=== PATIENT | female | born 1955 | race Caucasian/White ===

== ENCOUNTER 2022-10-03 12:02 | Outpatient (CLI) | payer MEDICARE, BC, SELFPAY | END 2022-10-03 12:03 | disposition home or self-care (01) | PROVIDERS: PCP Family Medicine; Visit Provider Family Medicine | DX: Z00.00 Encounter for general adult medical examination without abnormal findings (principal); E03.9 Hypothyroidism, unspecified; R53.83 Other fatigue; K50.90 Crohn's disease, unspecified, without complications; N28.89 Other specified disorders of kidney and ureter; M45.9 Ankylosing spondylitis of unspecified sites in spine | CPT/HCPCS: 80053; 80061; 84443 ==

== ENCOUNTER 2022-10-11 12:27 | Outpatient (CLI) | payer MEDICARE, BC, SELFPAY ==
--- NOTE | 2022-10-11 13:00 | CRLHL7_ITS ---
For Patients: As a result of the Century Cures Act, medical imaging exams and procedure reports are released immediately into your electronic medical record. You may view this report before your referring provider. If you have questions, please contact your health care provider. INDICATION: Renal mass, non cystic seen on MRI L-spine TECHNIQUE: CT abdomen and pelvis urogram without and with 84 cc Isovue 370 intravenous contrast. Contrast images were obtained in the nephrographic and delayed phases. COMPARISON: None available FINDINGS: KIDNEYS: The unenhanced images demonstrate oblong stone in the lower pole of the left kidney measuring 9.1 millimeters. No ureteral stones. No right renal stones. The kidneys are normal in caliber and demonstrate normal uptake and excretion of IV contrast. Nonenhancing hyperdense cyst anterior right kidney measuring 9.2 millimeters. 8.1 millimeters simple cyst left kidney posteriorly lower pole. The renal collecting systems and ureters are symmetrical, normal in caliber, and without evidence of mass or filling defect. URINARY BLADDER: The urinary bladder is normal in caliber and without evidence of mass, wall thickening, or inflammation. OTHER: 9.4 millimeter simple cyst within the left hepatic lobe. Spleen normal. Normal adrenal glands. Atherosclerotic changes. No aneurysm. Gallbladder normal. Normal pancreas. A small sliding hiatal hernia is present. No adenopathy. No pelvic mass. Postop changes of colectomy with right lower quadrant ileostomy. No abscess or free fluid. Degenerative facet arthropathy lower lumbar spine with slight anterolisthesis of L4 on L5. No vertebral body compression fracture. 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 IMPRESSION: 1. Benign proteinaceous or hemorrhagic cyst anterior aspect of the right kidney measuring 9.2 millimeters. 2. Simple nonenhancing cyst within the posterior aspect of the left kidney lower pole 8.1 millimeters. 3. No suspicious renal masses or hydronephrosis. There is an incidental nonobstructing stone within the lower pole of the left kidney measuring 9 millimeters. Please note that all CT scans at this facility use dose modulation, iterative reconstruction, and/or weight-based dosing when appropriate to reduce radiation dose to as low as reasonably achievable. Dictated by Nikhil Stapleton MD @ 10/12/2022 10:28:54 AM (Electronically Signed)
== END 2022-10-11 12:28 | disposition home or self-care (01) ==
PROVIDERS: PCP Family Medicine; Visit Provider Family Medicine
DX: N28.89 Other specified disorders of kidney and ureter (principal); N28.1 Cyst of kidney, acquired; N20.0 Calculus of kidney
CPT/HCPCS: 74178; Q9967

== ENCOUNTER 2022-10-28 23:58 | Emergency (ER) | payer MEDICARE, BC, SELFPAY ==
[2022-10-29 00:08] VITALS: BP 184/101; PULSE 70; RESP 16; TEMP 36.7; O2SAT 98; BMI 27.4
--- NOTE | 2022-10-29 00:41 | ED.GENADULT ---
HPI - General Adult General Chief complaint: Unspecified Complaint, Adult Stated complaint: Unspecific Complaint Time Seen by Provider: 10/29/22 00:01 Source: patient and family Mode of arrival: ambulatory Limitations: no limitations History of Present Illness HPI narrative: [age] year female presents the emergency department with nonspecific symptoms. She reports that she underwent a procedure to puncture a synovial cyst in her back this afternoon. She was NPO for 4 hours prior to that procedure. She says that after she got home she started feeling just generally unwell. She is uncertain if they injected a steroid or any other medication. This was done through [facility], therefore no records are available. She was given sedation though she does not recall what she was given and does not bring any discharge paperwork with her today. She drink after the procedure without any complication. She reports that after she got home she began to feel more nauseated. She vomited x1. There are no neurological changes, chest pain, no breathing difficulty, no fevers. She worries that she could be getting dehydrated though she is not having increased output from her ileostomy, she has been voiding without complication. There was no bloody stools, no bloody vomit. She has not tried any medications to help with her symptoms. She is most concerned that she could be dehydrated in is requesting IV fluids. She denies dysuria but is concerned she could possibly have a bladder infection. There is no hematuria or frequency either. Past medical history notable for Crohn's disease, ileostomy in place. She has a history of hypertension, hypothyroidism. Medications are reviewed, noted as accurate from her annual wellness visit. ROS is notable for the nonspecific symptoms as above, otherwise denies times 12 systems. Related Data Home Medications Medication Instructions Recorded Confirmed celecoxib 200 mg capsule 200 mg PO DAILY 10/03/22 10/12/22 chlorhexidine gluconate 0.12 % PO 10/03/22 10/12/22 mouthwash clindamycin phosphate 1 % topical topical 10/03/22 10/12/22 solution estradiol 10 mcg vaginal tablet mcg vaginal 10/03/22 10/12/22 (Vagifem) levothyroxine 75 mcg tablet 75 mcg PO .qod 10/03/22 10/12/22 (Synthroid) levothyroxine 88 mcg tablet 88 mcg PO .qod 10/03/22 10/12/22 (Synthroid) triamcinolone acetonide 0.1 % 1 applic topical BID-TID 10/03/22 10/12/22 topical cream valsartan 160 mg tablet 160 mg PO DAILY 10/03/22 10/12/22 Previous Rx's Medication Instructions Recorded fluconazole 150 mg tablet 150 mg PO Q3D 2 doses #2 tabs 10/14/22 (Diflucan) tizanidine 2 mg tablet 2 mg PO QPM #30 tabs 10/27/22 Allergies Allergy/AdvReac Type Severity Reaction Status Date / Time cortisone Allergy Mild Hypertensio Verified 10/11/22 13:51 n infliximab [From Remicade] Allergy Mild Rash Verified 10/11/22 13:51 Sulfa (Sulfonamide Allergy Mild Hives Verified 10/11/22 13:51 Antibiotics) acetaminophen [From Percocet] AdvReac Mild Vomiting Verified 10/11/22 13:51 bacitracin AdvReac Mild Rash Verified 10/11/22 13:51 [From Neosporin ([id number])] ciprofloxacin [From Cipro] AdvReac Mild Dry Eye Verified 10/11/22 13:51 neomycin AdvReac Mild Rash Verified 10/11/22 13:51 [From Neosporin ([id number])] oxycodone [From Percocet] AdvReac Mild Vomiting Verified 10/11/22 13:51 polymyxin B AdvReac Mild Rash Verified 10/11/22 13:51 [From Neosporin ([id number])] vitamin e Allergy Mild Rash Uncoded 10/11/22 13:51 adhesives AdvReac Mild Rash Uncoded 10/11/22 13:51 epinepherine AdvReac Mild heart Uncoded 10/11/22 13:51 racing shrimp AdvReac Mild Abdominal Uncoded 10/11/22 13:51 Pain PFSH PFSH Medical History Intramural leiomyoma of uterus ?D25.1 - Intramural leiomyoma of uterus (ICD-10) Depression ?F32.A - Depression, unspecified (ICD-10) Acute kidney injury ?N17.9 - Acute kidney failure, unspecified (ICD-10) Hx of basal cell carcinoma ?Z85.828 - Personal history of other malignant neoplasm of skin (ICD-10) Anemia ?D64.9 - Anemia, unspecified (ICD-10) Acute or subacute iridocyclitis ?H20.00 - Unspecified acute and subacute iridocyclitis (ICD-10) Surgical History Status post cervical spinal fusion ?Z98.1 - Arthrodesis status (ICD-10) Hx of tonsillectomy ?Z90.89 - Acquired absence of other organs (ICD-10) H/O sinus surgery ?Z98.890 - Other specified postprocedural states (ICD-10) S/P laparoscopic colectomy ?Z90.49 - Acquired absence of other specified parts of digestive tract (ICD-10) Family History Paternal Grandfather Neurologic disorder Colorectal cancer Pancreatic cancer Paternal Grandmother Genitourinary disorder Cancer Breast cancer Mother Cerebrovascular disease Osteoporosis Sister Gastrointestinal disease Uncle Coronary artery disease Prostate cancer Maternal Grandmother Cerebrovascular disease Stroke Aunt Pancreatic cancer Hodgkins disease Social History Smoking Status: Never smoker Do you use any of these nicotine containing products: None How often do you have a drink containing alcohol: never AUDIT-C Alcohol total score: 0 Non-prescribed substance use: denies use Little interest or pleasure in doing things: not at all Feeling down, depressed, or hopeless: not at all Exam Const: Vital Signs, click to edit/add: Vital Signs - 24 hr 10/29/22 00:08 10/29/22 01:22 Temperature 98.1 F 98.1 F Pulse Rate [Left P ulse Oximeter] 70 72 Respiratory Rate 16 16 Blood Pressure [Ri ght Upper Arm] 184/101 H 155/89 H Pulse Oximetry 98 98 Oxygen Delivery Me thod Room Air Room Air Documenting provider has reviewed patient's vital signs: yes Common normals: no apparent distress Other: Good historian. Appears well nourished and well hydrated. HENMT: Common normals: normocephalic and head/scalp atraumatic Head and scalp: normocephalic and atraumatic Mouth: oral and palatal mucosa normal Throat: posterior oropharynx normal Eye: Common normals: conjunctivae normal General eye: normal appearance of both eyes Conjunctiva: conjunctiva(e) normal Neck & C-Spine: Common normals: no lymphadenopathy Resp: Common normals: normal respiratory effort, no use of accessory muscles and clear to auscultation bilaterally Effort & inspection: able to speak in complete sentences Auscultation: clear to auscultation bilaterally Cardio: Common normals: regular rate, regular rhythm, S1 normal heart sound, S2 normal heart sound and no murmurs Rate: regular rate Rhythm: regular rhythm Heart sounds: S1 normal and S2 normal GI: Common normals: Normal to inspection, nondistended, normoactive bowel sounds present Other: Ileostomy in place. No obvious tenderness or mass. : Common normals: no CVA tenderness Bladder/kidney exam: no CVA tenderness Back & Pelvis: Common normals: no CVA tenderness Extremity: Common normals: normal to inspection, normal capillary refill and no pedal edema Neuro: Speech: speech normal Gait (neuro): normal gait Motor exam: strength 5/5 throughout and no movement abnormalities noted Psych: Attitude: engaged Thought content: normal thought content Insight: insight good Judgement: judgment good Skin: Common normals: no rashes or lesions noted General skin exam: no rashes or lesions noted Course Course Hospital Course: Nonspecific symptoms, suspect side effects from medications, dental anesthesia or potentially steroids given with injection. As stated records are not available. I recommended some basic labs, simple cardiac workup in urinalysis. She will receive Zofran and IV fluids while we await the results. Low suspicion for significant pathology. Reevaluation(s) Time of Reevaluation #1: 01:24 Reevaluation #1: Patient reports that she is feeling better after fluids. Perfectly normal labs reviewed with her. I suspect that she was having some mild side effects from the medications given with the procedure today and or an early gastroenteritis. Findings and plan of care discussed alarm symptoms reviewed. Patient will be discharged home with [facility] meds prescription for Zofran Vital Signs Vital signs: Initial Vital Signs Temperature 98.1 F 10/29/22 00:08 Temperature Source Temporal Artery Scan 10/29/22 00:08 Pulse Rate 70 10/29/22 00:08 Respiratory Rate 16 10/29/22 00:08 Blood Pressure 184/101 H 10/29/22 00:08 Blood Pressure Mean 128 H 10/29/22 00:08 Blood Pressure Position Sitting 10/29/22 00:08 Pulse Oximetry 98 10/29/22 00:08 Oxygen Delivery Method Room Air 10/29/22 00:08 Vital Signs Temperature 98.1 F 10/29/22 00:08 Pulse Rate 70 10/29/22 00:08 Respiratory Rate 16 10/29/22 00:08 Blood Pressure 184/101 H 10/29/22 00:08 Pulse Oximetry 98 10/29/22 00:08 Oxygen Delivery Method Room Air 10/29/22 00:08 Temperature 98.1 F 10/29/22 01:22 Pulse Rate 72 10/29/22 01:22 Respiratory Rate 16 10/29/22 01:22 Blood Pressure 155/89 H 10/29/22 01:22 Pulse Oximetry 98 10/29/22 01:22 Oxygen Delivery Method Room Air 10/29/22 01:22 Medical Decision Making Lab Data Lab results reviewed: Yes I reviewed the patient's lab results Lab results narrative: All normal Labs: Lab Results 10/29/22 10/29/22 10/29/22 Range/Units 00:07 00:38 00:45 WBC 6.41 (4.50-11.00) K/uL RBC 3.99 L (4.00-5.20) m/uL Hgb 11.7 L (12.0-16.0) gm/dL Hct 35.4 (33.0-51.0) % MCV 89 (80-100) fL MCH 29 (26-34) pg MCHC 33 (32-36) gm/dL RDW Coeff of Pierre 12.4 (11.5-15.5) % Plt Count 202 (140-440) K/uL Neut % (Auto) 77.2 H (42.0-72.0) % Lymph % (Auto) 14.5 L (20-44) % [place] % (Auto) 4.7 (0.0-11.0) % Eos % (Auto) 2.2 (0.0-7.0) % Baso % (Auto) 0.5 (0.0-3.0) % Neut # (Auto) 4.90 (1.7-7.0) K/uL Lymph # (Auto) 0.90 (0.90-2.90) K/uL [place] # (Auto) 0.30 (0.00-0.90) K/UL Eos # (Auto) 0.14 (0.00-0.50) K/uL Baso # (Auto) 0.03 (0.00-0.30) K/uL Abs Immat Gran (auto) 0.06 (0.00-0.30) K/uL Imm/Tot Granulo (auto) 0.9 % Sodium 135 (135-149) mmol/L Potassium 3.9 (3.6-5.1) mmol/L Chloride 105 (96-114) mmol/L Carbon Dioxide 23 (20-32) mmol/L BUN 23 (7-30) mg/dL Creatinine 1.3 (0.5-1.5) mg/dL Estimated Creat Clear 38.77 Estimated GFR 45 ml/min Glucose 131 H (60-115) mg/dL Total Bilirubin 0.4 (0.1-1.5) mg/dL AST 26 (12-35) U/L ALT 23 (4-35) U/L Alkaline Phosphatase 74 (40-150) U/L C-Reactive Protein < 0.5 L (0.5-1.0) mg/dL Total Protein 7.5 (6.0-8.3) g/dL Albumin 4.1 (3.3-5.0) g/dL Lipase 218 (23-300) U/L Urine Color Yellow (Yellow) Urine Appearance Clear (Clear) Urine pH 5.5 (5.0-8.5) Ur Specific [place] 1.010 (1.000-1.030) Urine Protein Negative (Negative) Urine Glucose (UA) Negative (Negative) Urine Ketones Negative (Negative) Urine Blood Trace-intact A (Negative) Urine Nitrite Negative (Negative) Urine Bilirubin Negative (Negative) Urine Urobilinogen 0.2 (0.2-1.0) Ur Leukocyte Esterase Negative (Negative) POC Troponin I 0.00 L (0.01-0.04) ng/ml ECG Data Attestation: I personally reviewed and interpreted this ECG as follows: Prior ECG tracings: not available for review Interpretation: Unfortunately, the EKG is poor quality. The v4 lead is not placed. Overall sinus rhythm with PVCs present. No significant ST abnormalities. Some inverted T-waves after the PVCs but no ischemic changes. Normal axis. Discharge Plan Discharge Clinical Impression: Nausea Patient Disposition: Home w/ Parent or Adult Condition: Improved Instructions: Acute Nausea and Vomiting (DC) Additional Instructions: As we discussed, all blood work looks great. No signs of inflammation, infection, dehydration, electrolyte abnormality or heart problems. I suspect that your nausea and vomiting were from some mild side effects from the medications given during the procedure. He should improve within about 24 hours. Continue to push fluids. I have given you a small supply of anti nausea medicine, Zofran to have on hand in case the nausea and vomiting return. Come to the emergency department if you are unable to hold down any fluids for over 24 hours, have a high fever over 100.4 and or have severe weakness to the point where your unable to ambulate. You may resume all typical activities. Activity Level: No Restrictions Discharge Diet: Regular Prescriptions: No Action valsartan 160 mg tablet 160 mg PO DAILY clindamycin phosphate 1 % solution topical estradiol [Vagifem] 10 mcg tablet vaginal celecoxib 200 mg capsule 200 mg PO DAILY triamcinolone acetonide 0.1 % cream 1 applic topical BID-TID chlorhexidine gluconate 0.12 % mouthwash PO levothyroxine [Synthroid] 75 mcg tablet 75 mcg PO .qod levothyroxine [Synthroid] 88 mcg tablet 88 mcg PO .qod fluconazole [Diflucan] 150 mg tablet 150 mg PO Q3D Qty: 2 0RF tizanidine 2 mg tablet 2 mg PO QPM Qty: 30 6RF Follow Up/Referrals: Kaitlyn Miranda DO [Primary Care Provider] - Stand Alone Forms: [facility] Info Instructions
[2022-10-29 00:44] LABS: Basophils Absolute Auto 0.03 K/uL (0.00-0.30); Basophils Percent Auto 0.5 % (0.0-3.0); Eosinophils Absolute Auto 0.14 K/uL (0.00-0.50); Eosinophils Percent Auto 2.2 % (0.0-7.0); Hematocrit 35.4 % (33.0-51.0); Hemoglobin* 11.7 gm/dL (12.0-16.0); Immature Granulocytes Abs Auto 0.06 K/uL (0.00-0.30); Immature Granulocytes Pct Auto 0.9 %; Lymphocytes Percent Auto 14.5 % (20-44); Mean Corpuscular HGB Conc 33 gm/dL (32-36); Mean Corpuscular Hemoglobin 29 pg (26-34); Mean Corpuscular Volume 89 fL (80-100); Monocytes Percent Auto 4.7 % (0.0-11.0); Neutrophils Percent Auto 77.2 % (42.0-72.0); Platelet Count* 202 K/uL (140-440); RDW Coefficient of Variation % 12.4 % (11.5-15.5); Red Blood Count 3.99 m/uL (4.00-5.20); White Blood Count* 6.41 K/uL (4.50-11.00)
[2022-10-29] MEDS: LACTATED RINGERS 1000 ML 1,000 ML IV (00:45)
[2022-10-29 00:46] LABS: Slide Review Reflex No
[2022-10-29 00:58] LABS: Albumin* 4.1 g/dL (3.3-5.0); Chloride* 105 mmol/L (96-114); Sodium* 135 mmol/L (135-149)
[2022-10-29 00:59] LABS: Potassium* 3.9 mmol/L (3.6-5.1)
[2022-10-29] MEDS: ONDANSETRON 2 MG/ML inj 4 MG IVP (01:00)
[2022-10-29 01:01] LABS: Carbon Dioxide* 23 mmol/L (20-32); Creatinine* 1.3 mg/dL (0.5-1.5); Est. Creatinine Clearance* 38.77; Estimated Glomerular Filt Rate 45 ml/min
[2022-10-29 01:02] LABS: Alanine Aminotransferase* 23 U/L (4-35); Alkaline Phosphatase* 74 U/L (40-150); Aspartate Amino Transferase* 26 U/L (12-35); Bilirubin Total* 0.4 mg/dL (0.1-1.5); Blood Urea Nitrogen* 23 mg/dL (7-30); Glucose* 131 mg/dL (60-115); Lipase* 218 U/L (23-300); Total Protein* 7.5 g/dL (6.0-8.3)
[2022-10-29 01:05] LABS: C Reactive Protein* < 0.5 mg/dL (0.5-1.0)
[2022-10-29 01:18] LABS: Appearance Urine Clear (Clear); Bilirubin Urine Negative (Negative); Blood Urine Trace-intact (Negative); Color Urine Yellow (Yellow); Glucose Urine Negative (Negative); Ketones Urine Negative (Negative); Leukocyte Esterase Urine Negative (Negative); Nitrite Urine Negative (Negative); Protein Urine Negative (Negative); Urobilinogen Urine 0.2 (0.2-1.0); pH Urine 5.5 (5.0-8.5)
[2022-10-29 01:22] VITALS: BP 155/89; PULSE 72; RESP 16; TEMP 36.7; O2SAT 98
[2022-10-29 01:28] LABS: Hyaline Casts Urine Few (None-Few); Mucus Urine Few; Squamous Epithelial Cell Urine Few (None-Few); WBC Urine 0-2 (0-5)
== END 2022-10-29 01:33 | disposition home or self-care (01) ==
PROVIDERS: Emergency Provider Family Medicine; PCP Family Medicine
DX: R11.0 Nausea (principal)
CPT/HCPCS: 36415; 80053; 81003; 81015; 83690; 84484; 85025; 86140; 93005; 96374; 99283; 99284; J2405; J7120

== ENCOUNTER 2022-11-15 08:36 | Outpatient (CLI) | payer MEDICARE, BC, SELFPAY ==
--- NOTE | 2022-11-15 09:00 | CRLHL7_ITS ---
For Patients: As a result of the Century Cures Act, medical imaging exams and procedure reports are released immediately into your electronic medical record. You may view this report before your referring provider. If you have questions, please contact your health care provider. INDICATION: Kidney stone. Kidney cysts.. TECHNIQUE: CT abdomen and pelvis acquired with 83 cc Omnipaque 350 IV contrast. COMPARISON: Previous exam from 10/11/2022.. FINDINGS: Heart is normal in size. No pericardial or pleural effusion. Clear lung bases. Stable 7 millimeter low-density lesion in the liver most likely a cyst. Otherwise, liver, spleen, gallbladder, pancreas, adrenals within normal limits. There are is a nonobstructing calcified 9 millimeters stone in the inferior pole of the left kidney. 1.2 centimeter hyperdense lesion in the anterior right kidney most likely a minimally complicated cysts containing proteinaceous debris or hemorrhagic products. Couple of simple cysts in the left kidney, largest measuring 1 centimeter. Main portal vein is patent. No enlarged retroperitoneal or pelvic adenopathy. No free pelvic fluid or ascites. Urinary bladder is within normal limits. Uterus is present. No abnormally dilated bowel loops to suggest bowel obstruction. Evidence of total colectomy with right lower quadrant ostomy. No suspicious bony lesion. IMPRESSION: Stable nonobstructing left renal stone. Stable hyperdense lesion in the right kidney most likely a minimally complicated cysts containing proteinaceous debris or blood products. This is considered benign. Stable couple of simple cysts in the left kidney. Other findings as discussed above. Please note that all CT scans at this facility use dose modulation, iterative reconstruction, and/or weight-based dosing when appropriate to reduce radiation dose to as low as reasonably achievable. Dictated by Everardo Gill MD @ 11/15/2022 10:13:49 AM (Electronically Signed)
== END 2022-11-15 08:37 | disposition home or self-care (01) ==
PROVIDERS: PCP Family Medicine; Visit Provider Family Medicine
DX: N28.89 Other specified disorders of kidney and ureter (principal); N20.0 Calculus of kidney; N28.1 Cyst of kidney, acquired
CPT/HCPCS: 74177; Q9967

== ENCOUNTER 2022-12-01 09:59 | Outpatient (CLI) | payer MEDICARE, BC, SELFPAY ==
--- OUTSIDE RECORDS SUMMARY | 2022-12-01 10:02 | XMS_ITS | Continuity of Care Document ---
Author Name Unknown Organization [facility] Address [address] [place] [address] Phone Care Team Providers Care Home Supervisor Name Role Phone Ankit Aragon MD Unavailable Unavailabl e Allergies, Adverse Reactions, Alerts Substance Reaction Status Criticality PROCAINE HCL Active No Information neomycin Active No Information vitamin E (d-alpha tocopherol) Active No Information infliximab Active No Information codeine Active No Information CIPROFLOXACIN HCL Active No Informa tion ciprofloxacin Active No Information levofloxacin Active No Information amoxicillin Active No Information erythromycin base Active No Informa tion sulfamethoxazole Active No Informat ion Medications Medication Instructions Dosage Effective Dates (start - stop) Status Comments Celebrex 200 mg capsule take 1 capsule by oral route every day 200 MG - Active atorvastatin 10 mg tablet take 1 tablet by oral route every day 10 MG - Active tizanidine 2 mg capsule take 1 capsule by oral route every 6 - 8 hours as needed not to exceed 3 doses in 24 hours as needed 2 MG - Active TURMERIC (unknown strength) take one daily Not Available - Active valsartan 160 mg tablet take 1 tablet by oral route every day 160 MG - Active Synthroid 75 mcg tablet qod - Active Synthroid 88 mcg tablet qod - Active Vagifem 10 mcg vaginal tablet take one daily - Active Citracal + D 315 mg-200 unit Tab take 3 tablets twice per day - Active multivitamin Tab take 1 tablet by oral route every day with food - Active FISH OIL (unknown strength) take daily Not Available - Active PROBIOTIC (unknown strength) take 1 Capsule by Oral route every day Not Available - Active garlic Cap take daily - Active CRANBERRY (unknown strength) take daily Not Available - Active Celebrex 200 mg capsule take 1 capsule by oral route every day 200 MG - No Longer Active Celecoxib 200 Mg Cap Gree TAKE ONE CAPSULE BY MOUTH ONE TIME DAILY 200 MG - No Longer Active Procedures Procedure Date Office/Outpatient Visit, Est Office/Outpatient Visit, Est Routine Venipuncture Specimen Handling Hemoglobin Assay Of Serum Albumin Assay Of Creatinine Transferase (Ast) (Sgot) Alanine Amino (Alt) (Sgpt) Office/Outpatient Visit, Est Routine Venipuncture Assay Of Creatinine CReactive Protein Office/Outpatient Visit, Est Routine Venipuncture Specimen Handling Assay Of Serum Albumin Assay Of Creatinine Transferase (Ast) (Sgot) Alanine Amino (Alt) (Sgpt) Complete Cbc WAuto Diff Wbc Office/Outpatient Visit, Est Routine Venipuncture Assay Of Creatinine Assay Alkaline Phosphatase Transferase (Ast) (Sgot) Alanine Amino (Alt) (Sgpt) Assay Of Urea Nitrogen Assay Of Blood/Uric Acid Complete Cbc WAuto Diff Wbc Office/Outpatient Visit, Est Routine Venipuncture Assay Of Creatinine Assay Alkaline Phosphatase Transferase (Ast) (Sgot) Alanine Amino (Alt) (Sgpt) Assay Of Urea Nitrogen Assay Of Blood/Uric Acid Complete Cbc WAuto Diff Wbc Office/Outpatient Visit, Est Office/Outpatient Visit, Est Office/Outpatient Visit, Est Office/Outpatient Visit, Est Routine Venipuncture Complete Cbc WAuto Diff Wbc Assay Of Creatinine Assay Alkaline Phosphatase Transferase (Ast) (Sgot) Alanine Amino (Alt) (Sgpt) Assay Of Urea Nitrogen Assay Of Blood/Uric Acid Office/Outpatient Visit, Est Office/Outpatient Visit, Est Office/Outpatient Visit, Est Office/Outpatient Visit, Est Routine Venipuncture Assay Of Creatinine Assay Alkaline Phosphatase Transferase (Ast) (Sgot) Alanine Amino (Alt) (Sgpt) Assay Of Urea Nitrogen Assay Of Blood/Uric Acid Assay Of Magnesium Vitamin D 25 Hydroxy Office/Outpatient Visit, Est Office/Outpatient Visit, Est Office/Outpatient Visit, Est Office/Outpatient Visit, Est Office/Outpatient Visit, Est Advance Directives Directive Yes / No Effective Date File Name No Information Encounters Encounter Description Practice Location Reason(s) For Visit Diagnoses Date Provider Providers Copied on Encounter [facility] , [address], [place], [address], [place] tel:[phone] [facility] No Information 3 Margo Pham. [address], [place], [address], [place]. tel:[phone] Office/Outpa tient Visit, Est [facility] , [address], [place], [address], [place] tel:[phone] [facility] , Primary osteoarthrit is, unspecified ankle and footOther custodial (current) drug therapyAnemi aEnteropathi c arthropathie s, multiple sitesOther intervertebr al disc degeneration , lumbosacral regionDisord er of bone, unspecified 3 Hector Ragland. [address], [place], [address], [place]. tel:[phone] Referring Provider: Ellyn Botello, [address], [place], [address]. tel:[phone] Office/Outpa tient Visit, Est [facility] , [address], [place], [address], [place] tel:[phone] [facility] , Primary osteoarthrit is, unspecified ankle and footOther technician terminal and repeater (current) drug therapyAnemi aEnteropathi c arthropathie s, multiple sitesOther intervertebr al disc degeneration , lumbosacral regionDisord er of bone, unspecified 3 Hector Ragland. [address], [address], [place], [address], [place]. tel:[phone] Referring Provider: Ellyn Botello, [address], [place], [address]. tel:[phone] [facility] , [address], [place], [address], [place] tel:[phone] [facility] , No Information 2 Hector Ragland. [address], [address], [place], [address], [place]. tel:[phone] Office/Outpa tient Visit, Est [facility] , [address], [place], [address], [place] tel:[phone] [facility] , Enteropathic arthropathie s, multiple sitesOther intervertebr al disc degeneration , lumbosacral regionDisord er of bone, unspecified 2 Muraliсергей Xiomaraevangelina Ragland. [address], [address], [place], [address], [place]. tel:[phone] Referring Provider: Ellyn Hector Solano Ayan, [address], [place], [address]. tel:[phone] Office/Outpa tient Visit, Est [facility] , [address], [place], [address], [place] tel:[phone] [facility] , Enteropathic arthropathie s, multiple sitesOther intervertebr al disc degeneration , lumbosacral regionEncoun ter for immunity status testing 2 Muraliсергей Xiomaraevangelina Ragland. [address], [address], [place], [address], [place]. tel:[phone] Referring Provider: Ellyn Hector Botello, [address], [place], [address]. tel:[phone] Office/Outpa tient Visit, Est [facility] , [address], [place], [address], [place] tel:[phone] [facility] , Enteropathic arthropathie s of multiple sitesTherape [facility] drug monitoringTr ochanteric bursitis of right hipSacroilii tis 1 Annie Art. [facility] [address], [place], [address], [place]. tel:[phone] Referring Provider: Rubens Zee, [facility] [address], [place], [address]. tel:[phone] Office/Outpa tient Visit, Est [facility] , [address], [place], [address], [place] tel:[phone] [facility] , Enteropathic arthropathie s of multiple sitesOA of the footTherapeu tic drug monitoring 0 Annie Art. [facility] [address], [place], [address], [place]. tel:[phone] Referring Provider: Rubens Zee, [facility] [address], [place], [address]. tel:[phone] Office/Outpa tient Visit, Est [facility] , [address], [place], [address], [place] tel:[phone] [facility] , Enteropathic arthropathie s of multiple sitesOA of the footTherapeselect medical [facility] drug monitoring 9 Annie Art. [facility] [address], [place], [address], [place]. tel:[phone] Referring Provider: Rubens Zee, [facility] [address], [place], [address]. tel:[phone] Office/Outpa tient Visit, Est [facility] , [address], [place], [address], [place] tel:[phone] [facility] , Enteropathic arthropathie s of multiple sitesOA Primary osteoarthrit is of knee, bilateralDeg enerative disc disease, lumbosacralT herapeutic drug monitoringOA of the foot 9 Annie Art. [facility] [address], [place], [address], [place]. tel:[phone] Referring Provider: Rubens Zee, [facility] [address], [place], [address]. tel:[phone] Office/Outpa tient Visit, Est [facility] , [address], [place], [address], [place] tel:[phone] [facility] , Enteropathic arthropathie s of multiple sitesDegener ative disc disease, lumbosacralT herapeutic drug monitoringOA Primary osteoarthrit is of knee, bilateral Feb- 8 Annie Art. [facility] [address], [place], [address], [place]. tel:[phone] Referring Provider: Rubens Zee, [facility] [address], [place], [address]. tel:[phone] Office/Outpa tient Visit, Est [facility] , [address], [place], [address], [place] tel:[phone] [facility] , Enteropathic arthropathie s of multiple sitesDegener ative disc disease, lumbosacralT herapeutic drug monitoring 8 Annie Art. [facility] [address], [place], [address], [place]. tel:[phone] Referring Provider: Rubens Zee, [facility] [address], [place], [address]. tel:[phone] Office/Outpa tient Visit, Est [facility] , [address], [place], [address], [place] tel:[phone] [facility] , Enteropathic arthropathie s of multiple sitesOA Primary osteoarthrit is of knee, bilateralThe rapeutic drug monitoringDe generative disc disease, lumbosacral Sep-2 7 Annie Art. [facility] [address], [place], [address], [place]. tel:[phone] Referring Provider: Rubens Zee, [facility] [address], [place], [address]. tel:[phone] Office/Outpa tient Visit, Est [facility] , [address], [place], [address], [place] tel:[phone] [facility] , Enteropathic arthropathie s of multiple sitesOA Primary osteoarthrit is of knee, bilateralThe rapeutic drug monitoring 6 Annie Art. [facility] [address], [place], [address], [place]. tel:[phone] Referring Provider: Rubens Zee, [facility] [address], [place], [address]. tel:[phone] Office/Outpa tient Visit, Est [facility] , [address], [place], [address], [place] tel:[phone] [facility] , enteropathic arthritis (chief complaint) Enteropathic arthropathie s of multiple sitesTherape utic drug monitoringOA Primary osteoarthrit is of knee, bilateral Bogdan- 6 Annie Art. [facility] [address], [place], [address], [place]. tel:[phone] Referring Provider: Rubens Zee, [facility] [address], [place], [address]. tel:[phone] Office/Outpa tient Visit, Est [facility] , [address], [place], [address], [place] tel:[phone] [facility] , enteropathic arthritis (chief complaint) Enteropathic arthropathie s of multiple sitesTherape utic drug monitoringOA Primary osteoarthrit is of knee, bilateralVit mir D deficiency 5 Annie Art. [facility] [address], [place], [address], [place]. tel:[phone] Referring Provider: Rubens Zee, [facility] [address], [place], [address]. tel:[phone] Office/Outpa tient Visit, Est [facility] , [address], [place], [address], [place] tel:[phone] [facility] , Enteropathic arthritis (chief complaint)Os teoarthritis (chief complaint)Cr ohn's disease (chief complaint) Enteropathic ArthritisThe rapeutic Drug MonitoringOs teoarthrosis , generalized, involving unspecified siteCrohn's disease 5 Annie Art. [facility] [address], [place], [address], [place]. tel:[phone] Referring Provider: Rubens Zee, [facility] [address], [place], [address]. tel:[phone] Office/Outpa tient Visit, Est [facility] , [address], [place], [address], [place] tel:[phone] [facility] , Enteropathic arthritis (chief complaint)Os teoarthritis (chief complaint)Cr ohn's disease (chief complaint) Arthropathy associated with gastrointest inal conditions other than infectionsTh erapeutic Drug MonitoringOs teoarthrosis , localized, primary, involving ankle and foot 4 Annie Art. [facility] [address], [place], [address], [place]. tel:[phone] Referring Provider: Rubens Zee, [facility] [address], [place], [address]. tel:[phone] Office/Outpa tient Visit, Est [facility] , [address], [place], [address], [place] tel:[phone] [facility] Enteropathic arthritis (chief complaint)Cr ohn's disease (chief complaint)Os teoarthritis (chief complaint)Hy pertension (chief complaint) Arthropathy associated with gastrointest inal conditions other than infectionsTh erapeutic Drug MonitoringRe gional enteritis of unspecified siteOsteoart hrosis, localized, primary, involving ankle and footHyperten carin, Unspecified 4 Annie Art. [facility] [address], [place], [address], [place]. tel:[phone] Referring Provider: Rubens Zee, [facility] [address], [place], [address]. tel:[phone] Office/Outpa tient Visit, Est [facility] , [address], [place], [address], [place] tel:[phone] [facility] , Enteropathic arthritis (chief complaint)Cr ohn's disease (chief complaint)Os teoarthritis (chief complaint) Arthropathy associated with gastrointest inal conditions other than infectionsRe gional enteritis of unspecified siteOsteoart hrosis, localized, primary, involving ankle and foot 3 Annie Rubens. [facility] [address], [place], [address], [place]. tel:[phone] Referring Provider: Rubens Zee, [facility] [address], [place], [address]. tel:[phone] Office/Outpa tient Visit, Est [facility] , [address], [place], [address], [place] tel:[phone] [facility] , Enteropathic arthritis (chief complaint)Ba ck Pain (chief complaint) Arthropathy associated with gastrointest inal conditions other than infectionsLu [facility]hon[facility] 2 Annie Art. [facility] [address], [place], [address], [place]. tel:[phone] Referring Provider: Zeeshan Bernstein, NULL [address], [place], [address]. tel:[phone] Family History Family Member Type Diagnosis Age At Onset No Information Payers Payer name Insurance type Covered constitution party ID Authoriza tion(s) Medicare MB [id number] [facility] [id number] Social History Type Description Quantity Date Captured Comments Alcohol Use Details Unknown Caffeine Use Details Unknown Tobacco Use Status No Information Smoking Status No Information Sex Female Chief Complaint And Reason For Visit No Information Reason For Referral Reason For Referral No Information Plan Of Treatment Date Type Action Status Appointment Jocelyn Stauffer BOOKED Appointment Jocelyn Stauffer BOOKED History Of Present Illness Encounter Date Complaint History Of Prese nt Illness 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
== END 2022-12-01 10:00 | disposition home or self-care (01) ==
PROVIDERS: PCP Family Medicine; Visit Provider Family Medicine
DX: Z00.00 Encounter for general adult medical examination without abnormal findings (principal); R73.03 Prediabetes; E78.5 Hyperlipidemia, unspecified; E03.9 Hypothyroidism, unspecified; I10 Essential (primary) hypertension; R53.83 Other fatigue; N18.31 Chronic kidney disease, stage 3a; E66.01 Morbid (severe) obesity due to excess calories; M85.80 Other specified disorders of bone density and structure, unspecified site
CPT/HCPCS: 80053; 82043; 82306; 82570; 84439; 84443

== ENCOUNTER 2022-12-25 20:40 | Outpatient (CLI) | payer MEDICARE, BC, SELFPAY ==
--- OUTSIDE RECORDS SUMMARY | 2022-12-25 20:44 | XMS_ITS | Continuity of Care Document ---
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 Name Role Phone Scott SORIANO, Levy Unavailable Unavailable Allergies, Adverse Reactions, Alerts Substance Reaction Status Criticality adhesive tape rashes and has led t o impetigo Active No Information sulfamethoxazole hives&sores-mouth&th roat fever Active No Information trimethoprim hives&sores-mouth&th roat fever Active No Information sulfamethizole eyes felt odd- possi ble rash Active No Information CIPROFLOXACIN HCL eyes felt odd- possi ble rash Active No Information erythromycin base stomach felt badly punched Active No Information OXYCODONE HCL Nausea/Vomiting Active No Informat ion acetaminophen Nausea/Vomiting Active No Informat ion azithromycin diarrhea Active No Information polymyxin B Rash Active No Information BACITRACIN ZINC Rash Active No Informati on bacitracin Rash Active No Information CIPROFLOXACIN HCL Malaise Active No Informa tion OXYCODONE HCL Vomiting Active No Information acetaminophen Vomiting Active No Information PROCAINE HCL heart racing Active No Information epinephrine face flushed, heart racing. Active No Information PROCAINE HCL heart races Active No Information NEOMYCIN SULFATE Rash Active No Informat ion VITAMIN E ACETATE (DL-ALPHA TOCOPHERYL) Rash-itching Active No Information VITAMIN E (DL-ALPHA TOCOPHEROL) Rash-itching Active No Information soap Rash-itching Active No Information aloe vera Rash-itching Active No Information VITAMIN E MIXED Rash-itching Active No Informati on WHEAT GERM OIL Rash-itching Active No Informatio n VITAMIN E ACETATE (D-ALPHA TOCOPHERYL ACETATE) Rash-itching Active No Information vitamin E (d-alpha tocopherol) Rash-itching Active No Information levofloxacin eyes bulging Active No Information DEXTROSE 5 % IN WATER eyes bulging Active No Inf ormation ciprofloxacin eyes bulging Active No Information erythromycin base stomach problems Active No Inf ormation ethyl alcohol stomach problems Active No Informa tion amoxicillin stomach problems Active No Informat ion codeine feel spacy and funny Active No Info rmation infliximab rapid heart beat, sweating Active N o Information Sulfa (Sulfonamide Antibiotics) sores in mouth and thr oat Active No Information WARNIN allergy(ies) could not be collected because the type is not supported. Please contact the source practice for further details. Medications Medication Instructions Dosage Effective Dates (start - stop) Status Comments THERACRAN (unknown strength) 500 mg Not Available - Active VALSARTAN (unknown strength) 100 mg Not Available - Active Vagifem 10 mcg vaginal tablet insert 1 tablet by vaginal route 2 times every week 10 MCG - Active tizanidine 2 mg capsule take 2 Capsule by oral route every day 4 MG - Active turmeric 400 mg capsule 320 mg - Active K2-45 (unknown strength) 120 mcg Not Available - Active Herbal Medications/Supplem ents unknown oil of oregano 150 mg - Active TIROSINT (unknown strength) ( 75 mcg and 88 mcg) take 1 capsule by oral route every other day Not Available - Active cholestyramine (with sugar) 4 gram oral powder take 1 scoop by oral route 2 times every day dissolved in 2 to 6 ounces of water or noncarbonated beverage 4 G - Active Take mid morning and mid afternoon XANAX (unknown strength) take 1 25mg tablet by oral route every day as needed Not Available - Active CO Q-10 (unknown strength) Not Available - Active Calcium 500 500 mg calcium (1,250 mg) Tab take 3 Tablet by Oral route 2 times every day 3 Tablet - Active garlic Cap take 1 by Oral route every day - Active CENTRUM (unknown strength) Take one tablet by mouth daily Not Available - Active Celebrex 200 mg Cap take 1 Tablet by Oral route every day 1 Tablet - Active Procedures Procedure Date Offic/outpt E&m Estab Mod-hi 2 23 Offic/outpt E&m New Mod-ca Stool Kits Given Offic/outpt E&m New Mod-hi Routine Serum Collection Gg; Iga, Igd, Igg, Igm, Ea Hepatic Function Panel Ileoscpy-stoma; Dx W/wo Specmn 13 Offic/outpt E&m Estab Mod-hi 2 13 Offic/outpt E&m Estab Mod-hi 2 13 Routine Serum Collection Hepatic Function Panel Ugi Endo; Dx W/wo Collec Specm 12 Offic/outpt E&m Estab Mod-hi 2 12 G8447 Offic/outpt E&m Estab Mod-hi 2 10 Routine Serum Collection G8447 Colonoscopy Flex; W/bx 1/mx Level Iv-surg Path Gross/micro 09 Offic/outpt E&m Estab Mod-hi 4 09 G8447 Offic/outpt E&m Estab Mod-hi 2 09 Routine Serum Collection G8447 Offic/outpt E&m Estab Mod-hi 2 08 Routine Serum Collection G8447 Offic/outpt E&m Estab Mod-hi 2 08 G8447 Offic/outpt E&m Estab Mod-hi 2 08 Routine Serum Collection G8447 Sigmoidoscopy Flex; Dx (sep Pr 08 Offic/outpt E&m Estab Mod-hi 2 08 G8447 Colonoscopy Flex; W/bx 1/mx Offic/outpt E&m Estab Mod-hi 4 08 Routine Serum Collection G8447 Offic/outpt E&m Estab Low-mod 8 Methotrexate Sodium 5 Mg Therap/dx Inj; Subq/im G8447 Offic/outpt E&m Estab Mod-hi 2 08 G8447 Offic/outpt E&m Estab Mod-hi 2 08 Ugi Endo; W/bx 1/mx Level Iv-surg Path Gross/micro 08 Offic/outpt E&m Estab Mod-hi 2 08 Routine Serum Collection Offic/outpt E&m Estab Mod-hi 2 07 Routine Serum Collection Offic/outpt E&m Estab Mod-hi 2 07 Routine Serum Collection Offic/outpt E&m Estab Mod-hi 2 07 Offic/outpt E&m Estab Mod-hi 2 07 Offic/outpt E&m Estab Mod-hi 2 07 Sigmoidoscopy Flex; W/bx 1/mx 7 Level Iv-surg Path Gross/micro 07 Offic/outpt E&m Estab Mod-hi 2 07 Offic/outpt E&m Estab Mod-hi 2 07 Routine Serum Collection Sigmoidoscopy Flex; W/bx Offic/outpt E m Estab Low Offic/outpt E m Estab Mod Advance Directives Directive Yes / No Effective Date File Name No Information Encounters Encounter Description Practice Location Reason(s) For Visit Diagnoses Date Provider Providers Copied on Encounter [facility] BRANDON THR[address] [address], [place], [id number], [place] tel:[phone] [facility] No Information 3 Scott Lockett. [address] [facility], [address], [id number], [place]. tel:[phone] Nikhil Sprague MD. tel:[phone] Offic/outpt E&m Estab Mod-hi 2 [facility], [address] [address], [place], [address], [place] tel:[phone] [facility] GI Symptoms or Concerns (chief complaint) LUQ pain 3 Scott Lockett. [address] [facility], [facility] [address], [place], [id number], [place]. tel:[phone] Nikhil Sprague MD. tel:[phone] erring Provider: Referral Self. [facility], [address] [address], [facility] [place], [address], [place] tel:[phone] [facility] No Information 2 Maged Marquez. [address] [facility], [facility] [address], [place], [address], [place]. tel:[phone] Offic/outpt E&m [facility], [address] [address], [place], [address], [place] tel:[phone] [facility] GI Symptoms or Concerns (chief complaint) Right lower quadrant abdominal painNauseaH/O ileostomyDieta ry counseling and surveillanceEl evated blood-pressure reading, w/o diagnosis of htn 0 Scott Lockett. [address] [facility], [address], [id number], [place]. tel:[phone] Nikhil Sprague MD. tel:[phone] erring Provider: Referral Self. [facility], [address] [address], [place], [address], [place] tel:[phone] [facility] No Information 0 Nolan Casillas. [address] [facility], [facility] [address], [place], [address], [place]. tel:[phone] [facility], [address] [address], [place], [address], [place] tel:[phone] [facility] Abnormal weight loss 7 Scott Lockett. [address] [facility], [address], [id number], [place]. [phone] Nikhil Sprague MD. tel:[phone] erring Provider: Referral Self. Offic/outpt E&m New Mod-hi [facility], [address] [address], [place], [address], [place] tel:[phone] [facility] GI Symptoms or Concerns (chief complaint) Weight loss 7 Scott Lockett. [address] [place] [address], [id number], [place]. tel:[phone] Nikhil Sprague MD. tel:[phone] erring Provider: Referral Self. [facility], [address] [address], [place], [place], [address], [place] tel:[phone] [facility] Regional Enteritis Nos 3 Scott Lockett. [address] [place] [address], [address], [id number], [place]. tel:[phone] Referring Provider: Gauri Wolf, [address], [place], [address]. tel:[phone] [facility], [address] [address], [place], [address], [place] tel:[phone] [facility] Crohn's ColitisCrohn's ColitisCrohn's Colitis [address] [facility], [facility] [address], [place], [id number], [place]. tel:[phone] Referring Provider: Gauri Wolf, [address] [facility] [address], [place], [address]. tel:[phone] Offic/outpt E&m Estab Mod-hi 2 [facility], [address] [address], [place], [address], [place] tel:[phone] [facility] Crohns (chief complaint) Crohn's ColitisCrohn's Colitis 3 Scott Lockett. [address] [facility], [facility] [address], [place], [place], [address], [place]. tel:[phone] Referring Provider: Gauri Wolf, [address] [facility] [address], [place], [place], [facility]. tel:[phone] Offic/outpt E&m Estab Mod-hi 2 [facility], [address] [address], [place], [address], [place] tel:[phone] [facility] f/u from testing (chief complaint) Crohn's ColitisCrohn's Colitis 3 Scott Lockett. [address] [facility], [facility] [address], [place], [address], [place]. tel:[phone] Referring Provider: Gauri Wolf, [address] [facility] [address], [place], [place], [facility]. tel:[phone] [facility], [address] [address], [place], [address], [place] tel:[phone] [facility] Epigastric Pain 3 Scott Lockett. [address] [facility], [facility] [address], [place], [place], [address], [place]. tel:[phone] [facility], [address] [address], [place], [address], [place] tel:[phone] [facility] Epigastric PainNausea Alone 2 Scott Lockett. [address] [facility], [facility] [address], [place], [place], [address], [place]. tel:[phone] Offic/outpt E&m Estab Mod-hi 2 [facility], [address] [address], [place], [address], [place] tel:[phone] [facility] Crohns (chief complaint) Nausea (chief complaint) Epigastric PainNausea AloneCrohn's Colitis Jun-2 2 Osman Bhatia. [address], [id number], [place]. tel:[phone] Offic/outpt E&m Estab Mod-hi 2 [facility], [address] [address], [place], [address], [place] tel:[phone] [facility] crohns/col itis follow up (chief complaint) Crohn's ColitisLindsay andres 0 Scott Lockett. [address] [place] [address], [id number], [place]. tel:[phone] [facility], [address] [address], [place], [address], [place] tel:[phone] [facility] L-sided Ulcerative ColitColitis Unspecified/IB D Jun-0 9 Fredi Tejeda. [address], [id number], [place]. tel:[phone] Offic/outpt E&m Estab Mod-hi 4 [facility], [address] [address], [place], [address], [place] tel:[phone] [facility] Crohns (chief complaint) Follow up (chief complaint) Crohn's Colitis Apr-0 1 9 Fredi Tejeda. [address], [id number], [place]. tel:[phone] Offic/outpt E&m Estab Mod-hi 2 [facility], [address] [address], [place], [address], [place] tel:[phone] [facility] Crohns (chief complaint) Crohn's Colitis 9 No Information Referring Provider: Nikhil SORIANO I, [address] [facility] [address], [place], [address] . tel:[phone] Offic/outpt E&m Estab Mod-hi 2 [facility], [address] [address], [place], [address], [place] tel:[phone] [facility] Crohns (chief complaint) Crohn's Colitis 8 Fredi Tejeda. [address] [facility], [address], [place], [place], [address], [place]. tel:[phone] Referring Provider: Nikhil SORIANO I, [address] [facility] [address], [place], [address] . tel:[phone] Offic/outpt E&m Estab Mod-hi 2 [facility], [address] [address], [place], [address], [place] tel:[phone] [facility] Abdominal pain (chief complaint) Diarrhea (chief complaint) Crohn's Colitis 8 No Information Offic/outpt E&m Estab Mod-hi 2 [facility], [address] [address], [place], [address], [place] tel:[phone] [facility] Crohns (chief complaint) Crohn's Small/large Intestine 8 No Information Referring Provider: Nikhil SORIANO I, [address] [facility] [address], [place], [address] . tel:[phone] [facility], [address] [address], [place], [address], [place] tel:[phone] [facility] Regional Enteritis NosCrohn's Colitis 8 Fredi Tejeda. [address] [facility], [address], [place], [place], [address], [place]. tel:[phone] Referring Provider: Nikhil SORIANO I, [facility] [address], [place], [address] . tel:[phone] Offic/outpt E&m Estab Mod-hi 2 [facility], [address] [address], [place], [address], [place] tel:[phone] [facility] No Information 200 8 Fredi Tejeda. [address] [facility], [facility] [address], [place], [place], [address], [place]. tel:[phone] Referring Provider: Nikhil SORIANO I, [address] [facility] [address], [place], [address] . tel:[phone] [facility], [address] [address], [place], [address], [place] tel:[phone] [facility] No Information 8 Scott Lockett. [address] [place] [address], [facility] [address], [place], [place], [address], [place]. tel:[phone] Referring Provider: Zainab Kothari MD C, [address] [place], [address]. tel:[phone] Offic/outpt E&m Estab Mod-hi 4 [facility], [address] [address], [place], [address], [place] tel:[phone] [facility] Crohn's Colitis 8 Fredi Tejeda. [address] [facility], [facility] [address], [place], [place], [address], [place]. tel:[phone] Referring Provider: Levy Chavez MD S, [facility] [address], [place], [address] . tel:[phone] Offic/outpt E&m Estab Low-mod [facility], [address] [address], [place], [address], [place] tel:[phone] [facility] Crohn's Small/large Intestine 8 No Information Referring Provider: Levy Chavez MD S, [address] [place] [address] [address], [place], [address] . tel:[phone] [facility], [address] [address], [place], [address], [place] tel:[phone] [facility] No Information 8 Scott Lockett. [address] [facility], [facility] [address], [place], [place], [address], [place]. tel:[phone] Offic/outpt E&m Estab Mod-hi 2 [facility], [address] [address], [place], [id number], [place] tel:[phone] [facility] Regional Enteritis Nos 8 Scott Lockett. [address] [facility], [address], [id number], [place]. tel:[phone] Offic/outpt E&m Estab Mod-hi 2 [facility], [address] [address], [place], [id number], [place] tel:[phone] [facility] Regional Enteritis Nos 8 Scott Lockett. [address] [facility], [facility] [address], [place], [address], [place]. tel:[phone] [facility], [address] [address], [place], [address], [place] tel:[phone] [facility] Dysphagia, Unspecified 8 Ahmet Sanchez. [address] [facility], [facility] [address], [place], [address], [place]. tel:[phone] Offic/outpt E&m Estab Mod-hi 2 [facility], [address] [address], [place], [id number], [place] tel:[phone] [facility] Crohn's Colitis Fe 8 Scott Lockett. [address] [facility], [facility] [address], [place], [address], [place]. tel:[phone] Offic/outpt E&m Estab Mod-hi 2 [facility], [address] [address], [place], [address], [place] tel:[phone] [facility] Crohn's Colitis 7 Scott Lockett. [address] [facility], [address], [id number], [place]. tel:[phone] Offic/outpt E&m Estab Mod-hi 2 [facility], [address] [address], [place], [address], [place] tel:[phone] [facility] Colitis Unspecified/IB D 7 Fredi Tejeda. [address], [id number], [place]. tel:[phone] [facility], [address] [address], [place], [address], [place] tel:[phone] [facility] Crohn's Colitis 7 Fredi Tejeda. [address], [id number], [place]. tel:[phone] Offic/outpt E&m Estab Mod-hi 2 [facility], [address] [address], [place], [address], [place] tel:[phone] [facility] No Information 7 Scott Lockett. [address], [id number], [place]. tel:[phone] Referring Provider: Zainab Pepper, [address] [place], [address]. tel:[phone] Offic/outpt E&m Estab Mod-hi 2 [facility], [address] [address], [place], [id number], [place] tel:[phone] [facility] Colitis Unspecified/IB D 7 Scott Lockett. [address] [place] [address], [id number], [place]. tel:[phone] Referring Provider: Zainab Pepper, [address] [place], [address]. tel:[phone] Offic/outpt E&m Estab Mod-hi 2 [facility], [address] [address], [place], [address], [place] tel:[phone] [facility] Ulcerative Colitis Nos 6 7 No Information Referring Provider: Zainab Pepper, [address] [place], [address]. tel:[phone] [facility], [address] [address], [place], [address], [place] tel:[phone] [facility] Ulcerative Colitis Nos 7 Scott Lockett. [address] [facility], [address], [id number], [place]. tel:[phone] Offic/outpt E&m Estab Mod-hi 2 [facility], [address] [address], [place], [address], [place] tel:[phone] [facility] Ulcerative Colitis Nos 7 Scott Lockett. [address] [facility], [address], [id number], [place]. tel:[phone] Offic/outpt E&m Estab Mod-hi 2 [facility], [address] [address], [place], [address], [place] tel:[phone] [facility] Colitis Unspecified/IB D 7 Scott Lockett. [address] [facility], [address], [id number], [place]. tel:[phone] [facility], [address] [address], [place], [address], [place] tel:[phone] [facility] 6 Scott Lockett. [address] [facility], [address], [id number], [place]. tel:[phone] Referring Provider: Zainab Pepper, [address] [place], [address]. tel:[phone] Offic/outpt E m Estab Low [facility], [address] [address], [place], [place], [address], tel:[phone] [facility] Crohn's colitis 6 Scott Lockett. [address] [place] [address], [address], [place]. tel:[phone] Referring Provider: Zainab Pepper, [address] [place], [address]. tel:[phone] Offic/outpt E m [facility], [address] [address], [place], [place], [address], tel:[phone] [facility] Crohn's colitis 5 Scott Lockett. [address], [id number], [place]. tel:[phone] Referring Provider: Zainab Pepper, [address] [place], [address]. tel:[phone] Family History Family Member Type Diagnosis Age At Onset Mother, father Problem (finding) peptic ulceration First degree family history Problem (finding) alcoholism Sister Problem (finding) Hepatitis C First degree family history Problem (finding) diverticulitis of colon Mother Problem (finding) malignant neop lasm of pancreas Mother Problem (finding) Colon polyps First degree family history Problem (finding) Hepatitis C Mother Problem (finding) gallbladder disease Father Problem (finding) Sister Problem (finding) Hepatitis C First degree family history Problem (finding) Cholelithasis Sister Problem (finding) Alcoholism Son Problem (finding) Alive and well Daughter Problem (finding) Thyroid disorder Sister Problem (finding) Thyroid disorder Daughter Problem (finding) Alive and well First degree family history Problem (finding) Thyroid Disorder Paternal grandmother Problem (finding) malignant neoplasm of pancreas Great grandfather Problem (finding) cancer of colon Immunizations Vaccine Date Status Comments SARS-COV-2 (COVID-19) vaccin e, mRNA, spike protein, LNP, bivalent booster, preservative free, 30 mcg/0.3 mL dose, nellie-sucrose formulation administered Note: [facility] bi-d irectional interface ; Source: Other Registry influenza, high-dose seasona l, quadrivalent, .7mL dose, preservative free administered Note: [facility] bi-direct ional interface ; Source: Other Registry SARS-COV-2 (COVID-19) vaccin e, mRNA, spike protein, LNP, preservative free, 30 mcg/0.3mL dose, nellie-sucrose formulation administered Note: [facility] C bi- directional interface ; Source: Other Registry influenza, seasonal vaccine, quadrivalent, adjuvanted, .5mL dose, preservative free administered Note: [facility] bi-di rectional interface ; Source: Other Registry SARS-COV-2 (COVID-19) vaccin e, mRNA, spike protein, LNP, preservative free, 30 mcg/0.3mL dose administered Note: [facility] bi-direct ional interface ; Source: Other Registry tetanus and diphtheria toxoi ds, adsorbed, preservative free, for adult use (5 Lf of tetanus toxoid and 2 Lf of diphtheria toxoid) administered Note: [facility] bi-direct ional interface ; Source: Other Registry SARS-COV-2 (COVID-19) vaccin e, mRNA, spike protein, LNP, preservative free, 30 mcg/0.3mL dose administered Note: [facility] bi-direct ional interface ; Source: Other Registry SARS-COV-2 (COVID-19) vaccin e, mRNA, spike protein, LNP, preservative free, 30 mcg/0.3mL dose administered Note: [facility] bi-direct ional interface ; Source: Other Registry influenza, high-dose seasona l, quadrivalent, .7mL dose, preservative free administered Note: [facility] bi-direct ional interface ; Source: Other Registry Prevnar 13 administered Note: [facility] bi-d irectional interface ; Source: Other Registry Seasonal, quadrivalent, recombinant, injectable influenza vaccine, preservative free administered Note: [facility] bi-direct ional interface ; Source: Other Registry zoster vaccine recombinant administered N ote: [facility] bi-directional interface ; Source: Other Registry zoster vaccine recombinant administered N ote: [facility] bi-directional interface ; Source: Other Registry Influenza, injectable, Madin Gwendolyn Canine Kidney, preservative free, quadrivalent administered Note: ME IC bi- directional interface ; Source: Other Registry zoster vaccine, live administered Note: M [facility] bi-directional interface ; Source: Other Registry Influenza administered Note: [facility] bi-d irectional interface ; Source: Other Registry Influenza, injectable, quadrivalent, preservative free, 3 yrs or older administered Source: Other Provid er Afluria Qd administered Note: M [facility] bi-directional interface ; Source: Other Registry Fluzone Quad 6mo or older administered Note: [facility] bi-direct ional interface ; Source: Other Registry Afluria Qd administered Note: M [facility] bi-directional interface ; Source: Other Registry Fluzone Quad 6mo or older administered Note: [facility] bi-direct ional interface ; Source: Other Registry Afluria Qd administered Note: M [facility] bi-directional interface ; Source: Other Registry Fluzone Quad 6mo or older administered Note: [facility] bi-direct ional interface ; Source: Other Registry Influenza, seasonal, injectable administe red Note: [facility] bi- directional interface ; Source: Other Registry tetanus toxoid, reduced diphtheria toxoid, and acellular pertussis vaccine, adsorbed administered Note: [facility] b i-directional interface ; Source: Other Registry Influenza, seasonal, injectable administe red Note: [facility] bi- directional interface ; Source: Other Registry Influenza, seasonal, injectable administe red Note: [facility] bi- directional interface ; Source: Other Registry Influenza, seasonal, injectable administe red Note: [facility] bi- directional interface ; Source: Other Registry Influenza, seasonal, injectable administe red Note: [facility] bi- directional interface ; Source: Other Registry Influenza, seasonal, injectable administe red Note: [facility] bi- directional interface ; Source: Other Registry Influenza, seasonal, injectable administe red Note: [facility] bi- directional interface ; Source: Other Registry tetanus and diphtheria toxoi ds, adsorbed, preservative free, for adult use (2 Lf of tetanus toxoid and 2 Lf of diphtheria toxoid) administered Note: [facility] bi-direct ional interface ; Source: Other Registry Influenza, seasonal, injectable administe red Note: [facility] bi- directional interface ; Source: Other Registry Influenza, seasonal, injectable administe red Note: [facility] bi- directional interface ; Source: Other Registry Influenza, seasonal, injectable administe red Note: [facility] bi- directional interface ; Source: Other Registry Influenza, seasonal, injectable administe red Note: [facility] bi- directional interface ; Source: Other Registry Havrix administered Note: [facility] bi-d irectional interface ; Source: Other Registry Influenza, seasonal, injectable administe red Note: [facility] bi- directional interface ; Source: Other Registry hepatitis A vaccine, unspeci fied formulation administered Note: [facility] bi-direct ional interface ; Source: Other Registry influenza virus vaccine, unspecified formulation administered Note: [facility] bi-di rectional interface ; Source: Other Registry influenza virus vaccine, unspecified formulation administered Note: [facility] bi-di rectional interface ; Source: Other Registry influenza virus vaccine, unspecified formulation administered Note: [facility] bi-di rectional interface ; Source: Other Registry Pneumovax 23 administered Note: [facility] bi-d irectional interface ; Source: Other Registry influenza virus vaccine, unspecified formulation administered Note: [facility] bi-di rectional interface ; Source: Other Registry tetanus and diphtheria toxoi ds, adsorbed, preservative free, for adult use (2 Lf of tetanus toxoid and 2 Lf of diphtheria toxoid) administered Note: [facility] bi-direct ional interface ; Source: Other Registry tetanus and diphtheria toxoi ds, adsorbed, preservative free, for adult use (2 Lf of tetanus toxoid and 2 Lf of diphtheria toxoid) administered Note: [facility] bi-direct ional interface ; Source: Other Registry Payers Payer name Insurance type Covered republican ID Authoriza tion(s) Medicare NGS MB [id number] [facility] Medicare Supplement BL [id number] Social History Type Description Quantity Date Captured Comments Alcohol Use Details Unknown Caffeine Use Details Unknown Tobacco Use Status No Information Smoking Status No Information Sex Female Chief Complaint And Reason For Visit No Information Reason For Referral Reason For Referral No Information Plan Of Treatment Date Type Action Status Goal Lifestyle education regardin g diet completed Referral Ordered: referred to general surgery - [facility] LUQ pain Appointment date/timeframe: 04/21/2022 ordered Referral Ordered: MRI Enterography WITHOUT And WITH Contrast Appointment date/timeframe: 03/22/2016 ordered History Of Present Illness Encounter Date Complaint History Of Prese nt Illness GI Symptoms or Concerns Ms. Fanny meadows is having a clinic visit today because of ongoing problems with left upper abdominal pain. This is something that has happened intermittently for years. It seems to be provoked by her bending over or twisting. She will feel an egg-sized lump in the left upper abdomen and it hurts quite a bit. She is usually able to lay down or lean back and massage it and within 1 to 2 minutes the issue mostly subsides. There can be some residual discomfort for a bit. She has had her colon removed for Crohn's disease. She does not have any surgical scars in this area. She has had CAT scans and MRIs in the past that have not shown any evidence of a hernia in this area. Her most recent MRI was in May 2019. She is concerned that this might be a hernia that gets incarcerated and could lead to a significant medical problem. GI Symptoms or Concerns Ms. Fanny meadows is here at the request of Dr. Cortez to discuss a couple of different issues. She had a colectomy for Crohn's disease. She has had an ileostomy now for many years. At first, she had no problems with leakage. After some time, she started having leakage below the ostomy. She now is having leakage above it. She also notes that her skin is quite sensitive and becomes irritated by the ileostomy fluid. She also has breakdown of the barrier on her ostomy appliance. She goes through ostomy bags much more quickly than other people. She has been having some discomfort around the ostomy for several months. Nothing really changes it. When she is busy, she does not notice it as much. She also has some urinary urgency. She does not have any fevers or night sweats. Her ileostomy fluid is always loose. She is not having any blood and this has not changed in appearance in years. She notes that she does have some nausea in the morning. She was thought to possibly have gallbladder probl GI Symptoms or Concerns Ms. Fanny emadows is here because of weight loss. She had her colon removed because of Crohn's disease. She reports that she currently is eating less carbohydrates and sugar. She has lost about 20 pounds in the last few months. Her appetite is also not as good as it used to be. She does have some nausea. She has not changed any of her medicines. Her thyroid dose was recently adjusted, and the labs are normal. She also has had some problems with leakage from her ileostomy. She has had several leaks in the last few months, but none in the years before this. She has noticed that the stoma may be varying in how much it protrudes, but she has not noticed any bulging or a hernia. She also has had some increased aching from her back. She does have ankylosing spondylitis. She has had a red bump on the side of the most distal joint of her left index finger. She has not had fevers or night sweats when she is not still struggling with a cold, which has been frequent in the last several months. Functional Status Date Functional Assessmen t No Information Instructions Date Instruction Additional Infor gallo You are having disco mfort around the ileostomy. I believe this is a muscular pain and that it is unlikely related to inflammatory bowel disease. I don't know if the colorectal surgeons would have ideas such as a brace/support. I will order a MRI of your abdomen to make sure there is no other problem. Related to Right lower quadrant abdominal pain You are having troub le with the ileostomy with leaking and skin irritation. You have loose stool all the time and have had dehydration. I would like to try a resin, cholestyramine, to help absorb fluid and irritants, to protect your skin, prevent dehydration and to prevent leakage. I suspect the reason you are having more trouble with leakage is the shape of your abdomen has changed. Related to H/O ileostomy You are nauseated mo stly in the morning. This can reflect night-time acid and I have found that a medication such as ranitidine at night can be helpful. This would have minimal impact on bone density. I do not think that the gallbladder causes morning nausea. Related to Nausea Lifestyle education regarding di et Related to Dietary counseling and surveillance Assessments Type Assessment Date No Information Patient Care Teams Name Effective Dates (start - stop) Status Members No Information
--- OUTSIDE RECORDS SUMMARY | 2022-12-25 20:44 | XMS_ITS | Continuity of Care Document ---
Author Name Unknown Organization [facility] Address [address] [place] [address] Phone Care Team Providers Care Stack Yield Engineer Name Role Phone Ankit Aragon MD Unavailable [...] [facility] , [address], [place], [address], [place] tel:[phone] [facility] No Information 3 Margo Pham. [address], [address], [place], [address], [place]. tel:[phone] Office/Outpa tient Visit, Est [facility] , [address], [place], [address], [place] tel:[phone] [facility] , Primary osteoarthrit is, unspecified ankle and footOther jail (current) drug therapyAnemi aEnteropathi c arthropathie s, multiple sitesOther intervertebr al disc degeneration , lumbosacral regionDisord er of bone, unspecified 3 Hector Ragland. [address], [place], [address], [place]. tel:[phone] Referring Provider: Ellyn Botello, [address], [place], [address]. tel:[phone] Office/Outpa tient Visit, Est [facility] , [address], [place], [address], [place] tel:[phone] [facility] , Primary osteoarthrit is, unspecified ankle and footOther jail (current) drug therapyAnemi aEnteropathi c arthropathie s, multiple sitesOther intervertebr al disc degeneration , lumbosacral regionDisord er of bone, unspecified 3 Hector Ragland. [address], [address], [place], [address], [place]. tel:[phone] Referring Provider: Ellyn Botello, [address], [place], [address]. tel:[phone] [facility] , [address], [place], [address], [place] tel:[phone] [facility] , No Information 2 Hector Ragland. [address], [place], [address], [place]. tel:[phone] Office/Outpa tient Visit, Est [facility] , [address], [place], [address], [place] tel:[phone] [facility] , Enteropathic arthropathie s, multiple sitesOther intervertebr al disc degeneration , lumbosacral regionDisord er of bone, unspecified 2 Muraliсергей Xiomaraevangelina Ragland. [address], [address], [place], [address], [place]. tel:[phone] Referring Provider: Ellyn Hector Solano Ayan, [address], [place], [address]. tel:[phone] Office/Outpa tient Visit, Est [facility] , [address], [place], [address], [place] tel:[phone] [facility] , Enteropathic arthropathie s, multiple sitesOther intervertebr al disc degeneration , lumbosacral regionEncoun ter for immunity status testing 2 Muraliсергей Xiomaraevangelina Ragland. [address], [address], [place], [address], [place]. tel:[phone] Referring Provider: Ellyn Hector Botello, [address], [place], [address]. tel:[phone] Office/Outpa tient Visit, Est [facility] , [address], [place], [address], [place] tel:[phone] [facility] , Enteropathic arthropathie s of multiple sitesTherape [facility] drug monitoringTr ochanteric bursitis of right hipSacroilii tis 1 Annie Art. [facility] [address], [place], [address], [place]. tel:[phone] Referring Provider: Rubens Zee, [facility] [address], [place], [address]. tel:[phone] Office/Outpa tient Visit, Est [facility] , [address], [place], [address], [place] tel:[phone] [facility] , Enteropathic arthropathie s of multiple sitesOA of the footTherapeu tic drug monitoring 0 Annie Art. [facility] [address], [place], [address], [place]. tel:[phone] Referring Provider: Rubens Zee, [facility] [address], [place], [address]. tel:[phone] Office/Outpa tient Visit, Est [facility] , [address], [place], [address], [place] tel:[phone] [facility] , Enteropathic arthropathie s of multiple sitesOA of the footTherapeparkwood hospital drug monitoring 9 Annie Art. [facility] [address], [place], [address], [place]. tel:[phone] Referring Provider: Rubens Zee, [facility] [address], [place], [address]. tel:[phone] Office/Outpa tient Visit, Est [facility] , [address], [place], [address], [place] tel:[phone] [facility] , Enteropathic arthropathie s of multiple sitesOA Primary osteoarthrit is of knee, bilateralDeg enerative disc disease, lumbosacralT herapeutic drug monitoringOA of the foot 9 Annie Art. [facility] [address], [place], [address], [place]. tel:[phone] Referring Provider: Rubens Zee, [facility] [address], [place], [address]. tel:[phone] Office/Outpa tient Visit, Est [facility] , [address], [place], [address], [place] tel:[phone] [facility] , Enteropathic arthropathie s of multiple sitesDegener ative disc disease, lumbosacralT herapeutic drug monitoringOA Primary osteoarthrit is of knee, bilateral Feb- 8 Annie Art. [facility] [address], [place], [address], [place]. tel:[phone] Referring Provider: Rubens Zee, [facility] [address], [place], [address]. tel:[phone] Office/Outpa tient Visit, Est [facility] , [address], [place], [address], [place] tel:[phone] [facility] , Enteropathic arthropathie s of multiple sitesDegener ative disc disease, lumbosacralT herapeutic drug monitoring 8 Annie Art. [facility] [address], [place], [address], [place]. tel:[phone] Referring Provider: Rubens Zee, [facility] [address], [place], [address]. tel:[phone] Office/Outpa tient Visit, Est [facility] , [address], [place], [address], [place] tel:[phone] [facility] , Enteropathic arthropathie s of multiple sitesOA Primary osteoarthrit is of knee, bilateralThe rapeutic drug monitoringDe generative disc disease, lumbosacral Sep-2 7 Annie rAt. [facility] [address], [place], [address], [place]. tel:[phone] Referring Provider: Rubens Zee, [facility] [address], [place], [address]. tel:[phone] Office/Outpa tient Visit, Est [facility] , [address], [place], [address], [place] tel:[phone] [facility] , Enteropathic arthropathie s of multiple sitesOA Primary osteoarthrit is of knee, bilateralThe rapeutic drug monitoring 6 Annie Art. [facility] [address], [place], [address], [place]. tel:[phone] Referring Provider: Rubens Zee, [facility] [address], [place], [address]. tel:[phone] Office/Outpa tient Visit, Est [facility] , [address], [place], [address], [place] tel:[phone] [facility] , enteropathic arthritis (chief complaint) Enteropathic arthropathie s of multiple sitesTherape utic drug monitoringOA Primary osteoarthrit is of knee, bilateral Bogdan- 6 Annie Art. [facility] [address], [place], [address], [place]. tel:[phone] Referring Provider: Rubens Zee, [facility] [address], [place], [address]. tel:[phone] Office/Outpa tient Visit, Est [facility] , [address], [place], [address], [place] tel:[phone] [facility] , enteropathic arthritis (chief complaint) Enteropathic arthropathie s of multiple sitesTherape utic drug monitoringOA Primary osteoarthrit is of knee, bilateralVit mir D deficiency 5 Annie Art. [facility] [address], [place], [address], [place]. tel:[phone] Referring Provider: Rubens Zee, [facility] [address], [place], [address]. tel:[phone] Office/Outpa tient Visit, Est [facility] , [address], [place], [address], [place] tel:[phone] [facility] , Enteropathic arthritis (chief complaint)Os teoarthritis (chief complaint)Cr ohn's disease (chief complaint) Enteropathic ArthritisThe rapeutic Drug MonitoringOs teoarthrosis , generalized, involving unspecified siteCrohn's disease 5 Annie Art. [facility] [address], [place], [address], [place]. tel:[phone] Referring Provider: Rubens Zee, [facility] [address], [place], [address]. tel:[phone] Office/Outpa tient Visit, Est [facility] , [address], [place], [address], [place] tel:[phone] [facility] , Enteropathic arthritis (chief complaint)Os teoarthritis (chief complaint)Cr ohn's disease (chief complaint) Arthropathy associated with gastrointest inal conditions other than infectionsTh erapeutic Drug MonitoringOs teoarthrosis , localized, primary, involving ankle and foot 4 Annie Art. [facility] [address], [place], [address], [place]. tel:[phone] Referring Provider: Rubens Zee, [facility] [address], [place], [address]. tel:[phone] Office/Outpa tient Visit, Est [facility] , [address], [place], [address], [place] tel:[phone] [facility] Enteropathic arthritis (chief complaint)Cr ohn's disease (chief complaint)Os teoarthritis (chief complaint)Hy pertension (chief complaint) Arthropathy associated with gastrointest inal conditions other than infectionsTh erapeutic Drug MonitoringRe gional enteritis of unspecified siteOsteoart hrosis, localized, primary, involving ankle and footHyperten carin, Unspecified 4 Annie Art. [facility] [address], [place], [address], [place]. tel:[phone] Referring Provider: Rubens Zee, [facility] [address], [place], [address]. tel:[phone] Office/Outpa tient Visit, Est [facility] , [address], [place], [address], [place] tel:[phone] [facility] , Enteropathic arthritis (chief complaint)Cr ohn's disease (chief complaint)Os teoarthritis (chief complaint) Arthropathy associated with gastrointest inal conditions other than infectionsRe gional enteritis of unspecified siteOsteoart hrosis, localized, primary, involving ankle and foot 3 Annie Rubens. [facility] [address], [place], [address], [place]. tel:[phone] Referring Provider: Rubens Zee, [facility] [address], [place], [address]. tel:[phone] Office/Outpa tient Visit, Est [facility] , [address], [place], [address], [place] tel:[phone] [facility] , Enteropathic arthritis (chief complaint)Ba ck Pain (chief complaint) Arthropathy associated with gastrointest inal conditions other than infectionsLu [facility] 2 Annie Art. [facility] [address], [place], [address], [place]. tel:[phone] Referring Provider: Zeeshan Bernstein, NULL [address], [place], [address]. tel:[phone] Family History Family Member Type Diagnosis Age At Onset No Information Payers Payer name Insurance type Covered republican ID Authoriza tion(s) Medicare MB [id number] [facility] [id number] Social History Type Description Quantity Date Captured [...]
--- NOTE | 2022-12-27 12:03 | W.PM.SLEEP ---
Sleep Study Details Details Interpreting Provider: Amalia Date of Sleep Study: 12/25/22 Sleep Study Details: STUDY TYPE:? Hospital-based ? BMI:? 26.6 ORDERING PROVIDER:? Ruth INDICATION:? Concerns about sleep apnea ? SLEEP SUMMARY:? 326.5 minutes, arousal index 27.2 RESPIRATORY SUMMARY:? Mean oxygen awake 96 asleep 95, minimum 89 AHI 2.6, RDI 14 supine AHI 4.8 supine RDI 23.7, supine REM AHI 4 Nonsupine RDI 4.4, nonsupine REM AHI 5.5 PERIODIC LIMB MOVEMENTS OF SLEEP:? Index 1.8, index with arousal 0.6 CARDIAC:? Awake 76, asleep 69, PVCs were noted IMPRESSION:? Mild obstructive sleep apnea with an RDI of 14. The overall AHI was within normal limits at 2.6. There was definitely supine position dependency RECOMMENDATION: If the patient is symptomatic treatment could consist of positional therapy, AutoSet CPAP pressure 4-17 dental appliance and/or airway expansion surgery.
== END 2022-12-25 20:41 | disposition home or self-care (01) ==
LOC: SLEEP 20:41
PROVIDERS: PCP Family Medicine; Visit Provider Family Medicine
DX: G47.33 Obstructive sleep apnea (adult) (pediatric) (principal)
CPT/HCPCS: 95810

== ENCOUNTER 2023-01-13 11:07 | Outpatient (CLI) | payer MEDICARE, BC, SELFPAY | END 2023-01-13 11:08 | disposition home or self-care (01) | PROVIDERS: PCP Family Medicine; Visit Provider Family Medicine | DX: Z01.818 Encounter for other preprocedural examination (principal); R73.03 Prediabetes; I10 Essential (primary) hypertension; E78.5 Hyperlipidemia, unspecified; E03.9 Hypothyroidism, unspecified; D64.9 Anemia, unspecified | CPT/HCPCS: 82607; 84443; 86140 ==

== ENCOUNTER 2023-11-10 13:22 | Outpatient (CLI) | payer MEDICARE, BC, SELFPAY ==
--- OUTSIDE RECORDS SUMMARY | 2023-11-10 13:35 | XMS_ITS | Encounter Summary ---
Author Organization [facility] Address [address] [place] [address] Care Team Providers Care Fish Cutting Machine Operator Name Role Phone Gauri Cortez MD Primary Care Provider [phone] Encounter Details Date Type Department Care Team (Latest Contact Info) Description 09/28/1999 Orders Only Gauri Cortez MD [address] [facility] [address] [place], [place] [address] Social History Tobacco Use Types Packs/Day Years Used Date Smoking Tobacco: Never Assessed Sex and Gender Information Value Date Recorded Sex Assigned at Not on file Gender Identity Not on file Sexual Orientation Not on file documented as of this encounter Plan of Treatment Not on file documented as of this encounter Visit Diagnoses Not on filedocumented in this encounter Care Teams Fish Cutting Machine Operator Relationship Specialty Start Date End Date Gauri Cortez MD [address] [facility] [address] [place], [place] [address] PCP - General Internal Medicine 04/29/13 documented as of this encounter
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
--- OUTSIDE RECORDS SUMMARY | 2023-11-10 13:35 | XMS_ITS | Encounter Summary ---
Author Organization [facility] Address [address] [place] [address] Care Team Providers Care Fisher Lampara Net Name Role Phone Gauri Cortez MD Primary Care Provider [phone] Encounter Details Date Type Department Care Team (Latest Contact Info) Description 10/29/1999 Orders Only Gauri Cortez MD [address] [facility] [address] [place], [place] [address] Social History Tobacco Use Types Packs/Day Years Used Date Smoking Tobacco: Never Assessed Sex and Gender Information Value Date Recorded Sex Assigned at Not on file Gender Identity Not on file Sexual Orientation Not on file documented as of this encounter Plan of Treatment Not on file documented as of this encounter Visit Diagnoses Not on filedocumented in this encounter Care Teams Fisher Lampara Net Relationship Specialty Start Date End Date Gauri Cortez MD [address] [facility] [address] [place], [place] [address] PCP - General Internal Medicine 04/29/13 documented as of this encounter
--- OUTSIDE RECORDS SUMMARY | 2023-11-10 13:35 | XMS_ITS | Encounter Summary ---
Author Organization [facility] Address [address] [place] [address] Care Team Providers Care Gum Rolling Machine Tender Name Role Phone Gauri Cortez MD Primary Care Provider [phone] Encounter Details Date Type Department Care Team (Latest Contact Info) Description 05/12/1999 Orders Only Gauri Cortez MD [address] [facility] [address] [place], [place] [id number] Social History Tobacco Use Types Packs/Day Years Used Date Smoking Tobacco: Never Assessed Sex and Gender Information Value Date Recorded Sex Assigned at Not on file Gender Identity Not on file Sexual Orientation Not on file documented as of this encounter Plan of Treatment Not on file documented as of this encounter Visit Diagnoses Not on filedocumented in this encounter Care Teams Gum Rolling Machine Tender Relationship Specialty Start Date End Date Gauri Cortez MD [address] [facility] [address] [place], [place] [address] PCP - General Internal Medicine 04/29/13 documented as of this encounter
--- OUTSIDE RECORDS SUMMARY | 2023-11-10 13:35 | XMS_ITS | Encounter Summary ---
Author Organization [facility] Address [address] [place] [address] Care Team Providers Care Supervisor Laboratory Name Role Phone Gauri Cortez MD Primary Care Provider [phone] Encounter Details Date Type Department Care Team (Latest Contact Info) Description 08/06/1999 Orders Only Gauri Cortez MD [address] [facility] [address] [place], [place] [id number] Social History Tobacco Use Types Packs/Day Years Used Date Smoking Tobacco: Never Assessed Sex and Gender Information Value Date Recorded Sex Assigned at Not on file Gender Identity Not on file Sexual Orientation Not on file documented as of this encounter Plan of Treatment Not on file documented as of this encounter Visit Diagnoses Not on filedocumented in this encounter Care Teams Supervisor Laboratory Relationship Specialty Start Date End Date Gauri Cortez MD [address] [facility] [address] [place], [place] [address] PCP - General Internal Medicine 04/29/13 documented as of this encounter
--- OUTSIDE RECORDS SUMMARY | 2023-11-10 13:35 | XMS_ITS | Clinical Summary ---
Author Organization [facility] Address [address] [place] [address] Care Team Providers Care Director Sports Name Role Phone Gauri Cortez MD Primary Care Provider [phone] Source Comments You are receiving this document as you are listed as the primary care provider,follow-up provider, or the patient has been referred to you for consultation.This is in compliance with the Medicare andMedicaid EHR Incentive Program,which states Providers who transition their patient to another setting of careor provider of care or refers their patient to another provider of care shouldprovide summary care record for each transition of care or referral. [facility] Allergies Active Allergy Reactions Criticality Noted Date Comments Amoxicillin Quinolones Diarrhea,Itching 05/17/2006 Erythromycin 07/06/2000 Infliximab Injection Hives,Redness,Breat h ing Difficulty,Other, see comments 05/09/2003 elevated blood pressure Morphine And Codeine 03/28/2001 Sulfa Antibiotics 11/02/2004 PN: LW Reaction: HIVES Sulfonamide Derivatives 07/06/2000 Medications Medication Sig Dispensed Refills Start Date End Date Status CALCIUM/VITAMIN D 500MG ORAL TABS 1 tab gd 0 0 07/02/2003 Active MULTIPLE VITAMIN TABS 1 tab gd 0 0 07/02/2003 Active LEVOTHYROXINE SODIUM 75 MCG OR TABS None Entered Active azithromycin (AKA ZITHROMAX) 250 MG tabletIndications :Acute pharyngitis,Otalg ia Take two tablets on the first day, and take one tablet each day on days 2-5 6 Tab 0 04/25/2012 Active azelastine (AKA ASTEPRO) 0.15 % SOLN nasal solution Place 1-2 sprays into each nostril 2 times daily. LW Comment:Label/med checkd-Educ provided LW Addl Instr:2 samples astepro 0.15 % 4 ml each sample Indicated for: Allergic Rhinitis LW given by:[id number] DAVID RAMEY admin time/site:[id number] LW mfg:FRANK [employer]ARMACE[employer] LW lot number:[id number] 2 06/26/2009 Active RABEprazole (AKA ACIPHEX) 20 MG tablet Take 1 tablet by mouth daily (every 24 hours). 90 3 06/26/2009 Active levothyroxine (AKA SYNTHROID) 88 MCG tablet Take 1 tablet by mouth daily (every 24 hours). LW Addl Instr:Indicated for: Hypothyroidism 90 3 06/26/2009 Active celecoxib (AKA CELEBREX) 200 MG capsule Take 1 capsule by mouth daily (every 24 hours). 180 3 06/26/2009 Active Coenzyme Q10 200 MG/GM POWD Take by mouth. 09/30/2014 Active Calcium Citrate-Vitamin D (CALCIUM CITRATE + D OR) Take 1 tablet by mouth 2 times daily (with meals). 09/30/2014 Active omega-3 fatty acids (FISH OIL) 1000 MG capsule Take by mouth. 09/30/2014 Activ e valsartan (AKA DIOVAN) 160 MG tablet Take 160 mg by mouth daily (every 24 hours). 09/30/2014 Active GARLIC OR Take by mouth. 09/30/2014 Active Estradiol (VAGIFEM VA) Place vaginally. 09/30/2014 Active Coenzyme Q10 (CO Q10) 200 MG CAPSIndications:KAREY CEDEÑO Sep 30, 2014 2:23 PM Received from: Michael Take 1 capsule by mouth. 09/30/2014 Active Multiple Vitamins-Minerals (CENTRUM OR) Take by mouth. 09/30/2014 Active methocarbamol (AKA ROBAXIN) 500 MG tablet Take 1 tablet by mouth 2 times daily as needed for Muscle spasms. 60 tablet 3 03/24/2015 Active Active Problems Problem Noted Date Diagnosed Date Chronic neck pain 09/30/2014 Overview (11/02/2016): Chronic neck painS/P ACDF C 4-6 2009 DDD (degenerative disc disease), cervical 2014 Ankylosing spondylitis 09/30/2014 Muscle spasm 09/30/2014 Myofascial pain 09/30/2014 Ankylosing spondylitis 04/30/2003 Regional enteritis of large intestine 08/06/2002 Overview (11/02/2016): REG ENTERITIS, LG INTEST(aka COLITIS) Hypothyroidism 08/06/2002 Overview (12/11/2014): Epic Calculus of kidney 08/06/2002 Overview (11/02/2016): CALCULUS OF KIDNEY(aka KIDNEY STONE) Varicella 10/04/1996 Overview (12/11/2014): [facility] Immunizations Name Administration Dates Next Due Flu Vac (3+ yrs) 02/11/2003, 2,01/31/2001,01/31/20 00,12/31/1998 HepA Adult (19+ yrs) 05/14/1999 HepA, Unspecified Formulation 08/19/1998 Influenza, Unspecified Formulation 01/02,01/03/1996,01/25/1995,01/20/19 94 PPSV23 (Pneumovax) 01/20/1994 Td 07/02/2003,12/07/1993,01/10/1983 Varicella 10/04/1996(Deferred: Immune by Shaheed figueroa) Family History Medical History Relation Name Comments Stroke Mother Stroke Maternal Grandmother Heart Disease Paternal Grandfather Cancer Paternal Grandmother Alcohol Abuse Sister Relation Name Status Comments Mother Maternal Grandmother Paternal Grandfather Paternal Grandmother Sister Social History Tobacco Use Types Packs/Day Years Used Date Smoking Tobacco: Never Alcohol Use Standard Drinks/Week Comments No 0 (1 standard drink = 0.6 oz pur e alcohol) Sex and Gender Information Value Date Recorded Sex Assigned at Not on file Gender Identity Not on file Sexual Orientation Not on file Last Filed Vital Signs Vital Sign Reading Time Taken Comments Blood Pressure 127/81 09/30/2014 2:10 PM CDT Pulse 72 09/30/2014 2:10 PM CDT Temperature 36.9 ??C (98.4 ??F) 04/25/2012 6:02 PM CS T Respiratory Rate 20 04/25/2012 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 Saturation - - Inhaled Oxygen Concentration - - Weight 77.1 kg (170 lb) 09/30/2014 2:10 PM CDT Height 172.7 cm (5' 8) 09/30/2014 2:10 PM CDT Body Mass Index 25.85 09/30/2014 2:10 PM CDT Plan of Treatment Health Maintenance Due Date Last Done Comments Hep C Screening (Preventive Services) 1955 Medicare Annual Wellness Visit 1955 Mammogram 08/24/2004 08/25/2003, 08/11, 05/23/2001, Additional history exists Cholesterol 06/25/2008 06/26/2003, 02/10, 02/20/2001, Additional history exists Colonoscopy 06/19/2013 06/20/2003, 07/11, 04/13/1995 DTaP/Tdap/Td (2 - Tdap) 08/10/2020 08/11/19, 07/02/2003, 12/07/1993, Additional history exists COVID-19 Vaccine (3 - 2022-24 season) 2022 05/02/2020, 04/11/2020 Influenza (#1) 2023 12/23/2019, 01/11, 12/15/2015, Additional history exists Pneumococcal 65+ Yrs (3 - PPSV23 or PCV20) 04/17/2024 04/17/2019, 01/20/1994 HepA Aged Out 05/14/1999, 08/19/1998 No lo nger eligible based on patient's age to complete this topic Zoster/Shingles Completed 05/31/2018, 01/11, 01/10/2017 HepB Aged Out No longer eligi ble based on patient's age to complete this topic Hib Aged Out No longer eligi ble based on patient's age to complete this topic IPV (Polio) Aged Out No longer eligi ble based on patient's age to complete this topic MCV4 Aged Out No longer eligi ble based on patient's age to complete this topic Procedures Procedure Name Priority Date/Time Associated Diagnosis Comments MAMMOGRAM, SCREENING Routine 08/25/2003 Screening Mamm-Mailg Neopl-Other LIPID PANEL, FAST > 12 HOUR Routine 06/26/2003 7:59 AM CDT from Last 3 Months or Most Recently Relevant to Health Maintenance Results * MAMMOGRAM, SCREENING (08/25/2003) Anatomical Region Laterality Modality Breast Other Narrative Transcriptions Rangel Armstrong - 08/25/2003 12:00 AM CDTEXAMINATION: BILATERAL MAMMOGRAM 08/24 ACR BIRADS CATEGORY 1 - NEGATIVE MAMMOGRAM. The breasts are unchanged from May. There is no evidence for malignancy. Rangel Stoddard MD A cc: Radiology BL Gauri Cortez MD Gauri Cortez MD RAD_BI * CHOLESTEROL LIPID PANEL FAST >12HR FAST (06/26/2003 7:59 AM CDT) Cholesterol 160 <200 mg/dl [facility] Triglyceride 95 <200 mg/dl [facility] HDL 48 >35 mg/dl [facility] LDL, Calc. 93 mg/dl [facility] Hours Fasting 12 hours [facility] 06/26/2003 7:59 AM CDT 06/26/2003 8:00 AM CDT Gauri Cortez MD LAB_1 Performing Organization Address City/State/[facility] Co de Phone Number [facility] [address] [phone] from Last 3 Months or Most Recently Relevant to Health Maintenance Care Teams Director Sports Relationship Specialty Start Date End Date Gauri Cortez MD [address] [facility] [address] [place], [place] [address] PCP - General Internal Medicine 04/29/13
--- OUTSIDE RECORDS SUMMARY | 2023-11-10 13:35 | XMS_ITS | Clinical Summary ---
Author Organization [facility] Address [place], [place] [address] Care Team Providers Care Acct Exec Name Role Phone Provider, Non-Excellian Primary Care Provider Un available Allergies Active Allergy Reactions Criticality Noted Date Comments Adhesive Erythema 07/09/2008 Marek ostomy barrier adhesive Amoxicillin Diarrhea 10/19/2007 Abd pain Blood-Group Specific Substance 07/10/2008 Transfusion notified us that pt has a positive antibody on her type and screen. It will take about one hour for the testing and an additional 45 minutes if blood is needed. Ciprofloxacin 10/19/2007 Odd feeling Clindamycin Rash 07/06/2021 Codeine Dizziness,Tachycardi a 10/19/2007 Spacy Erythromycin Diarrhea 10/19/2007 Abd pain Gold Keratinate *Unknown 01/21/2010 Rash Levofloxacin 10/19/2007 Odd feeling Neomycin 07/05/2008 Procaine Flushing 07/05/2008 When with Epi , flushed face Oxycodone Nausea And Vomiting 07/06/2021 Tolerated Coin in past Infliximab Tachycardia 10/19/2007 Red face, high BP Shellfish Containing Products Itching 07/07/2008 Sulfa (Sulfonamide Antibiotics) Hives 10/19/2007 Sores in mouth Unlisted Allergen (Include Detail In Comments) *Unknown 07/30/2010 Vitamin E (D-Alpha Tocopherol) 07/05/2008 Medications Medication Sig Dispensed Refills Start Date End Date Status ACIDOPHILUS ORAL Takes as needed Act ebenezer OMEGA-3 FISH OIL ORAL take 1 tablet orally daily Active CALCIUM CITRATE ORAL 3 tablet a day Active MULTIVITAMIN CAP 1 tablet orally daily Active cranberry extract 650 mg cap Take 1 Capsule by mouth once daily. Active Garlic 100 mg tab Take 1 Tablet by mouth once daily. Active turmeric, bulk, 100 % powd Mix in liquid then take by mouth. Takes this as a capsule Active Zinc Acetate, Oral, 25 mg (zinc) cap Take 1 Tablet by mouth once daily. Active CHOLECALCIFEROL, VITAMIN D3, ORAL 3-5 Drops by Not Applicable route. Active celecoxib (CELEBREX) 200 mg capsule Take 200 mg by mouth. Active estradioL (VAGIFEM) 10 mcg tab vaginal tablet Insert into the vagina. Active mupirocin (BACTROBAN OINTMENT) ointment APPLY TOPICALLY DAILY NEEDED. 06/11/2021 Active prednisoLONE acetate 1% ophthalmic (ECONOPRED PLUS, PRED FORTE, OMNIPRED) suspension INSTILL 1 DROP INTO RIGHT EYE THREE TIMES A DAY 09/18/2020 Active Coenzyme Q10 200 mg capsule Take 1 Capsule by mouth once daily. Active tiZANidine (ZANAFLEX) 2 mg tabletIndications:Po st-op pain Take 1-2 Tablets (2-4 mg) by mouth every 6 hours if needed for Muscle Spasm. 60 Tablet 07/07/2021 Active levothyroxine (SYNTHROID) 75 mcg tablet Take 1 Tablet (75 mcg) by mouth once daily. 0 12/13/2022 Active telmisartan (MICARDIS) 40 mg tablet Take 2 Tablets (80 mg) by mouth once daily. 09/28/2023 Active abaloparatide (Tymlos) 80 mcg (3,120 mcg/1.56 mL) pnijIndications:post menopausal osteoporosis and high fracture risk Inject subcutaneous. Active atorvastatin (Lipitor) 40 mg tabletIndications:Hy perlipidemia, unspecified hyperlipidemia type Take 1 Tablet (40 mg) by mouth once daily. 90 Tablet 3 09/29/2023 Active metoprolol succinate (TOPROL XL) 25 mg Sustained-Release tabletIndications:HT N (hypertension) Take 0.5 Tablets (12.5 mg) by mouth once daily. 11/09/2023 Active carvediloL (Coreg) 3.125 mg tabletIndications:HT N (hypertension) Take 1 Tablet (3.125 mg) by mouth two times daily with meals. 60 Tablet 1 10/12/2023 4 Discontinue d(Reorder (E-cancel not sent)) carvediloL (Coreg) 3.125 mg tabletIndications:HT N (hypertension) Take 1 Tablet (3.125 mg) by mouth two times daily with meals. 60 Tablet 1 11/02/2023 4 Discontinue d(*Med complete/Re gimen complete/Le parviz of care change) metoprolol succinate (TOPROL XL) 25 mg Sustained-Release tabletIndications:HT N (hypertension) Take 1 Tablet (25 mg) by mouth once daily. 90 Tablet 3 11/06/2023 4 Discontinue d(Reorder (E-cancel not sent)) Active Problems Problem Noted Date Diagnosed Date Spinal stenosis, lumbar region with neurogenic c laudication Encounters Date Type Department Care Team Description 11/02/2023 Telephone [facility] [address] [address] [place] [address] Maia Cabrera MD Medication Management 10/26/2023 6:55 PM CDT - 10/26/2023 8:45 PM CDT Emergency [facility] Emergency Department [address] [place] [address] Ken De Leon MD Elevated blood pressure reading (Primary Dx) Discharge Disposition: Home Self Care 10/26/2023 Travel 10/26/2023 Telephone [facility] [address] [place] [address] Maia Cabrera MD Blood Pressure 10/11/2023 Telephone [facility] [address] [place] [address] Maia Cabrera MD Blood Pressure 09/29/2023 Refill [facility] [address] [place] [address] Maia Cabrera MD Refill Request 09/28/2023 10:30 AM CDT Office Visit [facility] [place] [address] [place] [address] Maia Cabrera MD Follow Up 08/17/2023 9:30 AM CDT Office Visit [facility] [address] [place] [address] Zeeshan Pierre MD Foot Pain/problem 08/17/2023 Travel 08/10[facility]2023 [facility] [place] [address] [facility] [address] [place] [address] Carlos Faria MD Refill Request from Last 3 Months Family History Medical History Relation Name Comments Osteoarthritis Mother Relation Name Status Comments Father Mother Social History Tobacco Use Types Packs/Day Years Used Date Smoking Tobacco: Never Smokeless Tobacco: Never Alcohol Use Standard Drinks/Week Comments Not Currently 0 (1 standard drink = 0.6 oz pur e alcohol) because of [facility] Social Connections Answer Date Recorded Frequency of Communication with Friends and Fami ly Not on file 10/06/2022 Sex and Gender Information Value Date Recorded Sex Assigned at Not on file Gender Identity Not on file Sexual Orientation Not on file Obstetrics History Last Filed Vital Signs Vital Sign Reading Time Taken Comments Blood Pressure 159/88 10/26/2023 8:30 PM CDT Pulse 68 10/26/2023 8:30 PM CDT Temperature 36.9 ??C (98.5 ??F) 10/26/2023 5:53 PM CD T Respiratory Rate 16 10/26/2023 8:20 PM CDT Oxygen Saturation 98% 10/26/2023 8:30 PM CDT Inhaled Oxygen Concentration - - Weight 78.5 kg (173 lb) 10/26/2023 5:53 PM CDT Height 167.6 cm (5' 6) 10/26/2023 5:53 PM CDT Body Mass Index 27.92 10/26/2023 5:53 PM CDT Plan of Treatment Upcoming Encounters Date Type Department Care Team (Late st Contact Info) Description 11/21/2023 1:30 PM CDT Office Visit [facility] [address] [place] [address] Chel Carbajal MD [address] [facility] [address] [place] [address] Scheduled Procedures Name Priority Associated Diagnoses Date/Ti me SURGICAL PROCEDURE (TYPE PROCEDURE DESCRIPTION BELOW) Hallux rigidus, left foot Claw toe, acquired, unspecified laterality Plantar plate injury, unspecified laterality, subsequent encounter Congenital contracture of left gastrocnemius muscle Health Maintenance Due Date Last Done Comments Tdap 1965 Depression screening for age 12+ 1966 Hepatitis C screening for ag e 18-79 02/17/1972 Tetanus booster 1974 Colonoscopy through age 75 1999 Mammogram for age 45-75 1999 Zoster (shingles) series for age 50+ (1 of 2) 02/17/2004 Medicare Wellness for age 65+ 2019 Pneumococcal series for age 65+ (1 of 1 - PCV) 2019 COVID-19 vaccine series (2022-24 season) 2022 12/20/2021, 07/16/2021, 11/30/2020, Additional history exists BMI (ht and wt on same day) for age 18+ 11/12/2023 11/11/2022 Influenza for age 65+ 11/12/2023 Lipids for age 45-75 11/29/2027 11/28/2022 DEXA/DXA scan for age 65+ Completed 07/18/2023 Procedures Procedure Name Priority Date/Time Associated Diagnosis Comments XR CHEST 2 VIEWS PA AND LATERAL STAT 10/26/2023 7:58 PM CDT BASIC METABOLIC PANEL STAT 10/26/2023 7:20 PM CDT PRO-BNP STAT 10/26/2023 7:20 PM CDT CBC W PLT NO DIFF STAT 10/26/2023 7:2 0 PM CDT EKG 12 LEAD STAT 10/26/2023 5:52 PM CDT XR DXA BONE DENSITY PERIPHERAL Routine 07/18/2023 Insufficiency fracture of right tibia Osteopenia, unspecified location Pathological fracture in other disease, other site, initial encounter for fracture LIPID PANEL Routine 11/28/2022 8:37 AM CDT Hyperlipidemia, unspecified hyperlipidemia type Chest pain, unspecified type SOB (shortness of breath) High coronary artery calcium score from Last 3 Months or Most Recently Relevant to Health Maintenance Results * XR CHEST 2 VIEWS PA AND LATERAL (10/26/2023 7:58 PM CDT) Anatomical Region Laterality Modality CHEST, THORAX, Lung, HEART Digit al Radiography 10/26/2023 8:05 PM CDT Impressions 10/26/2023 8:05 PM CDT 1. Bilateral pulmonary hyperinflation and lucency is noted. This is suggestive of moderate, stable pulmonary emphysema, if there is history of smoking. Dictated by Romario Gonzalez MD @ 10/26/2023 8:05:25 PM Dictated by: Romario Gonzalez MD @ 10/26/2023 20:05:28 (Electronically Signed) Narrative 10/26/2023 8:05 PM CDT For Patients: ??As a result of the Cures Act, medical imaging exams and procedure reports are released immediately into your electronic medical record. ??You may view this report before your referring provider. ??If you have questions, please contact your health care provider. INDICATION: Shortness of breath TECHNIQUE: Chest radiograph 2 views COMPARISON: 07/07/2008 FINDINGS: Mediastinum: The mediastinum is normal in appearance. The cardiac silhouette is at upper limits of normal in size. Lung: Bilateral pulmonary hyperinflation and lucency is noted. No sign of pleural effusion seen. No pneumothorax is identified. Bone and Soft tissue: Unremarkable for age. Procedure Note Romario Gonzalez MD - 10/26/2023 For Patients: As a result of the Cures Act, medical imagingexams and procedure reports are released immediately into your electronicmedical record. You may view this report before your referring provider.If you have questions, please contact your health care provider. INDICATION: Shortness of breath TECHNIQUE: Chest radiograph 2 views COMPARISON: 07/07/2008 FINDINGS: Mediastinum: The mediastinum is normal in appearance. The cardiacsilhouette is at upper limits of normal in size. Lung: Bilateral pulmonary hyperinflation and lucency is noted. No sign ofpleural effusion seen. No pneumothorax is identified. Bone and Soft tissue: Unremarkable for age. IMPRESSION: 1. Bilateral pulmonary hyperinflation and lucency is noted. This issuggestive of moderate, stable pulmonary emphysema, if there is history ofsmoking. Dictated by Romario Gonzalez MD @ 10/26/2023 8:05:25 PM Dictated by: Romario Gonzalez MD @ 10/26/2023 20:05:28 (Electronically Signed) Ken De Leon MD GENERAL IMAGING * CBC W PLT NO DIFF (10/26/2023 7:20 PM CDT) WHITE BLOOD COUNT 5.3 4.5 - 11.0 thou/cu mm 10/26/2023 7:33 PM CDT [facility] RED BLOOD COUNT 4.17 4.00 - 5.20 mil/cu mm 10/26/2023 7:33 PM CDT [facility] HEMOGLOBIN 12.3 12.0 - 16.0 g/dL 10/26/2023 7:33 PM CDT [facility] HEMATOCRIT 37.5 33.0 - 51.0 % 10/26/2023 7:33 PM CDT [facility] MCV 90 80 - 100 fL 10/26/2023 7:33 PM CDT [facility] MCH 29.5 26.0 - 34.0 pg 10/26/2023 7:33 PM CDT [facility] MCHC 32.8 32.0 - 36.0 g/dL 10/26/2023 7:33 PM CDT [facility] RDW 12.8 11.5 - 15.5 % 10/26/2023 7:33 PM CDT [facility] PLATELET COUNT 207 140 - 440 thou/cu mm 10/26/2023 7:33 PM CDT [facility] MPV 9.9 6.5 - 11.0 fL 10/26/2023 7:33 PM CDT [facility] NRBC 0.0 % 10/26/2023 7:33 PM CDT [facility] ABS NRBC 0.0 thou /cu mm 10/26/2023 7:33 PM CDT [facility] Blood BLOOD SPECIMEN / Unknown Venipuncture / Unknown 10/26/2023 7:20 PM CDT 10/26/2023 7:26 PM CDT Ken De Leon MD HEMATOL OGY [facility] [address] [place] [address], * (ABNORMAL) PRO-BNP (10/26/2023 7:20 PM CDT) PRO-BNP 297(H) <125 pg/mL 10/26/2023 8:11 PM CDT [facility] Blood BLOOD SPECIMEN / Unknown Venipuncture / Unknown 10/26/2023 7:20 PM CDT 10/26/2023 7:26 PM CDT Narrative [facility] - 10/26/2023 8:11 PM CDT The following cut-points have been suggested for the use of proBNP for the diagnostic evaluation of heart failure (HF) in patient with acute dyspnea. Patients with eGFR >= 60 Diagnosis (rule in CHF) ? <50 Years Old ?450 pg/mL 50 - 75 Years Old ?900 pg/mL >75 Years Old ? 1800 pg/mL Exclusion (rule out CHF) Age Independent ?300 pg/mL A cutoff of 1200 pg/mL for patients with an eGFR <60 yields a diagnostic sensitivity of 89% and specificity of 72% for acute congestive heart failure. ? Ken De Leon MD SEND OU TS [facility] [address] [place] [address], * (ABNORMAL) BASIC METABOLIC PANEL (10/26/2023 7:20 PM CDT) [facility] SODIUM 138 136 - 145 mmol/L 10/26/2023 8:08 PM CDT [facility] POTASSIUM 4.2 3.5 - 5.1 mmol/L 10/26/2023 8:08 PM T [facility] CHLORIDE 104 98 - 107 mmol/L 10/26/2023 8:08 PM CDT [facility] CO2,TOTAL 25 22 - 29 mmol/L 10/26/2023 8:08 PM T [facility] ANION GAP 9 5 - 18 10/26/2023 8:08 PM CDT [facility] GLUCOSE 103(H) 70 - 99 mg/dL 10/26/2023 8:08 PM CDT [facility] CALCIUM 10.2 8.8 - 10.2 mg/dL 10/26/2023 8:08 PM CDT [facility] BUN 18 8 - 23 mg/dL 10/26/2023 8:08 PM T [facility] CREATININE 1.04(H) 0.50 - 0.90 mg/dL 10/26/2023 8:08 PM T [facility] BUN/CREAT RATIO 17 10 - 20 8:08 PM T [facility] eGFR 58(L) >90 mL/min/1.7 3m2 10/26/2023 8:08 PM CDT [facility] Comment:As of 2021, eG FR is calculated by the CKD-EPI creatinine equation without race adjustment. ??eGFR can be influenced by muscle mass, exercise, and diet. ??The reported eGFR is an estimation only and is only applicable if the renal function is stable. Blood BLOOD SPECIMEN / Unknown Venipuncture / Unknown 10/26/2023 7:20 PM CDT 10/26/2023 7:26 PM CDT Ken De Leon MD MULTI NEEDLE MACHINE OPERATOR RY Performing Organization Address City/[facility] Co de Phone Number [facility] [address] [place] [address], * EKG 12 LEAD (10/26/2023 5:52 PM CDT) Pathologist [facility] Interpretation Normal sinus rhythm Biatrial enlargement Abnormal ECG T wave inversion in V2 BEYOND NOW Ventricular Rate 74 BPM BEYOND NOW Atrial Rate 74 BPM BEYOND NOW P-R Interval 184 ms BEYOND NOW QRS Duration 84 ms BEYOND NOW QT 402 ms BEYOND NOW QTc 446 ms BEYOND NOW P [place] 82 degrees BEYOND NOW R [place] 54 degrees BEYOND NOW T [place] 65 degrees BEYOND NOW 10/26/2023 5:52 PM CDT 10/27/2023 9:21 AM CDT Ken De Leon MD EKG ORD Performing Organization Address [facility] Co de Phone Number [place] NOW [place], [place] * XR DXA BONE DENSITY PERIPHERAL (07/18/2023) Anatomical Region Laterality Modality ARMS Other Zeeshan Pierre MD DEXA * LIPID PANEL (11/28/2022 8:37 AM CDT) Pathologist [facility] CHOLESTEROL,TOTAL 145 100 - 199 mg/dL 11/28/2022 5:20 PM CDT [facility] Comment: Cholesterol, Total Reference Ranges Desirable <200 mg/dL Borderline 200-239 mg/dL High >=240 mg/dL TRIGLYCERIDES 120 <150 mg/dL 11/28/2022 5:20 PM CDT [facility] HDL CHOLESTEROL 57 >40 mg/dL 5:20 PM CDT [facility] [employer] [facility] NON-HDL CHOLESTEROL 88 <145 mg/dl 11/28/2022 5:20 PM CDT [facility] [employer] [facility] CHOL/HDL RATIO 2.54 <4.50 11/28/2022 5:20 PM CDT [facility] [employer] [facility] LDL CHOLESTEROL 64 <=130 mg/dL 11/28/2022 5:20 PM CDT [facility] [employer] [facility] VLDL CHOLESTEROL 24 <=30 mg/dL 11/28/2022 5:20 PM CDT [facility] [employer] [facility] PROVIDER ORDERED STATUS RANDOM 11/28/2022 5:20 PM CDT [facility] [employer] [facility] Blood BLOOD SPECIMEN / Unknown Venipuncture / Unknown 11/28/2022 8:37 AM CDT 11/28/2022 8:37 AM CDT Carlos Faria MD CHEMISTRY [facility] [address] [place] [address], from Last 3 Months or Most Recently Relevant to Health Maintenance Advance Directives Documents on File Type Date Recorded Patient Flat Drier Expl anation Healthcare Directive 07/07/2021 9:27 AM Healthcare Directive 07/13/2008 * Full Code (Latest Code Status on File) Date Activated Date Inactivated Comments 07/07/2021 1:38 PM 07/07/2021 6:59 PM Question Answer Comments Code Status Discussion: Other Not disc ussed * Full Code Date Activated Date Inactivated Comments 07/07/2021 9:34 AM 07/07/2021 1:38 PM Question Answer Comments Code Status Discussion: Other Not disc ussed * Full Code Date Activated Date Inactivated Comments 07/07/2008 10:38 AM 07/12/2008 3:33 PM Care Teams Acct Exec Relationship Specialty Start Date End Date Provider, Non-Excellian . PCP - General 10/26/23
--- OUTSIDE RECORDS SUMMARY | 2023-11-10 13:35 | XMS_ITS | Encounter Summary ---
Author Organization [facility] Address [address] [place] [address] Care Team Providers Care Circle Shear Operator Name Role Phone Gauri Cortez MD Primary Care Provider [phone] Encounter Details Date Type Department Care Team (Latest Contact Info) Description 09/10/1999 [place] [address] [place] [address] Social History Tobacco Use Types Packs/Day Years Used Date Smoking Tobacco: Never Assessed Sex and Gender Information Value Date Recorded Sex Assigned at Not on file Gender Identity Not on file Sexual Orientation Not on file documented as of this encounter Plan of Treatment Not on file documented as of this encounter Visit Diagnoses Not on filedocumented in this encounter Care Teams Circle Shear Operator Relationship Specialty Start Date End Date Gauri Cortez MD [address] [facility] [address] [place], [place] [address] PCP - General Internal Medicine 04/29/13 documented as of this encounter
--- OUTSIDE RECORDS SUMMARY | 2023-11-10 13:35 | XMS_ITS | Encounter Summary ---
Author Organization [facility] Address [address] [place] [address] Care Team Providers Care Turntable Engineer Name Role Phone Gauri Cortez MD Primary Care Provider [phone] Encounter Details Date Type Department Care Team (Latest Contact Info) Description 05/21/1999 Orders Only Gauri Cortez MD [address] [facility] [address] [place], [place] [address] Social History Tobacco Use Types Packs/Day Years Used Date Smoking Tobacco: Never Assessed Sex and Gender Information Value Date Recorded Sex Assigned at Not on file Gender Identity Not on file Sexual Orientation Not on file documented as of this encounter Plan of Treatment Not on file documented as of this encounter Visit Diagnoses Not on filedocumented in this encounter Care Teams Turntable Engineer Relationship Specialty Start Date End Date Gauri Cortez MD [address] [facility] [address] [place], [place] [address] PCP - General Internal Medicine 04/29/13 documented as of this encounter
--- OUTSIDE RECORDS SUMMARY | 2023-11-10 13:35 | XMS_ITS | Encounter Summary ---
Author Organization [facility] Address [address] [place] [address] Care Team Providers Care Mash Tub Cooker Name Role Phone Gauri Cortez MD Primary Care Provider [phone] Encounter Details Date Type Department Care Team (Latest Contact Info) Description 10/18/1999 Orders Only Sharif Pierre MD [address] [facility] [address] [place], [place] [id number] Social History Tobacco Use Types Packs/Day Years Used Date Smoking Tobacco: Never Assessed Sex and Gender Information Value Date Recorded Sex Assigned at Not on file Gender Identity Not on file Sexual Orientation Not on file documented as of this encounter Plan of Treatment Not on file documented as of this encounter Visit Diagnoses Not on filedocumented in this encounter Care Teams Mash Tub Cooker Relationship Specialty Start Date End Date Gauri Cortez MD [address] [facility] [address] [place] [address] PCP - General Internal Medicine 04/29/13 documented as of this encounter
--- OUTSIDE RECORDS SUMMARY | 2023-11-10 13:35 | XMS_ITS | Encounter Summary ---
Author Organization [facility] Address [address] [place] [address] Care Team Providers Care Cardiology Technologist Name Role Phone Gauri Cortez MD Primary Care Provider [phone] Encounter Details Date Type Department Care Team (Latest Contact Info) Description 07/16/1999 Orders Only Gauri Cortez MD [address] [facility] [address] [place], [place] [address] Social History Tobacco Use Types Packs/Day Years Used Date Smoking Tobacco: Never Assessed Sex and Gender Information Value Date Recorded Sex Assigned at Not on file Gender Identity Not on file Sexual Orientation Not on file documented as of this encounter Plan of Treatment Not on file documented as of this encounter Visit Diagnoses Not on filedocumented in this encounter Care Teams Cardiology Technologist Relationship Specialty Start Date End Date Gauri Cortez MD [address] [facility] [address] [place], [place] [address] PCP - General Internal Medicine 04/29/13 documented as of this encounter
--- OUTSIDE RECORDS SUMMARY | 2023-11-10 13:36 | XMS_ITS | Encounter Summary ---
Author Organization [facility] Address [address] [place] [address] Care Team Providers Care Manager Change Name Role Phone Gauri Cortez MD Primary Care Provider [phone] Encounter Details Date Type Department Care Team (Latest Contact Info) Description 05/22/1996 Orders Only Torito Piper MD Social History Tobacco Use Types Packs/Day Years Used Date Smoking Tobacco: Never Assessed Sex and Gender Information Value Date Recorded Sex Assigned at Not on file Gender Identity Not on file Sexual Orientation Not on file documented as of this encounter Plan of Treatment Not on file documented as of this encounter Visit Diagnoses Not on filedocumented in this encounter Care Teams Manager Change Relationship Specialty Start Date End Date Gauri Cortez MD [address] [facility] [address] [place] [address] PCP - General Internal Medicine 04/29/13 documented as of this encounter
--- OUTSIDE RECORDS SUMMARY | 2023-11-10 13:36 | XMS_ITS | Encounter Summary ---
Author Organization [facility] Address [address] [place] [address] Care Team Providers Care Binding End Stitcher Name Role Phone Gauri Cortez MD Primary Care Provider +1 [phone] Encounter Details Date Type Department Care Team (Latest Contact Info) Description 04/22/1997 Orders Only Gauri Cortez MD [address] [facility] [address] [place], [place] [address] Social History Tobacco Use Types Packs/Day Years Used Date Smoking Tobacco: Never Assessed Sex and Gender Information Value Date Recorded Sex Assigned at Not on file Gender Identity Not on file Sexual Orientation Not on file documented as of this encounter Plan of Treatment Not on file documented as of this encounter Visit Diagnoses Not on filedocumented in this encounter Care Teams Binding End Stitcher Relationship Specialty Start Date End Date Gauri Cortez MD [address] [facility] [address] [place], [place] [address] PCP - General Internal Medicine 04/29/13 documented as of this encounter
--- OUTSIDE RECORDS SUMMARY | 2023-11-10 13:36 | XMS_ITS | Encounter Summary ---
Author Organization [facility] Address [address] [place] [address] Care Team Providers Care Rubber Flap Tuber Machine Operator Name Role Phone Gauri Cortez MD Primary Care Provider +1 [phone] Encounter Details Date Type Department Care Team (Latest Contact Info) Description 06/14/1996 Orders Only Gauri Cortez MD [address] [facility] 200 [place], [place] [address] Social History Tobacco Use Types Packs/Day Years Used Date Smoking Tobacco: Never Assessed Sex and Gender Information Value Date Recorded Sex Assigned at Not on file Gender Identity Not on file Sexual Orientation Not on file documented as of this encounter Plan of Treatment Not on file documented as of this encounter Visit Diagnoses Not on filedocumented in this encounter Care Teams Rubber Flap Tuber Machine Operator Relationship Specialty Start Date End Date Gauri Cortez MD [address] [facility] [address] [place], [place] [address] PCP - General Internal Medicine 04/29/13 documented as of this encounter
--- OUTSIDE RECORDS SUMMARY | 2023-11-10 13:36 | XMS_ITS | Encounter Summary ---
Author Organization [facility] Address [address] [place] [address] Care Team Providers Care Shuttle Buggy Operator Name Role Phone Gauri Cortez MD Primary Care Provider +1 [phone] Encounter Details Date Type Department Care Team (Latest Contact Info) Description 08/20/1996 Orders Only Gauri Cortez MD [address] [facility] [address] [place], [place] [address] Social History Tobacco Use Types Packs/Day Years Used Date Smoking Tobacco: Never Assessed Sex and Gender Information Value Date Recorded Sex Assigned at Not on file Gender Identity Not on file Sexual Orientation Not on file documented as of this encounter Plan of Treatment Not on file documented as of this encounter Visit Diagnoses Not on filedocumented in this encounter Care Teams Shuttle Buggy Operator Relationship Specialty Start Date End Date Gauri Cortez MD [address] [facility] [address] [place], [place] [address] PCP - General Internal Medicine 04/29/13 documented as of this encounter
--- OUTSIDE RECORDS SUMMARY | 2023-11-10 13:36 | XMS_ITS | Encounter Summary ---
Author Organization [facility] Address [address] [place] [address] Care Team Providers Care Sprayer Hand Name Role Phone Gauri Cortez MD Primary Care Provider +1 [phone] Encounter Details Date Type Department Care Team (Latest Contact Info) Description 06/24/1996 Orders Only Sharif Pierre MD [address] [facility] [place], [place] [id number] Social History Tobacco Use Types Packs/Day Years Used Date Smoking Tobacco: Never Assessed Sex and Gender Information Value Date Recorded Sex Assigned at Not on file Gender Identity Not on file Sexual Orientation Not on file documented as of this encounter Plan of Treatment Not on file documented as of this encounter Visit Diagnoses Not on filedocumented in this encounter Care Teams Sprayer Hand Relationship Specialty Start Date End Date Gauri Cortez MD [address] [facility] 200 [place] [address] PCP - General Internal Medicine 04/29/13 documented as of this encounter
--- OUTSIDE RECORDS SUMMARY | 2023-11-10 13:36 | XMS_ITS | Encounter Summary ---
Author Organization [facility] Address [address] [place] [address] Care Team Providers Care Chucking And Sawing Machine Operator Name Role Phone Gauri Cortez MD Primary Care Provider +1 [phone] Encounter Details Date Type Department Care Team (Latest Contact Info) Description 12/16/1996 Orders Only Presley Frost MD [address] [place], [place] [address] Social History Tobacco Use Types Packs/Day Years Used Date Smoking Tobacco: Never Assessed Sex and Gender Information Value Date Recorded Sex Assigned at Not on file Gender Identity Not on file Sexual Orientation Not on file documented as of this encounter Plan of Treatment Not on file documented as of this encounter Visit Diagnoses Not on filedocumented in this encounter Care Teams Chucking And Sawing Machine Operator Relationship Specialty Start Date End Date Gauri Cortez MD [address] [facility] 200 [place] [address] PCP - General Internal Medicine 04/29/13 documented as of this encounter
--- OUTSIDE RECORDS SUMMARY | 2023-11-10 13:36 | XMS_ITS | Encounter Summary ---
Author Organization [facility] Address [address] [place] [address] Care Team Providers Care Master Esthetician Name Role Phone Gauri Cortez MD Primary Care Provider +1 [phone] Encounter Details Date Type Department Care Team (Latest Contact Info) Description 08/28/1997 Orders Only Gauri Cortez MD [address] [facility] [address] [place], [place] [address] Social History Tobacco Use Types Packs/Day Years Used Date Smoking Tobacco: Never Assessed Sex and Gender Information Value Date Recorded Sex Assigned at Not on file Gender Identity Not on file Sexual Orientation Not on file documented as of this encounter Plan of Treatment Not on file documented as of this encounter Visit Diagnoses Not on filedocumented in this encounter Care Teams Master Esthetician Relationship Specialty Start Date End Date Gauri Cortez MD [address] [facility] [address] [place], [place] [address] PCP - General Internal Medicine 04/29/13 documented as of this encounter
--- OUTSIDE RECORDS SUMMARY | 2023-11-10 13:36 | XMS_ITS | Encounter Summary ---
[facility] Address [address] [place] [address] Care Team Providers Care Material Disposition Inspector Name Role Phone Gauri Cortez MD Primary Care Provider +1 [phone] Encounter Details Date Type Department Care Team (Latest Contact Info) Description 08/14/1998 Orders Only Peyton Neumann Social History Tobacco Use Types Packs/Day Years Used Date Smoking Tobacco: Never Assessed Sex and Gender Information Value Date Recorded Sex Assigned at Not on file Gender Identity Not on file Sexual Orientation Not on file documented as of this encounter Plan of Treatment Not on file documented as of this encounter Visit Diagnoses Not on filedocumented in this encounter Care Teams Material Disposition Inspector Relationship Specialty Start Date End Date Gauri Cortez MD [address] [facility] 200 [place] [address] PCP - General Internal Medicine 04/29/13 documented as of this encounter
--- OUTSIDE RECORDS SUMMARY | 2023-11-10 13:36 | XMS_ITS | Encounter Summary ---
Author Organization [facility] Address [address] [place] [address] Care Team Providers Care Assistant Financial Accountant Name Role Phone Gauri Cortez MD Primary Care Provider +1 [phone] Encounter Details Date Type Department Care Team (Latest Contact Info) Description 12/31/1998 Orders Only Miranda Marinelli, DO [address] [place], [place] [address] Social History Tobacco Use Types Packs/Day Years Used Date Smoking Tobacco: Never Assessed Sex and Gender Information Value Date Recorded Sex Assigned at Not on file Gender Identity Not on file Sexual Orientation Not on file documented as of this encounter Plan of Treatment Not on file documented as of this encounter Visit Diagnoses Not on filedocumented in this encounter Care Teams Assistant Financial Accountant Relationship Specialty Start Date End Date Gauri Cortez MD [address] [facility] [address] [place] [address] PCP - General Internal Medicine 04/29/13 documented as of this encounter
--- OUTSIDE RECORDS SUMMARY | 2023-11-10 13:36 | XMS_ITS | Encounter Summary ---
Author Organization [facility] Address [address] [place] [address] Care Team Providers Care Shirt Ironer Name Role Phone Gauri Cortez MD Primary Care Provider +1 [phone] Encounter Details Date Type Department Care Team (Latest Contact Info) Description 12/13/1995 Orders Only Presley Frost MD [address] [place], [place] [address] Social History Tobacco Use Types Packs/Day Years Used Date Smoking Tobacco: Never Assessed Sex and Gender Information Value Date Recorded Sex Assigned at Not on file Gender Identity Not on file Sexual Orientation Not on file documented as of this encounter Plan of Treatment Not on file documented as of this encounter Visit Diagnoses Not on filedocumented in this encounter Care Teams Shirt Ironer Relationship Specialty Start Date End Date Gauri Cortez MD [address] [facility] 200 [place] [address] PCP - General Internal Medicine 04/29/13 documented as of this encounter
--- OUTSIDE RECORDS SUMMARY | 2023-11-10 13:36 | XMS_ITS | Encounter Summary ---
Author Organization [facility] Address [address] [place] [address] Care Team Providers Care Supervisor Fish Hatchery Name Role Phone Gauri Cortez MD Primary Care Provider +1 [phone] Encounter Details Date Type Department Care Team (Latest Contact Info) Description 06/22/1998 Orders Only Gauri Cortez MD [address] [facility] [address] [place], [place] [address] Social History Tobacco Use Types Packs/Day Years Used Date Smoking Tobacco: Never Assessed Sex and Gender Information Value Date Recorded Sex Assigned at Not on file Gender Identity Not on file Sexual Orientation Not on file documented as of this encounter Plan of Treatment Not on file documented as of this encounter Visit Diagnoses Not on filedocumented in this encounter Care Teams Supervisor Fish Hatchery Relationship Specialty Start Date End Date Gauri Cortez MD [address] [place] [address] [place], [place] [address] PCP - General Internal Medicine 04/29/13 documented as of this encounter
--- OUTSIDE RECORDS SUMMARY | 2023-11-10 13:36 | XMS_ITS | Encounter Summary ---
Author Organization [facility] Address [address] [place] [address] Care Team Providers Care Heat Treat Furnace Operator Name Role Phone Gauri Cortez MD Primary Care Provider +1 [phone] Encounter Details Date Type Department Care Team (Latest Contact Info) Description 04/10/1996 Orders Only Gauri Cortez MD [address] [facility] [address] [place], [place] [address] Social History Tobacco Use Types Packs/Day Years Used Date Smoking Tobacco: Never Assessed Sex and Gender Information Value Date Recorded Sex Assigned at Not on file Gender Identity Not on file Sexual Orientation Not on file documented as of this encounter Plan of Treatment Not on file documented as of this encounter Visit Diagnoses Not on filedocumented in this encounter Care Teams Heat Treat Furnace Operator Relationship Specialty Start Date End Date Gauri Cortez MD [address] [facility] [address] [place], [place] [address] PCP - General Internal Medicine 04/29/13 documented as of this encounter
--- OUTSIDE RECORDS SUMMARY | 2023-11-10 13:36 | XMS_ITS | Encounter Summary ---
Author Organization [facility] Address [address] [place] [address] Care Team Providers Care Hardware Test Engineer Name Role Phone Gauri Cortez MD Primary Care Provider +1 [phone] Encounter Details Date Type Department Care Team (Latest Contact Info) Description 01/27/1997 Orders Only Sharif Pierre MD [address] [place], [place] [id number] Social History Tobacco Use Types Packs/Day Years Used Date Smoking Tobacco: Never Assessed Sex and Gender Information Value Date Recorded Sex Assigned at Not on file Gender Identity Not on file Sexual Orientation Not on file documented as of this encounter Plan of Treatment Not on file documented as of this encounter Visit Diagnoses Not on filedocumented in this encounter Care Teams Hardware Test Engineer Relationship Specialty Start Date End Date Gauri Cortez MD [address] [facility] [address] [place] [address] PCP - General Internal Medicine 04/29/13 documented as of this encounter
--- OUTSIDE RECORDS SUMMARY | 2023-11-10 13:36 | XMS_ITS | Encounter Summary ---
Author Organization [facility] Address [address] [place] [address] Care Team Providers Care Hat Conditioner Name Role Phone Gauri Cortez MD Primary Care Provider +1 [phone] Encounter Details Date Type Department Care Team (Latest Contact Info) Description 10/04/1996 Orders Only Gauri Cortez MD [address] [facility] [address] [place], [place] [address] Social History Tobacco Use Types Packs/Day Years Used Date Smoking Tobacco: Never Assessed Sex and Gender Information Value Date Recorded Sex Assigned at Not on file Gender Identity Not on file Sexual Orientation Not on file documented as of this encounter Plan of Treatment Not on file documented as of this encounter Visit Diagnoses Not on filedocumented in this encounter Care Teams Hat Conditioner Relationship Specialty Start Date End Date Gauri Cortez MD [address] [facility] [address] [place], [place] [address] PCP - General Internal Medicine 04/29/13 documented as of this encounter
--- OUTSIDE RECORDS SUMMARY | 2023-11-10 13:36 | XMS_ITS | Encounter Summary ---
Author Organization [facility] Address [address] [place] [address] Care Team Providers Care Production Control Analyst Name Role Phone Gauri Cortez MD Primary Care Provider +1 [phone] Encounter Details Date Type Department Care Team (Latest Contact Info) Description 06/12/1997 Orders Only Frank Scanlon [facility] [address] [facility], [address] Social History Tobacco Use Types Packs/Day Years Used Date Smoking Tobacco: Never Assessed Sex and Gender Information Value Date Recorded Sex Assigned at Not on file Gender Identity Not on file Sexual Orientation Not on file documented as of this encounter Plan of Treatment Not on file documented as of this encounter Visit Diagnoses Not on filedocumented in this encounter Care Teams Production Control Analyst Relationship Specialty Start Date End Date Gauri Cortez MD [address] [facility] [address] [place] [address] PCP - General Internal Medicine 04/29/13 documented as of this encounter
--- OUTSIDE RECORDS SUMMARY | 2023-11-10 13:36 | XMS_ITS | Encounter Summary ---
Author Organization [facility] Address [address] [place] [address] Care Team Providers Care Aitchbone Breaker Name Role Phone Gauri Cortez MD Primary Care Provider +1 [phone] Encounter Details Date Type Department Care Team (Latest Contact Info) Description 02/23/1998 Orders Only Uriel Laboy MD [address] [facility] [address] [place], [place] [address] Social History Tobacco Use Types Packs/Day Years Used Date Smoking Tobacco: Never Assessed Sex and Gender Information Value Date Recorded Sex Assigned at Not on file Gender Identity Not on file Sexual Orientation Not on file documented as of this encounter Plan of Treatment Not on file documented as of this encounter Visit Diagnoses Not on filedocumented in this encounter Care Teams Aitchbone Breaker Relationship Specialty Start Date End Date Gauri Cortez MD [address] [facility] [address] [place] [address] PCP - General Internal Medicine 04/29/13 documented as of this encounter
--- OUTSIDE RECORDS SUMMARY | 2023-11-10 13:36 | XMS_ITS | Encounter Summary ---
Author Organization [facility] Address [address] [place] [address] Care Team Providers Care Appointment Clerk Name Role Phone Gauri Cortez MD Primary Care Provider +1 [phone] Encounter Details Date Type Department Care Team (Latest Contact Info) Description 11/01/1995 Orders Only Geraldine De Los Santos MD [address] [place] [id number] Social History Tobacco Use Types Packs/Day Years Used Date Smoking Tobacco: Never Assessed Sex and Gender Information Value Date Recorded Sex Assigned at Not on file Gender Identity Not on file Sexual Orientation Not on file documented as of this encounter Plan of Treatment Not on file documented as of this encounter Visit Diagnoses Not on filedocumented in this encounter Care Teams Appointment Clerk Relationship Specialty Start Date End Date Gauri Cortez MD [address] [facility] [address] [place], [place] [address] PCP - General Internal Medicine 04/29/13 documented as of this encounter
--- OUTSIDE RECORDS SUMMARY | 2023-11-10 13:36 | XMS_ITS | Encounter Summary ---
Author Organization [facility] Address [address] [place] [address] Care Team Providers Care Bag Turner Name Role Phone Gauri Cortez MD Primary Care Provider +1 [phone] Encounter Details Date Type Department Care Team (Latest Contact Info) Description 09/13/1996 Orders Only Torito Piper MD Social History [...] on filedocumented in this encounter Care Teams Bag Turner Relationship Specialty Start Date End Date Gauri Cortez MD [address] [facility] 200 [place] [address] PCP - General Internal Medicine 04/29/13 documented as of this encounter
--- OUTSIDE RECORDS SUMMARY | 2023-11-10 13:36 | XMS_ITS | Encounter Summary ---
Author Organization [facility] Address [address] [place] [address] Care Team Providers Care Landscape Architect And Planner Name Role Phone Gauri Cortez MD Primary Care Provider +1 [phone] Encounter Details Date Type Department Care Team (Latest Contact Info) Description 11/18/1997 Orders Only Gauri Cortez MD [address] [facility] [address] [place], [place] [address] Social History Tobacco Use Types Packs/Day Years Used Date Smoking Tobacco: Never Assessed Sex and Gender Information Value Date Recorded Sex Assigned at Not on file Gender Identity Not on file Sexual Orientation Not on file documented as of this encounter Plan of Treatment Not on file documented as of this encounter Visit Diagnoses Not on filedocumented in this encounter Care Teams Landscape Architect And Planner Relationship Specialty Start Date End Date Gauri Cortez MD [address] [facility] [address] [place], [place] [address] PCP - General Internal Medicine 04/29/13 documented as of this encounter
--- OUTSIDE RECORDS SUMMARY | 2023-11-10 13:36 | XMS_ITS | Encounter Summary ---
Author Organization [facility] Address [address] [place] [address] Care Team Providers Care Merchant Miller Name Role Phone Gauri Cortez MD Primary Care Provider +1 [phone] Encounter Details Date Type Department Care Team (Latest Contact Info) Description 06/24/1997 Orders Only Gauri Cortez MD [address] [facility] [address] [place], [place] [address] Social History Tobacco Use Types Packs/Day Years Used Date Smoking Tobacco: Never Assessed Sex and Gender Information Value Date Recorded Sex Assigned at Not on file Gender Identity Not on file Sexual Orientation Not on file documented as of this encounter Plan of Treatment Not on file documented as of this encounter Visit Diagnoses Not on filedocumented in this encounter Care Teams Merchant Miller Relationship Specialty Start Date End Date Gauri oCrtez MD [address] [facility] [address] [place], [place] [address] PCP - General Internal Medicine 04/29/13 documented as of this encounter
--- OUTSIDE RECORDS SUMMARY | 2023-11-10 13:36 | XMS_ITS | Encounter Summary ---
Author Organization [facility] Address [address] [place] [address] Care Team Providers Care Publications Inspector Name Role Phone Gauri Cortez MD Primary Care Provider +1 [phone] Encounter Details Date Type Department Care Team (Latest Contact Info) Description 01/09/1996 Orders Only Uriel Laboy MD [address] [facility] [place], [place] [address] Social History Tobacco Use Types Packs/Day Years Used Date Smoking Tobacco: Never Assessed Sex and Gender Information Value Date Recorded Sex Assigned at Not on file Gender Identity Not on file Sexual Orientation Not on file documented as of this encounter Plan of Treatment Not on file documented as of this encounter Visit Diagnoses Not on filedocumented in this encounter Care Teams Publications Inspector Relationship Specialty Start Date End Date Gauri Cortez MD [address] [facility] [address] [place] [address] PCP - General Internal Medicine 04/29/13 documented as of this encounter
--- OUTSIDE RECORDS SUMMARY | 2023-11-10 13:36 | XMS_ITS | Encounter Summary ---
Author [facility] Address [address] [place] [address] Care Team Providers Care Shopping Investigator Name Role Phone Gauri Cortez MD Primary Care Provider +1 [phone] Encounter Details Date Type Department Care Team (Latest Contact Info) Description 01/17/1996 Orders Only Rob Mccollum MD [address] [place], [place] [id number] Social History Tobacco Use Types Packs/Day Years Used Date Smoking Tobacco: Never Assessed Sex and Gender Information Value Date Recorded Sex Assigned at Not on file Gender Identity Not on file Sexual Orientation Not on file documented as of this encounter Plan of Treatment Not on file documented as of this encounter Visit Diagnoses Not on filedocumented in this encounter Care Teams Shopping Investigator Relationship Specialty Start Date End Date Gauri Cortez MD [address] [facility] [address] [place], [place] [address] PCP - General Internal Medicine 04/29/13 documented as of this encounter
--- OUTSIDE RECORDS SUMMARY | 2023-11-10 13:36 | XMS_ITS | Encounter Summary ---
Author Organization [facility] Address [address] [place] [address] Care Team Providers Care Collection Analyst Name Role Phone Gauri Cortez MD Primary Care Provider +1 [phone] Encounter Details Date Type Department Care Team (Latest Contact Info) Description 07/27/1998 Orders Only Klaus Martinez Social History Tobacco Use Types Packs/Day Years Used Date Smoking Tobacco: Never Assessed Sex and Gender Information Value Date Recorded Sex Assigned at Not on file Gender Identity Not on file Sexual Orientation Not on file documented as of this encounter Plan of Treatment Not on file documented as of this encounter Visit Diagnoses Not on filedocumented in this encounter Care Teams Collection Analyst Relationship Specialty Start Date End Date Gauri Cortez MD [address] [facility] 200 [place] [address] PCP - General Internal Medicine 04/29/13 documented as of this encounter
--- OUTSIDE RECORDS SUMMARY | 2023-11-10 13:36 | XMS_ITS | Encounter Summary ---
Author Organization [facility] Address [address] [place] [address] Care Team Providers Care Belt Brander Name Role Phone Gauri Cortez MD Primary Care Provider +1 [phone] Encounter Details Date Type Department Care Team (Latest Contact Info) Description 10/12/1995 Orders Only Camron Reed MD Social History Tobacco Use Types Packs/Day Years Used Date Smoking Tobacco: Never Assessed Sex and Gender Information Value Date Recorded Sex Assigned at Not on file Gender Identity Not on file Sexual Orientation Not on file documented as of this encounter Plan of Treatment Not on file documented as of this encounter Visit Diagnoses Not on filedocumented in this encounter Care Teams Belt Brander Relationship Specialty Start Date End Date Gauri Cortez MD [address] [facility] [address] [place] [address] PCP - General Internal Medicine 04/29/13 documented as of this encounter
--- OUTSIDE RECORDS SUMMARY | 2023-11-10 13:36 | XMS_ITS | Encounter Summary ---
Author Organization [facility] Address [address] [place] [address] Care Team Providers Care Development System Efficiency Manager Name Role Phone Gauri Cortez MD Primary Care Provider +1 [phone] Encounter Details Date Type Department Care Team (Latest Contact Info) Description 01/01/1996 Orders Only Geraldine De Los Santos MD [address] [place] [id number] Social History Tobacco Use Types Packs/Day Years Used Date Smoking Tobacco: Never Assessed Sex and Gender Information Value Date Recorded Sex Assigned at Not on file Gender Identity Not on file Sexual Orientation Not on file documented as of this encounter Plan of Treatment Not on file documented as of this encounter Visit Diagnoses Not on filedocumented in this encounter Care Teams Development System Efficiency Manager Relationship Specialty Start Date End Date Gauri Cortez MD [address] [facility] [address] [place], [place] [address] PCP - General Internal Medicine 04/29/13 documented as of this encounter
--- OUTSIDE RECORDS SUMMARY | 2023-11-10 13:36 | XMS_ITS | Encounter Summary ---
Author Organization [facility] Address [address] [place] [address] Care Team Providers Care Computer Repair Instructor Name Role Phone Gauri Cortez MD Primary Care Provider +1 [phone] Encounter Details Date Type Department Care Team (Latest Contact Info) Description 12/15/1997 Orders Only Klaus Martinez Social History Tobacco [...] on filedocumented in this encounter Care Teams Computer Repair Instructor Relationship Specialty Start Date End Date Gauri Cortez MD [address] [facility] 200 [place] [address] PCP - General Internal Medicine 04/29/13 documented as of this encounter
--- OUTSIDE RECORDS SUMMARY | 2023-11-10 13:36 | XMS_ITS | Encounter Summary ---
Author Organization [facility] Address [address] [place] [address] Care Team Providers Care Protector Plate Attacher Name Role Phone Gauri Cortez MD Primary Care Provider +1 [phone] Encounter Details Date Type Department Care Team (Latest Contact Info) Description 06/05/1996 Orders Only Gauri Cortez MD [address] [facility] 200 [place], [place] [address] Social History Tobacco Use Types Packs/Day Years Used Date Smoking Tobacco: Never Assessed Sex and Gender Information Value Date Recorded Sex Assigned at Not on file Gender Identity Not on file Sexual Orientation Not on file documented as of this encounter Plan of Treatment Not on file documented as of this encounter Visit Diagnoses Not on filedocumented in this encounter Care Teams Protector Plate Attacher Relationship Specialty Start Date End Date Gauri Cortez MD [address] [facility] 200 [place], [place] [address] PCP - General Internal Medicine 04/29/13 documented as of this encounter
--- OUTSIDE RECORDS SUMMARY | 2023-11-10 13:36 | XMS_ITS | Encounter Summary ---
Author Organization [facility] Address [address] [place] [address] Care Team Providers Care Armature Varnisher Name Role Phone Gauri Cortez MD Primary Care Provider +1 [phone] Encounter Details Date Type Department Care Team (Latest Contact Info) Description 12/23/1997 Orders Only Torito Piper MD Social History [...] on filedocumented in this encounter Care Teams Armature Varnisher Relationship Specialty Start Date End Date Gauri Cortez MD [address] [facility] [address] [place] [address] PCP - General Internal Medicine 04/29/13 documented as of this encounter
--- OUTSIDE RECORDS SUMMARY | 2023-11-10 13:36 | XMS_ITS | Encounter Summary ---
[facility] Address [address] [place] [address] Care Team Providers Care Health Assessment And Treatment Teacher Name Role Phone Gauri Cortez MD Primary Care Provider +1 [phone] Encounter Details Date Type Department Care Team (Latest Contact Info) Description 08/20/1997 Orders Only Presley Frost MD [address] [place], [place] [address] Social History Tobacco Use Types Packs/Day Years Used Date Smoking Tobacco: Never Assessed Sex and Gender Information Value Date Recorded Sex Assigned at Not on file Gender Identity Not on file Sexual Orientation Not on file documented as of this encounter Plan of Treatment Not on file documented as of this encounter Visit Diagnoses Not on filedocumented in this encounter Care Teams Health Assessment And Treatment Teacher Relationship Specialty Start Date End Date Gauri Cortez MD [address] [facility] 200 [place] [address] PCP - General Internal Medicine 04/29/13 documented as of this encounter
--- OUTSIDE RECORDS SUMMARY | 2023-11-10 13:36 | XMS_ITS | Encounter Summary ---
Author Organization [facility] Address [address] [place] [address] Care Team Providers Care Pony Ride Operator Name Role Phone Gauri Cortez MD Primary Care Provider +[phone] Encounter Details Date Type Department Care Team (Latest Contact Info) Description 05/30/1997 Orders Only Jose Alberto Martinez Social History Tobacco Use Types Packs/Day Years Used Date Smoking Tobacco: Never Assessed Sex and Gender Information Value Date Recorded Sex Assigned at Not on file Gender Identity Not on file Sexual Orientation Not on file documented as of this encounter Plan of Treatment Not on file documented as of this encounter Visit Diagnoses Not on filedocumented in this encounter Care Teams Pony Ride Operator Relationship Specialty Start Date End Date Gauri Cortez MD [address] [facility] 200 [place] [address] PCP - General Internal Medicine 04/29/13 documented as of this encounter
--- OUTSIDE RECORDS SUMMARY | 2023-11-10 13:36 | XMS_ITS | Encounter Summary ---
Author Organization [facility] Address [address] [place] [address] Care Team Providers Care Entry Level Manufacturing Engineer Name Role Phone Gauri Cortez MD Primary Care Provider [phone] [phone] Encounter Details Date Type Department Care Team (Latest Contact Info) Description 07/09/1996 Orders Only Gauri Cortez MD [address] [facility] 200 [place], [place] [address] Social History Tobacco Use Types Packs/Day Years Used Date Smoking Tobacco: Never Assessed Sex and Gender Information Value Date Recorded Sex Assigned at Not on file Gender Identity Not on file Sexual Orientation Not on file documented as of this encounter Plan of Treatment Not on file documented as of this encounter Visit Diagnoses Not on filedocumented in this encounter Care Teams Entry Level Manufacturing Engineer Relationship Specialty Start Date End Date Gauri Cortez MD [address] [facility] [address] [place], [place] [address] PCP - General Internal Medicine 04/29/13 documented as of this encounter
--- OUTSIDE RECORDS SUMMARY | 2023-11-10 13:36 | XMS_ITS | Encounter Summary ---
Author Organization [facility] Address [address] [place] [address] Care Team Providers Care Residential Real Estate Agent Name Role Phone Gauri Cortez MD Primary Care Provider +[phone] Encounter Details Date Type Department Care Team (Latest Contact Info) Description 09/07/1998 Orders Only Presley Frost MD [address] [place], [place] [address] Social History Tobacco Use Types Packs/Day Years Used Date Smoking Tobacco: Never Assessed Sex and Gender Information Value Date Recorded Sex Assigned at Not on file Gender Identity Not on file Sexual Orientation Not on file documented as of this encounter Plan of Treatment Not on file documented as of this encounter Visit Diagnoses Not on filedocumented in this encounter Care Teams Residential Real Estate Agent Relationship Specialty Start Date End Date Gauri Cortez MD [address] [facility] 200 [place] [address] PCP - General Internal Medicine 04/29/13 documented as of this encounter
--- OUTSIDE RECORDS SUMMARY | 2023-11-10 13:36 | XMS_ITS | Encounter Summary ---
Author Organization [facility] Address [address] [place] [address] Care Team Providers Care Toy Assembly Supervisor Name Role Phone Gauri Cortez MD Primary Care Provider +1 [phone] Encounter Details Date Type Department Care Team (Latest Contact Info) Description 11/23/1998 Orders Only Klaus Martinez Social History Tobacco [...] on filedocumented in this encounter Care Teams Toy Assembly Supervisor Relationship Specialty Start Date End Date Gauri Cortez MD [address] [facility] 200 [place] [address] PCP - General Internal Medicine 04/29/13 documented as of this encounter
--- OUTSIDE RECORDS SUMMARY | 2023-11-10 13:36 | XMS_ITS | Encounter Summary ---
Author Organization [facility] Address [address] [place] [address] Care Team Providers Care Risk Management Internship Name Role Phone Gauri Cortez MD Primary Care Provider +1 [phone] Encounter Details Date Type Department Care Team (Latest Contact Info) Description 06/19/1998 Orders Only Klaus Martinez Social History Tobacco [...] on filedocumented in this encounter Care Teams Risk Management Internship Relationship Specialty Start Date End Date Gauri Cortez MD [address] [facility] 200 [place] [address] PCP - General Internal Medicine 04/29/13 documented as of this encounter
--- OUTSIDE RECORDS SUMMARY | 2023-11-10 13:36 | XMS_ITS | Encounter Summary ---
Author Organization [facility] Address [address] [place] [address] Care Team Providers Care City Superintendent Of Schools Name Role Phone Gauri Cortez MD Primary Care Provider +1 [phone] Encounter Details Date Type Department Care Team (Latest Contact Info) Description 09/24/1996 Orders Only Gauri Cortez MD [address] [facility] 200 [place], [place] [address] Social History Tobacco Use Types Packs/Day Years Used Date Smoking Tobacco: Never Assessed Sex and Gender Information Value Date Recorded Sex Assigned at Not on file Gender Identity Not on file Sexual Orientation Not on file documented as of this encounter Plan of Treatment Not on file documented as of this encounter Visit Diagnoses Not on filedocumented in this encounter Care Teams City Superintendent Of Schools Relationship Specialty Start Date End Date Gauri Cortez MD [address] [facility] 200 [place], [place] [address] PCP - General Internal Medicine 04/29/13 documented as of this encounter
--- OUTSIDE RECORDS SUMMARY | 2023-11-10 13:36 | XMS_ITS | Encounter Summary ---
Author Organization [facility] Address [address] [place] [address] Care Team Providers Care Mincemeat Maker Name Role Phone Gauri Cortez MD Primary Care Provider [phone] Encounter Details Date Type Department Care Team (Latest Contact Info) Description 04/18/1997 Orders Only Gauri Cortez MD [address] [facility] 200 [place], [place] [address] Social History Tobacco Use Types Packs/Day Years Used Date Smoking Tobacco: Never Assessed Sex and Gender Information Value Date Recorded Sex Assigned at Not on file Gender Identity Not on file Sexual Orientation Not on file documented as of this encounter Plan of Treatment Not on file documented as of this encounter Visit Diagnoses Not on filedocumented in this encounter Care Teams Mincemeat Maker Relationship Specialty Start Date End Date Gauri Cortez MD [address] [facility] [address] [place], [place] [address] PCP - General Internal Medicine 04/29/13 documented as of this encounter
--- OUTSIDE RECORDS SUMMARY | 2023-11-10 13:36 | XMS_ITS | Encounter Summary ---
Author Organization [facility] Address [address] [place] [address] Care Team Providers Care Manager Of Case Name Role Phone Gauri Cortez MD Primary Care Provider +1 [phone] Encounter Details Date Type Department Care Team (Latest Contact Info) Description 04/06/1998 Orders Only Efrem Tim MD Social History Tobacco Use Types Packs/Day [...] filedocumented in this encounter Care Teams Manager Of Case Relationship Specialty Start Date End Date Gauri Cortez MD [address] [facility] 200 [place] [address] PCP - General Internal Medicine 04/29/13 documented as of this encounter
--- OUTSIDE RECORDS SUMMARY | 2023-11-10 13:36 | XMS_ITS | Encounter Summary ---
Author Organization [facility] Address [address] [place] [address] Care Team Providers Care Hydraulic Miner Blasting Name Role Phone Gauri Cortez MD Primary Care Provider +[phone] Encounter Details Date Type Department Care Team (Latest Contact Info) Description 11/14/1996 Orders Only Gauri Cortez MD [address] [email or web address] [address] [place], [place] [phone] Social History Tobacco Use Types Packs/Day Years Used Date Smoking Tobacco: Never Assessed Sex and Gender Information Value Date Recorded Sex Assigned at Not on file Gender Identity Not on file Sexual Orientation Not on file documented as of this encounter Plan of Treatment Not on file documented as of this encounter Visit Diagnoses Not on filedocumented in this encounter Care Teams Hydraulic Miner Blasting Relationship Specialty Start Date End Date Gauri Cortez MD [address] [email or web address] [address] [place], [place] [address] PCP - General Internal Medicine 04/29/13 documented as of this encounter
--- OUTSIDE RECORDS SUMMARY | 2023-11-10 13:37 | XMS_ITS | Encounter Summary ---
Author Organization [facility] Address [address] [place] [address] Care Team Providers Care Upper Marker Name Role Phone Gauri Cortez MD Primary Care Provider +1 [phone] Encounter Details Date Type Department Care Team (Latest Contact Info) Description 11/08/1994 Orders Only Gauri Cortez MD [address] [facility] 200 [place], [place] [address] Social History Tobacco Use Types Packs/Day Years Used Date Smoking Tobacco: Never Assessed Sex and Gender Information Value Date Recorded Sex Assigned at Not on file Gender Identity Not on file Sexual Orientation Not on file documented as of this encounter Plan of Treatment Not on file documented as of this encounter Visit Diagnoses Not on filedocumented in this encounter Care Teams Upper Marker Relationship Specialty Start Date End Date Gauri Cortez MD [address] [facility] [address] [place], [place] [address] PCP - General Internal Medicine 04/29/13 documented as of this encounter
--- OUTSIDE RECORDS SUMMARY | 2023-11-10 13:37 | XMS_ITS | Encounter Summary ---
Author Organization [facility] Address [address] [place] [address] Care Team Providers Care Ager Operator Name Role Phone Gauri Cortez MD Primary Care Provider [phone] Encounter Details Date Type Department Care Team (Latest Contact Info) Description 01/19/1995 Orders Only Gauri Cortez MD [address] [facility] 200 [place], [place] [address] Social History Tobacco Use Types Packs/Day Years Used Date Smoking Tobacco: Never Assessed Sex and Gender Information Value Date Recorded Sex Assigned at Not on file Gender Identity Not on file Sexual Orientation Not on file documented as of this encounter Plan of Treatment Not on file documented as of this encounter Visit Diagnoses Not on filedocumented in this encounter Care Teams Ager Operator Relationship Specialty Start Date End Date Gauri Cortez MD [address] [facility] [address] [place], [place] [address] PCP - General Internal Medicine 04/29/13 documented as of this encounter
--- OUTSIDE RECORDS SUMMARY | 2023-11-10 13:37 | XMS_ITS | Encounter Summary ---
Author Organization [facility] Address [address] [place] [address] Care Team Providers Care Waterworks Employee Name Role Phone Gauri Cortez MD Primary Care Provider +[phone] Encounter Details Date Type Department Care Team (Latest Contact Info) Description 04/24/1995 Orders Only Presley Frost MD [address] [place], [place] [address] Social History Tobacco Use Types Packs/Day Years Used Date Smoking Tobacco: Never Assessed Sex and Gender Information Value Date Recorded Sex Assigned at Not on file Gender Identity Not on file Sexual Orientation Not on file documented as of this encounter Plan of Treatment Not on file documented as of this encounter Visit Diagnoses Not on filedocumented in this encounter Care Teams Waterworks Employee Relationship Specialty Start Date End Date Gauri Cortez MD [address] [facility] 200 [place] [address] PCP - General Internal Medicine 04/29/13 documented as of this encounter
--- OUTSIDE RECORDS SUMMARY | 2023-11-10 13:37 | XMS_ITS | Encounter Summary ---
Author Organization [facility] Address [address] [place] [address] Care Team Providers Care Freight Router Name Role Phone Gauri Cortez MD Primary Care Provider +1 [phone] Encounter Details Date Type Department Care Team (Latest Contact Info) Description 09/03/1994 Orders Only Frank Scanlon [facility] [address] [facility], [address] Social History Tobacco Use Types Packs/Day Years Used Date Smoking Tobacco: Never Assessed Sex and Gender Information Value Date Recorded Sex Assigned at Not on file Gender Identity Not on file Sexual Orientation Not on file documented as of this encounter Plan of Treatment Not on file documented as of this encounter Visit Diagnoses Not on filedocumented in this encounter Care Teams Freight Router Relationship Specialty Start Date End Date Gauri Cortez MD [address] [facility] [address] [place] [address] PCP - General Internal Medicine 04/29/13 documented as of this encounter
--- OUTSIDE RECORDS SUMMARY | 2023-11-10 13:37 | XMS_ITS | Encounter Summary ---
Author Organization [facility] Address [address] [place] [address] Care Team Providers Care Lime Mixer Tender Name Role Phone Gauri Cortez MD Primary Care Provider +1 [phone] Encounter Details Date Type Department Care Team (Latest Contact Info) Description 06/10/1994 Orders Only Loco Chavez MD [address] [place], [place] [id number] Social History Tobacco Use Types Packs/Day Years Used Date Smoking Tobacco: Never Assessed Sex and Gender Information Value Date Recorded Sex Assigned at Not on file Gender Identity Not on file Sexual Orientation Not on file documented as of this encounter Plan of Treatment Not on file documented as of this encounter Visit Diagnoses Not on filedocumented in this encounter Care Teams Lime Mixer Tender Relationship Specialty Start Date End Date Gauri Cortez MD [address] [facility] [address] [place] [address] PCP - General Internal Medicine 04/29/13 documented as of this encounter
--- OUTSIDE RECORDS SUMMARY | 2023-11-10 13:37 | XMS_ITS | Encounter Summary ---
Author [facility] Address [address] [place] [address] Care Team Providers Care Apple Peeler Operator Name Role Phone Gauri Cortez MD Primary Care Provider +1 [phone] Encounter Details Date Type Department Care Team (Latest Contact Info) Description 06/15/1994 Orders Only Loco Chavez MD [address] [place], [place] [phone] Social History Tobacco Use Types Packs/Day Years Used Date Smoking Tobacco: Never Assessed Sex and Gender Information Value Date Recorded Sex Assigned at Not on file Gender Identity Not on file Sexual Orientation Not on file documented as of this encounter Plan of Treatment Not on file documented as of this encounter Visit Diagnoses Not on filedocumented in this encounter Care Teams Apple Peeler Operator Relationship Specialty Start Date End Date Gauri Cortez MD [address] [facility] [address] [place] [address] PCP - General Internal Medicine 04/29/13 documented as of this encounter
--- OUTSIDE RECORDS SUMMARY | 2023-11-10 13:37 | XMS_ITS | Encounter Summary ---
Author Organization [facility] Address [address] [place] [address] Care Team Providers Care Actor Understudy Name Role Phone Gauri Cortez MD Primary Care Provider +1 [phone] Encounter Details Date Type Department Care Team (Latest Contact Info) Description 06/09/1994 Orders Only Gauri Cortez MD [address] [facility] [address] [place], [place] [address] Social History Tobacco Use Types Packs/Day Years Used Date Smoking Tobacco: Never Assessed Sex and Gender Information Value Date Recorded Sex Assigned at Not on file Gender Identity Not on file Sexual Orientation Not on file documented as of this encounter Plan of Treatment Not on file documented as of this encounter Visit Diagnoses Not on filedocumented in this encounter Care Teams Actor Understudy Relationship Specialty Start Date End Date Gauri Cortez MD [address] [facility] [address] [place], [place] [address] PCP - General Internal Medicine 04/29/13 documented as of this encounter
--- OUTSIDE RECORDS SUMMARY | 2023-11-10 13:37 | XMS_ITS | Encounter Summary ---
Author Organization [facility] Address [address] [place] [address] Care Team Providers Care Motorsports Technician Name Role Phone Gauri Cortez MD Primary Care Provider +1 [phone] Encounter Details Date Type Department Care Team (Latest Contact Info) Description 09/29/1995 Orders Only Gauri Cortez MD [address] [facility] [address] [place], [place] [address] Social History Tobacco Use Types Packs/Day Years Used Date Smoking Tobacco: Never Assessed Sex and Gender Information Value Date Recorded Sex Assigned at Not on file Gender Identity Not on file Sexual Orientation Not on file documented as of this encounter Plan of Treatment Not on file documented as of this encounter Visit Diagnoses Not on filedocumented in this encounter Care Teams Motorsports Technician Relationship Specialty Start Date End Date Gauri Cortez MD [address] [facility] [address] [place], [place] [address] PCP - General Internal Medicine 04/29/13 documented as of this encounter
--- OUTSIDE RECORDS SUMMARY | 2023-11-10 13:37 | XMS_ITS | Encounter Summary ---
Author [facility] Address [address] [place] [address] Care Team Providers Care Patrol Deputy Sheriff Name Role Phone Gauri Cortez MD Primary Care Provider [phone] Encounter Details Date Type Department Care Team (Latest Contact Info) Description 09/06/1995 Orders Only Rob Mccollum MD [address] [place] [address] Social History Tobacco Use Types Packs/Day Years Used Date Smoking Tobacco: Never Assessed Sex and Gender Information Value Date Recorded Sex Assigned at Not on file Gender Identity Not on file Sexual Orientation Not on file documented as of this encounter Plan of Treatment Not on file documented as of this encounter Visit Diagnoses Not on filedocumented in this encounter Care Teams Patrol Deputy Sheriff Relationship Specialty Start Date End Date Gauri Cortez MD [address] [facility] [address] [place], [place] [address] PCP - General Internal Medicine 04/29/13 documented as of this encounter
--- OUTSIDE RECORDS SUMMARY | 2023-11-10 13:37 | XMS_ITS | Encounter Summary ---
Author Organization [facility] Address [address] [place] [address] Care Team Providers Care Cut Off Machine Helper Name Role Phone Gauri Cortez MD Primary Care Provider [phone] Encounter Details Date Type Department Care Team (Latest Contact Info) Description 07/18/1995 Orders Only Camron Reed MD Social History [...] on filedocumented in this encounter Care Teams Cut Off Machine Helper Relationship Specialty Start Date End Date Gauri Cortez MD [address] [facility] [address] [place] [address] PCP - General Internal Medicine 04/29/13 documented as of this encounter
--- OUTSIDE RECORDS SUMMARY | 2023-11-10 13:37 | XMS_ITS | Encounter Summary ---
Author Organization [facility] Address [address] [place] [address] Care Team Providers Care Field Identification Specialist Name Role Phone Gauri Cortez MD Primary Care Provider [phone] Encounter Details Date Type Department Care Team (Latest Contact Info) Description 07/26/1994 Orders Only Gauri Cortez MD [address] [facility] [address] [place], [place] [address] Social History Tobacco Use Types Packs/Day Years Used Date Smoking Tobacco: Never Assessed Sex and Gender Information Value Date Recorded Sex Assigned at Not on file Gender Identity Not on file Sexual Orientation Not on file documented as of this encounter Plan of Treatment Not on file documented as of this encounter Visit Diagnoses Not on filedocumented in this encounter Care Teams Field Identification Specialist Relationship Specialty Start Date End Date Gauri Cortez MD [address] [facility] [address] [place], [place] [address] PCP - General Internal Medicine 04/29/13 documented as of this encounter
--- OUTSIDE RECORDS SUMMARY | 2023-11-10 13:37 | XMS_ITS | Encounter Summary ---
Author Organization [facility] Address [address] [place] [address] Care Team Providers Care Intake Counselor Name Role Phone Gauri Cortez MD Primary Care Provider [phone] Encounter Details Date Type Department Care Team (Latest Contact Info) Description 04/13/1995 Orders Only Camron Reed MD Social History [...] on filedocumented in this encounter Care Teams Intake Counselor Relationship Specialty Start Date End Date Gauri Cortez MD [address] [facility] [facility] 200 [place] [address] PCP - General Internal Medicine 04/29/13 documented as of this encounter
--- OUTSIDE RECORDS SUMMARY | 2023-11-10 13:37 | XMS_ITS | Encounter Summary ---
Author Organization [facility] Address [address] [place] [address] Care Team Providers Care Billet Worker Name Role Phone Gauri Cortez MD Primary Care Provider [phone] Encounter Details Date Type Department Care Team (Latest Contact Info) Description 10/03/1995 Orders Only Camron Reed MD Social History [...] on filedocumented in this encounter Care Teams Billet Worker Relationship Specialty Start Date End Date Gauri Cortez MD [address] [facility] [address] [place] [address] PCP - General Internal Medicine 04/29/13 documented as of this encounter
--- OUTSIDE RECORDS SUMMARY | 2023-11-10 13:37 | XMS_ITS | Encounter Summary ---
Author Organization [facility] Address [address] [place] [address] Care Team Providers Care Labor Relations Director Name Role Phone Gauri Cortez MD Primary Care Provider [phone] Encounter Details Date Type Department Care Team (Latest Contact Info) Description 12/26/1994 Orders Only Torito Piper MD Social History [...] on filedocumented in this encounter Care Teams Labor Relations Director Relationship Specialty Start Date End Date Gauri Cortez MD [address] [facility] [address] [place] [address] PCP - General Internal Medicine 04/29/13 documented as of this encounter
--- OUTSIDE RECORDS SUMMARY | 2023-11-10 13:37 | XMS_ITS | Encounter Summary ---
Author Organization [facility] Address [address] [place] [address] Care Team Providers Care Manager Inpatient Name Role Phone Gauri Cortez MD Primary Care Provider [phone] Encounter Details Date Type Department Care Team (Latest Contact Info) Description 11/10/1994 Orders Only Gauri Cortez MD [address] [facility] [address] [place], [place] [address] Social History Tobacco Use Types Packs/Day Years Used Date Smoking Tobacco: Never Assessed Sex and Gender Information Value Date Recorded Sex Assigned at Not on file Gender Identity Not on file Sexual Orientation Not on file documented as of this encounter Plan of Treatment Not on file documented as of this encounter Visit Diagnoses Not on filedocumented in this encounter Care Teams Manager Inpatient Relationship Specialty Start Date End Date Gauri Cortez MD [address] [facility] [address] [place], [place] [address] PCP - General Internal Medicine 04/29/13 documented as of this encounter
--- OUTSIDE RECORDS SUMMARY | 2023-11-10 13:37 | XMS_ITS | Encounter Summary ---
Author Organization [facility] Address [address] [place] [address] Care Team Providers Care Catalog Library Assistant Name Role Phone Gauri Cortez MD Primary Care Provider [phone] Encounter Details Date Type Department Care Team (Latest Contact Info) Description 04/02/1995 Orders Only Uriel Laboy MD [address] [facility] [place], [place] [address] Social History Tobacco Use Types Packs/Day Years Used Date Smoking Tobacco: Never Assessed Sex and Gender Information Value Date Recorded Sex Assigned at Not on file Gender Identity Not on file Sexual Orientation Not on file documented as of this encounter Plan of Treatment Not on file documented as of this encounter Visit Diagnoses Not on filedocumented in this encounter Care Teams Catalog Library Assistant Relationship Specialty Start Date End Date Gauri Cortez MD [address] [facility] [address] [place] [address] PCP - General Internal Medicine 04/29/13 documented as of this encounter
--- OUTSIDE RECORDS SUMMARY | 2023-11-10 13:37 | XMS_ITS | Encounter Summary ---
Author Organization [facility] Address [address] [place] [address] Care Team Providers Care Finisher Cold Rolling Name Role Phone Gauri Cortez MD Primary Care Provider [phone] Encounter Details Date Type Department Care Team (Latest Contact Info) Description 06/29/1994 Orders Only Bret Hollis MD [address] [facility] [address] [place], [place] [address] Social History Tobacco Use Types Packs/Day Years Used Date Smoking Tobacco: Never Assessed Sex and Gender Information Value Date Recorded Sex Assigned at Not on file Gender Identity Not on file Sexual Orientation Not on file documented as of this encounter Plan of Treatment Not on file documented as of this encounter Visit Diagnoses Not on filedocumented in this encounter Care Teams Finisher Cold Rolling Relationship Specialty Start Date End Date Gauri Cortez MD [address] [facility] [address] [place] [address] PCP - General Internal Medicine 04/29/13 documented as of this encounter
--- OUTSIDE RECORDS SUMMARY | 2023-11-10 13:37 | XMS_ITS | Encounter Summary ---
Author Organization [facility] Address [address] [place] [address] Care Team Providers Care Percussion Instrument Tuner Name Role Phone Gauri Cortez MD Primary Care Provider [phone] Encounter Details Date Type Department Care Team (Latest Contact Info) Description 02/08/1995 Orders Only Gauri Cortez MD [address] [facility] [address] [place], [place] [address] Social History Tobacco Use Types Packs/Day Years Used Date Smoking Tobacco: Never Assessed Sex and Gender Information Value Date Recorded Sex Assigned at Not on file Gender Identity Not on file Sexual Orientation Not on file documented as of this encounter Plan of Treatment Not on file documented as of this encounter Visit Diagnoses Not on filedocumented in this encounter Care Teams Percussion Instrument Tuner Relationship Specialty Start Date End Date Gauri Cortez MD [address] [facility] [address] [place], [place] [address] PCP - General Internal Medicine 04/29/13 documented as of this encounter
--- OUTSIDE RECORDS SUMMARY | 2023-11-10 13:38 | XMS_ITS | Encounter Summary ---
Author Organization [facility] Address [address] [place] [address] Care Team Providers Care Bumper Straightener Name Role Phone Gauri Cortez MD Primary Care Provider [phone] Encounter Details Date Type Department Care Team (Latest Contact Info) Description 09/20/1993 Office Visit vOidio Mitchell [address] [facility] [address] [place], [address] Social History Tobacco Use Types Packs/Day Years Used Date Smoking Tobacco: Never Assessed Sex and Gender Information Value Date Recorded Sex Assigned at Not on file Gender Identity Not on file Sexual Orientation Not on file documented as of this encounter Progress Notes * PaulaOvidio - 09/20/1993 12:00 AM CDTS: 1) F/u HTN. Has been on Procardia XL 30 mg a day for 6 wks. and her blood pressure is down but continues to be borderline at 138/90. I will increase dosage to 60 mg a day and f/u in one month. 2) Continues to have purulent foul tasting PND and a cough. Lungs are clear. Sinuses are nontender. Ears normal. Throat slightly reddened. Rx. for Doxycycline 100 mg bid x 2 wks. and recheck if necessary. cc: documented in this encounter Plan of Treatment Not on file documented as of this encounter Visit Diagnoses Not on filedocumented in this encounter Care Teams Bumper Straightener Relationship Specialty Start Date End Date Gauri Cortez MD [address] [facility] [address] [place], [place] [address] PCP - General Internal Medicine 04/29/13 documented as of this encounter
--- OUTSIDE RECORDS SUMMARY | 2023-11-10 13:38 | XMS_ITS | Encounter Summary ---
Author Organization [facility] Address [address] [place] [address] Care Team Providers Care Search Engine Marketing Specialist Name Role Phone Gauri Cortez MD Primary Care Provider [phone] Gauri Cortez MD Unavailable Sharif Mayer MD Unavailable Encounter Details Date Type Department Care Team (Late st Contact Info) Description 03/19/2022 [facility] Medical Advice [facility] [address] [place] [address] Gauri Cortez MD [address] [place] [address] Social History Tobacco Use Types Packs/Day Years Used Date Smoking Tobacco: Never Smokeless Tobacco: Never Alcohol Use Standard Drinks/Week Comments No 0 (1 standard drink = 0.6 oz pur e alcohol) PHQ-2 Answer Date Recorded PHQ-2 Score 0 11/29/2021 Sex and Gender Information Value Date Recorded Sex Assigned at Female 07/01/2020 5:08 PM CDT Gender Identity Female 07/01/2020 5:08 PM CDT Sexual Orientation Straight 07/01/2020 5: 08 PM CDT documented as of this encounter Plan of Treatment Not on file documented as of this encounter Visit Diagnoses Not on filedocumented in this encounter Additional Health Concerns Assessment Noted Time PHQ-9 Depression Total Score: 2 07/13/19 22 11:30 AM CDT documented as of this encounter Care Teams Search Engine Marketing Specialist Relationship Specialty Start Date End Date Gauri Cortez MD [address] [facility] [address] [place] [address] PCP - General Internal Medicine 08/07/13 Gauri Cortez MD [address] [facility] [address] [place] [address] Assigned PCP 09/30/18 Sharif Mayer MD [address] [place] [address] [place] [address] Assigned Surgical Provider 04/30/22 11/02/23 documented as of this encounter
--- OUTSIDE RECORDS SUMMARY | 2023-11-10 13:38 | XMS_ITS | Encounter Summary ---
Author Organization [facility] Address [address] [place] [address] Care Team Providers Care Documentation Consultant Name Role Phone Gauri Cortez MD Primary Care Provider [phone] Encounter Details Date Type Department Care Team (Latest Contact Info) Description 03/31/1994 Orders Only Gauri Cortez MD [address] [facility] [address] [place], [place] [address] Social History Tobacco Use Types Packs/Day Years Used Date Smoking Tobacco: Never Assessed Sex and Gender Information Value Date Recorded Sex Assigned at Not on file Gender Identity Not on file Sexual Orientation Not on file documented as of this encounter Plan of Treatment Not on file documented as of this encounter Visit Diagnoses Not on filedocumented in this encounter Care Teams Documentation Consultant Relationship Specialty Start Date End Date Gauri Cortez MD [address] [facility] [address] [place], [place] [address] PCP - General Internal Medicine 04/29/13 documented as of this encounter
--- OUTSIDE RECORDS SUMMARY | 2023-11-10 13:38 | XMS_ITS | Encounter Summary ---
Author Organization [facility] Address [address] [place] [address] Care Team Providers Care Note Taker Name Role Phone Gauri Cortez MD Primary Care Provider [phone] Encounter Details Date Type Department Care Team (Latest Contact Info) Description 05/23/1994 Orders Only Loco Chavez MD [address] [place], [place] [id number] Social History Tobacco Use Types Packs/Day Years Used Date Smoking Tobacco: Never Assessed Sex and Gender Information Value Date Recorded Sex Assigned at Not on file Gender Identity Not on file Sexual Orientation Not on file documented as of this encounter Plan of Treatment Not on file documented as of this encounter Visit Diagnoses Not on filedocumented in this encounter Care Teams Note Taker Relationship Specialty Start Date End Date Gauri Cortez MD [address] [facility] [address] [place] [address] PCP - General Internal Medicine 04/29/13 documented as of this encounter
--- OUTSIDE RECORDS SUMMARY | 2023-11-10 13:38 | XMS_ITS | Encounter Summary ---
Author Organization [facility] Address [address] [place] [address] Care Team Providers Care Book Illustrator Name Role Phone Gauri Cortez MD Primary Care Provider [phone] Gauri Cortez MD Unavailable Sharif Mayer MD Unavailable [phone] Reason for Visit * Reason Comments Medication Refill Encounter Details Date Type Department Care Team (Late st Contact Info) Description 02/27/2022 [facility] [address] [place] [address] Gauri Cortez MD [address] [facility] [address] [place] [address] Medication Refill Social History Tobacco Use Types Packs/Day Years [...] PM CDT documented as of this encounter Miscellaneous Notes * Telephone Encounter - Abi Queen RN - 03/01/2022 1:06 PM CST Routing refill request to provider for review/approval because: Labs out of range: D LEADER documented in this encounter Plan of Treatment Not on file documented as of this encounter Visit Diagnoses Diagnosis Essential hypertension, benign documented in this encounter Additional Health Concerns Assessment Noted Time PHQ-9 Depression Total Score: 2 07/13/19 11:30 AM CDT documented as of this encounter Care Teams Book Illustrator Relationship Specialty Start Date End Date Gauri Cortez MD [address] [place] [address] PCP - General Internal Medicine 08/07/13 Gauri Cortez MD [address] [place] [address] Assigned PCP 09/30/18 Sharif Mayer MD [address] [place] [address] [place] [address] Assigned Surgical Provider 04/30/22 11/02/23 documented as of this encounter
--- OUTSIDE RECORDS SUMMARY | 2023-11-10 13:38 | XMS_ITS | Encounter Summary ---
Author Organization [facility] Address [address] [place] [address] Care Team Providers Care Supervisor Twisting Department Name Role Phone Gauri Cortez MD Primary Care Provider [phone] Encounter Details Date Type Department Care Team (Latest Contact Info) Description 03/30/1994 Orders Only Gauri Cortez MD [address] [facility] [address] [place], [place] [address] Social History Tobacco Use Types Packs/Day Years Used Date Smoking Tobacco: Never Assessed Sex and Gender Information Value Date Recorded Sex Assigned at Not on file Gender Identity Not on file Sexual Orientation Not on file documented as of this encounter Plan of Treatment Not on file documented as of this encounter Visit Diagnoses Not on filedocumented in this encounter Care Teams Supervisor Twisting Department Relationship Specialty Start Date End Date Gauri Cotrez MD [address] [facility] [address] [place], [place] [address] PCP - General Internal Medicine 04/29/13 documented as of this encounter
--- OUTSIDE RECORDS SUMMARY | 2023-11-10 13:38 | XMS_ITS | Clinical Summary ---
Author Organization [place] Address [facility] [place] [address] Care Team Providers Care Mutuel Clerk Name Role Phone Gauri Cortez MD Primary Care Provider Gauri Cortez MD Unavailable [phone] Allergies Active Allergy Reactions Criticality Noted Date Comments Amoxicillin 07/20/2012 SOB, leg cramps Ciprofloxacin 01/31/2006 Possible hives Clindamycin Rash Low 07/01/2021 Erythromycin 10/16/2006 Hard on her stomach Gold 01/21/2010 Rash Cephalexin 07/30/2010 Levaquin 07/05/2006 Eyes feel buggy, felt weird, coming out of her skin, anxious Morphine And Codeine 09/11/2003 lightheaded and jittery Neomycin 05/19/2008 Procaine Hcl 05/03/2008 Oxycodone Nausea 04/22/2013 Infliximab 05/16/2007 Shrimp 01/10/2017 Sulfa Antibiotics Hives 09/11/2003 hives and sores in her mouth Adhesive Tape Rash Low 11/06/2013 Tocopheryl Acetate, Dl-Alpha 009 Vitamin E 05/19/2008 Medications Medication Sig Dispensed Refills Start Date End Date Status ACIDOPHILUS/BIFIDUS 100 MG OR WAFR 0 09/09/2008 Active FISH OIL 1000 MG PO CAPS 2 per day 09/30/2009 Active estradiol (VAGIFEM) 10 MCG TABS vaginal tablet 3 x a week Active Cholecalciferol (VITAMIN D3) LIQDIndications:Osteop enia,Crohns disease,Unspecified hypothyroidism 3-5 drops daily. Acti ve GARLIC POIndications:Osteopen ia,Crohns disease,Unspecified hypothyroidism Take 1 tablet by mouth daily. Active Zinc 25 MG TABSIndications:Osteop enia,Crohns disease,Unspecified hypothyroidism Take 1 tablet by mouth daily as needed. Active Cranberry 650 MG CAPSIndications:Osteop enia,Crohns disease,Unspecified hypothyroidism Take 1 capsule by mouth daily. Active celecoxib (CELEBREX) 200 MG capsule Take 200 mg by mouth daily. Active calcium citrate-vitamin D (CITRACAL) 315-250 MG-UNIT TABS per tablet Take 3 tablets by mouth 2 times daily Active Coenzyme Q10 (CO Q-10) 200 MG CAPS Take 1 capsule by mouth daily Active Multiple Vitamins-Minerals (CENTRUM SILVER) CHEW Take 1 chew tab by mouth daily Active azelastine (ASTELIN) 0.1 % nasal sprayIndications:Chron ic rhinitis [place] 1-2 sprays into both nostrils 2 times daily 1 Bottle 1 09/22/2015 Active order for DMEIndications:Eye strain, bilateral Equipment being ordered: due to sensitive eyes needs tinted front windshield 1 Device 1 10/20/2015 Active order for DMEIndications:Crohn's disease with complication, unspecified gastrointestinal tract location (H),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 4 boxes adapt rings 4 boxes pouches 4 Box 11 07/17/2018 Active TURMERIC PO Active ALPRAZolam (XANAX) 0.25 MG tabletIndications:Prim dannie insomnia TAKE 1-2 TABLETS BY MOUTH NIGHTLY NEEDED FOR ANXIETY 40 tablet 05/28/2021 Active SYNTHROID 75 MCG tabletIndications:Acqu ired hypothyroidism TAKE 1 TABLET (75 MCG) BY MOUTH EVERY OTHER DAY ALTERNATES 88 MCG WITH 75 MCG EVERY OTHER DAY 45 tablet 1 06/10/2022 Active levothyroxine (SYNTHROID) 88 MCG tabletIndications:Acqu ired hypothyroidism TAKE 1 TABLET (88 MCG) BY MOUTH EVERY OTHER DAY ALTERNATES 88 MCG WITH 75 MCG EVERY OTHER DAY 45 tablet 1 06/15/2022 Active valsartan (DIOVAN) 160 MG tabletIndications:Esse ntial hypertension, benign TAKE 1 TABLET BY MOUTH EVERY DAY 90 tablet 3 02/21/2023 Active Active Problems Problem Noted Date Diagnosed Date Stage 3a chronic kidney disease 07/01/2021 Crohn's disease with complic ation, unspecified gastrointestinal tract location 09/22/2015 Acquired hypothyroidism 09/22/2015 Primary insomnia 03/12/2015 Anxiety 04/27/[address] 05/11/2011 Neck pain 02/08/2010 Dyslipidemia 10/13/2008 Osteopenia 08/20/2007 Essential hypertension, benign 07/14/2004 Ankylosing spondylitis 09/11/2003 Sinusitis, chronic 09/11/2003 Overview: Problem list name updated by automated process. Provider to review Intramural leiomyoma of uterus 09/11/2003 Resolved Problems Problem Noted Date Diagnosed Date Resolved Date Major depressive disorder wi th single episode, in partial remission (H24) 09/22/201511/11 Knee pain 09/26/2013 11/27/2013 Hypertension goal BP (blood pressure) < 140/90 04/14/2012 09/22/2015 Dehydration 2012 09/05/2012 Nausea and vomiting 2012 09/06/19 13 Health Longterm 08/04/2010 08/28/2023 Overview: DX V65.8 REPLACED WITH 8[address]61 [facility]ALTH S[facility]IOR CARE (06/18/2012) Advanced directives, counseling/discussion 06/01/2010 08/28/2023 Overview: Patient states has Advance Directive and will bring in a copy to clinic. Other postprocedural status(V45.89) 02/08/2010 09/05/2012 Hyperlipidemia LDL goal <130 01/25/2010 07/01/2021 Low back pain 11/13/2009 12/28/2009 Back pain 09/30/2009 09/22/2015 Overview: (Problem list name updated by automated process. Provider to review and confirm.) Muscular deconditioning 10/09/200808/12 Muscle weakness (generalized) 10/09/2008 02/25/2009 Crohns disease 05/01/2008 09/22/2015 Lumbago 05/26/2006 07/20/2006 Disorder of bursae and tendo ns in shoulder region 02/01/2006 03/28/2006 Overview: Problem list name updated by automated process. Provider to review Pain in joint, shoulder region 02/01/2006 03/28/2006 Osteoporosis 04/15/2004 08/20/2007 Overview: Problem list name updated by automated process. Provider to review Regional enteritis of large intestine 09/11/2003 09/30/2009 Hypothyroidism 09/11/2003 09/22/2015 Overview: Problem list name updated by automated process. Provider to review Acute and subacute iridocyclitis, unspecified 09/11/19 04 09/22/2015 Encounters Date Type Department Care Team Description 10/10/2023 Telephone [facility] [address], [address] [place] [id number] [id number], Ostomy Wound Room, RN from Last 3 Months Immunizations Name Administration Dates Next Due COVID-19 Bivalent 12+ (Pfizer) 12/20/2021 COVID-19 MONOVALENT 12+ (Pfizer) 05/02/2020,03/15 Flu, Unspecified 12/13/2021, 7,01/03/1996,1994,01/20/1994 HEPA 05/14/1999,08/19/1998 Hepatitis A (ADULT 19+) 05/14/1999 Influenza (IIV3) PF 03/22/2012, 9,12/31/2007,2006,01/12/2006,01/12/2005,01/05/2004,1 04/14/2002,01/31/2002,01/31/2001, 000,12/31/1998 Influenza Vaccine 18-64 (Flublok) 01/03/2019 Influenza Vaccine 65+ (FLUAD) 12/28/2020 Influenza Vaccine 65+ (Fluzone HD) 12/23/2019 Influenza Vaccine >6 months,quad, PF 01/20/2015, 12/30/2013,01/15/2013 Influenza Vaccine, 6+MO IM (QUADRIVALENT W/PRESERVATIVES) 12/12/2015 Influenza, seasonal, injectable, PF 12/15/2015 Influenza,INJ,MDCK,PF,Quad >6mo(Flucelvax) 01/21/2017 Mantoux Tuberculin Skin Test 02/01/2008 Pneumo Conj 13-V (2010&after) 04/17/2019 Pneumococcal 23 valent 01/20/1994 TD,PF 7+ (Tenivac) 11/24/2020, 4,12/07/1993,1982 TDAP Vaccine (Adacel) 08/10/2010 Td (Adult), Adsorbed 07/02/2003,12/07/1993,01/10 Zoster recombinant adjuvante d (SHINGRIX) 05/31/2018,01/25/2018 Zoster vaccine, live 01/10/2017 Family History Medical History Relation Comments Family History Negative Father killed [place] Cerebrovascular Disease Maternal Grandmother d from stroke Cerebrovascular Disease Mother Osteoporosis Mother Breast Cancer Other 1 greatgrandmother on paternal side Cancer - colorectal Other 2 greatgrandfa ther-paternal Cancer Paternal Aunt pancreatic, hodg kins Cancer - colorectal Paternal Grandfather Neurologic Disorder Paternal Grandfather fr om ALS Breast Cancer Paternal Grandmother Cancer Paternal Grandmother pancreatic Genitourinary Problems Paternal Grandmother Other Cancer Paternal Grandmother my grandma & aunt of this C.A.D. Paternal Uncle multiple heart s urgeries. Cancer Paternal Uncle prostate cancer, also couple cousins with prostate cancer Gastrointestinal Disease Sister 2 hepatit s C Thyroid Disease Sister 3 Chemical Addiction Sister 4 Relation Status Comments Father Maternal Grandfather Maternal Grandmother Mother (Age 78) Other 1 Other 2 Paternal Aunt Paternal Grandfather Paternal Grandmother Paternal Uncle Sister 1 Alive Sister 2 Sister 3 Sister 4 Social History Tobacco Use Types Packs/Day Years Used Date Smoking Tobacco: Never Smokeless Tobacco: Never Tobacco Cessation:Counseling Given: Yes Alcohol Use Standard Drinks/Week Comments No 0 (1 standard drink = 0.6 oz pur e alcohol) PHQ-2 Answer Date Recorded PHQ-2 Score 0 11/29/2021 Adolescent Education Answer Date Record ed Getting School Help Needed Not on file 12/03 Sex and Gender Information Value Date Recorded Sex Assigned at Female 07/01/2020 5:08 PM CDT Gender Identity Female 07/01/2020 5:08 PM CDT Sexual Orientation Straight 07/01/2020 5: 08 PM CDT Last Filed Vital Signs Vital Sign Reading Time Taken Comments Blood Pressure 112/70 04/18/2022 12:57 PM HAIR COLORIST Pulse 78 04/18/2022 12:57 PM HAIR COLORIST Temperature 36.1 ??C (96.9 ??F) 11/29/2021 8:03 AM CD T Respiratory Rate 16 04/18/2022 12:57 PM HAIR COLORIST Oxygen Saturation 96% 04/18/2022 12:57 PM HAIR COLORIST Inhaled Oxygen Concentration - - Weight 77.1 kg (170 lb) 04/18/2022 12:57 PM HAIR COLORIST Pt reported Height 170.2 cm (5' 7) 04/18/2022 12:57 PM HAIR COLORIST Pt reported Body Mass Index 26.63 04/18/2022 12:57 PM HAIR COLORIST Plan of Treatment Health Maintenance Due Date Last Done Comments CT COLONOGRAPHY 1954 FIT 1955 sDNA (Cologuard) 1955 RSV VACCINE (1 - 1-dose 60+ series) 2014 FLEX SIG 10/08/2017 10/08/2012, 12/13, 09/12/2006, Additional history exists ANNUAL REVIEW OF HM ORDERS 07/12/2022 07/12/2021 COVID-19 Vaccine ( season) 2022 12/20/2021, 07/16/2021, 11/30/2020, Additional history exists BMP 11/29/2022 11/29/2021, 06/12, 11/24/2020, Additional history exists FALL RISK ASSESSMENT 11/29/2022 11/29/2021, 07/30/2021, 11/24/2020, Additional history exists HEMOGLOBIN 11/29/2022 11/29/2021, 06/12, 11/24/2020, Additional history exists LIPID 11/29/2022 11/29/2021, 11/11, 11/04/2019, Additional history exists TSH W/FREE T4 REFLEX 11/29/2022 11/29/2021, 11/24/2020, 11/04/2019, Additional history exists MICROALBUMIN 01/11/2023 01/11/2022, 08/12, 09/22/2015, Additional history exists PHQ-2 (once per calendar year) 2023 11/29/2021, 07/30/2021, 07/12/2021, Additional history exists INFLUENZA VACCINE (#1) 2023 , 12/14/2022, 12/14/2021, Additional history exists MEDICARE ANNUAL WELLNESS VISIT 12/02/2023 12/01/2022, 11/29/2021, 11/24/2020, Additional history exists Pneumococcal Vaccine: 65+ Years (3 of 3 - PPSV23 or PCV20) 04/17/2024 04/17/2019, 01/20/1994 MAMMO SCREENING 06/12/2024 06/13/2023, 05/12, 05/11/2021, Additional history exists GLUCOSE 11/29/2024 11/29/2021, 06/12, 11/24/2020, Additional history exists DEXA 08/08/2026 08/09/2023, 09/11, 10/31/2019, Additional history exists ADVANCE CARE PLANNING 11/29/2026 11/29/2021 , 07/01/2021, 11/24/2020, Additional history exists DTAP/TDAP/TD IMMUNIZATION (3 - Td or Tdap) 11/24/2030 11/24/2020, 08/10/2010, 07/02/2003, Additional history exists COLONOSCOPY Discontinued 06/16/2008, 10/19/2007 HEPATITIS C SCREENING Completed 09/22/2015 ZOSTER IMMUNIZATION Discontinued 05/31/2018, 01/25/2018, 01/10/2017 URINALYSIS Completed 11/19/2021, 04/14, 08/11/2018, Additional history exists COLORECTAL CANCER SCREENING Discontinued HPV IMMUNIZATION Aged Out No longer e ligible based on patient's age to complete this topic MENINGITIS IMMUNIZATION Aged Out No l onger eligible based on patient's age to complete this topic RSV MONOCLONAL ANTIBODY Aged Out No l onger eligible based on patient's age to complete this topic Procedures Procedure Name Priority Date/Time Associated Diagnosis Comments DX AXIAL HIPS/SPINE Routine 08/09/2023 1 1:03 AM CDT Osteoporosis MA SCREENING BILATERAL W/ REESE Routine 06/13/2023 10:45 AM CDT Visit for screening mammogram ALBUMIN RANDOM URINE QUANTITATIVE Routine 01/11/2022 12:39 PM CDT Essential hypertension, benign CBC WITH PLATELETS AND DIFFERENTIAL Routine 11/29/2021 9:09 AM CDT Preventative health care TSH WITH FREE T4 REFLEX Routine 11/29/2021 9:09 AM CDT Preventative health care LIPID PROFILE Routine 11/29/2021 9:09 AM CDT Preventative health care COMPREHENSIVE METABOLIC PANEL Routine 11/29/2021 9:09 AM CDT Preventative health care UA MACROSCOPIC WITH REFLEX TO MICRO AND CULTURE Routine 11/19/2021 4:33 PM CDT Increased frequency of urination Vaginal itching HEPATITIS C ANTIBODY Routine 09/22/2015 8:10 AM CDT Routine general medical examination at a health care facility SIGMOIDOSCOPY FLEXIBLE Routine 10/08/2012 COLONOSCOPY Routine 06/16/2008 DIAGNOSIS NOT YET DEFINED from Last 3 Months or Most Recently Relevant to Health Maintenance Results * DX AXIAL HIPS/SPINE (08/09/2023 11:03 AM CDT) Anatomical Region Laterality Modality Dexa Bone Mineral Den sity 08/09/2023 11:0 3 AM CDT Impressions 08/09/2023 4:24 PM CDT IMPRESSION: OSTEOPOROSIS. T score meets the WHO criteria for osteoporosis at one or more measured sites. The risk of osteoporotic fracture increases approximately two-fold for each standard deviation decrease in T-score. Narrative 08/09/2023 4:24 PM CDT EXAM: DX AXIAL HIPS/SPINE LOCATION: [facility] DATE: 08/09/2023 INDICATION: BMD screening, follow-up. DEMOGRAPHICS: Age- 68 years. Gender- Female. Menopausal status- Postmenopausal. COMPARISON: 10/08/2021 TECHNIQUE: Dual-energy x-ray absorptiometry (DXA) performed with routine technique. FINDINGS: DXA RESULTS -Lumbar Spine: L1-L4: BMD: 1.091 g/cm2. T-score: -0.8. Z-score: 0.4. Degenerative change may artifactually increase BMD. -RIGHT Hip Total: BMD: 0.737 g/cm2. T-score: -2.1. Z-score: -1.0. -RIGHT Hip Femoral neck: BMD: 0.692 g/cm2. T-score: -2.5. Z-score: -1.1. -LEFT Hip Total: BMD: 0.763 g/cm2. T-score: -1.9. Z-score: -0.8. -LEFT Hip Femoral neck: BMD: 0.721 g/cm2. T-score: -2.3. Z-score: -0.9. WHO T-SCORE CRITERIA -Normal: T score at or above -1 SD -Osteopenia: T score between -1 and -2.5 SD -Osteoporosis: T score at or below -2.5 SD The World Health Organization (WHO) criteria is applicable to perimenopausal females, postmenopausal females, and men aged 50 years or older. INTERVAL CHANGE -There has been a 4.2% decrease in lumbar spine BMD. -There has been a 6.8% decrease in bilateral hip BMD. FRACTURE RISK -The FRAX risk calculator is not applicable due to osteoporosis. RECOMMENDATIONS -The patient's BMD is consistent with osteoporosis, and he/she is at increased fracture risk. If not currently being treated for low BMD, this would merit treatment according to the Bone Health and Osteoporosis Foundation. Procedure Note Ange Villasenor PA-C - 08/09/2023 EXAM: DX AXIAL HIPS/SPINE LOCATION: [facility] DATE: 08/09/2023 INDICATION: BMD screening, follow-up. DEMOGRAPHICS: Age- 68 years. Gender- Female. Menopausal status-Postmenopausal. COMPARISON: 10/08/2021 TECHNIQUE: Dual-energy x-ray absorptiometry (DXA) performed with routinetechnique. FINDINGS: DXA RESULTS -Lumbar Spine: L1-L4: BMD: 1.091 g/cm2. T-score: -0.8. Z-score: 0.4.Degenerative change may artifactually increase BMD. -RIGHT Hip Total: BMD: 0.737 g/cm2. T-score: -2.1. Z-score: -1.0. -RIGHT Hip Femoral neck: BMD: 0.692 g/cm2. T-score: -2.5. Z-score: -1.1. -LEFT Hip Total: BMD: 0.763 g/cm2. T-score: -1.9. Z-score: -0.8. -LEFT Hip Femoral neck: BMD: 0.721 g/cm2. T-score: -2.3. Z-score: -0.9. WHO T-SCORE CRITERIA -Normal: T score at or above -1 SD -Osteopenia: T score between -1 and -2.5 SD -Osteoporosis: T score at or below -2.5 SD The World Health Organization (WHO) criteria is applicable toperimenopausal females, postmenopausal females, and men aged 50 years orolder. INTERVAL CHANGE -There has been a 4.2% decrease in lumbar spine BMD. -There has been a 6.8% decrease in bilateral hip BMD. FRACTURE RISK -The FRAX risk calculator is not applicable due to osteoporosis. RECOMMENDATIONS -The patient's BMD is consistent with osteoporosis, and he/she is atincreased fracture risk. If not currently being treated for low BMD, thiswould merit treatment according to the Bone Health and OsteoporosisFoundation. IMPRESSION: OSTEOPOROSIS. T score meets the WHO criteria for osteoporosisat one or more measured sites. The risk of osteoporotic fracture increasesapproximately two-fold for each standard deviation decrease in T-score. Patricia De La Cruz MD IMG DEXA ORDERABLES * MA Screen Bilateral w/Reese (06/13/2023 10:45 AM CDT) Anatomical Region Laterality Modality Breast Bilateral Mammography Impressions 06/13/2023 11:02 AM CDT IMPRESSION: ACR BI-RADS Category 1: Negative BREAST CANCER SCREENING RECOMMENDATION: Routine yearly mammography beginning at age 40 or as discussed with your provider. The results and recommendations of this examination will be communicated to the patient. Lorraine Reis MD Narrative 06/13/2023 11:02 AM CDT BILATERAL FULL FIELD DIGITAL SCREENING MAMMOGRAM WITH TOMOSYNTHESIS Performed on: 06/13/23 Compared to: 06/08/2022, 05/11/2021, 05/06/2020, and 05/01/2019 Technique: ??This study was evaluated with the assistance of Computer-Aided Detection. ??Breast Tomosynthesis was used in interpretation. Findings: The breasts have scattered areas of fibroglandular density. ?? There is no radiographic evidence of malignancy. Mirza George MD IMG MAMMOGRAPHY [facility] * Albumin Random Urine Quantitative with Creat Ratio (01/11/2022 12:39 PM CDT) Creatinine Urine mg/dL 40 mg/dL 01/12/2022 12:35 PM CDT [facility] Albumin Urine mg/L <5 mg/L 01/12/2022 12:35 PM CDT [facility] Albumin Urine mg/g Cr 01/12/2022 12:35 PM CDT [facility] Comment:Unable to calculate, urine albumin or creatinine is outside the detectable limits. Urine MID-STREAM URINE SPECIMEN / Unknown Non-blood Collection / Unknown 01/11/2022 12:39 PM CDT 01/11/2022 12:39 PM CDT Gauri Cortez MD LAB - URINE ORDERAB LES [facility] [address] Lab (no room number, 1st floor of clinic) [place] [address], [facility] [phone] * CBC with platelets and differential (11/29/2021 9:09 AM CDT) WBC Count 4.5 4.0 - 11.0 10e3/uL 11/29/2021 9:14 AM CDT [facility] RBC Count 4.33 3.80 - 5.20 10e6/uL 11/29/2021 9:14 AM CDT [facility] Hemoglobin 12.6 11.7 - 15.7 g/dL 11/29/2021 9:14 AM CDT [facility] Hematocrit 37.4 35.0 - 47.0 % 11/29/2021 9:14 AM CDT [facility] MCV 86 78 - 100 fL 11/29/2021 9:14 AM CDT [facility] MCH 29.1 26.5 - 33.0 pg 11/29/2021 9:14 AM CDT [facility] MCHC 33.7 31.5 - 36.5 g/dL 11/29/2021 9:14 AM CDT [facility] RDW 12.4 10.0 - 15.0 % 11/29/2021 9:14 AM CDT [facility] Platelet Count 237 150 - 450 10e3/uL 11/29/2021 9:14 AM CDT [facility] % Neutrophils 55 % 11/29/2021 9:14 AM CDT [facility] % Lymphocytes 27 % 11/29/2021 9:14 AM CDT [facility] % Monocytes 10 % 11/29/2021 9:14 AM CDT [facility] % Eosinophils 8 % 11/29/2021 9:14 AM CDT [facility] % Basophils 1 % 11/29/2021 9:14 AM CDT [facility] % Immature Granulocytes 0 % 11/29/2021 9:14 AM CDT [facility] Absolute Neutrophils 2.4 1.6 - 8.3 10e3/uL 11/29/2021 9:14 AM CDT [facility] Absolute Lymphocytes 1.2 0.8 - 5.3 10e3/uL 11/29/2021 9:14 AM CDT [facility] Absolute Monocytes 0.4 0.0 - 1.3 10e3/uL 11/29/2021 9:14 AM CDT [facility] Absolute Eosinophils 0.3 0.0 - 0.7 10e3/uL 11/29/2021 9:14 AM CDT [facility] Absolute Basophils 0.1 0.0 - 0.2 10e3/uL 11/29/2021 9:14 AM CDT [facility] Absolute Immature Granulocytes 0.0 <=0.4 10e3/uL 11/29/2021 9:14 AM CDT [facility] Blood VENOUS BLOOD / Unknown Venipuncture / Unknown 11/29/2021 9:09 AM CDT 11/29/2021 9:09 AM CDT Gauri Cortez MD LAB - BLOOD ORDERAB LES [facility] [address], [address] [place] [address], [place] [phone] * TSH with free T4 reflex (11/29/2021 9:09 AM CDT) TSH 1.13 0.40 - 4.00 mU/L 11/30/2021 10:53 AM CDT [facility] Blood VENOUS BLOOD / Unknown Venipuncture / Unknown 11/29/2021 9:09 AM CDT 11/29/2021 9:09 AM CDT Gauri Cortez MD LAB - BLOOD ORDERAB [facility] [address] Lab (no room number, 1st floor of clinic) [place] [address], [place] [phone] * (ABNORMAL) Lipid Profile (Chol, Trig, HDL, LDL calc) (11/29/2021 9:09 AM CDT) Cholesterol 211(H) <200 mg/dL 11/30/2021 10:46 AM CDT [facility] Triglycerides 132 <150 mg/dL 11/30/2021 10:46 AM CDT [facility] Direct Measure HDL 53 >=50 mg/dL 11/30/2021 10:46 AM CDT [facility] LDL Cholesterol Calculated 132(H) <=100 mg/dL 11/30/2021 10:46 AM CDT [facility] Non HDL Cholesterol 158(H) <130 mg/dL 11/30/2021 10:46 AM CDT [facility] Patient Fasting > 8hrs? Yes 11/30/2021 10:46 AM CDT [facility] Blood VENOUS BLOOD / Unknown Venipuncture / Unknown 11/29/2021 9:09 AM CDT 11/29/2021 9:09 AM CDT Narrative [facility] - 11/30/2021 10:46 AM CDT Cholesterol Desirable: ??<200 mg/dL Triglycerides Normal: ??Less than 150 mg/dL Borderline High: ??150-199 mg/dL High: ??200-499 mg/dL Very High: ??Greater than or equal to 500 mg/dL Direct Measure HDL Female: ??Greater than or equal to 50 mg/dL Male: ??Greater than or equal to 40 mg/dL LDL Cholesterol Desirable: ??<100mg/dL Above Desirable: ??100-129 mg/dL Borderline High: ??130-159 mg/dL High: ??160-189 mg/dL Very High: ??>= 190 mg/dL Non HDL Cholesterol Desirable: ??130 mg/dL Above Desirable: ??130-159 mg/dL Borderline High: ??160-189 mg/dL High: ??190-219 mg/dL Very High: ??Greater than or equal to 220 mg/dL Gauri Cortez MD LAB - BLOOD ORDERAB [facility] [address] Lab (no room number, 1st floor of clinic) [place] [address], [facility] [phone] * (ABNORMAL) Comprehensive metabolic panel (BMP + Alb, Alk Phos, ALT, AST, Total. Bili, TP) (11/29/2021 9:09 AM CDT) Sodium 134 133 - 144 mmol/L 11/30/2021 10:46 AM CDT [facility] Potassium 4.3 3.4 - 5.3 mmol/L 11/30/2021 10:46 AM CDT [facility] Chloride 102 94 - 109 mmol/L 11/30/2021 10:46 AM CDT [facility] Carbon Dioxide (CO2) 23 20 - 32 mmol/L 11/30/2021 10:46 AM CDT [facility] Anion Gap 9 3 - 14 mmol/L 11/30/2021 10:46 AM CDT [facility] Urea Nitrogen 24 7 - 30 mg/dL 11/30/2021 10:46 AM CDT [facility] Creatinine 1.21(H) 0.52 - 1.04 mg/dL 11/30/2021 10:46 AM CDT [facility] Calcium 9.5 8.5 - 10.1 mg/dL 11/30/2021 10:46 AM CDT [facility] Glucose 91 70 - 99 mg/dL 11/30/2021 10:46 AM CDT [facility] Alkaline Phosphatase 81 40 - 150 U/L 11/30/2021 10:46 AM CDT [facility] AST 14 0 - 45 U/L 11/30/2021 10:46 AM CDT [facility] ALT 20 0 - 50 U/L 11/30/2021 10:46 AM CDT [facility] Protein Total 8.0 6.8 - 8.8 g/dL 11/30/2021 10:46 AM CDT [facility] Albumin 3.9 3.4 - 5.0 g/dL 11/30/2021 10:46 AM CDT [facility] Bilirubin Total 0.5 0.2 - 1.3 mg/dL 11/30/2021 10:46 AM CDT [facility] GFR Estimate 49(L) >60 mL/min/1.7 3m2 11/30/2021 10:46 AM CDT [facility] Comment:Effective February 112020 eGFRcr in adults is calculated using the 2020 CKD-EPI creatinine equation which includes age and gender (Becca et al., NEJ, DOI: 10.1056/GTQDrg7062392) Blood VENOUS BLOOD / Unknown Venipuncture / Unknown 11/29/2021 9:09 AM CDT 11/29/2021 9:09 AM CDT Gauri Cortez MD LAB - BLOOD ORDERAB [facility] [address] Lab (no room number, 1st floor of clinic) [place] [address], [facility] [phone] * (ABNORMAL) UA macro with reflex to Microscopic and Culture - Clinc Collect (11/19/2021 4:33 PM CDT) Color Urine Yellow Colorless, Straw, Light Yellow, Yellow 11/19/2021 4:47 PM CDT [facility] Appearance Urine Clear Clear 11/20/19 4:47 PM CDT [facility] Glucose Urine Negative Negative mg/dL 11/19/2021 4:47 PM CDT [facility] Bilirubin Urine Negative Negative 4:47 PM CDT [facility] Ketones Urine Negative Negative mg/dL 11/19/2021 4:47 PM CDT [facility] Specific [place] Urine 1.010 1.003 - 1.035 11/19/2021 4:47 PM CDT [facility] Blood Urine Trace(A) Negative 11/19/2021 4:47 PM CDT [facility] pH Urine 5.5 5.0 - 7.0 11/19/2021 4:47 PM CDT [facility] Protein Albumin Urine Negative Negative mg/dL 11/19/2021 4:47 PM CDT [facility] Urobilinogen Urine 0.2 0.2, 1.0 E.U./dL 11/19/2021 4:47 PM CDT [facility] Nitrite Urine Negative Negative 11/19/2021 4:47 PM CDT [facility] Leukocyte Esterase Urine Small(A) Negative 11/19/2021 4:47 PM CDT [facility] Urine MID-STREAM URINE SPECIMEN / Unknown Non-blood Collection / Unknown 11/19/2021 4:33 PM CDT 11/19/2021 4:39 PM CDT Albert Scott MD LAB - URINE ORDERABL ES LABORATORY [facility] Lab [address] [facility] Lab (no room number, 1st floor of clinic) [place] [address], [facility] [phone] * Hepatitis C antibody (09/22/2015 8:10 AM CDT) Pathologist [facility] Hepatitis C Antibody Nonreactive Assay performance characteristics have not been established for newborns, infants, and children [facility] Blood specimen (specimen) 09/22/2015 8:10 AM CDT 09/22/2015 8:15 AM CDT Gauri Cortez MD LAB - BLOOD ORDERAB LES Performing Organization Address City/State/[facility] Co de Phone Number [facility] [address] [place] [address] * Sigmoidoscopy flexible (10/08/2012) Patient Reported ANESTHESIA ORDERABLE S * COLONOSCOPY (06/16/2008) 06/16/2008 Tyra Cardona MD PROCEDURES from Last 3 Months or Most Recently Relevant to Health Maintenance Care Teams Mutuel Clerk Relationship Specialty Start Date End Date Gauri Cortez MD [address] [facility] [address] [address] PCP - General Internal Medicine 08/07/13 Gauri Cortez MD [address] [address] Assigned PCP 09/30/18
--- OUTSIDE RECORDS SUMMARY | 2023-11-10 13:38 | XMS_ITS | Encounter Summary ---
Author Organization [place] Address [address] [place], [place] [address] [address] Care Team Providers Care Assembler Metal Furniture Name Role Phone Gauri Cortez MD Primary Care Provider [phone] Gauri Cortez MD Unavailable [phone] Sharif Mayer MD Unavailable [phone] Encounter Details Date Type Department Care Team (Late st Contact Info) Description 07/22/2021 MyC Medical Advice [address] [id number] Dale Mcguire Social History Tobacco Use Types Packs/Day Years Used Date Smoking Tobacco: Never Smokeless Tobacco: Never Alcohol Use Standard Drinks/Week Comments No 0 (1 standard drink = 0.6 oz pur e alcohol) PHQ-2 Answer Date Recorded PHQ-2 Score 0 07/12/2021 Sex and Gender Information Value Date Recorded Sex Assigned at Female 07/01/2020 5:08 PM CDT Gender Identity Female 07/01/2020 5:08 PM CDT Sexual Orientation Straight 07/01/2020 5: 08 PM CDT COVID-19 Exposure Response Date Recorded In the last 10 days, have yo u been in contact with someone who was confirmed or suspected to have Coronavirus/COVID-19? No / Unsure 07/12/2021 11:12 AM CDT documented as of this encounter Plan of Treatment Not on file documented as of this encounter Visit Diagnoses Not on filedocumented in this encounter Additional Health Concerns Assessment Noted Time PHQ-9 Depression Total Score: 2 07/13/19 22 11:30 AM CDT documented as of this encounter Care Teams Assembler Metal Furniture Relationship Specialty Start Date End Date Gauri Cortez MD [address] [place] [address] PCP - General Internal Medicine 08/07/13 Gauri Cortez MD [address] [place] [address] Assigned PCP 09/30/18 Sharif Mayer MD [id number] [place] [address] Assigned Surgical Provider 04/30/22 11/02/23 documented as of this encounter
--- OUTSIDE RECORDS SUMMARY | 2023-11-10 13:38 | XMS_ITS | Encounter Summary ---
Author Organization [facility] Address [address] [place] [address] Care Team Providers Care Stone Sandblaster Name Role Phone Gauri Cortez MD Primary Care Provider [phone] Encounter Details Date Type Department Care Team (Latest Contact Info) Description 04/22/1994 Orders Only Gauri Cortez MD [address] [facility] [address] [place], [place] [id number] Social History Tobacco Use Types Packs/Day Years Used Date Smoking Tobacco: Never Assessed Sex and Gender Information Value Date Recorded Sex Assigned at Not on file Gender Identity Not on file Sexual Orientation Not on file documented as of this encounter Plan of Treatment Not on file documented as of this encounter Visit Diagnoses Not on filedocumented in this encounter Care Teams Stone Sandblaster Relationship Specialty Start Date End Date Gauri Cortez MD [address] [facility] [address] [place], [place] [address] PCP - General Internal Medicine 04/29/13 documented as of this encounter
--- OUTSIDE RECORDS SUMMARY | 2023-11-10 13:38 | XMS_ITS | Encounter Summary ---
Author Organization [place] Address [address] [facility] [place] [address] Care Team Providers Care It Applications Manager Name Role Phone Gauri Cortez MD Primary Care Provider Gauri Cortez MD Unavailable [phone] Sharif Mayer MD Unavailable Reason for Visit * Reason Comments Medication Refill Encounter Details Date Type Department Care Team (Late st Contact Info) Description 12/14/2021 [facility] [address] [place] [address] Gauri Cortez MD [address] [facility] [address] [place] [address] Medication Refill Social History Tobacco [...] suspected to have Coronavirus/COVID-19? No / Unsure 11/29/2021 7:59 AM CDT documented as of this encounter Miscellaneous Notes * Telephone Encounter - Lencho Clarke RN - 12/15/2021 11:12 AM CDT Prescription approved per [facility] Refill Protocol. documented in this encounter Plan of Treatment Not on file documented as of this encounter Visit Diagnoses Diagnosis Acquired hypothyroidism Unspecified hypothyroidism documented in this encounter Additional Health Concerns Assessment Noted Time PHQ-9 Depression Total Score: 2 07/13/19 11:30 AM CDT documented as of this encounter Care Teams It Applications Manager Relationship Specialty Start Date End Date Gauri Coretz MD [address] [place] [address] PCP - General Internal Medicine 08/07/13 Gauri Cortez MD [address] [place], [place] [address] Assigned PCP 09/30/18 Sharif Mayer MD [id number] [place] [address] Assigned Surgical Provider 04/30/22 11/02/23 documented as of this encounter
--- OUTSIDE RECORDS SUMMARY | 2023-11-10 13:38 | XMS_ITS | Encounter Summary ---
Author Organization [facility] Address [address] [facility] [place] [address] Care Team Providers Care Percussion Teacher Name Role Phone Gauri Cortez MD Primary Care Provider Gauri Cortez MD Unavailable [phone] Sharif Mayer MD Unavailable [phone] Encounter Details Date Type Department Care Team (Late st Contact Info) Description 10/10/2023 Telephone [facility] W[facility] Ostomy [facility] [place] [address] [place] [address] 743, Ostomy Wound Room, RN Social History Tobacco Use Types Packs/Day Years [...] encounter Miscellaneous Notes * Telephone Encounter - Diana Kimble RN - 10/10/2023 2:37 PM CDT Outpatient Ostomy Clinic Telephone Call Patient Called to discuss internal pinching that she is concerned might be a hernia. Patient was advised that for all internal ostomy concerns that she should schedule an appointment with her colorectal surgeon to appropriately diagnose the problem. Patient was also informed that we have not seen her in over a year and would require a new referral from a Physician to see her in our clinic. Patient was understanding and all questions were answered. Diana LEONG Dept. Vocera- Contact [facility] Nurse (Molly) via [employer] Dept. Office Number: [phone] documented in this encounter Plan of Treatment Not on file documented as of this encounter Visit Diagnoses Not on filedocumented in this encounter Additional Health Concerns Assessment Noted Time PHQ-9 Depression Total Score: 2 07/13/19 22 11:30 AM CDT documented as of this encounter Care Teams Percussion Teacher Relationship Specialty Start Date End Date Gauri Cortez MD [address] [address] PCP - General Internal Medicine 08/07/13 Gauri Cortez MD [address] [address] Assigned PCP 09/30/18 Sharif Mayer MD [address] [address] Assigned Surgical Provider 04/30/22 11/02/23 documented as of this encounter
--- OUTSIDE RECORDS SUMMARY | 2023-11-10 13:38 | XMS_ITS | Encounter Summary ---
Author Organization [place] Address [address] [facility] [place] [address] Care Team Providers Care Tdp Displays Analyst Name Role Phone Gauri Cortez MD Primary Care Provider Gauri Cortez MD Unavailable [phone] Sharif Mayer MD Unavailable [phone] Encounter Details Date Type Department Care Team (Late st Contact Info) Description 04/12/2022 MyC Medical Advice [facility] [place] [address] [place] [address] Rox Simons Social History Tobacco Use Types Packs/Day Years [...] suspected to have Coronavirus/COVID-19? No / Unsure 04/12/2022 12:53 PM MORTUARY TECHNICIAN documented as of this encounter Plan of Treatment Not on file documented as of this encounter Visit Diagnoses Not on filedocumented in this encounter Additional Health Concerns Assessment Noted Time PHQ-9 Depression Total Score: 2 07/13/19 22 11:30 AM CDT documented as of this encounter Care Teams Tdp Displays Analyst Relationship Specialty Start Date End Date Gauri Cortez MD [address] [place] [address] PCP - General Internal Medicine 08/07/13 Gauri Cortez MD [address] [place], [place] [address] Assigned PCP 09/30/18 Sharif Mayer MD [id number] [place] [address] Assigned Surgical Provider 04/30/22 11/02/23 documented as of this encounter
--- OUTSIDE RECORDS SUMMARY | 2023-11-10 13:38 | XMS_ITS | Encounter Summary ---
Author Organization [place] Address [address] [facility] [place] [address] Care Team Providers Care Best Worker Name Role Phone Gauri Cortez MD Primary Care Provider Gauri Cortez MD Unavailable [phone] Sharif Mayer MD Unavailable [phone] Reason for Visit * Diagnostic Imaging Dexa (Routine) - Pending Review Specialty Diagnoses / Procedures Referred By Melo sandra Referred To Contact Radiology. Diagnoses Osteoporosis Procedures DX Bone Density Patricia Allred MD [facility] [address] [address] Referral ID Status Reason Start Date Expiration Date V isits Requested Visits Authorized [id number] Pending Review 08/03/2023 08/02/2024 1 1 Encounter Details Date Type Department Care Team (Late st Contact Info) Description 08/09/2023 12:25 PM CDT Ancillary Procedure [address] [place] [address] Osteoporosis Social History Tobacco Use Types Packs/Day Years [...] on file documented as of this encounter Procedures Procedure Name Priority Date/Time Associated Diagnosis Comments DX AXIAL HIPS/SPINE Routine 08/09/2023 1 1:03 AM CDT Osteoporosis documented in this encounter Results * DX AXIAL HIPS/SPINE (08/09/2023 11:03 [...] PM CDT EXAM: DX AXIAL HIPS/SPINE LOCATION: [facility] DATE: 08/09/2023 INDICATION: BMD screening, follow-up. DEMOGRAPHICS: [...] - 08/09/2023 EXAM: DX AXIAL HIPS/SPINE LOCATION: [facility] DATE: 08/09/2023 INDICATION: BMD screening, follow-up. DEMOGRAPHICS: [...] De La Cruz MD IMG DEXA ORDERABLES documented in this encounter Visit Diagnoses Diagnosis Osteoporosis Osteoporosis, unspecified documented in this encounter Additional Health Concerns Assessment Noted Time PHQ-9 Depression Total Score: 2 07/13/19 22 11:30 AM CDT documented as of this encounter Care Teams Best Worker Relationship Specialty Start Date End Date Gauri Cortez MD [address] [facility] [address] [place], [place] [address] PCP - General Internal Medicine 08/07/13 Gauri Cortez MD [address] [place] [address] Assigned PCP 09/30/18 Sharif Mayer MD [id number] [place] [address] Assigned Surgical Provider 04/30/22 11/02/23 documented as of this encounter
--- OUTSIDE RECORDS SUMMARY | 2023-11-10 13:38 | XMS_ITS | Encounter Summary ---
Author Organization [place] Address [facility] [place] [address] Care Team Providers Care Sole Stapler Welt Name Role Phone Gauri Cortez MD Primary Care Provider [phone] Gauri Cortez MD Unavailable [phone] Sharif Mayer MD Unavailable [phone] Encounter Details Date Type Department Care Team (Latest Contact Info) Description 08/09/2023 Travel Social History Tobacco Use Types Packs/Day Years [...] documented as of this encounter Care Teams Sole Stapler Welt Relationship Specialty Start Date End Date Gauri Cortez MD [address] [place] [address] PCP - General Internal Medicine 08/07/13 Gauri Cortez MD [address] [facility] [address] [place] [address] Assigned PCP 09/30/18 Sharif Mayer MD [id number] [place] [address] Assigned Surgical Provider 04/30/22 11/02/23 documented as of this encounter
--- OUTSIDE RECORDS SUMMARY | 2023-11-10 13:38 | XMS_ITS | Referral Summary ---
Author Organization [place] Address [address] [facility] [place] [address] Care Team Providers Care Hands Assembler Name Role Phone Gauri Cortez MD Primary Care Provider Gauri Cortez MD Unavailable [phone] Encounters Date Type Department Care Team Description 10/10/2023 Telephone [facility] W[facility] Ostomy [facility] [address] [place] [address] 3, Ostomy Wound Room, RN from Last 3 Months Allergies Active Allergy Reactions Criticality Noted Date [...] (ASTELIN) 0.1 % nasal sprayIndications:Chron ic rhinitis Gautier 1-2 sprays into both nostrils 2 times [...] Nausea and vomiting 2012 09/06/19 [facility] 08/04/2010 08/28/2023 Overview: DX V65.8 REPLACED WITH [id number] [facility] (06/18/2012) Advanced directives, counseling/discussion 06/01/2010 08/28/2023 Overview: [...] and subacute iridocyclitis, unspecified 09/11/19 04 09/22/2015 Immunizations Name Administration Dates Next Due COVID-19 [...] d (SHINGRIX) 05/31/2018,01/25/2018 Zoster vaccine, live 01/10/2017 Social History Tobacco Use Types Packs/Day Years [...] Comments Blood Pressure 112/70 04/18/2022 12:57 PM IMMIGRATION CASE MANAGER Pulse 78 04/18/2022 12:57 PM IMMIGRATION CASE MANAGER Temperature 36.1 ??C (96.9 ??F) 11/29/2021 8:03 AM CD T Respiratory Rate 16 04/18/2022 12:57 PM IMMIGRATION CASE MANAGER Oxygen Saturation 96% 04/18/2022 12:57 PM IMMIGRATION CASE MANAGER Inhaled Oxygen Concentration - - Weight 77.1 kg (170 lb) 04/18/2022 12:57 PM IMMIGRATION CASE MANAGER Pt reported Height 170.2 cm (5' 7) 04/18/2022 12:57 PM IMMIGRATION CASE MANAGER Pt reported Body Mass Index 26.63 04/18/2022 12:57 PM IMMIGRATION CASE MANAGER Plan of Treatment Not on file Procedures Procedure Name Priority Date/Time Associated Diagnosis [...] PM CDT EXAM: DX AXIAL HIPS/SPINE LOCATION: [facility] DATE: 08/09/2023 INDICATION: BMD screening, follow-up. [...] - 08/09/2023 EXAM: DX AXIAL HIPS/SPINE LOCATION: [facility] DATE: 08/09/2023 INDICATION: BMD screening, follow-up. [...] malignancy. Mirza George MD IMG MAMMOGRAPHY ABHIJIT JOSHUATRAVIS * Albumin Random Urine Quantitative with Creat [...] LAB - URINE ORDERAB LES OX LABORATORY [facility] Lab [address] Lab (no room number, 1st floor of clinic) [place] [address], [facility] [phone] * CBC with platelets and differential (11/29/2021 [...] LAB - BLOOD ORDERAB LES RI LABORATORY [facility] [address], [address] [place] [address], [facility] [phone] * TSH with free T4 reflex (11/29/2021 9:09 AM CDT) TSH 1.13 0.40 - 4.00 mU/L 11/30/2021 10:53 AM CDT OX LABORATORY Blood VENOUS BLOOD / Unknown Venipuncture / Unknown 11/29/2021 9:09 AM CDT 11/29/2021 9:09 AM CDT Gauri Cortez MD LAB - BLOOD ORDERAB LES [facility] [address] Lab (no room number, 1st floor of clinic) [place] [address], [facility] [phone] * (ABNORMAL) Lipid Profile (Chol, Trig, HDL, [...] LAB - BLOOD ORDERAB LES OX LABORATORY [facility] Lab [address] Lab (no room number, 1st floor of clinic) [place] [address], [facility] [phone] * (ABNORMAL) Comprehensive metabolic panel (BMP + [...] includes age and gender (Becca et al., NEJM, DOI: 10.1056/[id number]) Blood VENOUS BLOOD / Unknown Venipuncture / Unknown 11/29/2021 9:09 AM CDT 11/29/2021 9:09 AM CDT Gauri Cortez MD LAB - BLOOD ORDERAB LES OX LABORATORY [facility] [address] Lab (no room number, 1st floor of clinic) [place] [address], [facility] [phone] * (ABNORMAL) UA macro with reflex to [...] 11/19/2021 4:47 PM CDT LV LABORATORY Specific [place] Urine 1.010 1.003 - 1.035 11/19/2021 4:47 [...] MD LAB - URINE ORDERABL ES LABORATORY [facility] Lab [address] [facility] (no room number, 1st floor of clinic) [place] [address], [facility] [phone] * Hepatitis C antibody (09/22/2015 8:10 AM CDT) Hepatitis C Antibody Nonreactive Assay performance characteristics have not been established for newborns, infants, and children [facility] Blood specimen (specimen) 09/22/2015 8:10 AM CDT 09/22/2015 8:15 AM CDT Gauri Cortez MD LAB - BLOOD ORDERAB LES [facility] [address] [place] [address] * Sigmoidoscopy flexible (10/08/2012) Patient Reported ANESTHESIA ORDERABLE S * COLONOSCOPY (06/16/2008) 06/16/2008 Tyra Cardona MD PROCEDURES from Last 3 Months or Most Recently Relevant to Health Maintenance Care Teams Hands Assembler Relationship Specialty Start Date End Date Gauri Cortez MD [address] [address] PCP - General Internal Medicine 08/07/13 Gauri Cortez MD [address] [address] Assigned PCP 09/30/18
--- OUTSIDE RECORDS SUMMARY | 2023-11-10 13:38 | XMS_ITS | Encounter Summary ---
Author Organization [place] Address [address] [facility] [place] [address] Care Team Providers Care Appellate Court Clerk Name Role Phone Gauri Cortez MD Primary Care Provider Gauri Cortez MD Unavailable Sharif Mayer MD Unavailable Reason for Visit * Reason Comments Medication Refill Encounter Details Date Type Department Care Team (Late st Contact Info) Description 09/03/[address] [place] [address] Sandra Coates APRN [facility] [address] [place] [address] Medication Refill Social History Tobacco Use Types Packs/Day Years Used Date Smoking Tobacco: Never Smokeless Tobacco: Never Alcohol Use Standard Drinks/Week Comments No 0 (1 standard drink = 0.6 oz pur e alcohol) PHQ-2 Answer Date Recorded PHQ-2 Total Score (Adult) - Positive if 3 or more points; Administer PHQ-9 if positive 1 07/08/2020 Sex and Gender Information Value Date Recorded Sex Assigned at Female 07/01/2020 5:08 PM CDT Gender Identity Female 07/01/2020 5:08 PM CDT Sexual Orientation Straight 07/01/2020 5: 08 PM CDT documented as of this encounter Miscellaneous Notes * Telephone Encounter - Gemma Ortiz RN - 09/04/2020 9:38 AM CDT Routing refill request to provider for review/approval because: Drug not on the [facility] refill protocol Gemma Ortiz RN, BSN documented in this encounter Plan of Treatment Not on file documented as of this encounter Visit Diagnoses Diagnosis Primary insomnia Persistent disorder of initiating or maintaining sleep documented in this encounter Additional Health Concerns Assessment Noted Time PHQ-9 Depression Total Score: 3 07/10/19 21 7:02 AM CDT documented as of this encounter Care Teams Appellate Court Clerk Relationship Specialty Start Date End Date Gauri Cortez MD [address] [place] [address] PCP - General Internal Medicine 08/07/13 Gauri Cortez MD [address] [place] [address] Assigned PCP 09/30/18 Sharif Mayer MD [id number] [place] [address] Assigned Surgical Provider 04/30/22 11/02/23 documented as of this encounter
--- OUTSIDE RECORDS SUMMARY | 2023-11-10 13:38 | XMS_ITS | Encounter Summary ---
Author Organization [place] Address [address] [facility] [place] [address] Care Team Providers Care Reverberatory Furnace Operator Name Role Phone Gauri Cortez MD Primary Care Provider Gauri Cortez MD Unavailable Sharif Mayer MD Unavailable Reason for Visit * Reason Comments Medication Refill Encounter Details Date Type Department Care Team (Late st Contact Info) Description [facility] [address] [place] [address] Gauri Cortez MD [address] [facility] [address] [place] [address] Medication Refill Social History Tobacco [...] suspected to have Coronavirus/COVID-19? No / Unsure 06/08/2022 10:55 AM CDT documented as of this encounter Miscellaneous Notes * Telephone Encounter - Karon Shin RN - 06/10/2022 2:57 PM CDT Prescription approved per [facility] Refill Protocol. documented in this encounter Plan of Treatment Not on file documented as of this encounter Visit Diagnoses Diagnosis Acquired hypothyroidism Unspecified hypothyroidism documented in this encounter Additional Health Concerns Assessment Noted Time PHQ-9 Depression Total Score: 2 07/13/19 22 11:30 AM CDT documented as of this encounter Care Teams Reverberatory Furnace Operator Relationship Specialty Start Date End Date Gauri Cortez MD [address] [place] [address] PCP - General Internal Medicine 08/07/13 Gauri Cortez MD [address] [place], [place] [address] Assigned PCP 09/30/18 Sharif Mayer MD [id number] [place] [address] Assigned Surgical Provider 04/30/22 11/02/23 documented as of this encounter
--- OUTSIDE RECORDS SUMMARY | 2023-11-10 13:39 | XMS_ITS | Encounter Summary ---
Author Organization [place] Address [address] [place] [address] Care Team Providers Care Aircraft Air Conditioning Mechanic Name Role Phone Gauri Cortez MD Primary Care Provider Gauri Cortez MD Unavailable Sharif Mayer MD Unavailable [phone] Reason for Visit * Reason Onset Date Comments Results 12/13/2018 dexa scan and re port mailed to Dr. Annie murcia #[id number] [place] [phone] pn Encounter Details Date Type Department Care Team (Late st Contact Info) Description 12/13/2018 Telephone [facility] [address] [facility] [address] [place] [address] Gauri Cortez MD [address] [place] [address] Results (dexa scan and report mailed to Dr. Annie murcia #[id number] [place] [address] pn) Social History Tobacco Use Types Packs/Day Years Used Date Smoking Tobacco: Never Smokeless Tobacco: Never Alcohol Use Standard Drinks/Week Comments No 0 (1 standard drink = 0.6 oz pur e alcohol) PHQ-2 Answer Date Recorded PHQ-2 Score 0 03/20/2018 Sex and Gender Information Value Date Recorded Sex Assigned at Female 07/01/2020 5:08 PM CDT Gender Identity Female 07/01/2020 5:08 PM CDT Sexual Orientation Straight 07/01/2020 5: 08 PM CDT documented as of this encounter Miscellaneous Notes * Telephone Encounter - Edie Mireles - 12/13/2018 2:47 PM CDT dexa scan and report mailed to Dr. Valencia [id number] [place] [address] pn documented in this encounter Plan of Treatment Not on file documented as of this encounter Visit Diagnoses Not on filedocumented in this encounter Additional Health Concerns Infection Onset Date Last Indicated Resolved Time Rule Out COVID-19 02/10/2020 02/10/2020 02/11/2020 5:33 PM PUBLIC RECORDS RESEARCHER Assessment Noted Time PHQ-9 Depression Total Score: 2 09/28/19 19 8:54 AM CDT documented as of this encounter Care Teams Aircraft Air Conditioning Mechanic Relationship Specialty Start Date End Date Gauri Cortez MD [address] [facility] [address] [place] [address] PCP - General Internal Medicine 08/07/13 Gauri Cortez MD [address] [facility] [address] [place] [address] Assigned PCP 09/30/18 Sharif Mayer MD [id number] [place] [address] Assigned Surgical Provider 04/30/22 11/02/23 documented as of this encounter
--- OUTSIDE RECORDS SUMMARY | 2023-11-10 13:39 | XMS_ITS | Encounter Summary ---
Author Organization [place] Address [address] [facility] [place] [place] [address] Care Team Providers Care Geophysical E Logger Name Role Phone Tyra Cardona MD Primary Care Provider [phone] Gauri Cortez MD Primary Care Provider [phone] Filippo Vazquez PA-C Primary Care Provider Gauri Cortez MD Primary Care Provider [phone] Ines Aguilar ELECTROPHYSIOLOGY TECH FLUX MIXER Unavailable Un available Lucero Perez ELECTROPHYSIOLOGY TECH FLUX MIXER Unavailable + Gauri Cortez MD Unavailable [phone] Gauri Cortez MD Unavailable [phone] Lucero Perez ELECTROPHYSIOLOGY TECH FLUX MIXER Unavailable + Gauri Cortez MD Unavailable [phone] Sharif Mayer MD Unavailable [phone] Encounter Details Date Type Department Care Team (Late st Contact Info) Description 01/25/2010 My[facility] Medical Advice Initial Department Michael Hawthorne Social History Tobacco Use Types Packs/Day Years [...] Out COVID-19 02/10/2020 02/10/2020 02/11/2020 5:33 PM COMMODITY MERCHANT documented as of this encounter Care Teams Geophysical E Logger Relationship Specialty Start Date End Date Tyra Cardona MD PCP - General 10/27/03 07/27/10 Gauri Cortez MD [address] [place] [address] PCP - General Internal Medicine 07/28/10 07/14/13 Filippo Vazquez PA-C [address] [place] [address] PCP - General Physician Cardiopulmonary Specialist - Medical 07/15/13 08/06/13 Gauri Cortez MD [address] [place] [address] PCP - General Internal Medicine 08/07/13 Ines Aguilar, ELECTROPHYSIOLOGY TECH FLUX MIXER PCP - Assigned PCP 02/11/18 04/07/18 Lucero Perez, ELECTROPHYSIOLOGY TECH FLUX MIXER [address] [place] [address] PCP - Assigned PCP 12/31/17 02/10/18 Gauri Cortez MD [address] [place] [address] PCP - Assigned PCP 04/08/18 05/15/18 Gauri Cortez MD [address] [facility] [address] [place] [address] Assigned PCP 04/08/18 08/11/18 Lucero Perez APRN [facility] [address] [place] [address] Assigned PCP 08/12/18 09/29/18 Gauri Cortez MD [address] [facility] [address] [place] [address] Assigned PCP 09/30/18 Sharif Mayer MD [address] [id number] [place] [address] Assigned Surgical Provider 04/30/22 11/02/23 documented as of this encounter
--- OUTSIDE RECORDS SUMMARY | 2023-11-10 13:39 | XMS_ITS | Encounter Summary ---
Author Organization [place] Address [address] 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
--- OUTSIDE RECORDS SUMMARY | 2023-11-10 13:39 | XMS_ITS | Encounter Summary ---
Author Organization [place] Address [address] [facility] [place] [address] Care Team Providers Care Squash Centre Manager Name Role Phone Tyra Cardona MD Primary Care Provider [phone] Gauri Cortez MD Primary Care Provider [phone] Filippo Vazquez PA-C Primary Care Provider Gauri Cortez MD Primary Care Provider [phone] Ines Aguilar DAYCARE ASSISTANT SLUMBER ROOM ATTENDANT Unavailable Un available Lucero Perez DAYCARE ASSISTANT SLUMBER ROOM ATTENDANT Unavailable + Gauri Cortez MD Unavailable [phone] Gauri Cortez MD Unavailable [phone] Lucero Perez DAYCARE ASSISTANT SLUMBER ROOM ATTENDANT Unavailable + Gauri Cortez MD Unavailable Sharif Mayer MD Unavailable [phone] Encounter Details Date Type Department Care Team (Late st Contact Info) Description 05/24/2010 Office Visit-[facility] [place] [address] [facility] [address] [place] [id number] Judith Hua DO [address] [facility] [address] [place] [id number] (work) Social History Tobacco Use Types Packs/Day Years Used Date Smoking Tobacco: Never Alcohol Use Standard Drinks/Week Comments No 0 (1 standard drink = 0.6 oz pur e alcohol) Sex and Gender Information Value Date Recorded Sex Assigned at Female 07/01/2020 5:08 PM CDT Gender Identity Female 07/01/2020 5:08 PM CDT Sexual Orientation Straight 07/01/2020 5: 08 PM CDT documented as of this encounter Progress Notes * Judith Hua, - 05/25/2010 12:39 PM CDT Progress Note Created by: Renan Hua D.O. DATE: 05/24/2010 JOCELYN STAUFFER DATE OF : 1955 AGE: [age] years old Referring Physician: TYRA CARDONA Referring Clinic: [facility] CURRENT DIAGNOSES 1. - Hyperlipidemia, 272.4 2. Palpitations, 785.1 3. Hypothyroidism, 244.9 4. Hypertension-Essential (Benign), 401.1 5. Chest pain, 786.50 6. Tachycardia, 785.0 ALLERGIES . Amoxicillin Trihydrate ciprofloxacin ciprofloxacin hydrochloride codiene levofloxacin procaine Sulfonamides vitamin E MEDICATIONS (prior to changes made today) 1. Levothroid 75 mcg Tablet, 1 p.o. daily 2. Daily Multivitamin Tablet, 1 p.o. daily 3. Acidophilus Capsule, Take as Directed 4. Vagifem 10 mcg Tablet, 1 p.o. daily 5. Ceftin 250 mg Tablet, Dose/instruction UNKNOWN 1 t ab qid 6. Fish Oil 1,000 mg Capsule, 1 p.o. daily 7. amlodipine 10 mg Tablet, 1 p.o. daily CHIEF COMPLAINTS HISTORY OF PRESENT ILLNESS Ms. Stauffer is a very pleasant 55-year-old female who was referred to our office for an abnormal electrocardiogram and palpitations. She underwent a transthoracic echocardiogram due to evidence of leftatrial enlargement on electrocardiogram and Holter monitor for her symptoms of palpitations. I did r eview the test with her today. The transthoracic echocardiogram demonstrated normal chamber sizes, including the left atrium. No left ventricular hypertrophy is noted. Left ventricular systolic function is normal with an ejection fraction around 55 to 60%. She did have grade 1 diastolic dysfunctionbut no valvular abnormalities were noted. Her Holter monitor revealed normal sinus rhythm, with an average heart rate around 90 beats/minute, a minimal heart rate of 59 beats/minute during the evening hours and a maximal heart rate of 129. She had one isolated premature ventricular contraction and 1,805 supraventricular premature beats. No sustained rhythm problems were noted. She did record five separate episodes of light fluttering in her chest for symptoms during this time. Four of the strips indicated a normal sinus rhythm with a heart rate between 80s and 90s. One had sinus tachycardia at a heart rate of 117 beats/minute. Ms. Stauffer does continue to have occasional symptoms of palpitatio ns, although her thyroid is continuing to be problematic. Initially, she was noted to have low thyroid and now she tells me that her thyroid studies are going back up. Her symptoms are probably likely related to this. She also tells me she has been treated for strep throat within the last week or so. She was placed on Zithromax. A couple of days ago, on Monday, she was at a wedding and noted some pain in the Achilles area of her right foot. She did go to urgent care and was diagnosed with cellulitis. I have looked at her foot today and questioned this diagnosis. She appears to have significant swelling and induration, redness and warmth surrounding her ankle joint, and she is having pain with motion of this joint, especially in the Achilles area. She was given an initial IV antibiotic of Ceftin and is currently on Keflex. She did have a fever when she initially presented up to 102 but has not felt febrile in the lasttwo days. I did have my medical cash poster check her temperature today and it was 98.8. On further exam, blood pressure is 123/79, pulse 88 and regular. Body mass index is 25. Cardiovascular tones were again regular, without murmur, gallop or rub. Her lungs are clear to auscultation. Her foot again demonstrates swelling around the ankle joint, with induration in the medial aspect, with redness and some streaking slightly above the ankle. I did stefani this area. She is scheduled to seeher primary care tomorrow. I do not see evidence of skin tissue breakdown at all on her foot. PAST HISTORY Past Medical Illnesses: hypothyroidism, osteoporosis, intramural leiomyoma, ankylosis spondylitis, hypertension, anemia, colitis, crohns disease, hyperlipidemia Past Cardiac Illnesses: palpitations, chest pain Surgeries/Procedures - General: flexible sigmoidoscopy 09/2005, complete colectomy(06/19) =<GT> ileostomy =<GT> good result, done for ulcerative colitis, spinal fusion 2009 Cardiology Procedures-NonInvasive: holter monitor January 2006, 04/23, stress echo Jun 2008, echocardiogram Apr 2010 PMx Echo Results: normal LV wall motion Apr 2010 PMHx Stress Echo Results: 06/19 normal Left Ventricular Ejection Fraction: EF<GT>55% by Echo -Apr 2010 FAMILY HISTORY: Family - no major heart disease; CARDIAC RISK FACTORS Tobacco Abuse: negative; Family History of Heart Disease: negative; Hyperlipidemia: lipid status unknown; Hypertension: negative; Diabetes Mellitus: negative; Prior History of Heart Disease: negative; Obesity:negative; Sedentary Life Style:negative; Age:negative ; LDL Goal <LT> 100 SOCIAL HISTORY Alcohol Use - denies drinking; Smoking - never smoked; Diet - regular diet without modifications and caffeine use-none; Lifestyle - ; 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 EYES wears eye glasses/contact lenses EARS, NOSE, THROAT, MOUTH partial hearing loss RESPIRATORY dyspnea, sometimes CARDIOVASCULAR palpitations, fluttering, freq, ABDOMINAL abdominal discomfort GENITOURINARY-FEMALE frequency, nocturia MUSCULOSKELETAL chronic back pain, history of generalized arthritis, back fusion NEUROLOGICAL denies any history of recurrent strokes, headaches, TIA, or seizure disorder. PSYCHIATRIC denies any history of depression, substance abuse or change in cognitive functions. ENDOCRINE weight gain HEMATOLOGICAL/IMMUNOLOGIC easy bruising, medication allergies PHYSICAL EXAMINATION VITAL SIGNS: Blood Pressure: 123/79Sitting, Left arm, regular cuff Pulse- 88.00/min. Weight- 162.00 lbs. Height- 67.00 Temperature- .00 CONSTITUTIONAL cooperative, alert and oriented,well developed, well nourished, in no acute distress. SKIN warm and dry to touch, no apparent skin lesions, or masses noted. HEAD normocephalic, atraumatic EYES Pupils equal and round, conjunctivae and lids unremarkable, sclera white, no xanthalasma ENT no pallor or cyanosis, dentition good NECK carotid pulses are full and equal bilaterally, no JVD CHEST clear to auscultation CARDIAC S1 normal, S2 normal, no murmurs, gallops or rubs detected ABDOMEN abdomen soft, no bruits PERIPHERAL PULSES pulses full and equal in all extremities, no bruits auscultated. EXTREMITIES & BACK no clubbing, cyanosis or edema NEUROLOGICAL no gross motor deficits noted, affect appropriate, oriented to time, person and place. MEDICATIONS UPDATED/STARTED TODAY: Ceftin 250 mg Tablet, Dose/instruction UNKNOWN 1 t ab qid, #-1 Vagifem 10 mcg Tablet, 1 p.o. daily, #0 IMPRESSIONS/PLAN In summary, Ms. Stauffer is a pleasant 55-year-old female with symptoms of palpitations, likely secondary to thyroid abnormalities. She had an abnormal electrocardiogram, indicating left atrial enlargement; however, transthoracic echocardiogram did not confirm this. She likely has grade 1 diastolic dys function related to hypertension; however, she appears to be well treated on her current antihypertensive regimen. I did review her tests with her today and asked her to follow up with her primary care for further thyroid adjustment, as needed. I have also recommended that if she has persistent symptoms despite a stable thyroid hormone, especially if in conjunction with symptoms of chest discomfort or shortness of breath I would gladly see her back for reevaluation. I am quite concerned about her ankle. I do not feel this is cellulitis. This appears to involve theankle joint and may represent a septic joint. She was not febrile in clinic for me today, and she does have a scheduled follow-up visit tomorrow. I did stefani the area of redness and urged her that if she should develop a fever tonight, if the redness should spread beyond the marking or if she has increased discomfort in that ankle, I have recommended she proceed immediately to the emergency room for further evaluation. Please feel free to contact me with any questions you have in regards to her care. Renan Hua D.O. documented in this encounter Plan of Treatment Not on file documented as of this encounter Visit Diagnoses Not on filedocumented in this encounter Additional Health Concerns Infection Onset Date Last Indicated Resolved Time Rule Out COVID-19 02/10/2020 02/10/2020 02/11/2020 5:33 PM ASBESTOS HAZARD ABATEMENT WORKER documented as of this encounter Care Teams Squash Centre Manager Relationship Specialty Start Date End Date Tyra Cardona MD PCP - General 10/27/03 07/27/10 Gauri Cortez MD [address] [place] [address] PCP - General Internal Medicine 07/28/10 07/14/13 Filippo Vazquez PA-C [address] [place] [address] PCP - General Physician Seasonal Retail Merchandiser - Medical 07/15/13 08/06/13 Gauri Cortez MD [address] [place] [address] PCP - General Internal Medicine 08/07/13 Ines Aguilar APRN SLUMBER ROOM ATTENDANT PCP - Assigned PCP 02/11/18 04/07/18 Lucero Perez DAYCARE ASSISTANT SLUMBER ROOM ATTENDANT [address] [place] [address] PCP - Assigned PCP 12/31/17 02/10/18 Gauri Cortez MD [address] [facility] [address] [place] [address] PCP - Assigned PCP 04/08/18 05/15/18 Gauri Cortez MD [address] [facility] [address] [place] [address] Assigned PCP 04/08/18 08/11/18 Lucero Perez DAYCARE ASSISTANT SLUMBER ROOM ATTENDANT [address] [place] [address] Assigned PCP 08/12/18 09/29/18 Gauri Cortez MD [address] [place] [address] Assigned PCP 09/30/18 Sharif Mayer MD [id number] [place] [address] Assigned Surgical Provider 04/30/22 11/02/23 documented as of this encounter
--- OUTSIDE RECORDS SUMMARY | 2023-11-10 13:39 | XMS_ITS | Encounter Summary ---
Author Organization [place] Address [address] [facility] [place] [address] Care Team Providers Care Inspector Watch Assembly Name Role Phone Tyra Cardona MD Primary Care Provider [phone] Gauri Cortez MD Primary Care Provider [phone] Filippo Vazquez PA-C Primary Care Provider Gauri Cortez MD Primary Care Provider [phone] Ines Aguilar SAS ETL DEVELOPER MAP COLORER Unavailable Un available Lucero Perez SAS ETL DEVELOPER MAP COLORER Unavailable + Gauri Cortez MD Unavailable [phone] Gauri Cortez MD Unavailable [phone] Lucero Perez SAS ETL DEVELOPER MAP COLORER Unavailable + Gauri Cortez MD Unavailable Sharif Mayer MD Unavailable [phone] Encounter Details Date Type Department Care Team (Late st Contact Info) Description 05/19/2010 [facility] Medical [facility] [id number] [place] [id number] Tyra Cardona MD [address] [place] [address] Social History Tobacco Use Types Packs/Day Years [...] Out COVID-19 02/10/2020 02/10/2020 02/11/2020 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 documented as of this encounter Care Teams Inspector Watch Assembly Relationship Specialty Start Date End Date Tyra Cardona MD PCP - General 10/27/03 07/27/10 Gauri Cortez MD [address] [place] [address] PCP - General Internal Medicine 07/28/10 07/14/13 Filippo Vazquez PA-C [address] [place] [address] PCP - General Physician Regional Training Manager - Medical 07/15/13 08/06/13 Gauri Cortez MD [address] [place] [address] PCP - General Internal Medicine 08/07/13 Ines Aguilar APRN MAP COLORER PCP - Assigned PCP 02/11/18 04/07/18 Lucero Perez APRN MAP COLORER [address] [place] [address] PCP - Assigned PCP 12/31/17 02/10/18 Gauri Cortez MD [address] [address] [place] [address] PCP - Assigned PCP 04/08/18 05/15/18 Gauri Cortez MD [address] [facility] [address] [place] [address] Assigned PCP 04/08/18 08/11/18 Lucero Perez APRN [facility] [address] [place] [address] [address] Assigned PCP 08/12/18 09/29/18 Gauri Cortez MD [address] [facility] [address] [place] [address] Assigned PCP 09/30/18 Sharif Mayer MD [address] [id number] [place] [address] Assigned Surgical Provider 04/30/22 11/02/23 documented as of this encounter
--- OUTSIDE RECORDS SUMMARY | 2023-11-10 13:39 | XMS_ITS | Encounter Summary ---
Author Organization [place] Address [address] [facility] [place] [address] Care Team Providers Care Air Intelligence Officer Name Role Phone Gauri Cortez MD Primary Care Provider Ines Aguilar INDUSTRIAL MACHINE SYSTEM TECHNICIAN CRUCIBLE FURNACE TENDER Unavailable Un available Lucero Perez APRN CRUCIBLE FURNACE TENDER Unavailable + Gauri Cortez MD Unavailable Gauri Cortez MD Unavailable [phone] Lucero Perez APRN CRUCIBLE FURNACE TENDER Unavailable + Gauri Cortez MD Unavailable Sharif Mayer MD Unavailable [phone] Encounter Details Date Type Department Care Team (Late st Contact Info) Description 06/14/2017 [facility] Medical Advice [address] [place] [address] Nathalie Mtz RN Social History Tobacco Use Types Packs/Day [...] Out COVID-19 02/10/2020 02/10/2020 02/11/2020 5:33 PM 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 DIRECTOR documented as of this encounter Care Teams Air Intelligence Officer Relationship Specialty Start Date End Date Gauri Cortez MD [address] [place] [address] PCP - General Internal Medicine 08/07/13 Ines Aguilar APRN CRUCIBLE FURNACE TENDER PCP - Assigned PCP 02/11/18 04/07/18 Lucero Perez APRN CRUCIBLE FURNACE TENDER [address] [place] [address] PCP - Assigned PCP 12/31/17 02/10/18 Gauri Cortez MD [address] [place] [address] PCP - Assigned PCP 04/08/18 05/15/18 Gauri Cortez MD [address] [place] [address] Assigned PCP 04/08/18 08/11/18 Lucero Perez APRN CRUCIBLE FURNACE TENDER [address] [place] [address] Assigned PCP 08/12/18 09/29/18 Gauri Cortez MD [address] [place] [address] Assigned PCP 09/30/18 Sharif Mayer MD [address] [id number] [place] [address] Assigned Surgical Provider 04/30/22 11/02/23 documented as of this encounter
--- OUTSIDE RECORDS SUMMARY | 2023-11-10 13:39 | XMS_ITS | Encounter Summary ---
Author Organization [place] Address [address] [facility] [place] [address] Care Team Providers Care Dynamometer Tester Engine Name Role Phone Gauir Cortez MD Primary Care Provider [phone] Filippo Vazquez PA-C Primary Care Provider Gauri Cortez MD Primary Care Provider [phone] Ines Aguilar APRN RESTAURANT ASSOCIATE Unavailable Un available Lucero Perez APRN RESTAURANT ASSOCIATE Unavailable + Gauri Cortez MD Unavailable [phone] Gauri Cortez MD Unavailable [phone] Lucero Perez APRN RESTAURANT ASSOCIATE Unavailable + Gauri Cortez MD Unavailable [phone] Shairf Mayer MD Unavailable [phone] Encounter Details Date Type Department Care Team (Late st Contact Info) Description 08/25/2012 MyC Medical Advice [facility] [address] [place] [address] Michael Hawthorne Social History Tobacco Use Types [...] Out COVID-19 02/10/2020 02/10/2020 02/11/2020 5:33 PM 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 MEDICAL 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 documented as of this encounter Care Teams Dynamometer Tester Engine Relationship Specialty Start Date End Date Gauri Cortez MD [address] [place] [address] PCP - General Internal Medicine 07/28/10 07/14/13 Filippo Vazquez PA-C [address] [place] [address] PCP - General Physician Meal Attendant - Medical 07/15/13 08/06/13 Gauri Cortez MD [address] [place] [address] PCP - General Internal Medicine 08/07/13 Ines Aguilar APRN RESTAURANT ASSOCIATE PCP - Assigned PCP 02/11/18 04/07/18 Lucero Perez, CERTIFIED MIDWIFE RESTAURANT ASSOCIATE [address] [place] [address] PCP - Assigned PCP 12/31/17 02/10/18 Gauri Cortez MD [address] [place] [address] PCP - Assigned PCP 04/08/18 05/15/18 Gauri Cortez MD [address] [place] [address] Assigned PCP 04/08/18 08/11/18 Lucero Perez APRN RESTAURANT ASSOCIATE [address] [place] [address] Assigned PCP 08/12/18 09/29/18 Gauri Cortez MD [address] [facility] [address] [place] [address] Assigned PCP 09/30/18 Sharif Mayer MD [id number] [place] [address] Assigned Surgical Provider 04/30/22 11/02/23 documented as of this encounter
--- OUTSIDE RECORDS SUMMARY | 2023-11-10 13:39 | XMS_ITS | Encounter Summary ---
Author Organization [place] Address [address] [facility] [place] [address] Care Team Providers Care Teachers' Aide Name Role Phone Gauri Cortez MD Primary Care Provider Gauri Cortez MD Unavailable Sharif Mayer MD Unavailable Encounter Details Date Type Department Care Team (Late st Contact Info) Description 06/26/[address] [facility] [address] [place] [address] Gauri Cortez MD [address] [place] [address] Social History Tobacco Use Types [...] Exposure Response Date Recorded In the last month, have you been in contact with someone who was confirmed or suspected to have Coronavirus / COVID-19? 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
--- OUTSIDE RECORDS SUMMARY | 2023-11-10 13:39 | XMS_ITS | Encounter Summary ---
Author Organization [place] Address [address] [facility] [place] [address] Care Team Providers Care Wrapper Off Name Role Phone Tyra Cardona MD Primary Care Provider [phone] Gauri Cortez MD Primary Care Provider [phone] Filippo Vazquez PA-C Primary Care Provider Gauri Cortez MD Primary Care Provider [phone] Ines Aguilar PERFECT BIND MACHINE OPERATOR SOLE STITCHER HAND Unavailable Un available Lucero Perez PERFECT BIND MACHINE OPERATOR SOLE STITCHER HAND Unavailable + Gauri Cortez MD Unavailable [phone] Gauri Cortez MD Unavailable [phone] Lucero Perez PERFECT BIND MACHINE OPERATOR SOLE STITCHER HAND Unavailable + Gauri Cortez MD Unavailable Sharif Mayer MD Unavailable [phone] Encounter Details Date Type Department Care Team (Late st Contact Info) Description 05/25/2010 [facility] [id number] [place] [phone] Tyra Cardona MD [address] [place] [address] Social History Tobacco Use Types Packs/Day [...] Out COVID-19 02/10/2020 02/10/2020 02/11/2020 5:33 PM JUNIOR NETWORK ADMINISTRATOR documented as of this encounter Care Teams Wrapper Off Relationship Specialty Start Date End Date Tyra Cardona MD PCP - General 10/27/03 07/27/10 Gauri Cortez MD [address] [place] [address] PCP - General Internal Medicine 07/28/10 07/14/13 Filippo Vazquez PA-C [address] [place] [address] PCP - General Physician Bookkeepers Supervisor - Medical 07/15/13 08/06/13 Gauri Cortez MD [address] [place] [address] PCP - General Internal Medicine 08/07/13 Ines Aguilar APRN SOLE STITCHER HAND PCP - Assigned PCP 02/11/18 04/07/18 Lucero Perez APRN SOLE STITCHER HAND [address] [place] [address] PCP - Assigned PCP 12/31/17 02/10/18 Gauri Cortez MD [address] [facility] [address] [place] [address] PCP - Assigned PCP 04/08/18 05/15/18 Gauri Cortez MD [address] [facility] [address] [place] [address] Assigned PCP 04/08/18 08/11/18 Lucero Perez APRN [facility] [address] [place] [address] Assigned PCP 08/12/18 09/29/18 Gauri Cortez MD [address] [facility] [address] [place] [address] Assigned PCP 09/30/18 Sharif Mayer MD [id number] [place] [address] Assigned Surgical Provider 04/30/22 11/02/23 documented as of this encounter
--- OUTSIDE RECORDS SUMMARY | 2023-11-10 13:39 | XMS_ITS | Encounter Summary ---
Author Organization [place] Address [address] [facility] [place] [address] Care Team Providers Care Vegetable Cook Name Role Phone Tyra Jorge MD Primary Care Provider [phone] Gauri Cortez MD Primary Care Provider [phone] Filippo Vazquez PA-C Primary Care Provider Gauri Cortez MD Primary Care Provider [phone] Ines Aguilar CARTRIDGE GAUGER HEALTH ANALYST Unavailable Un available Lucero Perez CARTRIDGE GAUGER HEALTH ANALYST Unavailable + Gauri Cortez MD Unavailable [phone] Gauri Cortez MD Unavailable [phone] Lucero Perez CARTRIDGE GAUGER HEALTH ANALYST Unavailable + Gauri Cortez MD Unavailable Sharif Mayer MD Unavailable [phone] Encounter Details Date Type Department Care Team (Late st Contact Info) Description 02/27/2006 Office Visit-[facility] [place] [address] [facility] [address] [place] [address] Ip, Carl Ulloa MD [address] [facility] [address] [place] [address] Social History Tobacco Use Types Packs/Day Years [...] as of this encounter Progress Notes * Carl Molina MD - 03/10/2006 4:10 PM CST Progress Note Created by: Carl Molina M.D. DATE: 02/27/2006 JOCELYN STAUFFER DATE OF : 1955 AGE: [age] years old Referring Physician: TYRA JORGE CURRENT DIAGNOSES 1. Palpitations, 785.1 2. Hypothyroidism, 244.9 3. Hypertension-Essential (Benign), 401.1 ALLERGIES Amox Sulfa MEDICATIONS (including any changes made today) 1. Piroxicam 20 mg, 1 p.o. q.d. 2. Actonel 30 mg, 1 tab q week 3. Accupril 20 mg, 1 p.o. q.d. 4. Colazal 750 mg, 9 pills po qd 5. Dicyclomine Hydrochloride 20 mg, 1 p.o. t.i.d. 6. Folic Acid 1 mg, 1 p.o. q.d. 7. Levothroid 0.075 mg, 1 p.o. q.d. 8. Mercaptopur 50 mg, on hold 9. Norvasc 5 mg, 1 p.o. q.d. 10. Potassium Chloride 10 mEq, 1 p.o. b.i.d. 11. Calcium Citrate 950 mg, 1 p.o. q.d. 12. Multi-Day Multiple Vitamins, 1 p.o. q.d. 13. Ferrous Gluconate 325 mg, 1 p.o. q.d. 14. Fish Oil -, Take as Directed 15. Acidophilus -, Take as Directed CHIEF COMPLAINTS Palpitations HISTORY OF PRESENT ILLNESS It is a pleasure for me to see Ms. Stauffer at the request of her primary physician. She is here for follow up of her palpitations as she had a Holter recently. This is a lady who has had palpitations for the past 2 months. She tells me that it is simply a sensation of her heart beating stronger and alittle harder. She does not have skipped beats. She tells me that she does not have any chest pain on exertion, though she is short of breath on exertion. She has no dizziness and no syncopal episodes. She does not smoke. She does not use a lot of caffeine. She is not diabetic. She is hypertensive.She has a long history of colitis. she is HLAB 27 positive and has ankylosing spondylitis. She knows of the association between heart disease and ankylosing spondylitis. She is also taking thyroid replacement therapy and she tells me that the dose has had to be lowered recently as she was over-replaced. This happened within the past month or so. PHYSICAL EXAMINATION: The cardiovascular system is unremarkable. I certainly do not appreciate any murmurs consistent with aortic regurgitation. 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 EARS, NOSE, THROAT, MOUTH partial hearing loss RESPIRATORY dry cough CARDIOVASCULAR palpitations ABDOMINAL diarrhea (watery) and blood in stools MUSCULOSKELETAL chronic back pain, history of generalized arthritis NEUROLOGICAL denies any history of recurrent strokes, headaches, TIA, or seizure disorder. PSYCHIATRIC memory chg ENDOCRINE intolerance to cold, intolerance to heat HEMATOLOGICAL/IMMUNOLOGIC easy bruising, medication allergies PHYSICAL EXAMINATION VITAL SIGNS: Blood Pressure: 138/74 Sitting, Right arm, large cuff Pulse- 72.00/min. Weight- 142.00 lbs. Height- 67.00 Temperature- .00 CONSTITUTIONAL cooperative, alert and oriented,well developed, well nourished, in no acute distress. SKIN warm and dry to touch, no apparent skin lesions, or masses noted. HEAD normocephalic, atraumatic EYES Pupils equal and round, conjunctivae and lids unremarkable, sclera white, no xanthalasma ENT no pallor or cyanosis, dentition good NECK carotid pulses are full and equal bilaterally, JVP normal, no carotid bruit, no thyromegaly CHEST normal symmetry, no tenderness to palpation, normal respiratory excursion, no intercostal retraction, no use of accessory muscles, clear to auscultation and percussion. CARDIAC regular rhythm, S1 normal, S2 normal, No S3 or S4, Apical impulse not displaced, no murmurs, gallops or rubs detected. ABDOMEN abdomen soft, bowel sounds normoactive, no masses, no hepatosplenomegaly, non- tender, no bruits PERIPHERAL PULSES pulses full and equal in all extremities, no bruits auscultated. EXTREMITIES & BACK no deformities, clubbing, cyanosis, erythema or edema observed. There are no spinal abnormalities noted. Normal muscle strength and tone. NEUROLOGICAL no gross motor deficits noted, affect appropriate, oriented to time, person and place. MEDICATIONS UPDATED TODAY: Colazal 750 mg, 9 pills po qd, 0 Dicyclomine Hydrochloride 20 mg, 1 p.o. t.i.d., 0 Folic Acid 1 mg, 1 p.o. q.d., 0 Levothroid 0.075 mg, 1 p.o. q.d., 0 Mercaptopur 50 mg, on hold, 0 Norvasc 5 mg, 1 p.o. q.d., 0 Potassium Chloride 10 mEq, 1 p.o. b.i.d., 0 Calcium Citrate 950 mg, 1 p.o. q.d., 0 Multi-Day Multiple Vitamins, 1 p.o. q.d., 0 Ferrous Gluconate 325 mg, 1 p.o. q.d., 0 Fish Oil -, Take as Directed, 0 Acidophilus -, Take as Directed, 0 IMPRESSIONS/PLAN I reviewed this lady's Holter monitor. She has some ectopic beats both supraventricular and ventricular. None of them occur very frequently and at most they occur in triplets. she was symptomatic once during this period and the rhythm recorded was a sinus rhythm (sinus tachycardia). The above mentioned Holter monitor is certainly compatible with normal findings. There is good reason for her to feel her heart beat stronger and faster. She is anemic with a recent hemoglobin at 10.1. she also has a history of thyroid hormone over-replacement and both of these would certainly cause tachycardia. I reassured her that I have not detected any clinical evidence at all of significant aortic regurgitation. I do not think any further cardiac testing is necessary at this time. I have reassured her and have discharged her from our clinic. TODAYS ORDERS 1. Return prtiara Molina M.D. documented in this encounter Plan of Treatment Not on file documented as of this encounter Visit Diagnoses Not on filedocumented in this encounter Additional Health Concerns Infection Onset Date Last Indicated Resolved Time Rule Out COVID-19 02/10/2020 02/10/2020 02/11/2020 5:33 PM CV TECH documented as of this encounter Care Teams Vegetable Cook Relationship Specialty Start Date End Date Tyra Jorge MD PCP - General 10/27/03 07/27/10 Gauri Cortez MD [address] [place], [place] [id number] PCP - General Internal Medicine 07/28/10 07/14/13 Filippo Vazquez PA-C [address] [place], [place] [address] PCP - General Physician Grinder Operator - Medical 07/15/13 08/06/13 Gauri Cortez MD [address] [place], [place] [address] PCP - General Internal Medicine 08/07/13 Ines Aguilar, CARTRIDGE GAUGER HEALTH ANALYST PCP - Assigned PCP 02/11/18 04/07/18 Lucero Perez, CARTRIDGE GAUGER HEALTH ANALYST [address] [place] [address] PCP - Assigned PCP 12/31/17 02/10/18 Gauri Cortez MD [address] [place], [place] [address] PCP - Assigned PCP 04/08/18 05/15/18 Gauri Cortez MD [address] [place] [address] Assigned PCP 04/08/18 08/11/18 Lucero Perez APRN HEALTH ANALYST [address] [place] [address] Assigned PCP 08/12/18 09/29/18 Gauri Cortez MD [address] [place] [address] Assigned PCP 09/30/18 Sharif Mayer MD [id number] [place] [address] Assigned Surgical Provider 04/30/22 11/02/23 documented as of this encounter
--- OUTSIDE RECORDS SUMMARY | 2023-11-10 13:39 | XMS_ITS | Encounter Summary ---
Author Organization [place] Address [address] [facility] [address] Care Team Providers Care Executive Associate Name Role Phone Tyra Cardona MD Primary Care Provider [phone] Gauri Cotrez MD Primary Care Provider [phone] Filippo Vazquez PA-C Primary Care Provider Gauri Cortez MD Primary Care Provider [phone] Ines Aguilar DYNAMOTOR REPAIRER COMPANY CONTROLLER Unavailable Un available Lucero Perez DYNAMOTOR REPAIRER COMPANY CONTROLLER Unavailable + Gauri Cortez MD Unavailable [phone] Gauri Cortez MD Unavailable [phone] Lucero Perez DYNAMOTOR REPAIRER COMPANY CONTROLLER Unavailable + Gauri Cortez MD Unavailable Sharif Mayer MD Unavailable [phone] Encounter Details Date Type Department Care Team (Late st Contact Info) Description 04/03/2010 [facility] [address] [place] [phone] Tyra Cardona MD [address] [place] [address] Social History Tobacco Use Types Packs/Day [...] Out COVID-19 02/10/2020 02/10/2020 02/11/2020 5: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 documented as of this encounter Care Teams Executive Associate Relationship Specialty Start Date End Date Tyra Cardona MD PCP - General 10/27/03 07/27/10 Gauri Cortez MD [address] [place] [address] PCP - General Internal Medicine 07/28/10 07/14/13 Filippo Vaqzuez PA-C [address] [place] [address] PCP - General Physician Nurses' Registry Director - Medical 07/15/13 08/06/13 Gauri Cortez MD [address] [place] [address] PCP - General Internal Medicine 08/07/13 Ines Aguilar APRN COMPANY CONTROLLER PCP - Assigned PCP 02/11/18 04/07/18 Lucero Perez APRN COMPANY CONTROLLER [address] [place] [address] PCP - Assigned PCP 12/31/17 02/10/18 Gauri Cortez MD [address] [facility] [address] [place] [address] PCP - Assigned PCP 04/08/18 05/15/18 Gauri Cortez MD [address] [facility] [address] [place] [address] Assigned PCP 04/08/18 08/11/18 Lucero Perez APRN [facility] [address] [place] [address] Assigned PCP 08/12/18 09/29/18 Gauri Cortez MD [address] [facility] [address] [place] [address] Assigned PCP 09/30/18 Sharif Mayer MD [id number] [place] [address] Assigned Surgical Provider 04/30/22 11/02/23 documented as of this encounter
--- OUTSIDE RECORDS SUMMARY | 2023-11-10 13:39 | XMS_ITS | Encounter Summary ---
Author Organization [place] Address [address] [facility] [place] [address] Care Team Providers Care Fuse Assembler Name Role Phone Tyra Cardona MD Primary Care Provider [phone] Gauri Cortez MD Primary Care Provider [phone] Filippo Vazquez PA-C Primary Care Provider Gauri Cortez MD Primary Care Provider [phone] Ines Aguilar ELDERLY SITTER HAND RUG BRAIDER Unavailable Un available Lucero Perez ELDERLY SITTER HAND RUG BRAIDER Unavailable + Gauri Cortez MD Unavailable [phone] Gauri Cortez MD Unavailable [phone] Lucero Perez ELDERLY SITTER HAND RUG BRAIDER Unavailable + Gauri Cortez MD Unavailable Sharif Mayer MD Unavailable [phone] Encounter Details Date Type Department Care Team (Late st Contact Info) Description 06/07/2010 [facility] [address] [place] [phone] Tyra Cardona MD [address] [place] [address] Social History Tobacco Use Types Packs/Day [...] Out COVID-19 02/10/2020 02/10/2020 02/11/2020 5:33 PM 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 documented as of this encounter Care Teams Fuse Assembler Relationship Specialty Start Date End Date Tyra Cardona MD PCP - General 10/27/03 07/27/10 Gauri Cortez MD [address] [place] [address] PCP - General Internal Medicine 07/28/10 07/14/13 Filippo Vazquez PA-C [address] [place] [address] PCP - General Physician Principal Database Developer - Medical 07/15/13 08/06/13 Gauri Cortez MD [address] [place] [address] PCP - General Internal Medicine 08/07/13 Ines Aguilar APRN HAND RUG BRAIDER PCP - Assigned PCP 02/11/18 04/07/18 Lucero Perez APRN HAND RUG BRAIDER [address] [place] [address] PCP - Assigned PCP 12/31/17 02/10/18 Gauri Cortez MD [address] [facility] [address] [place] [address] PCP - Assigned PCP 04/08/18 05/15/18 Gauri Cortez MD [address] [facility] [address] [place] [address] Assigned PCP 04/08/18 08/11/18 Lucero Perez APRN [facility] [address] [place] [address] Assigned PCP 08/12/18 09/29/18 Gauri Cortez MD [address] [facility] [address] [place] [address] Assigned PCP 09/30/18 Sharif Mayer MD [address] [id number] [place] [address] Assigned Surgical Provider 04/30/22 11/02/23 documented as of this encounter
--- OUTSIDE RECORDS SUMMARY | 2023-11-10 13:39 | XMS_ITS | Encounter Summary ---
Author Organization [place] Address [address] [facility] [place] [address] Care Team Providers Care Balance Sheet Analyst Name Role Phone Gauri Cortez MD Primary Care Provider [phone] Filippo Vazquez PA-C Primary Care Provider Gauri Cortez MD Primary Care Provider [phone] Ines Aguilar APRN FILM CUTTER Unavailable Un available Lucero Perez APRN FILM CUTTER Unavailable + Gauri Cortez MD Unavailable [phone] Gauri Cortez MD Unavailable [phone] Lucero Perez APRN FILM CUTTER Unavailable + Gauri Cortez MD Unavailable [phone] Sharif Mayer MD Unavailable [phone] Encounter Details Date Type Department Care Team (Late st Contact Info) Description 04/27/[address] [place] [phone] [facility] Social History Tobacco Use Types Packs/Day Years [...] Out COVID-19 02/10/2020 02/10/2020 02/11/2020 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 documented as of this encounter Care Teams Balance Sheet Analyst Relationship Specialty Start Date End Date Gauri Cortez MD [address] [place], [place] [address] PCP - General Internal Medicine 07/28/10 07/14/13 Filippo Vazquez PA-C [address] [place] [address] PCP - General Physician Art Model - Medical 07/15/13 08/06/13 Gauri Cortez MD [address] [place] [address] PCP - General Internal Medicine 08/07/13 Ines Aguilar APRN FILM CUTTER PCP - Assigned PCP 02/11/18 04/07/18 Lucero Perez, ENGINEER AUTOMATED EQUIPMENT FILM CUTTER [address] [place] [address] PCP - Assigned PCP 12/31/17 02/10/18 Gauri Cortez MD [address] [place] [address] PCP - Assigned PCP 04/08/18 05/15/18 Gauri Cortez MD [address] [place] [address] Assigned PCP 04/08/18 08/11/18 Lucero Perez APRN FILM CUTTER [address] [place] [address] Assigned PCP 08/12/18 09/29/18 Gauri Cortez MD [address] [place] [address] Assigned PCP 09/30/18 Sharif Mayer MD [id number] [place] [address] Assigned Surgical Provider 04/30/22 11/02/23 documented as of this encounter
--- OUTSIDE RECORDS SUMMARY | 2023-11-10 13:39 | XMS_ITS | Encounter Summary ---
Author Organization [place] Address [address] [facility] [place] [address] Care Team Providers Care Nursing Information Systems Coordinator Name Role Phone Tyra Jorge MD Primary Care Provider [phone] Gauri Cortez MD Primary Care Provider [phone] Filippo Vazquez PA-C Primary Care Provider Gauri Cortez MD Primary Care Provider [phone] Ines Aguilar SALES SUPERINTENDENT DIRECTOR OF COMMUNITY SERVICES Unavailable Un available Lucero Perez SALES SUPERINTENDENT DIRECTOR OF COMMUNITY SERVICES Unavailable + Gauri Cortez MD Unavailable [phone] Gauri Cortez MD Unavailable [phone] Lucero Perez SALES SUPERINTENDENT DIRECTOR OF COMMUNITY SERVICES Unavailable + Gauri Cortez MD Unavailable [phone] Sharif Mayer MD Unavailable [phone] Encounter Details Date Type Department Care Team (Late st Contact Info) Description 06/06/2008 Office Visit-[facility] [address] [place] [address] Rangel Dumas MD Social History Tobacco Use Types Packs/Day [...] as of this encounter Progress Notes * Rangel Dumas MD - 06/09/2008 3:26 PM CDT Progress Note Created by: Rangel Dumas M.D. DATE: 06/06/2008 JOCELYN STAUFFER [id number] DATE OF : 1955 AGE: [age] years old Referring Physician: TYRA JORGE Referring Clinic: [facility] CURRENT DIAGNOSES 1. Palpitations, 785.1 2. Hypothyroidism, 244.9 3. Hypertension-Essential (Benign), 401.1 4. Chest pain, 786.50 ALLERGIES . Amox ciprofloxacin ciprofloxacin hydrochloride codiene levofloxacin procaine Sulfa vitamin E MEDICATIONS (prior to changes made today) 1. Diovan 160 mg, 1 p.o. daily 2. Norvasc 10 mg, 1 p.o. q.d. 3. Actonel 30 mg, 1 tab q week 4. Accupril 20 mg, 1 p.o. q.d. 5. Colazal 750 mg, 9 pills po qd 6. Folic Acid 1 mg, 1 p.o. q.d. 7. Levothroid 0.075 mg, 1 p.o. q.d. 8. Potassium Chloride 10 mEq, 1 p.o. b.i.d. 9. Multi-Day Multiple Vitamins, 1 p.o. q.d. 10. Fish Oil -, Take as Directed 11. Acidophilus -, Take as Directed 12. femhrt 1/5 5 mcg-1 mg, Take as Directed 13. Prednisone 20 mg, Take as Directed CHIEF COMPLAINTS Palpitations and PCP Referral HISTORY OF PRESENT ILLNESS June 06, 2008 I saw Jocelyn Stauffer today. She is 53 and her life has been dominated by inflammatory bowel disease reportedly Crohn's disease and colitis. She has no previous documented history of heart disease. Josemanuels had palpitations in the past and she saw my associate Dr. Carl Molina a couple of years ago associated with a 24-hour Holter monitor that showed sinus rhythm, some PVCs, some PACs but no sustained or dramatic arrhythmias were seen. She continues to have palpitations occasionally and she can feel the heartbeats when they occur and if they are a little irregular. She has not had dizziness or syncope. Her CRP was noted to be faintly elevated at 5. This is a nonspecific elevation within the context of her rather dramatically inflamed colon at this time. A review of systems is positive for fatigue, a 5-pound weight loss, intermittent feverishness and chills. She has very tender skin that responds badly to contact and adhesives. Vision and hearing arerelatively normal. Cardiac positive for palpitations without exertional chest pain or dyspnea. Respiratory negative. Lower GI positive for watery diarrhea with rare blood but none recently. Musculoskeletal positive for chronic stiffness of the spine and some of the joints. Psychiatric relatively negative. Endocrine negative. Hematologic, immunologic positive for easy bruising and delicate skin. Her medicines are as listed above. From January of 2008 to April of 2008 she was following a tapering Prednisone program from 40 down to 5mg a day. When she hit 5mg a day she was relatively good for about a week and then her colon became inflamed and she became sick again. She is looking forward to having a partial or total colectomy. I ordered a stress test to rule out any inducible abnormalities or edema. I presume it will be normal. She was concerned that her inflammatory condition would be associated with inflamed coronary or cerebral arteries. I told her it was possible but unlikely, that we could evaluate her carotids and hercoronary arteries using carotid ultrasound and CT coronary angiography but I did not think now was the time for any of that. I would focus on her GI tract. Her nutrition is a problem. She is afraid to drink water because it is associated with some diarrhea and all in all she is really in a fix. Her physical exam shows, as I have never met her before, that she looks younger than her years despite her very serious illnesses. Blood pressure 110/70, heart rate 90 beats per minute and regular. She weighed 166 pounds with her clothes on. She weighed 142 pounds in February of 2006. Head and neckwere normal. Heart was regular without gallop or murmur. Lungs clear. Abdomen mildly tender to palpation. No masses felt. Extremities were normal with +2 pedal and radial pulses. This very joe lady has severe intestinal disease and is considering surgical intervention. She is a good candidate for surgery. A stress echo should be reassuring that she will tolerate the stressof general anesthesia and surgery and rule out any small likelihood of unexpected ischemic problems. I asked to see her in four months. I told her we would get the stress echo and share it with both of you. If she has any problems let me know although I do not anticipate it. PAST HISTORY Past Medical Illnesses: hypothyroidism, osteoporosis, intramural leiomyoma, ankylosis spondylitis, hypertension, anemia, colitis, chrons disease Past Cardiac Illnesses: palpitations Surgeries/Procedures - General: flexible sigmoidoscopy 09/2005 Cardiology Procedures-Noninvasive: holter monitor January 2006 FAMILY HISTORY: Family - no major heart [...] - lives with ; Place of - [place]; Hours Worked - 40 hours per week; REVIEW OF SYSTEMS GENERAL fatigue, weight gain, fevers, chills INTEGUMENTARY denies any change in hair or nails, rashes, or skin lesions. EYES denies diplopia, history of glaucoma or visual field defects., wears eye glasses/contact lenses EARS, NOSE, THROAT, MOUTH partial hearing loss RESPIRATORY denies dyspnea, snoring, cough, wheezing or hemoptysis. CARDIOVASCULAR palpitations ABDOMINAL diarrhea (watery), blood in stools and same MUSCULOSKELETAL chronic back pain, history of generalized arthritis NEUROLOGICAL denies any history of recurrent strokes, headaches, TIA, or seizure disorder. PSYCHIATRIC memory chg ENDOCRINE intolerance to cold, intolerance to heat HEMATOLOGICAL/IMMUNOLOGIC easy bruising, medication allergies PHYSICAL EXAMINATION VITAL SIGNS: Blood Pressure: 110/72 Sitting, Left arm, regular cuff Pulse- 100.00/min. Weight- 166.40 lbs. Height- 67.00 Temperature- .00 CONSTITUTIONAL cooperative, [...] normal, no carotid bruit, no thyromegaly CHEST clear to auscultation CARDIAC regular rhythm, S1 normal, S2 normal, No S3 or S4, Apical impulse not displaced, no murmurs, gallops or rubs detected. ABDOMEN abdomen soft, bowel sounds normoactive, no masses, no hepatosplenomegaly, no bruits, mildy tender abdomen PERIPHERAL PULSES pulses full and equal in all extremities, no bruits auscultated. EXTREMITIES & BACK no clubbing, cyanosis or edema NEUROLOGICAL no gross motor deficits noted, affect appropriate, oriented to time, person and place. MEDICATIONS UPDATED/STARTED TODAY: femhrt 1/5 5 mcg-1 mg, Take as Directed Prednisone 20 mg, Take as Directed MEDICATIONS REFILLED/STOPPED TODAY: Prednisone 10 mg 1 p.o. daily Physician Order, Tessalon Perles 100 mg Take as Directed Physician Order and Piroxicam 20 mg 1 p.o. q.d. 0 Physician Order IMPRESSION: 1. Mild palpitations likely PACs and PVCs of no great clinical significance and certainly nonsustained. 2. No signs of significant heart disease otherwise. 3. Stress echo ordered as noted above. 4. History of hypokalemia. If she is going to have surgery I would keep her potassium above 3.8-4.0. PLAN: As above. TODAYS ORDERS 1. Treadmill Stress Echo 1 week 2. F/U with Rangel Dumas MD 4 months Rangel Dumas M.D. 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 documented as of this encounter Care Teams Nursing Information Systems Coordinator Relationship Specialty Start Date End Date Tyra Jorge MD PCP - General 10/27/03 07/27/10 Gauri Cortez MD [address] [id number] PCP - General Internal Medicine 07/28/10 07/14/13 Filippo Vazquez PA-C [address] [place] [address] PCP - General Physician Yard Operator - Medical 07/15/13 08/06/13 Gauri Cortez MD [address] [facility] [address] [place] [address] PCP - General Internal Medicine 08/07/13 Ines Aguilar APRN DIRECTOR OF COMMUNITY SERVICES PCP - Assigned PCP 02/11/18 04/07/18 Lucero Perez APRN DIRECTOR OF COMMUNITY SERVICES [address] [address] [address] PCP - Assigned PCP 12/31/17 02/10/18 Gauri Cortez MD [address] [address] PCP - Assigned PCP 04/08/18 05/15/18 Gauri Cortez MD [address] [address] Assigned PCP 04/08/18 08/11/18 Lucero Perez APRN DIRECTOR OF COMMUNITY SERVICES [address] [address] [address] Assigned PCP 08/12/18 09/29/18 Gauri Cortez MD [address] [facility] [address] [place] [address] Assigned PCP 09/30/18 Sharif Mayer MD [id number] [address] Assigned Surgical Provider 04/30/22 11/02/23 documented as of this encounter
--- OUTSIDE RECORDS SUMMARY | 2023-11-10 13:39 | XMS_ITS | Encounter Summary ---
Author Organization [place] Address [address] [facility] [place] [address] Care Team Providers Care Rope Silica Machine Operator Name Role Phone Tyra Cardona MD Primary Care Provider [phone] Gauri Cortez MD Primary Care Provider [phone] Filippo Vazquez PA-C Primary Care Provider Gauri Cortez MD Primary Care Provider [phone] Ines Aguilar PAYROLL BOOKKEEPER REAMING MACHINE OPERATOR Unavailable Un available Lucero Perez PAYROLL BOOKKEEPER REAMING MACHINE OPERATOR Unavailable + Gauri Cortez MD Unavailable [phone] Gauri Cortez MD Unavailable [phone] Lucero Perez PAYROLL BOOKKEEPER REAMING MACHINE OPERATOR Unavailable + Gauri Cortez MD Unavailable [phone] Sharif Mayer MD Unavailable [phone] Encounter Details Date Type Department Care Team (Late st Contact Info) Description 10/24/2008 Office Visit-[facility] [address] [place] [address] Rangel Dumas MD Social History [...] Progress Notes * Rangel Dumas MD - 10/27/2008 11:28 AM CDT Progress Note Created by: Rangel Dumas M.D. DATE: 10/24/2008 JOCELYN STAUFFER [id number] DATE OF : 1955 AGE: [age] years old Referring Physician: TYRA CARDONA Referring Clinic: [facility] CURRENT DIAGNOSES 1. Palpitations, 785.1 2. Hypothyroidism, 244.9 3. Hypertension-Essential (Benign), 401.1 4. Chest pain, 786.50 ALLERGIES . Amox ciprofloxacin ciprofloxacin hydrochloride codiene levofloxacin procaine Sulfa vitamin E MEDICATIONS (prior to changes made today) 1. Actonel 30 mg, 1 tab q week 2. Fish Oil -, Take as Directed 3. Acidophilus -, Take as Directed 4. Folic Acid 1 Mg, 1 p.o. daily 5. Levothroid 0.075 Mg, 1 p.o. daily 6. Multi-day Multiple Vitamins, 1 p.o. daily CHIEF COMPLAINTS Followup of Hypertension-Essential (Benign) HISTORY OF PRESENT ILLNESS I saw Jocelyn Stauffer today. She is 53 and returned with, once again, a lot of questions or concerns.She had had some atypical chest pain when I had originally saw her last May. We did a stress echo, which happily was stone-cold normal. She had no significant valvular abnormalities. She had no signs of aortic abnormalities. She has not particularly been bothered by palpitations. She is gradually recovering from her colectomy to remove her colon with severe ulcerative colitis. She says she is gradually working her way back. She still has some vague soreness and complaints butI think that is not uncommon for her. Physical examination was remarkably good, although her blood pressure with anxiety was a bit elevated at 150/90. Heart rate 70 beats/minute and regular. Head and neck were normal. Heart was regular, without gallop or murmur. Lungs clear. Abdomen soft, without organomegaly. Her ileostomy bag is in place. Her extremities were free of edema. Pounding pulses were noted. Neurologic and cutaneous observations were normal. PAST HISTORY Past Medical Illnesses: hypothyroidism, osteoporosis, intramural leiomyoma, ankylosis spondylitis, hypertension, anemia, colitis, chrons disease Past Cardiac Illnesses: palpitations Surgeries/Procedures - General: flexible sigmoidoscopy 09/2005, complete colectomy(06/19) = ileostomy = good result, done for ulcerative colitis Cardiology Procedures-Noninvasive: holter monitor January 2006, stress echo Jun 2008 PMHx Stress Echo Results: 06/19 normal FAMILY HISTORY: Family - no major heart disease; CARDIAC RISK FACTORS Tobacco Abuse: negative; Family History of Heart Disease: negative; Hyperlipidemia: lipid status unknown; Hypertension: negative; Diabetes Mellitus: negative; Prior History of Heart Disease: negative; Obesity:negative; Sedentary Life Style:negative; Age:negative ; LDL Goal <LT> 100 SOCIAL HISTORY Alcohol Use - denies drinking; Smoking - never smoked; Diet - caffeine use-none and caffeine use-rare; Lifestyle - ; Exercise - no regular exercise; Seat Belt Use - always; 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 EYES wears eye glasses/contact lenses EARS, NOSE, THROAT, MOUTH partial hearing loss RESPIRATORY dyspnea with exertion, negative for cough CARDIOVASCULAR palpitations, rarely, denies chest pain, denies dizziness ABDOMINAL diarrhea (watery), blood in stools, same, nausea unrelieved by meals and abdominal discomfort GENITOURINARY-FEMALE frequency, nocturia MUSCULOSKELETAL chronic back pain, history of generalized arthritis NEUROLOGICAL denies any history of recurrent strokes, headaches, TIA, or seizure disorder. PSYCHIATRIC memory chg, anxiety, stress, sleep disturbance ENDOCRINE intolerance to cold, intolerance to heat, fatigue, polyuria, weight loss HEMATOLOGICAL/IMMUNOLOGIC easy bruising, medication allergies PHYSICAL EXAMINATION VITAL SIGNS: Blood Pressure: 150/90 Sitting, Left arm, regular cuff Pulse- 70.00/min. Weight- 148.00 lbs. Height- 67.00 Temperature- .00 CONSTITUTIONAL cooperative, [...] gallops or rubs detected. ABDOMEN abdomen soft, no masses, mild epigastric tenderness PERIPHERAL PULSES pulses full and equal in all extremities, no bruits auscultated. EXTREMITIES & BACK no clubbing, cyanosis or edema NEUROLOGICAL no gross motor deficits noted, affect appropriate, oriented to time, person and place. MEDICATIONS UPDATED/STARTED TODAY: MEDICATIONS REFILLED/STOPPED TODAY: Diovan 160 mg 1 p.o. daily Physician Order, femhrt 1/5 5 mcg-1 mg Take as Directed Physician Order,Prednisone 20 mg Take as Directed Physician Order, Accupril 20 Mg 1 p.o. daily 0 Physician Order, Colazal 750 Mg 9 pills po daily 0 Physician Order, Norvasc 10 Mg 1 p.o. daily 0 Physician Order and Potassium Chloride 10 Meq 1 p.o. twice daily 0 Physician Order IMPRESSIONS/PLAN Jocelyn Stauffer, I think, has a normal heart. No evidence of valvular or cardiac disease. I reviewed this with her relentlessly. I told her I did not feel she needed any further cardiac advise at this time. I told her to followup with you with regards to ongoing medical care. She seemed pleased and happy with this information and if she has any problems, let me know. Otherwise, I will see her only on an as-needed basis. Rangel Dumas M.D. 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 documented as of this encounter Care Teams Rope Silica Machine Operator Relationship Specialty Start Date End Date Tyra Cardona MD PCP - General 10/27/03 07/27/10 Gauri Cortez MD [address] [address] PCP - General Internal Medicine 07/28/10 07/14/13 Filippo Vazquez PA-C [address] [place] [address] PCP - General Physician Switchboard Mechanic - Medical 07/15/13 08/06/13 Gauri Cortez MD [address] [place] [address] PCP - General Internal Medicine 08/07/13 Ines Aguilar, PAYROLL BOOKKEEPER REAMING MACHINE OPERATOR PCP - Assigned PCP 02/11/18 04/07/18 Lucero Perez PAYROLL BOOKKEEPER REAMING MACHINE OPERATOR [address] [place] [address] PCP - Assigned PCP 12/31/17 02/10/18 Gauri Cortez MD [address] [place] [address] PCP - Assigned PCP 04/08/18 05/15/18 Gauri Cortez MD [address] [place] [address] Assigned PCP 04/08/18 08/11/18 Lucero Perez, PAYROLL BOOKKEEPER REAMING MACHINE OPERATOR [address] [place] [address] Assigned PCP 08/12/18 09/29/18 Gauri Cortez MD [address] [place] [address] Assigned PCP 09/30/18 Sharif Mayer MD [address] [place] [address] [address] [address] Assigned Surgical Provider 04/30/22 11/02/23 documented as of this encounter
--- OUTSIDE RECORDS SUMMARY | 2023-11-10 13:39 | XMS_ITS | Encounter Summary ---
Author Organization [place] Address [address] [facility] [place] [address] Care Team Providers Care Pot Room Tapper Name Role Phone Gauri Cortez MD Primary Care Provider [phone] Filippo Vazquez PA-C Primary Care Provider Gauri Cortez MD Primary Care Provider [phone] Ines Aguilar APRN FINAL INSTALLER INSPECTOR Unavailable Un available Lucero Perez APRN FINAL INSTALLER INSPECTOR Unavailable + Gauri Cortez MD Unavailable [phone] Gauri Cortez MD Unavailable [phone] Lucero Perez APRN FINAL INSTALLER INSPECTOR Unavailable + Gauri Cortez MD Unavailable [phone] Sharif Mayer MD Unavailable [phone] Encounter Details Date Type Department Care Team (Late st Contact Info) Description 07/17/[address] 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 documented as of this encounter Care Teams Pot Room Tapper Relationship Specialty Start Date End Date Gauri Cortez MD [address] [place] [address] PCP - General Internal Medicine 07/28/10 07/14/13 Filippo Vazquez PA-C [address] [place] [address] PCP - General Physician Subassembler - Medical 07/15/13 08/06/13 Gauri Cortez MD [address] [place] [address] PCP - General Internal Medicine 08/07/13 Ines Aguilar, SPRAY DRIER OPERATOR FINAL INSTALLER INSPECTOR PCP - Assigned PCP 02/11/18 04/07/18 Lucero Perez, SPRAY DRIER OPERATOR FINAL INSTALLER INSPECTOR [address] [address] [address] PCP - Assigned PCP 12/31/17 02/10/18 Gauri Cortez MD [address] [place] [address] PCP - Assigned PCP 04/08/18 05/15/18 Gauri Cortez MD [address] [facility] [address] [place] [address] Assigned PCP 04/08/18 08/11/18 Lucero Perez APRN [facility] [address] [place] [address] Assigned PCP 08/12/18 09/29/18 Gauri Cortez MD [address] [facility] [address] [place] [address] Assigned PCP 09/30/18 Sharif Mayer MD [id number] [place] [place] [address] Assigned Surgical Provider 04/30/22 11/02/23 documented as of this encounter
--- OUTSIDE RECORDS SUMMARY | 2023-11-10 13:39 | XMS_ITS | Encounter Summary ---
Author Organization [place] Address [address] [place] [address] Care Team Providers Care Grommet Worker Name Role Phone Tyra Cardona MD Primary Care Provider [phone] Gauri Cortez MD Primary Care Provider [phone] Filippo Vazquez PA-C Primary Care Provider Gauri Cortez MD Primary Care Provider [phone] Ines Aguilar SENIOR DESIGNER FORDER OPERATOR Unavailable Un available Lucero Perez SENIOR DESIGNER FORDER OPERATOR Unavailable + Gauri Cortez MD Unavailable [phone] Gauri Cortez MD Unavailable [phone] Lucero Perez SENIOR DESIGNER FORDER OPERATOR Unavailable + Gauri Cortez MD Unavailable [phone] Sharif Mayer MD Unavailable [phone] Encounter Details Date Type Department Care Team (Late st Contact Info) Description 05/03/2010 Office Visit-[facility] [place] [address] [facility] [address] [place] [phone] Judith Hua DO [address] [facility] [address] [place] [id number] (work) Social History Tobacco Use Types Packs/Day [...] encounter Progress Notes * Judith Hua, - 05/04/2010 10:57 AM CST Progress Note Created by: Renan Hua D.O. DATE: 05/03/2010 JOCELYN STAUFFER DATE OF : 1955 AGE: [age] years old Referring Physician: TYRA CARDONA Referring Clinic: [facility] CURRENT DIAGNOSES 1. - Hyperlipidemia, 272.4 2. [...] 3. Acidophilus Capsule, Take as Directed 4. Fish Oil 1,000 mg Capsule, 1 p.o. daily 5. amlodipine 10 mg Tablet, 1 p.o. daily CHIEF COMPLAINTS abnormal ekg per primary MD HISTORY OF PRESENT ILLNESS I have been asked to evaluate this pleasant 55-year-old female for an abnormal electrocardiogram and palpitations. Ms. Stauffer has been experiencing symptoms of palpitations off and on for several months. She did have a neck surgery back in January and has blamed some symptoms of dizziness with movement of her head and neck due to this. She is also experiencing symptoms of fluttering or uneasiness in her chest on a daily basis. This does cause her to have a sensation of needing to catch her breath at times. She does not really describe it as shortness of breath or difficulty breathing. She hasnot had any syncopal or presyncopal episodes. She specifically says this does not feel like lighthea dedness to her. She has been evaluated for symptoms of palpitations in the past. She was seen back in 2005 and wore a Holter monitor at that time. She did have several ventricular and supraventricular ectopic beats but no evidence of arrhythmias at that time. She also underwent a stress echocardiogram in June,, for symptoms of chest discomfort. It was noted she had a resting sinus tachycardia and accelerated heart rate response to exercise, but otherwise this was a normal stress echocardiogram. Ms. Stauffer blames her symptoms on need for thyroid adjustment. She states in the past when shehas undergone a surgery she has had changes in her thyroid and need for change in her medication dosage. She does admit that she has had a recent change in her thyroid medication, a reduction from 88mcg down to 75 mcg on a daily basis based on recent blood tests. She has no previous history of heart disease or murmur. She has no cardiac risk factors, specifically denying a history of hypertension, hypercholesterolemia, previous heart disease, family history of heart disease, or smoking history. She has had two pregnancies, uncomplicated. No history of hyperglycemia or hypertension during these pregnancies. She went through menopause five years ago. She has no hormone replacement therapy history. No history or symptoms of peripheral vascular disease or kidney disease. The electrocardiogram that was performed on April 26 I do have available and does demonstrate a sinus rhythm with evidence of left atrial enlargement, incomplete right bundle branch block, with normal ST and T wave segments, and normal progression in the precordial leads. On exam today her blood pressure is 138/72, pulse 84 and regular. Body mass index is 25. She has brisk carotid upstrokes. I do not appreciate bruits bilaterally. She does have a scar on the anterior neck from her recent surgery which appears well healed. No jugular venous distention is noted. Cardiovascular notes are regular without a murmur, gallop, or rub. Lungs are clear posteriorly without wheezing or rales. She has no abdominal bruit. She has strong and symmetric pulses in the upper and lower extremities without peripheral edema. 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 EYES wears eye glasses/contact lenses EARS, NOSE, THROAT, MOUTH partial hearing loss RESPIRATORY dyspnea with exertion, dyspnea, slight at rest CARDIOVASCULAR palpitations, fluttering, freq,, light headedness, occ. ABDOMINAL diarrhea (watery), blood in stools, same, [...] allergies PHYSICAL EXAMINATION VITAL SIGNS: Blood Pressure: 138/72Sitting, Left arm, regular cuff Pulse- 84.00/min. Weight- 163.00 lbs. Height- 67.00 Temperature- .00 CONSTITUTIONAL cooperative, [...] time, person and place. MEDICATIONS UPDATED/STARTED TODAY: amlodipine 10 mg Tablet, 1 p.o. daily, #0 Fish Oil 1,000 mg Capsule, 1 p.o. daily, 0 MEDICATIONS REFILLED/STOPPED TODAY: Folic Acid 1 mg Tablet 1 p.o. daily 0 Patient Request, Fish Oil - Take as Directed 0 Dosage Increased and Actonel 30 mg Tablet 1 tab q week 0 Patient Request IMPRESSIONS/PLAN In summary, Ms. Stauffer is a very pleasant 55-year-old female with ongoing symptoms of palpitations and abnormal electrocardiogram suggestive of left atrial enlargement. I would recommend evaluation for arrhythmias, including a Holter monitor scan. She is having symptoms on a daily basis. Therefore, a 24- hour Holter monitor is appropriate. I would also recommend an echocardiogram to look for any structural abnormalities, including the left atrial enlargement. She lives in [place]. She may haveboth of these tests performed at the [facility] and follow up in that facility as well for convenience. I have advised her to restrict her physical activity until the above testing is complete as she does tend to be symptomatic with exercise, with both symptoms of palpitations and increased difficulty breathing. Please feel free to contact me with any questions you have in regard to her care. TODAYS ORDERS 1. 2D, color flow, doppler Today,may include the addition of contrast,bubble study,or the change toeither a limited or complete study-see policy 2. Holter Monitor Today-palpitations 3. F/U with Any HEALTH PROGRAM SPECIALIST 4-7 days-any [facility] 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 documented as of this encounter Care Teams Grommet Worker Relationship Specialty Start Date End Date Tyra Cardona MD PCP - General 10/27/03 07/27/10 Gauri Cortez MD [address] [address] PCP - General Internal Medicine 07/28/10 07/14/13 Filippo Vazquez PA-C [address] [place] [address] PCP - General Physician Safety Tech - Medical 07/15/13 08/06/13 Gauri Cortez MD [address] [place] [address] PCP - General Internal Medicine 08/07/13 Ines Aguilar, SENIOR DESIGNER FORDER OPERATOR PCP - Assigned PCP 02/11/18 04/07/18 Lucero Perez, SENIOR DESIGNER FORDER OPERATOR [address] [place] [address] PCP - Assigned PCP 12/31/17 02/10/18 Gauri Cortez MD [address] [place] [address] PCP - Assigned PCP 04/08/18 05/15/18 Gauri Cortez MD [address] [place] [address] Assigned PCP 04/08/18 08/11/18 Lucero Perez SENIOR DESIGNER FORDER OPERATOR [address] [place] [address] Assigned PCP 08/12/18 09/29/18 Gauri Cortez MD [address] [place] [address] Assigned PCP 09/30/18 Sharif Mayer MD [id number] [place] [address] Assigned Surgical Provider 04/30/22 11/02/23 documented as of this encounter
--- OUTSIDE RECORDS SUMMARY | 2023-11-10 13:39 | XMS_ITS | Encounter Summary ---
Author Organization [place] Address [facility] [place] [address] Care Team Providers Care Straw Boss Name Role Phone Tyra Cardona MD Primary Care Provider [phone] Gauri Cortez MD Primary Care Provider [phone] Filippo Vazquez PA-C Primary Care Provider Gauri Cortez MD Primary Care Provider [phone] Ines Aguilar RECRUIT INSTRUCTOR SUPERVISOR LOGGING Unavailable Un available Lucero Perez RECRUIT INSTRUCTOR SUPERVISOR LOGGING Unavailable + Gauri Cortez MD Unavailable [phone] Gauri Cortez MD Unavailable [phone] Lucero Perez RECRUIT INSTRUCTOR SUPERVISOR LOGGING Unavailable + Gauri Cortez MD Unavailable [phone] Sharif Mayer MD Unavailable [phone] Reason for Visit * Reason Onset Date Comments MyChart Communication 10/08/2009 Encounter Details Date Type Department Care Team (Latest Contact Info) Description 10/08/2009 MyC Medical Advice [facility] [address] [place] [phone] Tyra Cardona MD [address] [place] [id number] MyChart Communication Social History Tobacco Use Types Packs/Day Years [...] Out COVID-19 02/10/2020 02/10/2020 02/11/2020 5:33 PM ENGINEERING CONSULTANT documented as of this encounter Care Teams Straw Boss Relationship Specialty Start Date End Date Tyra Cardona MD PCP - General 10/27/03 07/27/10 Gauri Cortez MD [address] [place], [place] [address] PCP - General Internal Medicine 07/28/10 07/14/13 Filippo Vazquez PA-C [address] [place], [place] [address] PCP - General Physician Floor Service Worker [place] - Medical 07/15/13 08/06/13 Gauri Cortez MD [address] [place], [place] [address] PCP - General Internal Medicine 08/07/13 Ines Aguilar APRN SUPERVISOR LOGGING PCP - Assigned PCP 02/11/18 04/07/18 Lucero Perez APRN SUPERVISOR LOGGING [address] [place] [address] PCP - Assigned PCP 12/31/17 02/10/18 Gauri Cortez MD [address] [facility] [address] [place] [address] PCP - Assigned PCP 04/08/18 05/15/18 Gauri Cortez MD [address] [facility] [address] [place] [address] Assigned PCP 04/08/18 08/11/18 Lucero Preez APRN [facility] [address] [place] [address] Assigned PCP 08/12/18 09/29/18 Gauri Cortez MD [address] [facility] [address] [place] [address] Assigned PCP 09/30/18 Sharif Mayer MD [id number] [place] [address] Assigned Surgical Provider 04/30/22 11/02/23 documented as of this encounter
--- OUTSIDE RECORDS SUMMARY | 2023-11-10 13:39 | XMS_ITS | Encounter Summary ---
Author Organization [place] Address [address] [place] [address]. [address] Care Team Providers Care Bottle Caser Name Role Phone Tyra Cardona MD Primary Care Provider [phone] Gauri Cortez MD Primary Care Provider [phone] Filippo Vazquez PA-C Primary Care Provider Gauri Cortez MD Primary Care Provider [phone] Ines Aguilar PEDIATRIC ORTHODONTIST COOK HOUSE SUPERVISOR Unavailable Un available Lucero Perez PEDIATRIC ORTHODONTIST COOK HOUSE SUPERVISOR Unavailable + Gauri Cortez MD Unavailable [phone] Gauri Cortez MD Unavailable [phone] Lucero Perez PEDIATRIC ORTHODONTIST COOK HOUSE SUPERVISOR Unavailable + Gauri Cortez MD Unavailable Sharif Mayer MD Unavailable [phone] Encounter Details Date Type Department Care Team (Late st Contact Info) Description 05/26/2010 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 documented as of this encounter Care Teams Bottle Caser Relationship Specialty Start Date End Date Tyra Cardona MD PCP - General 10/27/03 07/27/10 Gauri Cortez MD [address] [place] [address] PCP - General Internal Medicine 07/28/10 07/14/13 Filippo Vazquez PA-C [address] [place] [address] PCP - General Physician Ambulance Assistant - Medical 07/15/13 08/06/13 Gauri Cortez MD [address] [place] [address] PCP - General Internal Medicine 08/07/13 Ines Aguilar APRN COOK HOUSE SUPERVISOR PCP - Assigned PCP 02/11/18 04/07/18 Lucero Perez APRN COOK HOUSE SUPERVISOR [address] [place] [address] PCP - Assigned PCP 12/31/17 02/10/18 Gauri Cortez MD [address] [place] [address] PCP - Assigned PCP 04/08/18 05/15/18 Gauri Cortez MD [address] [facility] [address] [place], [place] [address] Assigned PCP 04/08/18 08/11/18 Lucero Perez APRN [facility] [address] [place] [address] Assigned PCP 08/12/18 09/29/18 Gauri Cortez MD [address] [facility] [address] [place] [address] Assigned PCP 09/30/18 Sharif Mayer MD [id number] [place] [address] Assigned Surgical Provider 04/30/22 11/02/23 documented as of this encounter
== END 2023-11-10 13:23 | disposition home or self-care (01) ==
PROVIDERS: PCP Family Medicine; Visit Provider Family Medicine
DX: I10 Essential (primary) hypertension (principal); E03.9 Hypothyroidism, unspecified; R73.03 Prediabetes; R42 Dizziness and giddiness
CPT/HCPCS: 80053; 84443

== ENCOUNTER 2023-11-16 13:32 | Outpatient (CLI) | payer MEDICARE, BC, SELFPAY ==
--- OUTSIDE RECORDS SUMMARY | 2023-11-16 13:35 | XMS_ITS | Clinical Summary ---
Author Organization [facility] Address [place], [place] [address] Care Team Providers Care Chopped Strand Operator Name Role Phone Provider, Non-Excellian Primary Care [...] face Oxycodone Nausea And Vomiting 07/06/2021 Tolerated [place] in past Infliximab Tachycardia 10/19/2007 Red face, [...] Type Department Care Team Description 11/02/2023 Telephone [facility] [address] [place] [address] Maia Cabrera MD Medication Management 10/26/2023 6:55 PM CDT - 10/26/2023 8:45 PM CDT Emergency [facility] Emergency Department [address] [place] [address] Ken De Leon MD Elevated blood pressure reading (Primary Dx) Discharge Disposition: Home Self Care 10/26/2023 Travel 10/26/2023 Telephone [facility] [address] [place] [address] Maia Cabrera MD Blood Pressure 10/11/2023 Telephone [facility] [address] [place] [address] Maia Cabrera MD Blood Pressure 09/29/2023 Refill [facility] [address] [place] [address] Maia Cabrera MD Refill Request 09/28/2023 10:30 AM CDT Office Visit [facility] [place] [address] [place] [address] Maia Cabrera MD Follow Up 08/17/2023 9:30 AM CDT Office Visit [facility] [address] [place] [address] Zeeshan Pierre MD Foot Pain/problem 08/17/2023 Travel from Last 3 Months Family History Medical History Relation Name Comments Osteoarthritis Mother Relation Name Status Comments Father Mother Social History Tobacco Use Types Packs/Day Years Used Date Smoking Tobacco: Never Smokeless Tobacco: Never Alcohol Use Standard Drinks/Week Comments Not Currently 0 (1 standard drink = 0.6 oz pur e alcohol) because of [facility] Social Connections Answer Date Recorded Frequency of [...] Description 11/21/2023 1:30 PM CDT Office Visit [facility] [address] [place] [address] Chel Carbajal MD [address] [place] [address] Scheduled Procedures Name Priority Associated Diagnoses Date/Ti [...] 65+ (1 of 1 - PCV) 2019 BMI (ht and wt on same day) for age 18+ 11/12/2023 11/11/2022 COVID-19 vaccine series (2022-24 season) 2023 12/20/2021, 07/16/2021, 11/30/2020, Additional history exists Influenza for age 65+ 11/12/2023 Lipids for [...] 11.0 thou/cu mm 10/26/2023 7:33 PM CDT [facility] RED BLOOD COUNT 4.17 4.00 - 5.20 mil/cu mm 10/26/2023 7:33 PM CDT [facility] HEMOGLOBIN 12.3 12.0 - 16.0 g/dL 10/26/2023 7:33 PM CDT [facility] HEMATOCRIT 37.5 33.0 - 51.0 % 10/26/2023 7:33 PM CDT [facility] MCV 90 80 - 100 fL 10/26/2023 7:33 PM CDT [facility] MCH 29.5 26.0 - 34.0 pg 10/26/2023 7:33 PM CDT [facility] MCHC 32.8 32.0 - 36.0 g/dL 10/26/2023 7:33 PM CDT [facility] RDW 12.8 11.5 - 15.5 % 10/26/2023 7:33 PM CDT [facility] PLATELET COUNT 207 140 - 440 thou/cu mm 10/26/2023 7:33 PM CDT [facility] MPV 9.9 6.5 - 11.0 fL 10/26/2023 7:33 PM CDT [facility] NRBC 0.0 % 10/26/2023 7:33 PM CDT [facility] ABS NRBC 0.0 thou /cu mm 10/26/2023 7:33 PM CDT [facility] Blood BLOOD SPECIMEN / Unknown Venipuncture / Unknown 10/26/2023 7:20 PM CDT 10/26/2023 7:26 PM CDT Ken De Leon MD HEMATOL [facility] [address] [place] [address], * (ABNORMAL) PRO-BNP (10/26/2023 7:20 PM CDT) PRO-BNP 297(H) <125 pg/mL 10/26/2023 8:11 PM CDT [facility] Blood BLOOD SPECIMEN / Unknown Venipuncture / Unknown 10/26/2023 7:20 PM CDT 10/26/2023 7:26 PM CDT Narrative [facility] - 10/26/2023 8:11 PM CDT The following [...] Ken De Leon MD SEND OU TS [facility] [address] [place] [address], * (ABNORMAL) BASIC METABOLIC PANEL (10/26/2023 7:20 PM CDT) Pathologist [facility] SODIUM 138 136 - 145 mmol/L 10/26/2023 8:08 PM CDT [facility] POTASSIUM 4.2 3.5 - 5.1 mmol/L 10/26/2023 8:08 PM CDT [facility] CHLORIDE 104 98 - 107 mmol/L 10/26/2023 8:08 PM CDT [facility] CO2,TOTAL 25 22 - 29 mmol/L 10/26/2023 8:08 PM T [facility] ANION GAP 9 5 - 18 10/26/2023 8:08 PM CDT [facility] GLUCOSE 103(H) 70 - 99 mg/dL 10/26/2023 8:08 PM T [facility] CALCIUM 10.2 8.8 - 10.2 mg/dL 10/26/2023 8:08 PM T [facility] BUN 18 8 - 23 mg/dL 10/26/2023 8:08 PM T [facility] CREATININE 1.04(H) 0.50 - 0.90 mg/dL 10/26/2023 8:08 PM T [facility] BUN/CREAT RATIO 17 10 - 20 8:08 PM T [facility] eGFR 58(L) >90 mL/min/1.7 3m2 10/26/2023 8:08 PM CDT [facility] Comment:As of 2021, [...] 7:26 PM CDT Ken De Leon MD ASSOCIATE FINANCIAL ANALYST RY Performing Organization Address [facility] de Phone Number [facility] [address] [place] [id number], * EKG 12 LEAD (10/26/2023 5:52 PM CDT) Pathologist [facility] Interpretation Normal sinus rhythm Biatrial enlargement Abnormal ECG T wave inversion in V2 BEYOND NOW Ventricular Rate 74 BPM BEYOND NOW Atrial Rate 74 BPM BEYOND NOW P-R Interval 184 ms BEYOND NOW QRS Duration 84 ms BEYOND NOW QT 402 ms BEYOND NOW QTc 446 ms BEYOND NOW P [place] 82 degrees BEYOND NOW R [place] 54 degrees BEYOND NOW T [place] 65 degrees BEYOND NOW 10/26/2023 5:52 PM CDT 10/27/2023 9:21 AM CDT Ken De Leon MD EKG ORD Performing Organization Address [facility] de Phone Number BEYOND NOW [place], [place] * XR DXA BONE DENSITY PERIPHERAL (07/18/2023) Anatomical Region Laterality Modality ARMS Other Zeeshan Pierre MD DEXA * LIPID PANEL (11/28/2022 8:37 AM CDT) CHOLESTEROL,TOTAL 145 100 - 199 mg/dL 11/28/2022 5:20 PM CDT [facility] Comment: Cholesterol, Total Reference Ranges Desirable <200 mg/dL Borderline 200-239 mg/dL High >=240 mg/dL TRIGLYCERIDES 120 <150 mg/dL 11/28/2022 5:20 PM CDT [facility] HDL CHOLESTEROL 57 >40 mg/dL 5:20 PM CDT [facility] NON-HDL CHOLESTEROL 88 <145 mg/dl 11/28/2022 5:20 PM CDT [facility] CHOL/HDL RATIO 2.54 <4.50 11/28/2022 5:20 PM CDT [facility] LDL CHOLESTEROL 64 <=130 mg/dL 11/28/2022 5:20 PM CDT [facility] VLDL CHOLESTEROL 24 <=30 mg/dL 11/28/2022 5:20 PM CDT [facility] PROVIDER ORDERED STATUS RANDOM 11/28/2022 5:20 PM CDT [facility] Blood BLOOD SPECIMEN / Unknown Venipuncture / Unknown 11/28/2022 8:37 AM CDT 11/28/2022 8:37 AM CDT Carlos Faria MD CHEMISTRY [facility] [address] [place] [address], from Last 3 Months or Most Recently Relevant to Health Maintenance Advance Directives Documents on File Type Date Recorded Patient Sap Bobj Developer Expl anation Healthcare Directive 07/07/2021 9:27 AM [...] 10:38 AM 07/12/2008 3:33 PM Care Teams Chopped Strand Operator Relationship Specialty Start Date End Date Provider, Non-Excellian . PCP - General 10/26/23
--- OUTSIDE RECORDS SUMMARY | 2023-11-16 13:36 | XMS_ITS | Continuity of Care Document ---
Author Organization [facility] Address [address] [place] [address] Phone Care Team Providers Care Roll Cutter Name Role Phone Ellyn Cardoza DO Unavailable Unavailab le Allergies, Adverse Reactions, Alerts Substance Reaction Status [...] stop) Status Comments Celebrex 200 mg capsule TAKE ONE CAPSULE BY MOUTH ONE TIME DAILY - Active amlodipine 2.5 mg tablet take 1 tablet by oral route every day 2.5 MG - Active Synthroid 75 mcg tablet take 1 tablet by oral route every day 1 tablet - Active atorvastatin 10 mg tablet take [...] route every day 160 MG - Active Vagifem 10 mcg vaginal tablet [...] Available - Active Celebrex 200 mg capsule TAKE ONE CAPSULE BY MOUTH ONE TIME DAILY - No Longer Active Procedures Procedure Date Office/Outpatient Visit, Est Routine Venipuncture Hemoglobin Assay Of Serum Albumin Assay Of Creatinine Transferase (Ast) (Sgot) Alanine Amino (Alt) (Sgpt) Office/Outpatient Visit, Est Office/Outpatient Visit, Est Office/Outpatient [...] Encounter [facility] , [address], [place], [address], [place] tel:[phone] [facility] , No Information [address] Hector Ragland. [address], [place], [address], [place]. tel:[phone] [facility] , [address], [place], [address], [place] tel:[phone] [facility] , No Information 4 Hector Ragland. [address], [place], [address], [place]. tel:[phone] Office/Outpa tient Visit, Est [facility] , [address], [place], [address], [place] tel:[phone] [facility] , AnemiaEntero pathic arthropathie s, multiple sitesPrimary osteoarthrit is, unspecified ankle and footOther intervertebr al disc degeneration , lumbosacral regionDisord er of bone, unspecifiedO ther salvage determiner (current) drug therapy 4 Hector Ragland. [address], [place], [address], [place]. tel:[phone] Referring Provider: Ellyn Botello, [address], [place], [address]. tel:[phone] Office/Outpa tient Visit, Est [facility] , [address], [place], [address], [place] tel:[phone] [facility] , AnemiaEntero pathic arthropathie s, multiple sitesPrimary osteoarthrit is, unspecified ankle and footOther intervertebr al disc degeneration , lumbosacral regionDisord er of bone, unspecifiedO ther salvage determiner (current) drug therapy 3 Hector Ragland. [address], [address], [place], [address], [place]. tel:[phone] Referring Provider: Ellyn Botello, [address], [place], [address]. tel:[phone] Office/Outpa tient Visit, Est [facility] , [address], [place], [address], [place] tel:[phone] [facility] , Primary osteoarthrit is, unspecified ankle and footOther retirement (current) drug therapyAnemi aEnteropathi c arthropathie s, multiple sitesOther intervertebr al disc degeneration , lumbosacral regionDisord er of bone, unspecified 3 Hector Ragland. [address], [place], [address], [place]. tel:[phone] Referring Provider: Ellyn Botello, [address], [place], [address]. tel:[phone] Office/Outpa tient Visit, Est [facility] , [address], [place], [address], [place] tel:[phone] [facility] , Primary osteoarthrit is, unspecified ankle and footOther salvage determiner (current) drug therapyAnemi aEnteropathi c arthropathie s, multiple sitesOther intervertebr al disc degeneration , lumbosacral regionDisord er of bone, unspecified 3 Hector Ragland. [address], [address], [place], [address], [place]. tel:[phone] Referring Provider: Ellyn Botello, [address], [place], [address]. tel:[phone] Office/Outpa tient Visit, Est [facility] , [address], [place], [address], [place] tel:[phone] [facility] , Enteropathic arthropathie s, multiple sitesOther intervertebr al disc degeneration , lumbosacral regionDisord er of bone, unspecified 2 Skсергей Ragland. [address], [address], [place], [address], [place]. tel:[phone] Referring Provider: Ellyn Botello, [address], [place], [address]. tel:[phone] Office/Outpa tient Visit, Est [facility] , [address], [place], [address], [place] tel:[phone] [facility] , Enteropathic arthropathie s, multiple sitesOther intervertebr al disc degeneration , lumbosacral regionEncoun ter for immunity status testing 2 Hector Xiomara Traylorce. [address], [place], [address], [place]. tel:[phone] Referring Provider: Ellyn Botello, [address], [place], [address]. tel:[phone] Office/Outpa tient Visit, Est [facility] , [address], [place], [address], [place] tel:[phone] [facility] , Enteropathic arthropathie s of multiple sitesTherape [facility] cent[facility] drug monitoringTr ochanteric bursitis of right hipSacroilii tis 1 Annie Art. [facility] [address], [place], [address], [place]. tel:[phone] Referring Provider: Rubens Zee, [facility] [address], [place], [address]. tel:[phone] Office/Outpa tient Visit, Est [facility] , [address], [place], [address], [place] tel:[phone] [facility] , Enteropathic arthropathie s of multiple sitesOA of the footTherapeu tic drug monitoring 0 Annie Art. [facility] [address], [place], [address], [place]. tel:[phone] Referring Provider: Rubens Zee, [facility] [address], [place], [address]. tel:[phone] Office/Outpa tient Visit, Est [facility] , [address], [place], [address], [place] tel:[phone] [facility] , Enteropathic arthropathie s of multiple sitesOA of the footTherapeu tic drug monitoring 9 Annie Art. [facility] [address], [place], [address], [place]. tel:[phone] Referring Provider: Rubens Zee, [facility] [address], [place], [address]. tel:[phone] Office/Outpa tient Visit, Est [facility] , [address], [place], [address], [place] tel:[phone] [facility] , Enteropathic arthropathie s of multiple sitesOA Primary osteoarthrit is of knee, bilateralDeg enerative disc disease, lumbosacralT herapeutic drug monitoringOA of the foot 9 Annie Art. [facility] [address], [place], [address], [place]. tel:[phone] Referring Provider: Rubens Zee, [facility] [address], [place], [address]. tel:[phone] Office/Outpa tient Visit, Est [facility] , [address], [place], [address], [place] tel:[phone] [facility] , Enteropathic arthropathie s of multiple sitesDegener ative disc disease, lumbosacralT herapeutic drug monitoringOA Primary osteoarthrit is of knee, bilateral Dec- 8 Annie Art. [facility] [address], [place], [address], [place]. tel:[phone] Referring Provider: Rubens Zee, [facility] [address], [place], [address]. tel:[phone] Office/Outpa tient Visit, Est [facility] , [address], [place], [address], [place] tel:[phone] [facility] , Enteropathic arthropathie s of multiple sitesDegener ative disc disease, lumbosacralT herapeutic drug monitoring Bogdan- 8 Annie Art. [facility] [address], [place], [address], [place]. tel:[phone] Referring Provider: Rubens Zee, [facility] [address], [place], [address]. tel:[phone] Office/Outpa tient Visit, Est [facility] , [address], [place], [address], [place] tel:[phone] [facility] , Enteropathic arthropathie s of multiple sitesOA Primary osteoarthrit is of knee, bilateralThe rapeutic drug monitoringDe generative disc disease, lumbosacral Sep-2 7 Annie Art. [facility] [address], [place], [address], [place]. tel:[phone] Referring Provider: Rubens Zee, [facility] [address], [place], [address]. tel:[phone] Office/Outpa tient Visit, Est [facility] , [address], [place], [address], [place] tel:[phone] [facility] , Enteropathic arthropathie s of multiple sitesOA Primary osteoarthrit is of knee, bilateralThe rapeutic drug monitoring 6 Annie Art. [facility] [address], [place], [address], [place]. tel:[phone] Referring Provider: Rubens Zee, [facility] [address], [place], [address]. tel:[phone] Office/Outpa tient Visit, Est [facility] , [address], [place], [address], [place] tel:[phone] [facility] , enteropathic arthritis (chief complaint) Enteropathic arthropathie s of multiple sitesTherape utic drug monitoringOA Primary osteoarthrit is of knee, bilateral 6 Annie Art. [facility] [address], [place], [address], [place]. tel:[phone] Referring Provider: Rubens Zee, [facility] [address], [place], [address]. tel:[phone] Office/Outpa tient Visit, Est [facility] , [address], [place], [address], [place] tel:[phone] [facility] , enteropathic arthritis (chief complaint) Enteropathic arthropathie s of multiple sitesTherape utic drug monitoringOA Primary osteoarthrit is of knee, bilateralVit mir D deficiency 5 Annie Art. [facility] [address], [place], [address], [place]. tel:[phone] Referring Provider: Rubens Zee, [facility] [address], [place], [address]. tel:[phone] Office/Outpa tient Visit, Est [facility] , [address], [place], [address], [place] tel:[phone] [facility] , Enteropathic arthritis (chief complaint)Os teoarthritis (chief complaint)Cr ohn's disease (chief complaint) Enteropathic ArthritisThe rapeutic Drug MonitoringOs teoarthrosis , generalized, involving unspecified siteCrohn's disease 5 Annie Art. [facility] [address], [place], [address], [place]. tel:[phone] Referring Provider: Rubens Zee, [facility] [address], [place], [address]. tel:[phone] Office/Outpa tient Visit, Est [facility] , [address], [place], [address], [place] tel:[phone] [facility] , Enteropathic arthritis (chief complaint)Os teoarthritis (chief complaint)Cr ohn's disease (chief complaint) Arthropathy associated with gastrointest inal conditions other than infectionsTh erapeutic Drug MonitoringOs teoarthrosis , localized, primary, involving ankle and foot 4 Annie Art. [facility] [address], [place], [address], [place]. tel:[phone] Referring Provider: Rubens Zee, [facility] [address], [place], [address]. tel:[phone] Office/Outpa tient Visit, Est [facility] , [address], [place], [address], [place] tel:[phone] [facility] Enteropathic arthritis (chief complaint)Cr ohn's disease (chief complaint)Os teoarthritis (chief complaint)Hy pertension (chief complaint) Arthropathy associated with gastrointest inal conditions other than infectionsTh erapeutic Drug MonitoringRe gional enteritis of unspecified siteOsteoart hrosis, localized, primary, involving ankle and footHyperten carin, Unspecified 4 Annie Art. [facility] [address], [place], [address], [place]. tel:[phone] Referring Provider: Rubens Zee, [facility] [address], [place], [address]. tel:[phone] Office/Outpa tient Visit, Est [facility] , [address], [place], [address], [place] tel:[phone] [facility] , Enteropathic arthritis (chief complaint)Cr ohn's disease (chief complaint)Os teoarthritis (chief complaint) Arthropathy associated with gastrointest inal conditions other than infectionsRe gional enteritis of unspecified siteOsteoart hrosis, localized, primary, involving ankle and foot 3 Annie Art. [facility] [address], [place], [address], [place]. tel:[phone] Referring Provider: Rubens Zee, [facility] [address], [place], [address]. tel:[phone] Office/Outpa tient Visit, Est [facility] , [address], [place], [address], [place] tel:[phone] [facility] , Enteropathic arthritis (chief complaint)Ba ck Pain (chief complaint) Arthropathy associated with gastrointest inal conditions other than infectionsLu [address]ago [address] 2 Annie Art. [facility] [address], [place], [address], [place]. tel:[phone] Referring Provider: Zeeshan Bernstein, NULL [address], [place], [address]. tel:[phone] Family History Family Member Type Diagnosis Age At Onset No Information Payers Payer name Insurance type Covered green party ID Authoriza tion(s) Medicare MB [id number] [facility] [id number] Social History Type Description Quantity Date Captured Comments Alcohol Use Details Unknown Caffeine Use Details Unknown Tobacco Use Status No Information Smoking Status No Information Sex Female Chief Complaint And Reason For Visit No Information Reason For Referral Reason For Referral No Information History Of Present Illness Encounter Date Complaint History Of Prese nt Illness 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
--- OUTSIDE RECORDS SUMMARY | 2023-11-16 13:37 | XMS_ITS | Clinical Summary ---
Author Organization [facility] Address [address] [place] [address] Care Team Providers Care Studio Producer Name Role Phone Gauri Cortez MD Primary Care Provider +1 [phone] Source Comments You are receiving this document [...] for each transition of care or referral. [facility] Allergies Active Allergy Reactions Criticality Noted Date [...] admin time/site:1424 LW mfg:FRANK PHARMACEUT LW lot number:[id number] 2 06/26/2009 Active RABEprazole (AKA ACIPHEX) 20 [...] KIDNEY(aka KIDNEY STONE) Varicella 10/04/1996 Overview (12/11/2014): [facility] Immunizations Name Administration Dates Next Due Flu [...] T Respiratory Rate 20 04/25/2012 6:02 PM SINGLE POINTED OPERATOR Oxygen Saturation - - Inhaled Oxygen Concentration [...] <200 mg/dl [facility] Triglyceride 95 <200 mg/dl [facility] HDL 48 >35 mg/dl [facility] LDL, Calc. 93 mg/dl [facility] Hours Fasting 12 hours [facility] 06/26/2003 7:59 AM CDT 06/26/2003 8:00 AM CDT Gauri Cortez MD LAB_1 Performing Organization Address City/State/[place] Co de Phone Number [facility] [address] [phone] from Last 3 Months or Most Recently Relevant to Health Maintenance Care Teams Studio Producer Relationship Specialty Start Date End Date Gauri Cortez MD [address] [facility] [address] [place], [place] [address] PCP - General Internal Medicine 04/29/13
--- OUTSIDE RECORDS SUMMARY | 2023-11-16 13:37 | XMS_ITS | Encounter Summary ---
Author Organization [facility] Address [address] [place] [address] Care Team Providers Care Audio/Visual Manager Name Role Phone Gauri Cortez MD Primary Care Provider [phone] [phone] Encounter Details Date Type Department Care Team (Latest Contact Info) Description 05/12/1999 Orders Only Gauri Cortez MD [address] [facility] [address] [place], [place] [address] Social History Tobacco Use Types Packs/Day Years Used Date Smoking Tobacco: Never Assessed Sex and Gender Information Value Date Recorded Sex Assigned at Not on file Gender Identity Not on file Sexual Orientation Not on file documented as of this encounter Plan of Treatment Not on file documented as of this encounter Visit Diagnoses Not on filedocumented in this encounter Care Teams Audio/Visual Manager Relationship Specialty Start Date End Date Gauri Cortez MD [address] [facility] [address] [place], [place] [address] PCP - General Internal Medicine 04/29/13 documented as of this encounter
--- OUTSIDE RECORDS SUMMARY | 2023-11-16 13:37 | XMS_ITS | Encounter Summary ---
Author Organization [facility] Address [address] [place] [address] Care Team Providers Care Sat Tutor Name Role Phone Gauri Cortez MD Primary Care Provider +1 [phone] Encounter Details Date Type Department Care Team (Latest Contact Info) Description 09/10/1999 [place] [address] [place] [address] Social History Tobacco Use Types [...] on filedocumented in this encounter Care Teams Sat Tutor Relationship Specialty Start Date End Date Gauri Cortez MD [address] [facility] [address] [place], [place] [address] PCP - General Internal Medicine 04/29/13 documented as of this encounter
--- OUTSIDE RECORDS SUMMARY | 2023-11-16 13:37 | XMS_ITS | Encounter Summary ---
Author Organization [facility] Address [address] [place] [address] Care Team Providers Care Flat Machine Cutter Name Role Phone Gauri Cortez MD Primary Care Provider +1 [phone] Encounter Details Date Type Department Care Team (Latest Contact Info) Description 09/28/1999 Orders Only Gauri Cortez MD [address] [place] [address] [place], [place] [address] Social History Tobacco Use Types Packs/Day Years Used Date Smoking Tobacco: Never Assessed Sex and Gender Information Value Date Recorded Sex Assigned at Not on file Gender Identity Not on file Sexual Orientation Not on file documented as of this encounter Plan of Treatment Not on file documented as of this encounter Visit Diagnoses Not on filedocumented in this encounter Care Teams Flat Machine Cutter Relationship Specialty Start Date End Date Gauri Cortez MD [address] [place] [address] [place], [place] [address] PCP - General Internal Medicine 04/29/13 documented as of this encounter
--- OUTSIDE RECORDS SUMMARY | 2023-11-16 13:37 | XMS_ITS | Encounter Summary ---
Author Organization [facility] Address [address] [place] [address] Care Team Providers Care Fish Flipper Name Role Phone Gauri Cortez MD Primary Care Provider [phone] [phone] Encounter Details Date Type Department Care Team (Latest Contact Info) Description 12/31/1998 Orders Only Miranda Marinelli, DO [address] [place], [place] [address] Social History Tobacco Use Types Packs/Day Years Used Date Smoking Tobacco: Never Assessed Sex and Gender Information Value Date Recorded Sex Assigned at Not on file Gender Identity Not on file Sexual Orientation Not on file documented as of this encounter Plan of Treatment Not on file documented as of this encounter Visit Diagnoses Not on filedocumented in this encounter Care Teams Fish Flipper Relationship Specialty Start Date End Date Gauri Cortez MD [address] [facility] [address] [place] [address] PCP - General Internal Medicine 04/29/13 documented as of this encounter
--- OUTSIDE RECORDS SUMMARY | 2023-11-16 13:37 | XMS_ITS | Encounter Summary ---
Author Organization [facility] Address [address] [place] [address] Care Team Providers Care Sewer Builder Name Role Phone Gauri Cortez MD Primary Care Provider +1 [phone] Encounter Details Date Type Department Care Team (Latest Contact Info) Description 05/21/1999 Orders Only Gauri Cortez MD [address] [facility] [address] [place], [place] [address] Social History Tobacco Use Types Packs/Day Years Used Date Smoking Tobacco: Never Assessed Sex and Gender Information Value Date Recorded Sex Assigned at Not on file Gender Identity Not on file Sexual Orientation Not on file documented as of this encounter Plan of Treatment Not on file documented as of this encounter Visit Diagnoses Not on filedocumented in this encounter Care Teams Sewer Builder Relationship Specialty Start Date End Date Gauri Cortez MD [address] [facility] [address] [place], [place] [address] PCP - General Internal Medicine 04/29/13 documented as of this encounter
--- OUTSIDE RECORDS SUMMARY | 2023-11-16 13:37 | XMS_ITS | Encounter Summary ---
Author Organization [facility] Address [address] [place] [address] Care Team Providers Care Studio Set Up Worker Name Role Phone Gauri Cortez MD Primary Care Provider +1 [phone] Encounter Details Date Type Department Care Team (Latest Contact Info) Description 10/18/1999 Orders Only Sharif Pierre MD [address] [facility] [place], [place] [id number] Social History Tobacco Use Types Packs/Day Years Used Date Smoking Tobacco: Never Assessed Sex and Gender Information Value Date Recorded Sex Assigned at Not on file Gender Identity Not on file Sexual Orientation Not on file documented as of this encounter Plan of Treatment Not on file documented as of this encounter Visit Diagnoses Not on filedocumented in this encounter Care Teams Studio Set Up Worker Relationship Specialty Start Date End Date Gauri Cortez MD [address] [facility] [address] [place] [address] PCP - General Internal Medicine 04/29/13 documented as of this encounter
--- OUTSIDE RECORDS SUMMARY | 2023-11-16 13:37 | XMS_ITS | Encounter Summary ---
Author Organization Formerly [facility], [facility] Address [address] [place] [address] Care Team Providers Care Die Sinking Machine Operator Name Role Phone Gauri Cortez MD Primary Care Provider +1 [phone] Encounter Details Date Type Department Care Team (Latest Contact Info) Description 08/06/1999 Orders Only Gauri Cortez MD [address] [facility] 200 [place], [place] [address] Social History Tobacco Use Types Packs/Day Years Used Date Smoking Tobacco: Never Assessed Sex and Gender Information Value Date Recorded Sex Assigned at Not on file Gender Identity Not on file Sexual Orientation Not on file documented as of this encounter Plan of Treatment Not on file documented as of this encounter Visit Diagnoses Not on filedocumented in this encounter Care Teams Die Sinking Machine Operator Relationship Specialty Start Date End Date Gauri Cortez MD [address] [facility] 200 [place], [place] [address] PCP - General Internal Medicine 04/29/13 documented as of this encounter
--- OUTSIDE RECORDS SUMMARY | 2023-11-16 13:37 | XMS_ITS | Encounter Summary ---
Author Organization [facility] Address [address] [place] [address] Care Team Providers Care Sales Promotion Officer Name Role Phone Gauri Cortez MD Primary Care Provider +1 [phone] Encounter Details Date Type Department Care Team [...] on filedocumented in this encounter Care Teams Sales Promotion Officer Relationship Specialty Start Date End Date Gauri Cortez MD [address] [facility] 200 [place] [address] PCP - General Internal Medicine 04/29/13 documented as of this encounter
--- OUTSIDE RECORDS SUMMARY | 2023-11-16 13:37 | XMS_ITS | Encounter Summary ---
Author Organization [facility] Address [address] [place] [address] Care Team Providers Care Emergency Spill Response Technician Name Role Phone Gauri Cortez MD Primary Care Provider +1 [phone] Encounter Details Date Type Department Care Team (Latest Contact Info) Description 10/29/1999 Orders Only Gauri Cortez MD [address] [facility] 200 [place], [place] [address] Social History Tobacco Use Types Packs/Day Years Used Date Smoking Tobacco: Never Assessed Sex and Gender Information Value Date Recorded Sex Assigned at Not on file Gender Identity Not on file Sexual Orientation Not on file documented as of this encounter Plan of Treatment Not on file documented as of this encounter Visit Diagnoses Not on filedocumented in this encounter Care Teams Emergency Spill Response Technician Relationship Specialty Start Date End Date Gauri Cortez MD [address] [facility] [address] [place], [place] [address] PCP - General Internal Medicine 04/29/13 documented as of this encounter
--- OUTSIDE RECORDS SUMMARY | 2023-11-16 13:37 | XMS_ITS | Encounter Summary ---
Author Organization [facility] Address [address] [place] [address] Care Team Providers Care Biofuels Product Manager Name Role Phone Gauri Cortez MD Primary Care Provider +1 [phone] Encounter Details Date Type Department Care Team (Latest Contact Info) Description 07/16/1999 Orders Only Gauri Cortez MD [address] [place] [address] [place], [place] [address] Social History Tobacco Use Types Packs/Day Years Used Date Smoking Tobacco: Never Assessed Sex and Gender Information Value Date Recorded Sex Assigned at Not on file Gender Identity Not on file Sexual Orientation Not on file documented as of this encounter Plan of Treatment Not on file documented as of this encounter Visit Diagnoses Not on filedocumented in this encounter Care Teams Biofuels Product Manager Relationship Specialty Start Date End Date Gauri Cortez MD [address] [place] [address] [place], [place] [address] PCP - General Internal Medicine 04/29/13 documented as of this encounter
--- OUTSIDE RECORDS SUMMARY | 2023-11-16 13:37 | XMS_ITS | Encounter Summary ---
Author Organization [facility] Address [address] [place] [address] Care Team Providers Care Grease Monkey Name Role Phone Gauri Cortez MD Primary Care Provider +[phone] Encounter Details Date Type Department Care Team (Latest Contact Info) Description 09/07/1998 Orders Only Presley Frost MD [address] [place], [place] [address] Social History Tobacco Use Types Packs/Day Years Used Date Smoking Tobacco: Never Assessed Sex and Gender Information Value Date Recorded Sex Assigned at Not on file Gender Identity Not on file Sexual Orientation Not on file documented as of this encounter Plan of Treatment Not on file documented as of this encounter Visit Diagnoses Not on filedocumented in this encounter Care Teams Grease Monkey Relationship Specialty Start Date End Date Gauri Cortez MD [address] [facility] 200 [place] [address] PCP - General Internal Medicine 04/29/13 documented as of this encounter
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
--- OUTSIDE RECORDS SUMMARY | 2023-11-16 13:38 | XMS_ITS | Encounter Summary ---
Author Organization [facility] Address [address] [place] [address] Care Team Providers Care Type Proof Reproducer Name Role Phone Gauri Cortez MD Primary Care Provider [phone] Encounter Details Date Type Department Care Team (Latest Contact Info) Description 01/09/1996 Orders Only Uriel Laboy MD [address], [place] [address] Social History Tobacco Use Types Packs/Day Years Used Date Smoking Tobacco: Never Assessed Sex and Gender Information Value Date Recorded Sex Assigned at Not on file Gender Identity Not on file Sexual Orientation Not on file documented as of this encounter Plan of Treatment Not on file documented as of this encounter Visit Diagnoses Not on filedocumented in this encounter Care Teams Type Proof Reproducer Relationship Specialty Start Date End Date Gauri Cortez MD [address] [facility] 200 [place] [address] PCP - General Internal Medicine 04/29/13 documented as of this encounter
--- OUTSIDE RECORDS SUMMARY | 2023-11-16 13:38 | XMS_ITS | Encounter Summary ---
Author Organization [facility] Address [address] [place] [address] Care Team Providers Care Exercise Specialist Name Role Phone Gauri Cortez MD Primary Care Provider [phone] Encounter Details Date Type Department Care Team (Latest Contact Info) Description 02/23/1998 Orders Only Uriel Laboy MD [address] [facility] [place], [place] [address] Social History Tobacco Use Types Packs/Day Years Used Date Smoking Tobacco: Never Assessed Sex and Gender Information Value Date Recorded Sex Assigned at Not on file Gender Identity Not on file Sexual Orientation Not on file documented as of this encounter Plan of Treatment Not on file documented as of this encounter Visit Diagnoses Not on filedocumented in this encounter Care Teams Exercise Specialist Relationship Specialty Start Date End Date Gauri Cortez MD [address] [facility] 200 [place] [address] PCP - General Internal Medicine 04/29/13 documented as of this encounter
--- OUTSIDE RECORDS SUMMARY | 2023-11-16 13:38 | XMS_ITS | Encounter Summary ---
Author Organization [facility] Address [address] [place] [address] Care Team Providers Care Senior Product Engineer Name Role Phone Gauri Cortez MD Primary Care Provider [phone] Encounter Details Date Type Department Care Team (Latest Contact Info) Description 04/22/1997 Orders Only Gauri Cortez MD [address] [facility] 200 [place], [place] [address] Social History Tobacco Use Types Packs/Day Years Used Date Smoking Tobacco: Never Assessed Sex and Gender Information Value Date Recorded Sex Assigned at Not on file Gender Identity Not on file Sexual Orientation Not on file documented as of this encounter Plan of Treatment Not on file documented as of this encounter Visit Diagnoses Not on filedocumented in this encounter Care Teams Senior Product Engineer Relationship Specialty Start Date End Date Gauri Cortez MD [address] [facility] 200 [place], [place] [address] PCP - General Internal Medicine 04/29/13 documented as of this encounter
--- OUTSIDE RECORDS SUMMARY | 2023-11-16 13:38 | XMS_ITS | Encounter Summary ---
Author Organization [facility] Address [address] [place] [address] Care Team Providers Care Golf Player Assistant Name Role Phone Gauri Cortez MD Primary Care Provider +1 [phone] Encounter Details Date Type Department Care Team (Latest Contact Info) Description 04/10/1996 Orders Only Gauri Cortez MD [address] [facility] 200 [place], [place] [address] Social History Tobacco Use Types Packs/Day Years Used Date Smoking Tobacco: Never Assessed Sex and Gender Information Value Date Recorded Sex Assigned at Not on file Gender Identity Not on file Sexual Orientation Not on file documented as of this encounter Plan of Treatment Not on file documented as of this encounter Visit Diagnoses Not on filedocumented in this encounter Care Teams Golf Player Assistant Relationship Specialty Start Date End Date Gauri Cortez MD [address] [facility] 200 [place], [place] [address] PCP - General Internal Medicine 04/29/13 documented as of this encounter
--- OUTSIDE RECORDS SUMMARY | 2023-11-16 13:38 | XMS_ITS | Encounter Summary ---
Author Organization [facility] Address [address] [place] [address] Care Team Providers Care Lead Engineer Name Role Phone Gauri Cortez MD Primary Care Provider [phone] Encounter Details Date Type Department Care Team (Latest Contact Info) Description 06/14/1996 Orders Only Gauri Cortez MD [address] [facility] 200 [place], [place] [address] Social History Tobacco Use Types Packs/Day Years Used Date Smoking Tobacco: Never Assessed Sex and Gender Information Value Date Recorded Sex Assigned at Not on file Gender Identity Not on file Sexual Orientation Not on file documented as of this encounter Plan of Treatment Not on file documented as of this encounter Visit Diagnoses Not on filedocumented in this encounter Care Teams Lead Engineer Relationship Specialty Start Date End Date Gauri Cortez MD [address] [facility] 200 [place], [place] [address] PCP - General Internal Medicine 04/29/13 documented as of this encounter
--- OUTSIDE RECORDS SUMMARY | 2023-11-16 13:38 | XMS_ITS | Encounter Summary ---
Author Organization [facility] Address [address] [place] [address] Care Team Providers Care Assembler Tester Name Role Phone Gauri Cortez MD Primary Care Provider [phone] Encounter Details Date Type Department Care Team (Latest Contact Info) Description 10/04/1996 Orders Only Gauri Cortez MD [address] [facility] 200 [place], [place] [address] Social History Tobacco Use Types Packs/Day Years Used Date Smoking Tobacco: Never Assessed Sex and Gender Information Value Date Recorded Sex Assigned at Not on file Gender Identity Not on file Sexual Orientation Not on file documented as of this encounter Plan of Treatment Not on file documented as of this encounter Visit Diagnoses Not on filedocumented in this encounter Care Teams Assembler Tester Relationship Specialty Start Date End Date Gauri Cortez MD [address] [facility] 200 [place], [place] [address] PCP - General Internal Medicine 04/29/13 documented as of this encounter
--- OUTSIDE RECORDS SUMMARY | 2023-11-16 13:38 | XMS_ITS | Encounter Summary ---
Author Organization [facility] Address [address] [place] [address] Care Team Providers Care Loan Teller Name Role Phone Gauri Cortez MD Primary Care Provider [phone] Encounter Details Date Type Department Care Team (Latest Contact Info) Description 08/20/1996 Orders Only Gauri Cortez MD [address] [facility] 200 [place], [place] [address] Social History Tobacco Use Types Packs/Day Years Used Date Smoking Tobacco: Never Assessed Sex and Gender Information Value Date Recorded Sex Assigned at Not on file Gender Identity Not on file Sexual Orientation Not on file documented as of this encounter Plan of Treatment Not on file documented as of this encounter Visit Diagnoses Not on filedocumented in this encounter Care Teams Loan Teller Relationship Specialty Start Date End Date Gauri Cortez MD [address] [facility] 200 [place], [place] [address] PCP - General Internal Medicine 04/29/13 documented as of this encounter
--- OUTSIDE RECORDS SUMMARY | 2023-11-16 13:38 | XMS_ITS | Encounter Summary ---
Author Organization [facility] Address [address] [place] [address] Care Team Providers Care Seat Cover Installer Name Role Phone Gauri Cortez MD Primary Care Provider [phone] Encounter Details Date Type Department Care Team [...] on filedocumented in this encounter Care Teams Seat Cover Installer Relationship Specialty Start Date End Date Gauri Cortez MD [address] [facility] 200 [place] [address] PCP - General Internal Medicine 04/29/13 documented as of this encounter
--- OUTSIDE RECORDS SUMMARY | 2023-11-16 13:38 | XMS_ITS | Encounter Summary ---
Author Organization [facility] Address [address] [place] [address] Care Team Providers Care Microsoft Application Developer Name Role Phone Gauri Cortez MD Primary Care Provider [phone] Encounter Details Date Type Department Care Team [...] on filedocumented in this encounter Care Teams Microsoft Application Developer Relationship Specialty Start Date End Date Gauri Cortez MD [address] [facility] 200 [place] [address] PCP - General Internal Medicine 04/29/13 documented as of this encounter
--- OUTSIDE RECORDS SUMMARY | 2023-11-16 13:38 | XMS_ITS | Encounter Summary ---
Author Organization [facility] Address [address] [place] [address] Care Team Providers Care Conservation Technician Name Role Phone Gauri Cortez MD Primary Care Provider [phone] Encounter Details Date Type Department Care Team (Latest Contact Info) Description 06/12/1997 Orders Only Frank Scanlon [facility] [address] [facility], [address] Social History Tobacco Use Types Packs/Day Years Used Date Smoking Tobacco: Never Assessed Sex and Gender Information Value Date Recorded Sex Assigned at Not on file Gender Identity Not on file Sexual Orientation Not on file documented as of this encounter Plan of Treatment Not on file documented as of this encounter Visit Diagnoses Not on filedocumented in this encounter Care Teams Conservation Technician Relationship Specialty Start Date End Date Gauri Cortez MD [address] [facility] 200 [place] [address] PCP - General Internal Medicine 04/29/13 documented as of this encounter
--- OUTSIDE RECORDS SUMMARY | 2023-11-16 13:38 | XMS_ITS | Encounter Summary ---
Author Organization [facility] Address [address] [place] [address] Care Team Providers Care In Service Education Teacher Name Role Phone Gauri Cortez MD Primary Care Provider [phone] Encounter Details Date Type Department Care Team (Latest Contact Info) Description 01/17/1996 Orders Only Rob Mccollum MD [address] [place], [place] [id number] Social History Tobacco Use Types Packs/Day Years Used Date Smoking Tobacco: Never Assessed Sex and Gender Information Value Date Recorded Sex Assigned at Not on file Gender Identity Not on file Sexual Orientation Not on file documented as of this encounter Plan of Treatment Not on file documented as of this encounter Visit Diagnoses Not on filedocumented in this encounter Care Teams In Service Education Teacher Relationship Specialty Start Date End Date Gauri Cortez MD [address] [facility] 200 [place], [place] [address] PCP - General Internal Medicine 04/29/13 documented as of this encounter
--- OUTSIDE RECORDS SUMMARY | 2023-11-16 13:38 | XMS_ITS | Encounter Summary ---
Author Organization [facility] Address [address] [place] [address] Care Team Providers Care Associate Partner Name Role Phone Gauri Cortez MD Primary Care Provider [phone] Encounter Details Date Type Department Care Team [...] on filedocumented in this encounter Care Teams Associate Partner Relationship Specialty Start Date End Date Gauri Cortez MD [address] [facility] 200 [place] [address] PCP - General Internal Medicine 04/29/13 documented as of this encounter
--- OUTSIDE RECORDS SUMMARY | 2023-11-16 13:38 | XMS_ITS | Encounter Summary ---
Author Organization [facility] Address [address] [place] [address] Care Team Providers Care Pole Frame Construction Worker Name Role Phone Gauri Cortez MD Primary Care Provider +1 [phone] Encounter Details Date Type Department Care Team (Latest Contact Info) Description 06/05/1996 Orders Only Gauri Cortez MD [address] [facility] 200 [place], [place] [address] Social History Tobacco Use Types Packs/Day Years Used Date Smoking Tobacco: Never Assessed Sex and Gender Information Value Date Recorded Sex Assigned at Not on file Gender Identity Not on file Sexual Orientation Not on file documented as of this encounter Plan of Treatment Not on file documented as of this encounter Visit Diagnoses Not on filedocumented in this encounter Care Teams Pole Frame Construction Worker Relationship Specialty Start Date End Date Gauri Cortez MD [address] [facility] 200 [place], [place] [address] PCP - General Internal Medicine 04/29/13 documented as of this encounter
--- OUTSIDE RECORDS SUMMARY | 2023-11-16 13:38 | XMS_ITS | Encounter Summary ---
Author Organization [facility] Address [address] [place] [address] Care Team Providers Care Music Video Director Name Role Phone Gauri Cortez MD Primary Care Provider +1 [phone] Encounter Details Date Type Department Care Team (Latest Contact Info) Description 06/24/1996 Orders Only Sharif Pierre MD [address] [facility] [address] [place], [place] [address] Social History Tobacco Use Types Packs/Day Years Used Date Smoking Tobacco: Never Assessed Sex and Gender Information Value Date Recorded Sex Assigned at Not on file Gender Identity Not on file Sexual Orientation Not on file documented as of this encounter Plan of Treatment Not on file documented as of this encounter Visit Diagnoses Not on filedocumented in this encounter Care Teams Music Video Director Relationship Specialty Start Date End Date Gauri Cortez MD [address] [facility] 200 [place] [address] PCP - General Internal Medicine 04/29/13 documented as of this encounter
--- OUTSIDE RECORDS SUMMARY | 2023-11-16 13:38 | XMS_ITS | Encounter Summary ---
Author Organization [facility] Address [address] [place] [address] Care Team Providers Care Gelatin Plant Supervisor Name Role Phone Gauri Cortez MD Primary Care Provider +[phone] Encounter Details Date Type Department Care Team [...] on filedocumented in this encounter Care Teams Gelatin Plant Supervisor Relationship Specialty Start Date End Date Gauri Cortez MD [address] [facility] 200 [place] [address] PCP - General Internal Medicine 04/29/13 documented as of this encounter
--- OUTSIDE RECORDS SUMMARY | 2023-11-16 13:38 | XMS_ITS | Encounter Summary ---
Author Organization [facility] Address [address] [place] [address] Care Team Providers Care Diver'S Tender Name Role Phone Gauri Cortez MD Primary Care Provider [phone] Encounter Details Date Type Department Care Team (Latest Contact Info) Description 08/28/1997 Orders Only Gauri Cortez MD [address] [facility] 200 [place], [place] [address] Social History Tobacco Use Types Packs/Day Years Used Date Smoking Tobacco: Never Assessed Sex and Gender Information Value Date Recorded Sex Assigned at Not on file Gender Identity Not on file Sexual Orientation Not on file documented as of this encounter Plan of Treatment Not on file documented as of this encounter Visit Diagnoses Not on filedocumented in this encounter Care Teams Diver'S Tender Relationship Specialty Start Date End Date Gauri Cortez MD [address] [facility] [address] [place], [place] [address] PCP - General Internal Medicine 04/29/13 documented as of this encounter
--- OUTSIDE RECORDS SUMMARY | 2023-11-16 13:38 | XMS_ITS | Encounter Summary ---
Author Organization [facility] Address [address] [place] [address] Care Team Providers Care Speech Language Pathologist Prn Name Role Phone Gauri Cortez MD Primary Care Provider +1 [phone] Encounter Details Date Type Department Care Team (Latest Contact Info) Description 11/14/1996 Orders Only Gauri Cortez MD [address] [facility] 200 [place], [place] [address] Social History Tobacco Use Types Packs/Day Years Used Date Smoking Tobacco: Never Assessed Sex and Gender Information Value Date Recorded Sex Assigned at Not on file Gender Identity Not on file Sexual Orientation Not on file documented as of this encounter Plan of Treatment Not on file documented as of this encounter Visit Diagnoses Not on filedocumented in this encounter Care Teams Speech Language Pathologist Prn Relationship Specialty Start Date End Date Gauri Cortez MD [address] [facility] 200 [place], [place] [address] PCP - General Internal Medicine 04/29/13 documented as of this encounter
--- OUTSIDE RECORDS SUMMARY | 2023-11-16 13:38 | XMS_ITS | Encounter Summary ---
Author Organization [facility] Address [address] [place] [address] Care Team Providers Care Auto Fleet Maintenance Manager Name Role Phone Gauri Cortez MD Primary Care Provider +1 [phone] Encounter Details Date Type Department Care Team (Latest Contact Info) Description 06/22/1998 Orders Only Gauri Cortez MD [address] [facility] [address] [place], [place] [address] Social History Tobacco Use Types Packs/Day Years Used Date Smoking Tobacco: Never Assessed Sex and Gender Information Value Date Recorded Sex Assigned at Not on file Gender Identity Not on file Sexual Orientation Not on file documented as of this encounter Plan of Treatment Not on file documented as of this encounter Visit Diagnoses Not on filedocumented in this encounter Care Teams Auto Fleet Maintenance Manager Relationship Specialty Start Date End Date Gauri Cortez MD [address] [facility] [address] [place], [place] [address] PCP - General Internal Medicine 04/29/13 documented as of this encounter
--- OUTSIDE RECORDS SUMMARY | 2023-11-16 13:38 | XMS_ITS | Encounter Summary ---
Author Organization [facility] Address [address] [place] [address] Care Team Providers Care Playground Monitor Name Role Phone Gauri Cortez MD Primary Care Provider +1 [phone] Encounter Details Date Type Department Care Team [...] on filedocumented in this encounter Care Teams Playground Monitor Relationship Specialty Start Date End Date Gauri Cortez MD [address] [facility] 200 [place] [address] PCP - General Internal Medicine 04/29/13 documented as of this encounter
--- OUTSIDE RECORDS SUMMARY | 2023-11-16 13:38 | XMS_ITS | Encounter Summary ---
Author Organization [facility] Address [address] [place] [address] Care Team Providers Care Supervisor Central Supply Name Role Phone Gauri Cortez MD Primary Care Provider +1 [phone] Encounter Details Date Type Department Care Team (Latest Contact Info) Description 01/27/1997 Orders Only Sharif Pierre MD [address] [facility] [address] [place], [place] [id number] Social History Tobacco Use Types Packs/Day Years Used Date Smoking Tobacco: Never Assessed Sex and Gender Information Value Date Recorded Sex Assigned at Not on file Gender Identity Not on file Sexual Orientation Not on file documented as of this encounter Plan of Treatment Not on file documented as of this encounter Visit Diagnoses Not on filedocumented in this encounter Care Teams Supervisor Central Supply Relationship Specialty Start Date End Date Gauri Cortez MD [address] [facility] 200 [place] [address] PCP - General Internal Medicine 04/29/13 documented as of this encounter
--- OUTSIDE RECORDS SUMMARY | 2023-11-16 13:38 | XMS_ITS | Encounter Summary ---
Author Organization [facility] Address [address] [place] [address] Care Team Providers Care Investment Professional Name Role Phone Gauri Cortez MD Primary Care Provider +1 [phone] Encounter Details Date Type Department Care Team [...] on filedocumented in this encounter Care Teams Investment Professional Relationship Specialty Start Date End Date Gauri Cortez MD [address] [facility] 200 [place] [address] PCP - General Internal Medicine 04/29/13 documented as of this encounter
--- OUTSIDE RECORDS SUMMARY | 2023-11-16 13:38 | XMS_ITS | Encounter Summary ---
Author Organization [facility] Address [address] [place] [address] Care Team Providers Care Dry Kiln Operator Name Role Phone Gauri Cortez MD Primary Care Provider +1 [phone] Encounter Details Date Type Department Care Team (Latest Contact Info) Description 08/20/1997 Orders Only Presley Frost MD [address] [place], [place] [address] Social History Tobacco Use Types Packs/Day Years Used Date Smoking Tobacco: Never Assessed Sex and Gender Information Value Date Recorded Sex Assigned at Not on file Gender Identity Not on file Sexual Orientation Not on file documented as of this encounter Plan of Treatment Not on file documented as of this encounter Visit Diagnoses Not on filedocumented in this encounter Care Teams Dry Kiln Operator Relationship Specialty Start Date End Date Gauri Cortez MD [address] [facility] 200 [place] [address] PCP - General Internal Medicine 04/29/13 documented as of this encounter
--- OUTSIDE RECORDS SUMMARY | 2023-11-16 13:38 | XMS_ITS | Encounter Summary ---
Author Organization [facility] Address [address] [place] [address] Care Team Providers Care Direct Mail Manager Name Role Phone Gauri Cortez MD Primary Care Provider +1 [phone] Encounter Details Date Type Department Care Team [...] on filedocumented in this encounter Care Teams Direct Mail Manager Relationship Specialty Start Date End Date Gauri Cortez MD [address] [facility] 200 [place] [address] PCP - General Internal Medicine 04/29/13 documented as of this encounter
--- OUTSIDE RECORDS SUMMARY | 2023-11-16 13:38 | XMS_ITS | Encounter Summary ---
Author Organization [facility] Address [address] [place] [address] Care Team Providers Care Ecosystem Ecology Professor Name Role Phone Gauri Cortez MD Primary Care Provider +1 [phone] Encounter Details Date Type Department Care Team (Latest Contact Info) Description 04/18/1997 Orders Only Gauri Cortez MD [address] [facility] 200 [place], [place] [address] Social History Tobacco Use Types Packs/Day Years Used Date Smoking Tobacco: Never Assessed Sex and Gender Information Value Date Recorded Sex Assigned at Not on file Gender Identity Not on file Sexual Orientation Not on file documented as of this encounter Plan of Treatment Not on file documented as of this encounter Visit Diagnoses Not on filedocumented in this encounter Care Teams Ecosystem Ecology Professor Relationship Specialty Start Date End Date Gauri Cortez MD [address] [facility] 200 [place], [place] [address] PCP - General Internal Medicine 04/29/13 documented as of this encounter
--- OUTSIDE RECORDS SUMMARY | 2023-11-16 13:38 | XMS_ITS | Encounter Summary ---
Author Organization [facility] Address [address] [place] [address] Care Team Providers Care Data Transcriber Name Role Phone Gauri Cortez MD Primary Care Provider +1 [phone] Encounter Details Date Type Department Care Team (Latest Contact Info) Description 09/24/1996 Orders Only Gauri Cortez MD [address] [facility] 200 [place], [place] [address] Social History Tobacco Use Types Packs/Day Years Used Date Smoking Tobacco: Never Assessed Sex and Gender Information Value Date Recorded Sex Assigned at Not on file Gender Identity Not on file Sexual Orientation Not on file documented as of this encounter Plan of Treatment Not on file documented as of this encounter Visit Diagnoses Not on filedocumented in this encounter Care Teams Data Transcriber Relationship Specialty Start Date End Date Gauri Cortez MD [address] [facility] [address] [place], [place] [address] PCP - General Internal Medicine 04/29/13 documented as of this encounter
--- OUTSIDE RECORDS SUMMARY | 2023-11-16 13:38 | XMS_ITS | Encounter Summary ---
Author Organization [facility] Address [address] [place] [address] Care Team Providers Care Dealer Development Manager Name Role Phone Gauri Cortez MD Primary Care Provider +1 [phone] Encounter Details Date Type Department Care Team (Latest Contact Info) Description 11/18/1997 Orders Only Gauri Cortez MD [address] [facility] 200 [place], [place] [address] Social History Tobacco Use Types Packs/Day Years Used Date Smoking Tobacco: Never Assessed Sex and Gender Information Value Date Recorded Sex Assigned at Not on file Gender Identity Not on file Sexual Orientation Not on file documented as of this encounter Plan of Treatment Not on file documented as of this encounter Visit Diagnoses Not on filedocumented in this encounter Care Teams Dealer Development Manager Relationship Specialty Start Date End Date Gauri Cortez MD [address] [facility] [address] [place], [place] [address] PCP - General Internal Medicine 04/29/13 documented as of this encounter
--- OUTSIDE RECORDS SUMMARY | 2023-11-16 13:38 | XMS_ITS | Encounter Summary ---
Author Organization [facility] Address [address] [place] [address] Care Team Providers Care Invasive Cardiologist Name Role Phone Gauri Cortez MD Primary Care Provider +1 [phone] Encounter Details Date Type Department Care Team (Latest Contact Info) Description 07/09/1996 Orders Only Gauri Cortez MD [address] [facility] 200 [place], [place] [address] Social History Tobacco Use Types Packs/Day Years Used Date Smoking Tobacco: Never Assessed Sex and Gender Information Value Date Recorded Sex Assigned at Not on file Gender Identity Not on file Sexual Orientation Not on file documented as of this encounter Plan of Treatment Not on file documented as of this encounter Visit Diagnoses Not on filedocumented in this encounter Care Teams Invasive Cardiologist Relationship Specialty Start Date End Date Gauri Cortez MD [address] [facility] 200 [place], [place] [address] PCP - General Internal Medicine 04/29/13 documented as of this encounter
--- OUTSIDE RECORDS SUMMARY | 2023-11-16 13:38 | XMS_ITS | Encounter Summary ---
Author Organization [facility] Address [address] [place] [address] Care Team Providers Care Signal Technician Name Role Phone Gauri Cortez MD Primary Care Provider +1 [phone] Encounter Details Date Type Department Care Team (Latest Contact Info) Description 06/24/1997 Orders Only Gauri Cortez MD [address] [facility] 200 [place], [place] [address] Social History Tobacco Use Types Packs/Day Years Used Date Smoking Tobacco: Never Assessed Sex and Gender Information Value Date Recorded Sex Assigned at Not on file Gender Identity Not on file Sexual Orientation Not on file documented as of this encounter Plan of Treatment Not on file documented as of this encounter Visit Diagnoses Not on filedocumented in this encounter Care Teams Signal Technician Relationship Specialty Start Date End Date Gauri Cortez MD [address] [facility] 200 [place], [place] [address] PCP - General Internal Medicine 04/29/13 documented as of this encounter
--- OUTSIDE RECORDS SUMMARY | 2023-11-16 13:38 | XMS_ITS | Encounter Summary ---
Author Organization [facility] Address [address] [place] [address] Care Team Providers Care Grade School Teacher Name Role Phone Gauri Cortez MD Primary Care Provider [phone] [phone] Encounter Details Date Type Department Care Team (Latest Contact Info) Description 12/16/1996 Orders Only Presley Frost MD [address] [place], [place] [address] Social History Tobacco Use Types Packs/Day Years Used Date Smoking Tobacco: Never Assessed Sex and Gender Information Value Date Recorded Sex Assigned at Not on file Gender Identity Not on file Sexual Orientation Not on file documented as of this encounter Plan of Treatment Not on file documented as of this encounter Visit Diagnoses Not on filedocumented in this encounter Care Teams Grade School Teacher Relationship Specialty Start Date End Date Gauri Cortez MD [address] [facility] 200 [place] [address] PCP - General Internal Medicine 04/29/13 documented as of this encounter
--- OUTSIDE RECORDS SUMMARY | 2023-11-16 13:38 | XMS_ITS | Encounter Summary ---
Author Organization [facility] Address [address] [place] [address] Care Team Providers Care Reservoir Caretaker Name Role Phone Gauri Cortez MD Primary Care Provider +1 [phone] Encounter Details Date Type Department Care Team [...] on filedocumented in this encounter Care Teams Reservoir Caretaker Relationship Specialty Start Date End Date Gauri Cortez MD [address] [facility] [address] [place] [address] PCP - General Internal Medicine 04/29/13 documented as of this encounter
--- OUTSIDE RECORDS SUMMARY | 2023-11-16 13:38 | XMS_ITS | Encounter Summary ---
Author Organization [facility] Address [address] [place] [address] Care Team Providers Care Lab Specialist Name Role Phone Gauri Cortez MD Primary Care Provider +1 [phone] Encounter Details Date Type Department Care Team [...] on filedocumented in this encounter Care Teams Lab Specialist Relationship Specialty Start Date End Date Gauri Cortez MD [address] [facility] 200 [place] [address] PCP - General Internal Medicine 04/29/13 documented as of this encounter
--- OUTSIDE RECORDS SUMMARY | 2023-11-16 13:39 | XMS_ITS | Encounter Summary ---
Author Organization [facility] Address [address] [place] [address] Care Team Providers Care Auto Tester Name Role Phone Gauri Cortez MD Primary Care Provider +1 [phone] Encounter Details Date Type Department Care Team (Latest Contact Info) Description 11/08/1994 Orders Only Gauri Cortez MD [address] [facility] 200 [place], [place] [address] Social History Tobacco Use Types Packs/Day Years Used Date Smoking Tobacco: Never Assessed Sex and Gender Information Value Date Recorded Sex Assigned at Not on file Gender Identity Not on file Sexual Orientation Not on file documented as of this encounter Plan of Treatment Not on file documented as of this encounter Visit Diagnoses Not on filedocumented in this encounter Care Teams Auto Tester Relationship Specialty Start Date End Date Gauri Cortez MD [address] [facility] [address] [place], [place] [address] PCP - General Internal Medicine 04/29/13 documented as of this encounter
--- OUTSIDE RECORDS SUMMARY | 2023-11-16 13:39 | XMS_ITS | Encounter Summary ---
Author Organization [facility] Address [address] [place] [address] Care Team Providers Care Accounting Manager Name Role Phone Gauri Cortez MD Primary Care Provider +1 [phone] Encounter Details Date Type Department Care Team (Latest Contact Info) Description 09/03/1994 Orders Only Frank Scanlon [facility] [address] [facility], [address] Social History Tobacco Use Types Packs/Day Years Used Date Smoking Tobacco: Never Assessed Sex and Gender Information Value Date Recorded Sex Assigned at Not on file Gender Identity Not on file Sexual Orientation Not on file documented as of this encounter Plan of Treatment Not on file documented as of this encounter Visit Diagnoses Not on filedocumented in this encounter Care Teams Accounting Manager Relationship Specialty Start Date End Date Gauri Cortez MD [address] [facility] 200 [place] [address] PCP - General Internal Medicine 04/29/13 documented as of this encounter
--- OUTSIDE RECORDS SUMMARY | 2023-11-16 13:39 | XMS_ITS | Encounter Summary ---
Author Organization [facility] Address [address] [place] [address] Care Team Providers Care Park Recreation Manager Name Role Phone Gauri Cortez MD Primary Care Provider +1 [phone] Encounter Details Date Type Department Care Team (Latest Contact Info) Description 01/19/1995 Orders Only Gauri Cortez MD [address] [facility] 200 [place], [place] [address] Social History Tobacco Use Types Packs/Day Years Used Date Smoking Tobacco: Never Assessed Sex and Gender Information Value Date Recorded Sex Assigned at Not on file Gender Identity Not on file Sexual Orientation Not on file documented as of this encounter Plan of Treatment Not on file documented as of this encounter Visit Diagnoses Not on filedocumented in this encounter Care Teams Park Recreation Manager Relationship Specialty Start Date End Date Gauri Cortez MD [address] [facility] 200 [place], [place] [address] PCP - General Internal Medicine 04/29/13 documented as of this encounter
--- OUTSIDE RECORDS SUMMARY | 2023-11-16 13:39 | XMS_ITS | Encounter Summary ---
Author Organization [facility] Address [address] [place] [address] Care Team Providers Care Retoucher Name Role Phone Gauri Cortez MD Primary Care Provider +1 [phone] Encounter Details Date Type Department Care Team (Latest Contact Info) Description 05/23/1994 Orders Only Loco Chavez MD [address] [place], [place] [id number] Social History Tobacco Use Types Packs/Day Years Used Date Smoking Tobacco: Never Assessed Sex and Gender Information Value Date Recorded Sex Assigned at Not on file Gender Identity Not on file Sexual Orientation Not on file documented as of this encounter Plan of Treatment Not on file documented as of this encounter Visit Diagnoses Not on filedocumented in this encounter Care Teams Retoucher Relationship Specialty Start Date End Date Gauri Cortez MD [address] [facility] [address] [place] [address] PCP - General Internal Medicine 04/29/13 documented as of this encounter
--- OUTSIDE RECORDS SUMMARY | 2023-11-16 13:39 | XMS_ITS | Encounter Summary ---
Author Organization [facility] Address [address] [place] [address] Care Team Providers Care Financial Accounting Analyst Name Role Phone Gauri Cortez MD Primary Care Provider +1 [phone] Encounter Details Date Type Department Care Team (Latest Contact Info) Description 09/29/1995 Orders Only Gauri Cortez MD [address] [facility] 200 [place], [place] [address] Social History Tobacco Use Types Packs/Day Years Used Date Smoking Tobacco: Never Assessed Sex and Gender Information Value Date Recorded Sex Assigned at Not on file Gender Identity Not on file Sexual Orientation Not on file documented as of this encounter Plan of Treatment Not on file documented as of this encounter Visit Diagnoses Not on filedocumented in this encounter Care Teams Financial Accounting Analyst Relationship Specialty Start Date End Date Gauri Cortez MD [address] [facility] [address] [place], [place] [address] PCP - General Internal Medicine 04/29/13 documented as of this encounter
--- OUTSIDE RECORDS SUMMARY | 2023-11-16 13:39 | XMS_ITS | Encounter Summary ---
Author Organization [facility] Address [address] [place] [address] Care Team Providers Care Farmworker Livestock Name Role Phone Gauri Cortez MD Primary Care Provider +1 [phone] Encounter Details Date Type Department Care Team [...] on filedocumented in this encounter Care Teams Farmworker Livestock Relationship Specialty Start Date End Date Gauri Cortez MD [address] [facility] [address] [place] [address] PCP - General Internal Medicine 04/29/13 documented as of this encounter
--- OUTSIDE RECORDS SUMMARY | 2023-11-16 13:39 | XMS_ITS | Encounter Summary ---
Author Organization [facility] Address [address] [place] [address] Care Team Providers Care Material Spreader Name Role Phone Gauri Cortez MD Primary Care Provider +1 [phone] Encounter Details Date Type Department Care Team [...] filedocumented in this encounter Care Teams Material Spreader Relationship Specialty Start Date End Date Gauri Cortez MD [address] [facility] [address] [place] [address] PCP - General Internal Medicine 04/29/13 documented as of this encounter
--- OUTSIDE RECORDS SUMMARY | 2023-11-16 13:39 | XMS_ITS | Encounter Summary ---
Author Organization [facility] Address [address] [place] [address] Care Team Providers Care Materials Supervisor Name Role Phone Gauri Cortez MD Primary Care Provider +1 [phone] Encounter Details Date Type Department Care Team [...] on filedocumented in this encounter Care Teams Materials Supervisor Relationship Specialty Start Date End Date Gauri Cortez MD [address] [facility] [address] [place] [address] PCP - General Internal Medicine 04/29/13 documented as of this encounter
--- OUTSIDE RECORDS SUMMARY | 2023-11-16 13:39 | XMS_ITS | Encounter Summary ---
Author Organization [facility] Address [address] [place] [address] Care Team Providers Care Fraud Examiner Name Role Phone Gauri Cortez MD Primary Care Provider +1 [phone] Encounter Details Date Type Department Care Team (Latest Contact Info) Description 03/31/1994 Orders Only Gauri Cortez MD [address] [facility] [address] [place], [place] [address] Social History Tobacco Use Types Packs/Day Years Used Date Smoking Tobacco: Never Assessed Sex and Gender Information Value Date Recorded Sex Assigned at Not on file Gender Identity Not on file Sexual Orientation Not on file documented as of this encounter Plan of Treatment Not on file documented as of this encounter Visit Diagnoses Not on filedocumented in this encounter Care Teams Fraud Examiner Relationship Specialty Start Date End Date Gauri Cortez MD [address] [facility] [address] [place], [place] [address] PCP - General Internal Medicine 04/29/13 documented as of this encounter
--- OUTSIDE RECORDS SUMMARY | 2023-11-16 13:39 | XMS_ITS | Encounter Summary ---
Author Organization [facility] Address [address] [place] [address] Care Team Providers Care Skiff Operator Name Role Phone Gauri Cortez MD Primary Care Provider +[phone] Encounter Details Date Type Department Care Team (Latest Contact Info) Description 06/09/1994 Orders Only Gauri Cortez MD [address] [facility] [address] [place], [place] [address] Social History Tobacco Use Types Packs/Day Years Used Date Smoking Tobacco: Never Assessed Sex and Gender Information Value Date Recorded Sex Assigned at Not on file Gender Identity Not on file Sexual Orientation Not on file documented as of this encounter Plan of Treatment Not on file documented as of this encounter Visit Diagnoses Not on filedocumented in this encounter Care Teams Skiff Operator Relationship Specialty Start Date End Date Gauri Cortez MD [address] [facility] [address] [place], [place] [address] PCP - General Internal Medicine 04/29/13 documented as of this encounter
--- OUTSIDE RECORDS SUMMARY | 2023-11-16 13:39 | XMS_ITS | Encounter Summary ---
Author Organization [facility] Address [address] [place] [address] Care Team Providers Care Circus Hand Name Role Phone Gauri Cortez MD Primary Care Provider +1 [phone] Encounter Details Date Type Department Care Team (Latest Contact Info) Description 06/10/1994 Orders Only Loco Chavez MD [address] [place], [place] [id number] Social History Tobacco Use Types Packs/Day Years Used Date Smoking Tobacco: Never Assessed Sex and Gender Information Value Date Recorded Sex Assigned at Not on file Gender Identity Not on file Sexual Orientation Not on file documented as of this encounter Plan of Treatment Not on file documented as of this encounter Visit Diagnoses Not on filedocumented in this encounter Care Teams Circus Hand Relationship Specialty Start Date End Date Gauri Cortez MD [address] [facility] [address] [place] [address] PCP - General Internal Medicine 04/29/13 documented as of this encounter
--- OUTSIDE RECORDS SUMMARY | 2023-11-16 13:39 | XMS_ITS | Encounter Summary ---
Author Organization [facility] Address [address] [place] [address] Care Team Providers Care Employee Relations Assistant Name Role Phone Gauri Cortez MD Primary Care Provider +1 [phone] Encounter Details Date Type Department Care Team (Latest Contact Info) Description 06/29/1994 Orders Only Bret Hollis MD [address] [facility] [address] [place], [place] [address] Social History Tobacco Use Types Packs/Day Years Used Date Smoking Tobacco: Never Assessed Sex and Gender Information Value Date Recorded Sex Assigned at Not on file Gender Identity Not on file Sexual Orientation Not on file documented as of this encounter Plan of Treatment Not on file documented as of this encounter Visit Diagnoses Not on filedocumented in this encounter Care Teams Employee Relations Assistant Relationship Specialty Start Date End Date Gauri Cortez MD [address] [facility] [address] [place] [address] PCP - General Internal Medicine 04/29/13 documented as of this encounter
--- OUTSIDE RECORDS SUMMARY | 2023-11-16 13:39 | XMS_ITS | Encounter Summary ---
Author Organization [facility] Address [address] [place] [address] Care Team Providers Care Plastic Surgery Nurse Name Role Phone Gauri Cortez MD Primary Care Provider [phone] Encounter Details Date Type Department Care Team (Latest Contact Info) Description 06/15/1994 Orders Only Loco Chavez MD [address] [place], [place] [id number] Social History Tobacco Use Types Packs/Day Years Used Date Smoking Tobacco: Never Assessed Sex and Gender Information Value Date Recorded Sex Assigned at Not on file Gender Identity Not on file Sexual Orientation Not on file documented as of this encounter Plan of Treatment Not on file documented as of this encounter Visit Diagnoses Not on filedocumented in this encounter Care Teams Plastic Surgery Nurse Relationship Specialty Start Date End Date Gauri Cortez MD [address] [facility] [address] [place] [address] PCP - General Internal Medicine 04/29/13 documented as of this encounter
--- OUTSIDE RECORDS SUMMARY | 2023-11-16 13:39 | XMS_ITS | Encounter Summary ---
Author Organization [facility] Address [address] [place] [address] Care Team Providers Care Cafeteria Manager Name Role Phone Gauri Cortez MD Primary Care Provider [phone] Encounter Details Date Type Department Care Team (Latest Contact Info) Description 12/13/1995 Orders Only Presley Frost MD [address] [place], [place] [id number] Social History Tobacco Use Types Packs/Day Years Used Date Smoking Tobacco: Never Assessed Sex and Gender Information Value Date Recorded Sex Assigned at Not on file Gender Identity Not on file Sexual Orientation Not on file documented as of this encounter Plan of Treatment Not on file documented as of this encounter Visit Diagnoses Not on filedocumented in this encounter Care Teams Cafeteria Manager Relationship Specialty Start Date End Date Gauri Cortez MD [address] [facility] [address] [place] [address] PCP - General Internal Medicine 04/29/13 documented as of this encounter
--- OUTSIDE RECORDS SUMMARY | 2023-11-16 13:39 | XMS_ITS | Encounter Summary ---
Author Organization [facility] Address [address] [place] [address] Care Team Providers Care Senior Living Sales Counselor Name Role Phone Gauri Cortez MD Primary Care Provider [phone] Encounter Details Date Type Department Care Team (Latest Contact Info) Description 11/01/1995 Orders Only Geraldine De Los Santos MD [address] [place] [id number] Social History Tobacco Use Types Packs/Day Years Used Date Smoking Tobacco: Never Assessed Sex and Gender Information Value Date Recorded Sex Assigned at Not on file Gender Identity Not on file Sexual Orientation Not on file documented as of this encounter Plan of Treatment Not on file documented as of this encounter Visit Diagnoses Not on filedocumented in this encounter Care Teams Senior Living Sales Counselor Relationship Specialty Start Date End Date Gauri Cortez MD [address] [facility] [address] [place], [place] [address] PCP - General Internal Medicine 04/29/13 documented as of this encounter
--- OUTSIDE RECORDS SUMMARY | 2023-11-16 13:39 | XMS_ITS | Encounter Summary ---
Author Organization [facility] Address [address] [place] [address] Care Team Providers Care Delivery Driver Assistant Name Role Phone Gauri Cortez MD Primary Care Provider [phone] Encounter Details Date Type Department Care Team (Latest Contact Info) Description 03/30/1994 Orders Only Gauri Cortez MD [address] [facility] [address] [place], [place] [address] Social History Tobacco Use Types Packs/Day Years Used Date Smoking Tobacco: Never Assessed Sex and Gender Information Value Date Recorded Sex Assigned at Not on file Gender Identity Not on file Sexual Orientation Not on file documented as of this encounter Plan of Treatment Not on file documented as of this encounter Visit Diagnoses Not on filedocumented in this encounter Care Teams Delivery Driver Assistant Relationship Specialty Start Date End Date Gauri Cortez MD [address] [facility] [address] [place], [place] [address] PCP - General Internal Medicine 04/29/13 documented as of this encounter
--- OUTSIDE RECORDS SUMMARY | 2023-11-16 13:39 | XMS_ITS | Encounter Summary ---
Author Organization [facility] Address [address] [place] [address] Care Team Providers Care Mems Integration Engineer Name Role Phone Gauri Cortez MD Primary Care Provider [phone] Encounter Details Date Type Department Care Team (Latest Contact Info) Description 04/24/1995 Orders Only Presley Frost MD [address] [place], [place] [address] Social History Tobacco Use Types Packs/Day Years Used Date Smoking Tobacco: Never Assessed Sex and Gender Information Value Date Recorded Sex Assigned at Not on file Gender Identity Not on file Sexual Orientation Not on file documented as of this encounter Plan of Treatment Not on file documented as of this encounter Visit Diagnoses Not on filedocumented in this encounter Care Teams Mems Integration Engineer Relationship Specialty Start Date End Date Gauri Cortez MD [address] [facility] 200 [place] [address] PCP - General Internal Medicine 04/29/13 documented as of this encounter
--- OUTSIDE RECORDS SUMMARY | 2023-11-16 13:39 | XMS_ITS | Encounter Summary ---
Author Organization [facility] Address [address] [place] [address] Care Team Providers Care Torch Solderer Name Role Phone Gauri Cortez MD Primary Care Provider [phone] Encounter Details Date Type Department Care Team (Latest Contact Info) Description 07/26/1994 Orders Only Gauri Cortez MD [address] [facility] [address] [place], [place] [address] Social History Tobacco Use Types Packs/Day Years Used Date Smoking Tobacco: Never Assessed Sex and Gender Information Value Date Recorded Sex Assigned at Not on file Gender Identity Not on file Sexual Orientation Not on file documented as of this encounter Plan of Treatment Not on file documented as of this encounter Visit Diagnoses Not on filedocumented in this encounter Care Teams Torch Solderer Relationship Specialty Start Date End Date Gauri Cortez MD [address] [facility] [address] [place], [place] [address] PCP - General Internal Medicine 04/29/13 documented as of this encounter
--- OUTSIDE RECORDS SUMMARY | 2023-11-16 13:39 | XMS_ITS | Encounter Summary ---
Author Organization [facility] Address [address] [place] [address] Care Team Providers Care Fleet Manager/Dispatch Name Role Phone Gauri Cortez MD Primary Care Provider [phone] [phone] Encounter Details Date Type Department Care Team [...] on filedocumented in this encounter Care Teams Fleet Manager/Dispatch Relationship Specialty Start Date End Date Gauri Cortez MD [address] [facility] [address] [place] [address] PCP - General Internal Medicine 04/29/13 documented as of this encounter
--- OUTSIDE RECORDS SUMMARY | 2023-11-16 13:39 | XMS_ITS | Encounter Summary ---
Author Organization [facility] Address [address] [place] [address] Care Team Providers Care Runner Out Name Role Phone Gauri Cortez MD Primary Care Provider [phone] Encounter Details Date Type Department Care Team (Latest Contact Info) Description 04/22/1994 Orders Only Gauri Cortez MD [address] [facility] [address] [place], [place] [address] Social History Tobacco Use Types Packs/Day Years Used Date Smoking Tobacco: Never Assessed Sex and Gender Information Value Date Recorded Sex Assigned at Not on file Gender Identity Not on file Sexual Orientation Not on file documented as of this encounter Plan of Treatment Not on file documented as of this encounter Visit Diagnoses Not on filedocumented in this encounter Care Teams Runner Out Relationship Specialty Start Date End Date Gauri Cortez MD [address] [facility] [address] [place], [place] [address] PCP - General Internal Medicine 04/29/13 documented as of this encounter
--- OUTSIDE RECORDS SUMMARY | 2023-11-16 13:39 | XMS_ITS | Encounter Summary ---
Author Organization [facility] Address [address] [place] [address] Care Team Providers Care Facility Maintenance Supervisor Name Role Phone Gauri Cortez MD Primary Care Provider [phone] Encounter Details Date Type Department Care Team (Latest Contact Info) Description 09/20/1993 Office Visit Ovidio Mitchell [address] [facility] [address] [place], [address] Social History Tobacco Use Types Packs/Day Years [...] on filedocumented in this encounter Care Teams Facility Maintenance Supervisor Relationship Specialty Start Date End Date Gauri Cortez MD [address] [facility] [address] [place], [place] [address] PCP - General Internal Medicine 04/29/13 documented as of this encounter
--- OUTSIDE RECORDS SUMMARY | 2023-11-16 13:39 | XMS_ITS | Encounter Summary ---
Author Organization [facility] Address [address] [place] [address] Care Team Providers Care Tank Setter Name Role Phone Gauri Cortez MD Primary Care Provider [phone] Encounter Details Date Type Department Care Team (Latest Contact Info) Description 11/10/1994 Orders Only Gauri Cortez MD [address] [facility] [address] [place], [place] [address] Social History Tobacco Use Types Packs/Day Years Used Date Smoking Tobacco: Never Assessed Sex and Gender Information Value Date Recorded Sex Assigned at Not on file Gender Identity Not on file Sexual Orientation Not on file documented as of this encounter Plan of Treatment Not on file documented as of this encounter Visit Diagnoses Not on filedocumented in this encounter Care Teams Tank Setter Relationship Specialty Start Date End Date Gauri Cortez MD [address] [facility] [address] [place], [place] [address] PCP - General Internal Medicine 04/29/13 documented as of this encounter
--- OUTSIDE RECORDS SUMMARY | 2023-11-16 13:39 | XMS_ITS | Encounter Summary ---
Author Organization [facility] Address [address] [place] [address] Care Team Providers Care Farm Equipment Mechanic Name Role Phone Gauri Cortez MD Primary Care Provider [phone] Encounter Details Date Type Department Care Team (Latest Contact Info) Description 09/06/1995 Orders Only Rob Mccollum MD [address] [place] [address] Social History Tobacco Use Types Packs/Day Years Used Date Smoking Tobacco: Never Assessed Sex and Gender Information Value Date Recorded Sex Assigned at Not on file Gender Identity Not on file Sexual Orientation Not on file documented as of this encounter Plan of Treatment Not on file documented as of this encounter Visit Diagnoses Not on filedocumented in this encounter Care Teams Farm Equipment Mechanic Relationship Specialty Start Date End Date Gauri Cortez MD [address] [facility] [address] [place], [place] [address] PCP - General Internal Medicine 04/29/13 documented as of this encounter
--- OUTSIDE RECORDS SUMMARY | 2023-11-16 13:39 | XMS_ITS | Encounter Summary ---
Author Organization [facility] Address [address] [place] [address] Care Team Providers Care Territory Service Representative Name Role Phone Gauri Cortez MD Primary Care Provider [phone] Encounter Details Date Type Department Care Team (Latest Contact Info) Description 04/02/1995 Orders Only Uriel Laboy MD [address] [facility] [place], [place] [address] Social History Tobacco Use Types Packs/Day Years Used Date Smoking Tobacco: Never Assessed Sex and Gender Information Value Date Recorded Sex Assigned at Not on file Gender Identity Not on file Sexual Orientation Not on file documented as of this encounter Plan of Treatment Not on file documented as of this encounter Visit Diagnoses Not on filedocumented in this encounter Care Teams Territory Service Representative Relationship Specialty Start Date End Date Gauri Cortez MD [address] [facility] [address] [place] [address] PCP - General Internal Medicine 04/29/13 documented as of this encounter
--- OUTSIDE RECORDS SUMMARY | 2023-11-16 13:39 | XMS_ITS | Encounter Summary ---
Author Organization [facility] Address [address] [place] [address] Care Team Providers Care Assembly Machine Tender Name Role Phone Gauri Cortez MD Primary Care Provider [phone] Encounter Details Date Type Department Care Team (Latest Contact Info) Description 01/01/1996 Orders Only Geraldine De Los Santos MD [address] [place] [id number] Social History Tobacco Use Types Packs/Day Years Used Date Smoking Tobacco: Never Assessed Sex and Gender Information Value Date Recorded Sex Assigned at Not on file Gender Identity Not on file Sexual Orientation Not on file documented as of this encounter Plan of Treatment Not on file documented as of this encounter Visit Diagnoses Not on filedocumented in this encounter Care Teams Assembly Machine Tender Relationship Specialty Start Date End Date Gauri Cortez MD [address] [facility] [address] [place], [place] [address] PCP - General Internal Medicine 04/29/13 documented as of this encounter
--- OUTSIDE RECORDS SUMMARY | 2023-11-16 13:39 | XMS_ITS | Encounter Summary ---
Author Organization [facility] Address [address] [place] [address] Care Team Providers Care Firearms Model Maker Name Role Phone Gauri Cortez MD Primary Care Provider [phone] Encounter Details Date Type Department Care Team [...] on filedocumented in this encounter Care Teams Firearms Model Maker Relationship Specialty Start Date End Date Gauri Cortez MD [address] [facility] [address] [place] [address] PCP - General Internal Medicine 04/29/13 documented as of this encounter
--- OUTSIDE RECORDS SUMMARY | 2023-11-16 13:39 | XMS_ITS | Encounter Summary ---
Author Organization [facility] Address [address] [place] [address] Care Team Providers Care Kitchen Operator Name Role Phone Gauri Cortez MD Primary Care Provider [phone] Encounter Details Date Type Department Care Team (Latest Contact Info) Description 02/08/1995 Orders Only Gauri Cortez MD [address] [facility] [address] [place], [place] [address] Social History Tobacco Use Types Packs/Day Years Used Date Smoking Tobacco: Never Assessed Sex and Gender Information Value Date Recorded Sex Assigned at Not on file Gender Identity Not on file Sexual Orientation Not on file documented as of this encounter Plan of Treatment Not on file documented as of this encounter Visit Diagnoses Not on filedocumented in this encounter Care Teams Kitchen Operator Relationship Specialty Start Date End Date Gauri Cortez MD [address] [facility] [address] [place], [place] [address] PCP - General Internal Medicine 04/29/13 documented as of this encounter
--- OUTSIDE RECORDS SUMMARY | 2023-11-16 13:40 | XMS_ITS | Encounter Summary ---
Author Organization [place] Address [address] [facility] [place] [address] Care Team Providers Care Clinic Coordinator Name Role Phone Gauri Cortez MD Primary Care Provider Gauri Cortez MD Unavailable [phone] Sharif Mayer MD Unavailable Encounter Details Date Type Department Care Team (Late st Contact Info) Description 06/26/2019 MyC Medical Advice [facility] [address] [place] [address] Gauri Cortez MD [address] [place] [address] Social History Tobacco Use Types [...] Out COVID-19 02/10/2020 02/10/2020 02/11/2020 5:33 PM RING STRIKER Assessment Noted Time PHQ-9 Depression Total Score: 2 09/28/19 19 8:54 AM CDT documented as of this encounter Care Teams Clinic Coordinator Relationship Specialty Start Date End Date Gauri Cortez MD [address] [place], [place] [address] PCP - General Internal Medicine 08/07/13 Gauri Cortez MD [address] [place] [address] Assigned PCP 09/30/18 Sharif Mayer MD [id number] [place] [address] Assigned Surgical Provider 04/30/22 11/02/23 documented as of this encounter
--- OUTSIDE RECORDS SUMMARY | 2023-11-16 13:40 | XMS_ITS | Encounter Summary ---
Author Organization [place] Address [address] [facility] [place] [address] Care Team Providers Care Scrap Metal Burner Name Role Phone Gauri Cortez MD Primary Care Provider Ines Aguilar WEB PRESS JOGGER RESIDENTIAL MONITOR Unavailable Un available Lucero Perez APRN RESIDENTIAL MONITOR Unavailable + Gauri Cortez MD Unavailable [phone] Gauri Cortez MD Unavailable Lucero Perez APRN RESIDENTIAL MONITOR Unavailable + Gauri Cortez MD Unavailable Sharif Mayer MD Unavailable [phone] Encounter Details Date Type Department Care Team (Late st Contact Info) Description 06/14/2017 [facility] Medical Advice [address] [place] [address] Nathalie Mtz RN Social History [...] Out COVID-19 02/10/2020 02/10/2020 02/11/2020 5:33 PM VP PRODUCTION documented as of this encounter Care Teams Scrap Metal Burner Relationship Specialty Start Date End Date Gauri Cortez MD [address] [place] [address] PCP - General Internal Medicine 08/07/13 Ines Aguilar APRN RESIDENTIAL MONITOR PCP - Assigned PCP 02/11/18 04/07/18 Lucero Perez APRN RESIDENTIAL MONITOR [address] [place] [address] PCP - Assigned PCP 12/31/17 02/10/18 Gauri Cortez MD [address] [place] [address] PCP - Assigned PCP 04/08/18 05/15/18 Gauri Cortez MD [address] [place] [address] Assigned PCP 04/08/18 08/11/18 Lucero Perez APRN RESIDENTIAL MONITOR [address] [place] [address] Assigned PCP 08/12/18 09/29/18 Gauri Cortez MD [address] [place] [address] Assigned PCP 09/30/18 Sharif Mayer MD [id number] [place] [address] Assigned Surgical Provider 04/30/22 11/02/23 documented as of this encounter
--- OUTSIDE RECORDS SUMMARY | 2023-11-16 13:40 | XMS_ITS | Encounter Summary ---
Author Organization [place] Address [address] [facility] [place] [address] Care Team Providers Care Millwright Instructor Name Role Phone Gauri Cortez MD Primary Care Provider [phone] Gauri Cortez MD Unavailable Sharif Mayer MD Unavailable Reason for Visit * Reason Comments Medication Refill Encounter Details Date Type Department Care Team (Late st Contact Info) Description 02/27/2022 [facility] [address] [place] [address] Gauri Cortez MD [address] [facility] [address] [place] [address] Medication Refill Social History Tobacco [...] for review/approval because: Labs out of range: SPECIALIST documented in this encounter Plan of Treatment Not on file documented as of this encounter Visit Diagnoses Diagnosis Essential hypertension, benign documented in this encounter Additional Health Concerns Assessment Noted Time PHQ-9 Depression Total Score: 2 07/13/19 11:30 AM CDT documented as of this encounter Care Teams Millwright Instructor Relationship Specialty Start Date End Date Gauri Cortez MD [address] [place] [address] PCP - General Internal Medicine 08/07/13 Gauri Cortez MD [address] [place] [address] Assigned PCP 09/30/18 Sharif Mayer MD [address] [place] [address] [place] [address] Assigned Surgical Provider 04/30/22 11/02/23 documented as of this encounter
--- OUTSIDE RECORDS SUMMARY | 2023-11-16 13:40 | XMS_ITS | Encounter Summary ---
Author Organization [place] Address [address] [facility] [place] [address] Care Team Providers Care Industrial Cafeteria Manager Name Role Phone Gauri Cortez MD Primary Care Provider Gauri Cortez MD Unavailable Sharif Mayer MD Unavailable Encounter Details Date Type Department Care Team (Late st Contact Info) Description 03/19/2022 MyC Medical Advice [facility] [address] [place] [address] Gauri Cortez MD [address] [place] [address] Social History Tobacco Use Types [...] documented as of this encounter Care Teams Industrial Cafeteria Manager Relationship Specialty Start Date End Date Gauri Cortez MD [address] [facility] 200 [place] [address] PCP - General Internal Medicine 08/07/13 Gauri Cortez MD [address] [facility] [address] [place] [address] Assigned PCP 09/30/18 Sharif Mayer MD [address] [place] [address] [place] [address] Assigned Surgical Provider 04/30/22 11/02/23 documented as of this encounter
--- OUTSIDE RECORDS SUMMARY | 2023-11-16 13:40 | XMS_ITS | Encounter Summary ---
Author Organization [place] Address [address] [place] [address] Care Team Providers Care Assembler Plastic Boat Name Role Phone Gauri Cortez MD Primary Care Provider Gauri Cortez MD Unavailable Sharif Mayer MD Unavailable [phone] Reason for Visit * Reason Comments Medication Refill Encounter Details Date Type Department Care Team (Late st Contact Info) Description 06/09/2022 [facility] [address] [place] [address] Gauri Cortez MD [address] [facility] [address] [place] [address] Medication Refill Social History Tobacco [...] 06/10/2022 2:57 PM CDT Prescription approved per [facility] Refill Protocol. documented in this encounter Plan of Treatment Not on file documented as of this encounter Visit Diagnoses Diagnosis Acquired hypothyroidism Unspecified hypothyroidism documented in this encounter Additional Health Concerns Assessment Noted Time PHQ-9 Depression Total Score: 2 07/13/19 22 11:30 AM CDT documented as of this encounter Care Teams Assembler Plastic Boat Relationship Specialty Start Date End Date Gauri Cortez MD [address] [place] [address] PCP - General Internal Medicine 08/07/13 Gauri Cortez MD [address] [place], [place] [address] Assigned PCP 09/30/18 Sharif Mayer MD [id number] [place] [address] Assigned Surgical Provider 04/30/22 11/02/23 documented as of this encounter
--- OUTSIDE RECORDS SUMMARY | 2023-11-16 13:40 | XMS_ITS | Encounter Summary ---
Author Organization [place] Address [address] [facility] [place] [address] Care Team Providers Care Mechanical Pencils Assembler Name Role Phone Gauri Cortez MD Primary Care Provider Gauri Cortez MD Unavailable [phone] Sharif Mayer MD Unavailable [phone] Encounter Details Date Type Department Care Team (Late st Contact Info) Description 10/10/2023 Telephone [facility] [place] [address], [address] [place] [address] 743, Ostomy Wound Room, RN [...] were answered. Diana LEONG Dept. Vocera- Contact [facility] Nurse (Molly) via [employer] Dept. Office Number: [phone] documented in this encounter Plan of Treatment Not on file documented as of this encounter Visit Diagnoses Not on filedocumented in this encounter Additional Health Concerns Assessment Noted Time PHQ-9 Depression Total Score: 2 07/13/19 22 11:30 AM CDT documented as of this encounter Care Teams Mechanical Pencils Assembler Relationship Specialty Start Date End Date Gauri Cortez MD [address] [address] PCP - General Internal Medicine 08/07/13 Gauri Cortez MD [address] [address] Assigned PCP 09/30/18 Sharif Mayer MD [address] [address] Assigned Surgical Provider 04/30/22 11/02/23 documented as of this encounter
--- OUTSIDE RECORDS SUMMARY | 2023-11-16 13:40 | XMS_ITS | Encounter Summary ---
Author Organization [place] Address [address] [facility] [address] Care Team Providers Care Sld Teacher Name Role Phone Gauri Cortez MD Primary Care Provider Gauri Cortez MD Unavailable [phone] Sharif Mayer MD Unavailable [phone] Encounter Details Date Type Department Care Team (Late st Contact Info) Description 03/05/2019 [facility] Medical Advice [address] [place] [address] Nathalie Mtz, REBA Social History [...] Out COVID-19 02/10/2020 02/10/2020 02/11/2020 5:33 PM LINOLEUM TILE LAYER Assessment Noted Time PHQ-9 Depression Total Score: 2 09/28/19 19 8:54 AM CDT documented as of this encounter Care Teams Sld Teacher Relationship Specialty Start Date End Date Gauri Cortez MD [address] [place] [address] PCP - General Internal Medicine 08/07/13 Gauri Cortez MD [address] [place] [address] Assigned PCP 09/30/18 Sharif Mayer MD [address] [place] [address] [place] [address] Assigned Surgical Provider 04/30/22 11/02/23 documented as of this encounter
--- OUTSIDE RECORDS SUMMARY | 2023-11-16 13:40 | XMS_ITS | Encounter Summary ---
Author Organization [place] Address [address] [place] [address] Care Team Providers Care Microbiology Lab Technician Name Role Phone Gauri Cortez MD Primary Care Provider [phone] Filippo Vazquez PA-C Primary Care Provider Gauri Cortez MD Primary Care Provider [phone] Ines Aguilar APRN RISK MANAGEMENT DIRECTOR Unavailable Un available Lucero Perez APRN RISK MANAGEMENT DIRECTOR Unavailable + Gauri Cortez MD Unavailable [phone] Gauri Cortez MD Unavailable [phone] Lucero Perez APRN RISK MANAGEMENT DIRECTOR Unavailable + Gauri Cortez MD Unavailable [phone] Sharif Mayer MD Unavailable [phone] Encounter Details Date Type Department Care Team (Late st Contact Info) Description 07/17/2012 External Order Results [facility] [address] [place] [address] [place] [address] [place] [address] Social History Tobacco Use Types [...] Out COVID-19 02/10/2020 02/10/2020 02/11/2020 5:33 PM ORDNANCE ENGINEER documented as of this encounter Care Teams Microbiology Lab Technician Relationship Specialty Start Date End Date Gauri Cortez MD [address] [place] [address] PCP - General Internal Medicine 07/28/10 07/14/13 Filippo Vazquez PA-C [address] [place] [address] PCP - General Physician Mason Apprentice - Medical 07/15/13 08/06/13 Gauri Cortez MD [address] [place] [address] PCP - General Internal Medicine 08/07/13 Ines Aguilar, AUTOMATION MACHINE BUILDER RISK MANAGEMENT DIRECTOR PCP - Assigned PCP 02/11/18 04/07/18 Lucero Perez, AUTOMATION MACHINE BUILDER RISK MANAGEMENT DIRECTOR [address] [address] [address] PCP - Assigned PCP 12/31/17 02/10/18 Gauri Cortez MD [address] [place] [address] PCP - Assigned PCP 04/08/18 05/15/18 Gauri Cortez MD [address] [facility] [address] [place] [address] Assigned PCP 04/08/18 08/11/18 Lucero Perez APRN [facility] [address] [place] [address] Assigned PCP 08/12/18 09/29/18 Gauri Cortez MD [address] [facility] [address] [place] [address] Assigned PCP 09/30/18 Sharif Mayer MD [id number] [place] [address] Assigned Surgical Provider 04/30/22 11/02/23 documented as of this encounter
--- OUTSIDE RECORDS SUMMARY | 2023-11-16 13:40 | XMS_ITS | Encounter Summary ---
Author Organization [place] Address [address] [facility] [place] [address] Care Team Providers Care Heavy Duty Press Operator Name Role Phone Gauri Cortez MD Primary Care Provider [phone] Filippo Vazquez PA-C Primary Care Provider Gauri Cortez MD Primary Care Provider [phone] Ines Aguilar APRN IT SOLUTIONS ARCHITECT Unavailable Un available Lucero Perez APRN IT SOLUTIONS ARCHITECT Unavailable + Gauri Cortez MD Unavailable [phone] Gauri Cortez MD Unavailable [phone] Lucero Perez APRN IT SOLUTIONS ARCHITECT Unavailable + Gauri Cortez MD Unavailable [phone] Sharif Mayer MD Unavailable [phone] Encounter Details Date Type Department Care Team (Late st Contact Info) Description 04/27/[address] [place] [address] [facility] Social History Tobacco Use Types Packs/Day Years [...] Out COVID-19 02/10/2020 02/10/2020 02/11/2020 5:33 PM MANAGER OF SELECTION AND ASSESSMENT documented as of this encounter Care Teams Heavy Duty Press Operator Relationship Specialty Start Date End Date Gauri Cortez MD [address] [place], [place] [address] PCP - General Internal Medicine 07/28/10 07/14/13 Filippo Vazquez PA-C [address] [place] [address] PCP - General Physician Braddisher - Medical 07/15/13 08/06/13 Gauri Cortez MD [address] [place] [address] PCP - General Internal Medicine 08/07/13 Ines Aguilar APRN IT SOLUTIONS ARCHITECT PCP - Assigned PCP 02/11/18 04/07/18 Lucero Perez, PRESIDENT & FOUNDER IT SOLUTIONS ARCHITECT [address] [place] [address] PCP - Assigned PCP 12/31/17 02/10/18 Gauri Cortez MD [address] [place] [address] PCP - Assigned PCP 04/08/18 05/15/18 Gauri Cortez MD [address] [place] [address] Assigned PCP 04/08/18 08/11/18 Lucero Perez APRN IT SOLUTIONS ARCHITECT [address] [place] [address] Assigned PCP 08/12/18 09/29/18 Gauri Cortez MD [address] [place] [address] Assigned PCP 09/30/18 Sharif Mayer MD [id number] [place] [address] Assigned Surgical Provider 04/30/22 11/02/23 documented as of this encounter
--- OUTSIDE RECORDS SUMMARY | 2023-11-16 13:40 | XMS_ITS | Encounter Summary ---
Author Organization [place] Address [address] [place] [address]. [place] [address] Care Team Providers Care Cut Pressman Name Role Phone Gauri Cortez MD Primary Care Provider [phone] Gauri Cortez MD Unavailable [phone] Sharif Mayer MD Unavailable [phone] Encounter Details Date Type Department Care Team (Late st Contact Info) Description 07/22/2021 MyC Medical Advice [address] [id number] Dale Mcguire Social History Tobacco Use Types [...] documented as of this encounter Care Teams Cut Pressman Relationship Specialty Start Date End Date Gauri Cortez MD [address] [place] [address] PCP - General Internal Medicine 08/07/13 Gauri Cortez MD [address] [place] [address] Assigned PCP 09/30/18 Sharif Mayer MD [id number] [place] [address] Assigned Surgical Provider 04/30/22 11/02/23 documented as of this encounter
--- OUTSIDE RECORDS SUMMARY | 2023-11-16 13:40 | XMS_ITS | Encounter Summary ---
Author Organization [place] Address [facility] [place] [address] Care Team Providers Care Test Equipment Mechanic Name Role Phone Gauri Cortez MD Primary Care Provider [phone] Gauri Cortez MD Unavailable [phone] Sharif Mayer MD Unavailable [phone] Encounter Details Date Type Department Care Team [...] documented as of this encounter Care Teams Test Equipment Mechanic Relationship Specialty Start Date End Date Gauri Cortez MD [address] [place] [address] PCP - General Internal Medicine 08/07/13 Gauri Cortez MD [address] [facility] 200 [place] [address] Assigned PCP 09/30/18 Sharif Mayer MD [id number] [place] [address] Assigned Surgical Provider 04/30/22 11/02/23 documented as of this encounter
--- OUTSIDE RECORDS SUMMARY | 2023-11-16 13:40 | XMS_ITS | Clinical Summary ---
Author Organization [place] Address [facility] [place] [address] Care Team Providers Care Workflow Developer Name Role Phone Gauri Cortez MD Primary Care Provider [phone] Gauri Cortez MD Unavailable [phone] Allergies Active Allergy Reactions Criticality Noted Date [...] (ASTELIN) 0.1 % nasal sprayIndications:Chron ic rhinitis [place] 1-2 sprays into both nostrils 2 times [...] Nausea and vomiting 2012 09/06/19 13 [facility] 08/04/2010 08/28/2023 Overview: DX V65.8 [place] [id number] [facility] (06/18/2012) Advanced directives, counseling/discussion 06/01/2010 08/28/2023 Overview: [...] Type Department Care Team Description 10/10/2023 Telephone [facility] [address] [place] [address] [...] Comments Blood Pressure 112/70 04/18/2022 12:57 PM TABLE ATTENDANT Pulse 78 04/18/2022 12:57 PM TABLE ATTENDANT Temperature 36.1 ??C (96.9 ??F) 11/29/2021 8:03 AM CD T Respiratory Rate 16 04/18/2022 12:57 PM TABLE ATTENDANT Oxygen Saturation 96% 04/18/2022 12:57 PM TABLE ATTENDANT Inhaled Oxygen Concentration - - Weight 77.1 kg (170 lb) 04/18/2022 12:57 PM TABLE ATTENDANT Pt reported Height 170.2 cm (5' 7) 04/18/2022 12:57 PM TABLE ATTENDANT Pt reported Body Mass Index 26.63 04/18/2022 12:57 PM TABLE ATTENDANT Plan of Treatment Health Maintenance Due Date Last Done Comments CT COLONOGRAPHY 1954 FIT 1954 sDNA (Cologuard) 1954 RSV VACCINE (1 - 1-dose 60+ series) 2014 FLEX SIG 10/08/2017 10/08/2012, 12/13, 09/12/2006, Additional history exists ANNUAL REVIEW OF HM ORDERS 07/12/2022 07/12/2021 BMP 11/29/2022 11/29/2021, 06/12, 11/24/2020, Additional history [...] 2023 11/29/2021, 07/30/2021, 07/12/2021, Additional history exists COVID-19 Vaccine (24 season) 2023 12/20/2021, 07/16/2021, 11/30/2020, Additional history exists INFLUENZA VACCINE (#1) 2023 [...] PM CDT EXAM: DX AXIAL HIPS/SPINE LOCATION: [facility] DATE: 08/09/2023 INDICATION: BMD screening, follow-up. [...] - 08/09/2023 EXAM: DX AXIAL HIPS/SPINE LOCATION: [facility] DATE: 08/09/2023 INDICATION: BMD screening, follow-up. [...] LAB - URINE ORDERAB LES OX LABORATORY [facility] [address] Lab (no room number, 1st floor of clinic) [place] [address], [facility] [phone] * CBC with platelets and differential (11/29/2021 [...] LAB - BLOOD ORDERAB LES RI LABORATORY [facility] Lab [address], [address] [place] [address], [place] [phone] * TSH with free T4 reflex (11/29/2021 9:09 AM CDT) TSH 1.13 0.40 - 4.00 mU/L 11/30/2021 10:53 AM CDT OX LABORATORY Blood VENOUS BLOOD / Unknown Venipuncture / Unknown 11/29/2021 9:09 AM CDT 11/29/2021 9:09 AM CDT Gauri Cortez MD LAB - BLOOD ORDERAB LES OX LABORATORY [facility] [address] Lab (no room number, 1st floor of clinic) [place] [address], [place] [phone] * (ABNORMAL) Lipid Profile (Chol, Trig, HDL, [...] LAB - BLOOD ORDERAB LES OX LABORATORY [facility] [address] Lab (no room number, 1st floor of clinic) [place] [address], [facility] [phone] * (ABNORMAL) Comprehensive metabolic panel (BMP + [...] and gender (Becca et al., NEJ, DOI: 10.1056/[id number]) Blood VENOUS BLOOD / Unknown Venipuncture / Unknown 11/29/2021 9:09 AM CDT 11/29/2021 9:09 AM CDT Gauri Cortez MD LAB - BLOOD ORDERAB LES OX LABORATORY [facility] [address] Lab (no room number, 1st floor of clinic) [place] [address], [facility] [phone] * (ABNORMAL) UA macro with reflex to [...] 11/19/2021 4:47 PM CDT LV LABORATORY Specific [place] Urine 1.010 1.003 - 1.035 11/19/2021 4:47 [...] MD LAB - URINE ORDERABL ES LABORATORY [facility] [address] [facility] Lab (no room number, 1st floor of clinic) [place] [address], [facility] [phone] * Hepatitis C antibody (09/22/2015 8:10 AM CDT) Pathologist [facility] Hepatitis C Antibody Nonreactive Assay performance characteristics have not been established for newborns, infants, and children [facility] Blood specimen (specimen) 09/22/2015 8:10 AM CDT 09/22/2015 8:15 AM CDT Gauri Cortez MD LAB - BLOOD ORDERAB LES Performing Organization Address City/State/[facility] Co de Phone Number [facility] [address] [place] [address] * Sigmoidoscopy flexible (10/08/2012) Patient Reported ANESTHESIA ORDERABLE S * COLONOSCOPY (06/16/2008) 06/16/2008 Tyra Cardona MD PROCEDURES from Last 3 Months or Most Recently Relevant to Health Maintenance Care Teams Workflow Developer Relationship Specialty Start Date End Date Gauri Cortez MD [address] [facility] [address] [address] PCP - General Internal Medicine 08/07/13 Gauri Cortez MD [address] [address] Assigned PCP 09/30/18
--- OUTSIDE RECORDS SUMMARY | 2023-11-16 13:40 | XMS_ITS | Encounter Summary ---
Author Organization [place] Address [address] [facility] [place] [address] Care Team Providers Care Residential Property Tax Appraiser Name Role Phone Gauri Cortez MD Primary Care Provider Gauri Cortez MD Unavailable [phone] Sharif Mayer MD Unavailable [phone] Reason for Visit * Diagnostic Imaging Dexa (Routine) - Pending Review Specialty Diagnoses / Procedures Referred By Melo sandra Referred To Contact Radiology. Diagnoses Osteoporosis Procedures DX Bone Density Patricia Allred MD [facility] [address] [address] Referral ID Status Reason Start Date Expiration Date V isits Requested Visits Authorized [id number] Pending Review 08/03/2023 08/02/2024 1 1 Encounter Details Date Type Department Care Team (Late st Contact Info) Description 08/09/2023 12:25 PM CDT Ancillary Procedure [address] [place] [address] Osteoporosis Social History Tobacco Use Types Packs/Day [...] PM CDT EXAM: DX AXIAL HIPS/SPINE LOCATION: [facility] DATE: 08/09/2023 INDICATION: BMD screening, follow-up. [...] - 08/09/2023 EXAM: DX AXIAL HIPS/SPINE LOCATION: [facility] DATE: 08/09/2023 INDICATION: BMD screening, follow-up. [...] documented as of this encounter Care Teams Residential Property Tax Appraiser Relationship Specialty Start Date End Date Gauri Cortez MD [address] [facility] [address] [place], [place] [address] PCP - General Internal Medicine 08/07/13 Gauri Cortez MD [address] [place] [address] Assigned PCP 09/30/18 Sharif Mayer MD [id number] [place] [address] Assigned Surgical Provider 04/30/22 11/02/23 documented as of this encounter
--- OUTSIDE RECORDS SUMMARY | 2023-11-16 13:40 | XMS_ITS | Encounter Summary ---
Author Organization [place] Address [address] [facility] [place] [address] Care Team Providers Care Pump House Operator Name Role Phone Gauri Cortez MD Primary Care Provider Gauri Cortez MD Unavailable Sharif Mayer MD Unavailable [phone] Reason for Visit * Reason Comments Medication Refill Encounter Details Date Type Department Care Team (Late st Contact Info) Description 09/03/[address] [place] [address] Sandra Coates APRN [facility] [address] [place] [address] Medication Refill Social History Tobacco [...] documented as of this encounter Care Teams Pump House Operator Relationship Specialty Start Date End Date Gauri Cortez MD [address] [place] [address] PCP - General Internal Medicine 08/07/13 Gauri Cortez MD [address] [place] [address] Assigned PCP 09/30/18 Sharif Mayer MD [id number] [place] [address] Assigned Surgical Provider 04/30/22 11/02/23 documented as of this encounter
--- OUTSIDE RECORDS SUMMARY | 2023-11-16 13:40 | XMS_ITS | Encounter Summary ---
Author Organization [place] Address [address] [facility] [place] [address] Care Team Providers Care Quarter Backer Name Role Phone Gauri Cortez MD Primary Care Provider [phone] Gauri Cortez MD Unavailable [phone] Sharif Mayer MD Unavailable [phone] Encounter Details Date Type Department Care Team (Late st Contact Info) Description 04/12/2022 MyC Medical Advice [facility] [place] [address] [place] [address] Rox Simons Social History Tobacco [...] Coronavirus/COVID-19? No / Unsure 04/12/2022 12:53 PM PSYCHOLOGICAL AIDE documented as of this encounter Plan of Treatment Not on file documented as of this encounter Visit Diagnoses Not on filedocumented in this encounter Additional Health Concerns Assessment Noted Time PHQ-9 Depression Total Score: 2 07/13/19 22 11:30 AM CDT documented as of this encounter Care Teams Quarter Backer Relationship Specialty Start Date End Date Gauri Cortez MD [address] [place] [address] PCP - General Internal Medicine 08/07/13 Gauri Cortez MD [address] [place], [place] [address] Assigned PCP 09/30/18 Sharif Mayer MD [id number] [place] [address] Assigned Surgical Provider 04/30/22 11/02/23 documented as of this encounter
--- OUTSIDE RECORDS SUMMARY | 2023-11-16 13:40 | XMS_ITS | Referral Summary ---
Author Organization [place] Address [address] [facility] [place] [address] Care Team Providers Care Principal Security Architect Name Role Phone Gauri Cortez MD Primary Care Provider Gauri Cortez MD Unavailable [phone] Encounters Date Type Department Care Team Description 10/10/2023 Telephone [facility] [address] [place] [address] 3, Ostomy Wound Room, RN [...] (ASTELIN) 0.1 % nasal sprayIndications:Chron ic rhinitis [place] 1-2 sprays into both nostrils 2 times [...] Nausea and vomiting 2012 09/06/19 13 [facility] 08/04/2010 08/28/2023 Overview: DX V65.8 REPLACED WITH [id number] [facility] (06/18/2012) Advanced directives, counseling/discussion 06/01/2010 08/28/2023 Overview: [...] Comments Blood Pressure 112/70 04/18/2022 12:57 PM DEPUTY FIRE CHIEF Pulse 78 04/18/2022 12:57 PM DEPUTY FIRE CHIEF Temperature 36.1 ??C (96.9 ??F) 11/29/2021 8:03 AM CD T Respiratory Rate 16 04/18/2022 12:57 PM DEPUTY FIRE CHIEF Oxygen Saturation 96% 04/18/2022 12:57 PM DEPUTY FIRE CHIEF Inhaled Oxygen Concentration - - Weight 77.1 kg (170 lb) 04/18/2022 12:57 PM DEPUTY FIRE CHIEF Pt reported Height 170.2 cm (5' 7) 04/18/2022 12:57 PM DEPUTY FIRE CHIEF Pt reported Body Mass Index 26.63 04/18/2022 12:57 PM DEPUTY FIRE CHIEF Plan of Treatment Not on file Procedures [...] PM CDT EXAM: DX AXIAL HIPS/SPINE LOCATION: [facility] DATE: 08/09/2023 INDICATION: BMD screening, [...] - 08/09/2023 EXAM: DX AXIAL HIPS/SPINE LOCATION: [facility] DATE: 08/09/2023 INDICATION: BMD screening, [...] LAB - URINE ORDERAB LES OX LABORATORY [facility] [address] Lab (no room number, 1st floor of clinic) [place] [address], [facility] [phone] * CBC with platelets and differential (11/29/2021 [...] LAB - BLOOD ORDERAB LES RI LABORATORY [facility] [address], [address] [place] [address], [facility] [phone] * TSH with free T4 reflex (11/29/2021 9:09 AM CDT) TSH 1.13 0.40 - 4.00 mU/L 11/30/2021 10:53 AM CDT OX LABORATORY Blood VENOUS BLOOD / Unknown Venipuncture / Unknown 11/29/2021 9:09 AM CDT 11/29/2021 9:09 AM CDT Gauri Cortez MD LAB - BLOOD ORDERAB LES OX LABORAT[facility] [address] Lab (no room number, 1st floor of clinic) [place] [address], [facility] [phone] * (ABNORMAL) Lipid Profile (Chol, Trig, HDL, [...] LAB - BLOOD ORDERAB LES OX LABORATORY [facility] [address] Lab (no room number, 1st floor of clinic) [place] [address], [facility] [phone] * (ABNORMAL) Comprehensive metabolic panel (BMP + [...] and gender (Becca et al., NEJM, DOI: [id number]/[id number]) Blood VENOUS BLOOD / Unknown Venipuncture / Unknown 11/29/2021 9:09 AM CDT 11/29/2021 9:09 AM CDT Gauri Cortez MD LAB - BLOOD ORDERAB LES OX LABORATORY [facility] [address] Lab (no room number, 1st floor of clinic) [place] [address], [facility] [phone] * (ABNORMAL) UA macro with reflex to [...] 11/19/2021 4:47 PM CDT LV LABORATORY Specific [place] Urine 1.010 1.003 - 1.035 11/19/2021 4:47 [...] MD LAB - URINE ORDERABL ES LABORATORY [facility] [address] [facility] (no room number, 1st floor of clinic) [place] [address], [facility] [phone] * Hepatitis C antibody (09/22/2015 8:10 AM CDT) Hepatitis C Antibody Nonreactive Assay performance characteristics have not been established for newborns, infants, and children [facility] Blood specimen (specimen) 09/22/2015 8:10 AM CDT 09/22/2015 8:15 AM CDT Gauri Cortez MD LAB - BLOOD ORDERAB LES [facility] [address] [place] [address] * Sigmoidoscopy flexible (10/08/2012) Patient Reported ANESTHESIA ORDERABLE S * COLONOSCOPY (06/16/2008) 06/16/2008 Tyra Cardona MD PROCEDURES from Last 3 Months or Most Recently Relevant to Health Maintenance Care Teams Principal Security Architect Relationship Specialty Start Date End Date Gauri Cortez MD [address] [address] PCP - General Internal Medicine 08/07/13 Gauri Cortez MD [address] [address] Assigned PCP 09/30/18
--- OUTSIDE RECORDS SUMMARY | 2023-11-16 13:40 | XMS_ITS | Encounter Summary ---
Author Organization [place] Address [address] [facility] [place] [address] Care Team Providers Care Roughing Mill Operator Name Role Phone Gauri Cortez MD Primary Care Provider [phone] Filippo Vazquez PA-C Primary Care Provider Gauri Cortez MD Primary Care Provider [phone] Ines Aguilar APRN FRONT OFFICE DIRECTOR Unavailable Un available Lucero Perez APRN FRONT OFFICE DIRECTOR Unavailable + Gauri Cortez MD Unavailable [phone] Gauri oCrtez MD Unavailable [phone] Lucero Perez APRN FRONT OFFICE DIRECTOR Unavailable + Gauri Cortez MD Unavailable [phone] Sharif Mayer MD Unavailable [phone] Encounter Details Date Type Department Care Team (Late st Contact Info) Description 08/25/2012 MyC Medical Advice [facility] [address] [place] [address] Michael [place] Social History Tobacco [...] Out COVID-19 02/10/2020 02/10/2020 02/11/2020 5:33 PM HOME HEALTH CARE PROVIDER documented as of this encounter Care Teams Roughing Mill Operator Relationship Specialty Start Date End Date Gauri Cortez MD [address] [place] [address] PCP - General Internal Medicine 07/28/10 07/14/13 Filippo Vazquez PA-C [address] [place] [address] PCP - General Physician Healthcare Administrator - Medical 07/15/13 08/06/13 Gauri Cortez MD [address] [place] [address] PCP - General Internal Medicine 08/07/13 Ines Aguilar APRN FRONT OFFICE DIRECTOR PCP - Assigned PCP 02/11/18 04/07/18 Lucero Perez, PLANT GUIDE FRONT OFFICE DIRECTOR [address] [place] [address] PCP - Assigned PCP 12/31/17 02/10/18 Gauri Cortez MD [address] [place] [address] PCP - Assigned PCP 04/08/18 05/15/18 Gauri Cortez MD [address] [place] [address] Assigned PCP 04/08/18 08/11/18 Lucero Perez APRN FRONT OFFICE DIRECTOR [address] [place] [address] Assigned PCP 08/12/18 09/29/18 Gauri Cortez MD [address] [facility] [address] [place] [address] Assigned PCP 09/30/18 Sharif Mayer MD [address] [id number] [place] [address] Assigned Surgical Provider 04/30/22 11/02/23 documented as of this encounter
--- OUTSIDE RECORDS SUMMARY | 2023-11-16 13:40 | XMS_ITS | Encounter Summary ---
Author Organization [place] Address [address] [facility] [place] [address] Care Team Providers Care Shank Sander Name Role Phone Gauri Cortez MD Primary Care Provider Gauri Cortez MD Unavailable [phone] Sharif Mayer MD Unavailable Reason for Visit * Reason Comments Medication Refill Encounter Details Date Type Department Care Team (Late st Contact Info) Description 12/14/2021 [facility] [address] [place] [address] Gauri Cortez MD [address] [facility] [address] [place] [address] Medication Refill Social History Tobacco [...] 12/15/2021 11:12 AM CDT Prescription approved per [facility] Refill Protocol. documented in this encounter Plan of Treatment Not on file documented as of this encounter Visit Diagnoses Diagnosis Acquired hypothyroidism Unspecified hypothyroidism documented in this encounter Additional Health Concerns Assessment Noted Time PHQ-9 Depression Total Score: 2 07/13/19 11:30 AM CDT documented as of this encounter Care Teams Shank Sander Relationship Specialty Start Date End Date Gauri Cortez MD [address] [place] [address] PCP - General Internal Medicine 08/07/13 Gauri Cortez MD [address] [place], [place] [address] Assigned PCP 09/30/18 Sharif Mayer MD [id number] [place] [address] Assigned Surgical Provider 04/30/22 11/02/23 documented as of this encounter
--- OUTSIDE RECORDS SUMMARY | 2023-11-16 13:40 | XMS_ITS | Encounter Summary ---
Author Organization [place] Address [address] [place] [address] Care Team Providers Care Instructional Design Consultant Name Role Phone Gauri Cortez MD Primary Care Provider Gauri Cortez MD Unavailable [phone] Sharif Mayer MD Unavailable [phone] Reason for Visit * Reason Onset Date Comments Results 12/13/2018 dexa scan and re port mailed to Dr. Annie murcia #[id number] [place] [address] pn Encounter Details Date Type Department Care Team (Late st Contact Info) Description 12/13/2018 Telephone [facility] [address] [place] [address] Gauri Cortez MD [address] [place] [address] Results (dexa scan and report mailed to Dr. Annie murcia #[id number] [place] [address] pn) Social History Tobacco Use Types Packs/Day [...] scan and report mailed to Dr. Valencia [id number] [place] [address] pn documented in this encounter Plan of Treatment Not on file documented as of this encounter Visit Diagnoses Not on filedocumented in this encounter Additional Health Concerns Infection Onset Date Last Indicated Resolved Time Rule Out COVID-19 02/10/2020 02/10/2020 02/11/2020 5:33 PM MANAGER RESIDENTIAL Assessment Noted Time PHQ-9 Depression Total Score: 2 09/28/19 19 8:54 AM CDT documented as of this encounter Care Teams Instructional Design Consultant Relationship Specialty Start Date End Date Gauri Cortez MD [address] [facility] [address] [place] [address] PCP - General Internal Medicine 08/07/13 Gauri Cortez MD [address] [facility] [address] [place] [address] Assigned PCP 09/30/18 Sharif Mayer MD [id number] [place] [address] Assigned Surgical Provider 04/30/22 11/02/23 documented as of this encounter
--- OUTSIDE RECORDS SUMMARY | 2023-11-16 13:41 | XMS_ITS | Encounter Summary ---
Author Organization [place] Address [address] [place] [address]. [place] [address] Care Team Providers Care Stator Winder Name Role Phone Trya Cardona MD Primary Care Provider [phone] Gauri Cortez MD Primary Care Provider [phone] Filippo Vazquez PA-C Primary Care Provider Gauri Cortez MD Primary Care Provider [phone] Ines Aguilar ASSET PROTECTION MANAGER CIRCULATION ASSISTANT Unavailable Un available Lucero Perez ASSET PROTECTION MANAGER CIRCULATION ASSISTANT Unavailable + Gauri Cortez MD Unavailable [phone] Gauri Cortez MD Unavailable [phone] Lucero Perez ASSET PROTECTION MANAGER CIRCULATION ASSISTANT Unavailable + Gauri Cortez MD Unavailable Sharif Mayer MD Unavailable [phone] Encounter Details Date Type Department Care Team (Late st Contact Info) Description 05/26/2010 [facility] [address] [place] [phone] [place] [address] [facility] [place] [address] Social History Tobacco Use Types [...] Out COVID-19 02/10/2020 02/10/2020 02/11/2020 5:33 PM ANTENNA ENGINEER documented as of this encounter Care Teams Stator Winder Relationship Specialty Start Date End Date Tyra Cardona MD PCP - General 10/27/03 07/27/10 Gauri Cortez MD [address] [place] [address] PCP - General Internal Medicine 07/28/10 07/14/13 Filippo Vazquez PA-C [address] [place] [address] PCP - General Physician Construction Estimator - Medical 07/15/13 08/06/13 Gauri Cortez MD [address] [place] [address] PCP - General Internal Medicine 08/07/13 Ines Aguilar APRN CIRCULATION ASSISTANT PCP - Assigned PCP 02/11/18 04/07/18 Lucero Perez APRN CIRCULATION ASSISTANT [address] [place] [address] PCP - Assigned PCP 12/31/17 02/10/18 Gauri Cortez MD [address] [place] [address] PCP - Assigned PCP 04/08/18 05/15/18 Gauri Cortez MD [address] [facility] [address] [place], [place] [address] Assigned PCP 04/08/18 08/11/18 Lucero Perez APRN [facility] [address] [place] [address] Assigned PCP 08/12/18 09/29/18 Gauri Cortez MD [address] [facility] [address] [place] [address] Assigned PCP 09/30/18 Sharif Mayer MD [id number] [place] [address] Assigned Surgical Provider 04/30/22 11/02/23 documented as of this encounter
--- OUTSIDE RECORDS SUMMARY | 2023-11-16 13:41 | XMS_ITS | Encounter Summary ---
Author Organization [place] Address [address] [facility] [place] [address] Care Team Providers Care Supervisor Cell Maintenance Name Role Phone Tyra Cardona MD Primary Care Provider [phone] Gauri Cortez MD Primary Care Provider [phone] Filippo Vazquez PA-C Primary Care Provider Gauri Cortez MD Primary Care Provider [phone] Ines Aguilar GAS PLANT REPAIRER DIRECTOR OF PEOPLE Unavailable Un available Lucero Perez GAS PLANT REPAIRER DIRECTOR OF PEOPLE Unavailable + Gauri Cortez MD Unavailable [phone] Gauri Cortez MD Unavailable [phone] Lucero Perez GAS PLANT REPAIRER DIRECTOR OF PEOPLE Unavailable + Gauri Cortez MD Unavailable Sharif Mayer MD Unavailable [phone] Encounter Details Date Type Department Care Team (Late st Contact Info) Description 05/24/2010 Office Visit-[facility] [place] [address] [facility] [address] [place] [phone] Judith Hua DO [address] [facility] [address] [place] [id number] (work) Social History Tobacco Use Types Packs/Day [...] old Referring Physician: TYRA CARDONA Referring Clinic: [facility] CURRENT DIAGNOSES 1. - Hyperlipidemia, 272.4 [...] lasttwo days. 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 - [employer] Residence - lives with ; Place of - [place]; Hours Worked - 40 hours per week; [...] Out COVID-19 02/10/2020 02/10/2020 02/11/2020 5:33 PM DIRECTOR STAGE documented as of this encounter Care Teams Supervisor Cell Maintenance Relationship Specialty Start Date End Date Tyra Cardona MD PCP - General 10/27/03 07/27/10 Gauri Cortez MD [address] [place] [address] PCP - General Internal Medicine 07/28/10 07/14/13 Filippo Vazquez PA-C [address] [place] [address] PCP - General Physician Rounding Machine Tender - Medical 07/15/13 08/06/13 Gauri Cortez MD [address] [place] [address] PCP - General Internal Medicine 08/07/13 Ines Aguilar APRN DIRECTOR OF PEOPLE PCP - Assigned PCP 02/11/18 04/07/18 Lucero Perez GAS PLANT REPAIRER DIRECTOR OF PEOPLE [address] [place] [address] PCP - Assigned PCP 12/31/17 02/10/18 Gauri Cortez MD [address] [facility] [address] [place] [address] PCP - Assigned PCP 04/08/18 05/15/18 Gauri Cortez MD [address] [facility] [address] [place] [address] Assigned PCP 04/08/18 08/11/18 Lucero Perez GAS PLANT REPAIRER DIRECTOR OF PEOPLE [address] [place] [address] Assigned PCP 08/12/18 09/29/18 Gauri Cortez MD [address] [place] [address] Assigned PCP 09/30/18 Sharif Mayer MD [address] [id number] [place] [address] Assigned Surgical Provider 04/30/22 11/02/23 documented as of this encounter
--- OUTSIDE RECORDS SUMMARY | 2023-11-16 13:41 | XMS_ITS | Encounter Summary ---
Author Organization [place] Address [address] [facility] [place] [address] Care Team Providers Care Alarm Technician Name Role Phone Tyra Cardona MD Primary Care Provider [phone] Gauri Cortez MD Primary Care Provider [phone] Filippo Vazquez PA-C Primary Care Provider Gauri Cortez MD Primary Care Provider [phone] Ines Aguilar HAND SPLITTER GENERAL FOUNDRY WORKER Unavailable Un available Lucero Perez HAND SPLITTER GENERAL FOUNDRY WORKER Unavailable + Gauri Cortez MD Unavailable [phone] Gauri Cortez MD Unavailable [phone] Lucero Perez HAND SPLITTER GENERAL FOUNDRY WORKER Unavailable + Gauri Cortez MD Unavailable [phone] Sharif Mayer MD Unavailable [phone] Encounter Details Date Type Department Care Team (Late st Contact Info) Description 05/03/2010 Office Visit-[facility] [place] [address] [facility] [address] [place] [phone] Judith Hua DO [address] [facility] [address] [place] [address] (work) Social History Tobacco Use Types Packs/Day [...] old Referring Physician: TYRA CARDONA Referring Clinic: [facility] CURRENT DIAGNOSES 1. 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 She lives in [place]. She may haveboth of these tests performed at the [facility] and follow up in that facility as [...] Holter Monitor Today-palpitations 3. F/U with Any INTELLIGENCE SPECIALIST 4-7 days-[facility] documented in this encounter Plan of Treatment Not on file documented as of this encounter Visit Diagnoses Not on filedocumented in this encounter Additional Health Concerns Infection Onset Date Last Indicated Resolved Time Rule Out COVID-19 02/10/2020 02/10/2020 02/11/2020 5:33 PM WAGE AND SALARY ADMINISTRATOR documented as of this encounter Care Teams Alarm Technician Relationship Specialty Start Date End Date Tyra Cardona MD PCP - General 10/27/03 07/27/10 Gauri Cortez MD [address] [address] PCP - General Internal Medicine 07/28/10 07/14/13 Filippo Vazquez PA-C [address] [place] [address] PCP - General Physician Trolley Collector - Medical 07/15/13 08/06/13 Gauri Cortez MD [address] [place] [address] PCP - General Internal Medicine 08/07/13 Ines Aguilar, HAND SPLITTER GENERAL FOUNDRY WORKER PCP - Assigned PCP 02/11/18 04/07/18 Lucero Perez, HAND SPLITTER GENERAL FOUNDRY WORKER [address] [place] [address] PCP - Assigned PCP 12/31/17 02/10/18 Gauri Cortez MD [address] [place] [address] PCP - Assigned PCP 04/08/18 05/15/18 Gauri Cortez MD [address] [place] [address] Assigned PCP 04/08/18 08/11/18 Lucero Perez HAND SPLITTER GENERAL FOUNDRY WORKER [address] [place] [address] Assigned PCP 08/12/18 09/29/18 Gauri Cortez MD [address] [place] [address] Assigned PCP 09/30/18 Sharif Mayer MD [address] [id number] [place] [address] Assigned Surgical Provider 04/30/22 11/02/23 documented as of this encounter
--- OUTSIDE RECORDS SUMMARY | 2023-11-16 13:41 | XMS_ITS | Encounter Summary ---
Author Organization [place] Address [address] [facility] [place] [address] Care Team Providers Care Otr Flatbed Driver Name Role Phone Tyra Cardona MD Primary Care Provider Gauri Cortez MD Primary Care Provider [phone] Filippo Vazquez PA-C Primary Care Provider Gauri Cortez MD Primary Care Provider [phone] Ines Aguilar SECONDARY SET UP MAN MATRIX DRIER TENDER Unavailable Un available Lucero Perez SECONDARY SET UP MAN MATRIX DRIER TENDER Unavailable + Gauri Cortez MD Unavailable [phone] Gauri Cortez MD Unavailable [phone] Lucero Perez SECONDARY SET UP MAN MATRIX DRIER TENDER Unavailable + Gauri Cortez MD Unavailable Sharif Mayer MD Unavailable [phone] Encounter Details Date Type Department Care Team (Late st Contact Info) Description 05/19/2010 [facility] [address] [place] [phone] Tyra Cardona MD [address] [place] [address] Social History Tobacco Use Types Packs/Day [...] Out COVID-19 02/10/2020 02/10/2020 02/11/2020 5:33 PM ARTIFACTS CONSERVATOR documented as of this encounter Care Teams Otr Flatbed Driver Relationship Specialty Start Date End Date Tyra Cardona MD PCP - General 10/27/03 07/27/10 Gauri Cortez MD [address] [place] [address] PCP - General Internal Medicine 07/28/10 07/14/13 Filippo Vazquez PA-C [address] [place] [address] PCP - General Physician Soil Science Technical Officer - Medical 07/15/13 08/06/13 Gauri Cortez MD [address] [place] [address] PCP - General Internal Medicine 08/07/13 Ines Aguilar APRN MATRIX DRIER TENDER PCP - Assigned PCP 02/11/18 04/07/18 Lucero Perez APRN MATRIX DRIER TENDER [address] [place] [address] PCP - Assigned PCP 12/31/17 02/10/18 Gauri Cortez MD [address] [facility] [address] [place] [address] PCP - Assigned PCP 04/08/18 05/15/18 Gauri Cortez MD [address] [facility] [address] [place] [address] Assigned PCP 04/08/18 08/11/18 Lucero Perez APRN [facility] [address] [place] [address] Assigned PCP 08/12/18 09/29/18 Gauri Cortez MD [address] [facility] [address] [place] [address] Assigned PCP 09/30/18 Sharif Mayer MD [address] [id number] [place] [address] Assigned Surgical Provider 04/30/22 11/02/23 documented as of this encounter
--- OUTSIDE RECORDS SUMMARY | 2023-11-16 13:41 | XMS_ITS | Encounter Summary ---
Author Organization [place] Address [address] [facility] [place] [address] Care Team Providers Care Kennel Keeper Name Role Phone Tyra Cardona MD Primary Care Provider Gauri Cortez MD Primary Care Provider [phone] Filippo Vazquez PA-C Primary Care Provider Gauri Cortez MD Primary Care Provider [phone] Ines Aguilar PERSONAL CARE ATTENDANT AMERICAN INDIAN POLICY SPECIALIST Unavailable Un available Lucero Perez PERSONAL CARE ATTENDANT AMERICAN INDIAN POLICY SPECIALIST Unavailable + Gauri Cortez MD Unavailable [phone] Gauri Cortez MD Unavailable [phone] Lucero Perez PERSONAL CARE ATTENDANT AMERICAN INDIAN POLICY SPECIALIST Unavailable + Gauri Cortez MD Unavailable Sharif Mayer MD Unavailable [phone] Encounter Details Date Type Department Care Team (Late st Contact Info) Description 06/07/2010 [facility] [address] [place] [phone] Tyra Cardona MD [address] [place] [address] Social History Tobacco Use Types Packs/Day [...] Out COVID-19 02/10/2020 02/10/2020 02/11/2020 5:33 PM HAND BUNCH MAKER documented as of this encounter Care Teams Kennel Keeper Relationship Specialty Start Date End Date Tyra Cardona MD PCP - General 10/27/03 07/27/10 Gauri Cortez MD [address] [place] [address] PCP - General Internal Medicine 07/28/10 07/14/13 Filippo Vazquez PA-C [address] [place] [address] PCP - General Physician Ballistics Teacher - Medical 07/15/13 08/06/13 Gauri Cortez MD [address] [place] [address] PCP - General Internal Medicine 08/07/13 Ines Aguilar APRN AMERICAN INDIAN POLICY SPECIALIST PCP - Assigned PCP 02/11/18 04/07/18 Lucero Perez APRN AMERICAN INDIAN POLICY SPECIALIST [address] [place] [address] PCP - Assigned PCP 12/31/17 02/10/18 Gauri Cortez MD [address] [facility] [address] [place] [address] PCP - Assigned PCP 04/08/18 05/15/18 Gauri Cortez MD [address] [facility] [address] [place] [address] Assigned PCP 04/08/18 08/11/18 Lucero Perez APRN [facility] [address] [place] [address] Assigned PCP 08/12/18 09/29/18 Gauri Cortez MD [address] [facility] [address] [place] [address] Assigned PCP 09/30/18 Sharif Mayer MD [id number] [place] [address] Assigned Surgical Provider 04/30/22 11/02/23 documented as of this encounter
--- OUTSIDE RECORDS SUMMARY | 2023-11-16 13:41 | XMS_ITS | Encounter Summary ---
Author Organization [place] Address [facility] [place] [address] Care Team Providers Care Office Machine Service Supervisor Name Role Phone Tyra Cardona MD Primary Care Provider [phone] Gauri Cortez MD Primary Care Provider [phone] Filippo Vazquez PA-C Primary Care Provider Gauri Cortez MD Primary Care Provider [phone] Ines Aguilar ART EDUCATION PROFESSOR MICROWAVE OVEN ASSEMBLER Unavailable Un available Lucero Perez ART EDUCATION PROFESSOR MICROWAVE OVEN ASSEMBLER Unavailable + Gauri Cortez MD Unavailable [phone] Gauri Cortez MD Unavailable [phone] Lucero Perez ART EDUCATION PROFESSOR MICROWAVE OVEN ASSEMBLER Unavailable + Gauri Cortez MD Unavailable [phone] Sharif Mayer MD Unavailable [phone] Reason for Visit * Reason Onset Date Comments MyChart Communication 10/08/2009 Encounter Details Date Type Department Care Team (Latest Contact Info) Description 10/08/2009 MyC Medical Advice [facility] [address] [place] [phone] Tyra Cardona MD [address] [place] [address] MyChart Communication Social History Tobacco Use [...] Out COVID-19 02/10/2020 02/10/2020 02/11/2020 5:33 PM FUR FINISHER SEAMSTRESS documented as of this encounter Care Teams Office Machine Service Supervisor Relationship Specialty Start Date End Date Tyra Cardona MD PCP - General 10/27/03 07/27/10 Gauri Cortez MD [address] [place], [place] [address] PCP - General Internal Medicine 07/28/10 07/14/13 Filippo Vazquez PA-C [address] [place], [place] [address] PCP - General Physician Compressor Mechanic Bus - Medical 07/15/13 08/06/13 Gauri Cortez MD [address] [place], [place] [address] PCP - General Internal Medicine 08/07/13 Ines Aguilar APRN MICROWAVE OVEN ASSEMBLER PCP - Assigned PCP 02/11/18 04/07/18 Lucero Perez APRN MICROWAVE OVEN ASSEMBLER [address] [place] [address] PCP - Assigned PCP 12/31/17 02/10/18 Gauri Cortez MD [address] [facility] [address] [place] [address] PCP - Assigned PCP 04/08/18 05/15/18 Gauri Cortez MD [address] [facility] [address] [place] [address] Assigned PCP 04/08/18 08/11/18 Lucero Perez APRN [facility] [address] [place] [address] Assigned PCP 08/12/18 09/29/18 Gauri Cortez MD [address] [facility] [address] [place] [address] Assigned PCP 09/30/18 Sharif Mayer MD [address] [id number] [place] [address] Assigned Surgical Provider 04/30/22 11/02/23 documented as of this encounter
--- OUTSIDE RECORDS SUMMARY | 2023-11-16 13:41 | XMS_ITS | Encounter Summary ---
Author Organization [place] Address [address] [place] [address] Care Team Providers Care Talent Director Name Role Phone Tyra Cardona MD Primary Care Provider Gauri Cortez MD Primary Care Provider [phone] Filippo Vazquez PA-C Primary Care Provider Gauri Cortez MD Primary Care Provider [phone] Ines Aguilar RN LABOR DELIVERY NICKER Unavailable Un available Lucero Perez RN LABOR DELIVERY NICKER Unavailable + Gauri Cortez MD Unavailable [phone] Gauri Cortez MD Unavailable [phone] Lucero Perez RN LABOR DELIVERY NICKER Unavailable + Gauri Cortez MD Unavailable Sharif Mayer MD Unavailable [phone] Encounter Details Date Type Department Care Team (Late st Contact Info) Description 05/25/2010 [facility] [place] [address] [place] [address] Tyra Cardona MD [address] [place] [address] Social History Tobacco Use Types Packs/Day [...] Out COVID-19 02/10/2020 02/10/2020 02/11/2020 5:33 PM REPORTER documented as of this encounter Care Teams Talent Director Relationship Specialty Start Date End Date Tyra Cardona MD PCP - General 10/27/03 07/27/10 Gauri Cortez MD [address] [place] [address] PCP - General Internal Medicine 07/28/10 07/14/13 Filippo Vazquez PA-C [address] [place] [address] PCP - General Physician Chemical Mixer - Medical 07/15/13 08/06/13 Gauri Cortez MD [address] [place] [address] PCP - General Internal Medicine 08/07/13 Ines Aguilar APRN NICKER PCP - Assigned PCP 02/11/18 04/07/18 Lucero Perez APRN [place] [address] [place] [address] PCP - Assigned PCP 12/31/17 02/10/18 Gauri Cortez MD [address] [facility] [address] [place] [address] PCP - Assigned PCP 04/08/18 05/15/18 Gauri Cortez MD [address] [facility] [address] [place] [address] Assigned PCP 04/08/18 08/11/18 Lucero Perez APRN [facility] [address] [place] [address] Assigned PCP 08/12/18 09/29/18 Gauri Cortez MD [address] [facility] [address] [place] [address] Assigned PCP 09/30/18 Sharif Mayer MD [id number] [place] [address] Assigned Surgical Provider 04/30/22 11/02/23 documented as of this encounter
--- OUTSIDE RECORDS SUMMARY | 2023-11-16 13:41 | XMS_ITS | Encounter Summary ---
Author Organization [place] Address [address] [facility] [place] [address] Care Team Providers Care Ecologist Technician Name Role Phone Tyra Cardona MD Primary Care Provider [phone] Gauri Cortez MD Primary Care Provider [phone] Filippo Vazquez PA-C Primary Care Provider Gauri Cortez MD Primary Care Provider [phone] Ines Aguilar ORACLE PROGRAMMER DIE TURNER Unavailable Un available Lucero Perez ORACLE PROGRAMMER DIE TURNER Unavailable + Gauri Cortez MD Unavailable [phone] Gauri Cortez MD Unavailable [phone] Lucero Perez ORACLE PROGRAMMER DIE TURNER Unavailable + Gauri Cortez MD Unavailable Sharif Mayer MD Unavailable [phone] Encounter Details Date Type Department Care Team (Late st Contact Info) Description 04/03/2010 [facility] [address] [place] [phone] Tyra Cardona MD [address] [place] [address] Social History Tobacco Use Types Packs/Day [...] Out COVID-19 02/10/2020 02/10/2020 02/11/2020 5:33 PM NUMERICAL CONTROL OPERATOR documented as of this encounter Care Teams Ecologist Technician Relationship Specialty Start Date End Date Tyra Cardona MD PCP - General 10/27/03 07/27/10 Gauri Cortez MD [address] [place] [address] PCP - General Internal Medicine 07/28/10 07/14/13 Filippo Vazquez PA-C [address] [place] [address] PCP - General Physician Zipper Lining Folder - Medical 07/15/13 08/06/13 Gauri Cortez MD [address] [place] [address] PCP - General Internal Medicine 08/07/13 Ines Aguilar APRN DIE TURNER PCP - Assigned PCP 02/11/18 04/07/18 Lucero Perez APRN DIE TURNER [address] [place] [address] PCP - Assigned PCP 12/31/17 02/10/18 Gauri Cortez MD [address] [facility] [address] [place] [address] PCP - Assigned PCP 04/08/18 05/15/18 Gauri Cortez MD [address] [facility] [address] [place] [address] Assigned PCP 04/08/18 08/11/18 Lucero Perez APRN [facility] [address] [place] [address] Assigned PCP 08/12/18 09/29/18 Gauri Cortez MD [address] [facility] [address] [place] [address] Assigned PCP 09/30/18 Sharif Mayer MD [id number] [place] [address] Assigned Surgical Provider 04/30/22 11/02/23 documented as of this encounter
--- OUTSIDE RECORDS SUMMARY | 2023-11-16 13:41 | XMS_ITS | Encounter Summary ---
Author Organization [place] Address [address] [place] [address] Care Team Providers Care Die Welder Name Role Phone Tyra Jorge MD Primary Care Provider [phone] Gauri Cortez MD Primary Care Provider [phone] Filippo Vazquez PA-C Primary Care Provider Gauri Cortez MD Primary Care Provider [phone] Ines Aguilar TROUSSEAU CONSULTANT MOTOR PATROL OPERATOR Unavailable Un available Lucero Perez TROUSSEAU CONSULTANT MOTOR PATROL OPERATOR Unavailable + Gauri Cortez MD Unavailable [phone] Gauri Cortez MD Unavailable [phone] Lucero Perez TROUSSEAU CONSULTANT MOTOR PATROL OPERATOR Unavailable + Gauri Cortez MD Unavailable Sharif Mayer MD Unavailable [phone] Encounter Details Date Type Department Care Team (Late st Contact Info) Description 02/27/2006 Office Visit-[facility] [place] [address] [employer] [address] [place] [address] Ip, Carl Ulloa MD [address] [facility] [address] [place] [address] Social History Tobacco Use Types Packs/Day Years [...] - lives with ; Place of - [place]; Hours Worked - 40 hours per week; [...] Out COVID-19 02/10/2020 02/10/2020 02/11/2020 5:33 PM GRID MOLDER documented as of this encounter Care Teams Die Welder Relationship Specialty Start Date End Date Tyra Jorge MD PCP - General 10/27/03 07/27/10 Gauri Cortez MD [address] [place], [place] [address] PCP - General Internal Medicine 07/28/10 07/14/13 Filippo Vazquez PA-C [address] [place], [place] [address] PCP - General Physician Materials Supervisor - Medical 07/15/13 08/06/13 Gauri Cortez MD [address] [place], [place] [address] PCP - General Internal Medicine 08/07/13 Ines Aguilar, TROUSSEAU CONSULTANT MOTOR PATROL OPERATOR PCP - Assigned PCP 02/11/18 04/07/18 Lucero Perez, TROUSSEAU CONSULTANT MOTOR PATROL OPERATOR [address] [place] [address] PCP - Assigned PCP 12/31/17 02/10/18 Gauri Cortez MD [address] [place], [place] [address] PCP - Assigned PCP 04/08/18 05/15/18 Gauri Cortez MD [address] [place] [address] Assigned PCP 04/08/18 08/11/18 Lucero Perez APRN MOTOR PATROL OPERATOR [address] [place] [address] Assigned PCP 08/12/18 09/29/18 Gauri Cortez MD [address] [place] [address] Assigned PCP 09/30/18 Sharif Mayer MD [address] [place] [address] Assigned Surgical Provider 04/30/22 11/02/23 documented as of this encounter
--- OUTSIDE RECORDS SUMMARY | 2023-11-16 13:41 | XMS_ITS | Encounter Summary ---
Author Organization [place] Address [address] [facility] [place] [address] Care Team Providers Care Technology Consultant Name Role Phone Tyra Cardona MD Primary Care Provider [phone] Gauri Cortez MD Primary Care Provider [phone] Filippo Vazquez PA-C Primary Care Provider Gauri Cortez MD Primary Care Provider [phone] Ines Aguilar CORPORATE RESPONSIBILITY OFFICER BULK PLANT AGENT Unavailable Un available Lucero Perez CORPORATE RESPONSIBILITY OFFICER BULK PLANT AGENT Unavailable + Gauri Cortez MD Unavailable [phone] Gauri Cortez MD Unavailable [phone] Lucero Perez CORPORATE RESPONSIBILITY OFFICER BULK PLANT AGENT Unavailable + Gauri Cortez MD Unavailable [phone] Sharif Mayer MD Unavailable [phone] Encounter Details Date Type Department Care Team (Late st Contact Info) Description 10/24/2008 Office Visit-[facility] [address] [place] [address] Rangel Dumas MD Social History [...] Rangel Dumas M.D. DATE: 10/24/2008 JOCELYN STAUFFER [id number] DATE OF : 1955 AGE: [age] years old Referring Physician: TYRA CARDONA Referring Clinic: [facility] CURRENT DIAGNOSES 1. Palpitations, 785.1 2. Hypothyroidism, [...] - lives with ; Place of - [place]; HoursWorked - 40 hours per week; REVIEW [...] Out COVID-19 02/10/2020 02/10/2020 02/11/2020 5:33 PM REHABILITATION SERVICES COORDINATOR documented as of this encounter Care Teams Technology Consultant Relationship Specialty Start Date End Date Tyra Cardona MD PCP - General 10/27/03 07/27/10 Gauri Cortez MD [address] [address] PCP - General Internal Medicine 07/28/10 07/14/13 Filippo Vazquez PA-C [address] [place] [address] PCP - General Physician Blueprint Trimmer - Medical 07/15/13 08/06/13 Gauri Cortez MD [address] [place] [address] PCP - General Internal Medicine 08/07/13 Ines Aguilar, CORPORATE RESPONSIBILITY OFFICER BULK PLANT AGENT PCP - Assigned PCP 02/11/18 04/07/18 Lucero Perez CORPORATE RESPONSIBILITY OFFICER BULK PLANT AGENT [address] [place] [address] PCP - Assigned PCP 12/31/17 02/10/18 Gauri Cortez MD [address] [place] [address] PCP - Assigned PCP 04/08/18 05/15/18 Gauri Cortez MD [address] [place] [address] Assigned PCP 04/08/18 08/11/18 Lucero Perez, CORPORATE RESPONSIBILITY OFFICER BULK PLANT AGENT [address] [place] [address] Assigned PCP 08/12/18 09/29/18 Gauri Cortez MD [address] [place] [address] Assigned PCP 09/30/18 Sharif Mayer MD [address] [place] [address] [place] [address] Assigned Surgical Provider 04/30/22 11/02/23 documented as of this encounter
--- OUTSIDE RECORDS SUMMARY | 2023-11-16 13:41 | XMS_ITS | Encounter Summary ---
Author Organization [place] Address [address] [facility] [place] [address] Care Team Providers Care Scale Installer Name Role Phone Tyra Cardona MD Primary Care Provider [phone] Gauri Cortez MD Primary Care Provider [phone] Filippo Vazquez PA-C Primary Care Provider Gauri Cortez MD Primary Care Provider [phone] Ines Aguilar SUPERVISOR BAKING WATCH DIAL MAKER Unavailable Un available Lucero Perez SUPERVISOR BAKING WATCH DIAL MAKER Unavailable + Gauri Cortez MD Unavailable [phone] Gauri Cortez MD Unavailable [phone] Lucero Perez SUPERVISOR BAKING WATCH DIAL MAKER Unavailable + Gauri Cortez MD Unavailable [phone] Sharif Mayer MD Unavailable [phone] Encounter Details Date Type Department Care Team [...] Out COVID-19 02/10/2020 02/10/2020 02/11/2020 5:33 PM PARLIAMENTARY COUNSEL documented as of this encounter Care Teams Scale Installer Relationship Specialty Start Date End Date Tyra Cardona MD PCP - General 10/27/03 07/27/10 Gauri Cortez MD [address] [place] [address] PCP - General Internal Medicine 07/28/10 07/14/13 Filippo Vazquez PA-C [address] [place] [address] PCP - General Physician Manager In Training - Medical 07/15/13 08/06/13 Gauri Cortez MD [address] [place] [address] PCP - General Internal Medicine 08/07/13 Ines Aguilar, SUPERVISOR BAKING WATCH DIAL MAKER PCP - Assigned PCP 02/11/18 04/07/18 Lucero Perez, SUPERVISOR BAKING WATCH DIAL MAKER [address] [address] [address] PCP - Assigned PCP 12/31/17 02/10/18 Gauri Cortez MD [address] [place] [address] PCP - Assigned PCP 04/08/18 05/15/18 Gauri Cortez MD [address] [facility] 200 [place] [address] Assigned PCP 04/08/18 08/11/18 Lucero Perez APRN [facility] [address] [place] [address] Assigned PCP 08/12/18 09/29/18 Gauri Cortez MD [address] [facility] 200 [place] [address] Assigned PCP 09/30/18 Sharif Mayer MD [id number] [place] [address] Assigned Surgical Provider 04/30/22 11/02/23 documented as of this encounter
--- NOTE | 2023-11-16 14:00 | CRLHL7_ITS ---
For Patients: As a result of the Century Cures Act, medical imaging exams and procedure reports are released immediately into your electronic medical record. You may view this report before your referring provider. If you have questions, please contact your health care provider. Indication: Follow-up kidney mass Technique: CT Abdomen/Pelvis 84CC ISOVUE 370 AND WATER P.O. Please note that all CT scans at this facility use dose modulation, iterative reconstruction, and/or weight-based dosing when appropriate to reduce radiation dose to as low as reasonably achievable. Comparison: 11/15/2022 Findings: Linear areas of atelectasis/scarring noted in both lung bases. No pleural effusion. Focal fat deposition within the liver adjacent to the falciform ligament. Simple cyst noted centrally, as before. No suspicious intrahepatic mass. Adrenal glands are normal. Stones within the lower pole of the left kidney are similar. Subcentimeter cysts lower pole left kidney. No hydronephrosis or perinephric stranding. Hyperdense cyst anterior right kidney is similar measuring 1.1 cm. Gallbladder is nondistended. Spleen is not enlarged. Pancreas is unremarkable. No adenopathy. Bladder normal. No pelvic mass. Postop changes colectomy with right lower quadrant ileostomy. No dilated bowel loops, free air, free fluid or abscess. No inflammatory changes. Degenerative anterolisthesis of L4 on L5. Chronic deformity of the L3 superior endplate posteriorly. Impression: Stable benign cyst anterior right kidney. Stable benign cysts lower pole left kidney. No suspicious renal mass. Unchanged nonobstructing left renal calculi. Please note that all CT scans at this facility use dose modulation, iterative reconstruction, and/or weight-based dosing when appropriate to reduce radiation dose to as low as reasonably achievable. Dictated by Nikhil Stapleton MD @ 11/16/2023 3:45:27 PM (Electronically Signed)
== END 2023-11-16 13:33 | disposition home or self-care (01) ==
LOC: CT 13:33
PROVIDERS: PCP Family Medicine; Visit Provider Family Medicine
DX: N28.89 Other specified disorders of kidney and ureter (principal); N28.1 Cyst of kidney, acquired; N20.0 Calculus of kidney
CPT/HCPCS: 74177; Q9967

== ENCOUNTER 2023-11-30 14:53 | Outpatient (CLI) | payer MEDICARE, BC, SELFPAY ==
--- OUTSIDE RECORDS SUMMARY | 2023-11-30 14:56 | XMS_ITS | Encounter Summary ---
Author Organization [facility] Address [address] [place] [address] Care Team Providers Care Shampoo Person Name Role Phone Gauri Cortez MD Primary Care Provider [phone] Encounter Details Date Type Department Care Team (Latest Contact Info) Description 09/07/1998 Orders Only Presley Frost MD [address] [place], [place] [address] Social History Tobacco Use Types Packs/Day Years Used Date Smoking Tobacco: Never Assessed Sex and Gender Information Value Date Recorded Sex Assigned at Not on file Gender Identity Not on file Sexual Orientation Not on file documented as of this encounter Plan of Treatment Not on file documented as of this encounter Visit Diagnoses Not on filedocumented in this encounter Care Teams Shampoo Person Relationship Specialty Start Date End Date Gauri Cortez MD [address] [facility] 200 [place] [address] PCP - General Internal Medicine 04/29/13 documented as of this encounter
--- OUTSIDE RECORDS SUMMARY | 2023-11-30 14:56 | XMS_ITS | Encounter Summary ---
Author Organization [facility] Address [address] [place] [address] Care Team Providers Care Boathouse Keeper Name Role Phone Gauri Cortez MD Primary Care Provider [phone] Encounter Details Date Type Department Care Team (Latest Contact Info) Description 06/22/1998 Orders Only Gauri Cortez MD [address] [facility] [address] [place], [place] [address] Social History Tobacco Use Types Packs/Day Years Used Date Smoking Tobacco: Never Assessed Sex and Gender Information Value Date Recorded Sex Assigned at Not on file Gender Identity Not on file Sexual Orientation Not on file documented as of this encounter Plan of Treatment Not on file documented as of this encounter Visit Diagnoses Not on filedocumented in this encounter Care Teams Boathouse Keeper Relationship Specialty Start Date End Date Gauri Cortez MD [address] [place], [place] [address] PCP - General Internal Medicine 04/29/13 documented as of this encounter
--- OUTSIDE RECORDS SUMMARY | 2023-11-30 14:56 | XMS_ITS | Encounter Summary ---
Author Organization [facility] Address [address] [place] [address] Care Team Providers Care School Child Care Attendant Name Role Phone Gauri Cortez MD Primary Care Provider [phone] Encounter Details Date Type Department Care Team (Latest Contact Info) Description 09/10/1999 [place] [address] [place] [address] Social History Tobacco Use Types [...] on filedocumented in this encounter Care Teams School Child Care Attendant Relationship Specialty Start Date End Date Gauri Cortez MD [address] [facility] [address] [place], [place] [address] PCP - General Internal Medicine 04/29/13 documented as of this encounter
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
--- OUTSIDE RECORDS SUMMARY | 2023-11-30 14:56 | XMS_ITS | Encounter Summary ---
Author Organization [facility] Address [address] [place] [address] Care Team Providers Care Generation Engineering Technologist Name Role Phone Gauri Cortez MD Primary Care Provider [phone] Encounter Details Date Type Department Care Team (Latest Contact Info) Description 05/12/1999 Orders Only Gauri Cortez MD [address] [facility] [address] [place], [place] [address] Social History Tobacco Use Types Packs/Day Years Used Date Smoking Tobacco: Never Assessed Sex and Gender Information Value Date Recorded Sex Assigned at Not on file Gender Identity Not on file Sexual Orientation Not on file documented as of this encounter Plan of Treatment Not on file documented as of this encounter Visit Diagnoses Not on filedocumented in this encounter Care Teams Generation Engineering Technologist Relationship Specialty Start Date End Date Gauri Cortez MD [address] [facility] [address] [place], [place] [address] PCP - General Internal Medicine 04/29/13 documented as of this encounter
--- OUTSIDE RECORDS SUMMARY | 2023-11-30 14:56 | XMS_ITS | Encounter Summary ---
Author Organization [facility] Address [address] [place] [address] Care Team Providers Care Tool Specialist Name Role Phone Gauri Cortez MD Primary Care Provider [phone] Encounter Details Date Type Department Care Team (Latest Contact Info) Description 08/06/1999 Orders Only Gauri Cortez MD [address] [facility] [address] [place], [place] [address] Social History Tobacco Use Types Packs/Day Years Used Date Smoking Tobacco: Never Assessed Sex and Gender Information Value Date Recorded Sex Assigned at Not on file Gender Identity Not on file Sexual Orientation Not on file documented as of this encounter Plan of Treatment Not on file documented as of this encounter Visit Diagnoses Not on filedocumented in this encounter Care Teams Tool Specialist Relationship Specialty Start Date End Date Gauri Cortez MD [address] [facility] [address] [place], [place] [address] PCP - General Internal Medicine 04/29/13 documented as of this encounter
--- OUTSIDE RECORDS SUMMARY | 2023-11-30 14:56 | XMS_ITS | Clinical Summary ---
[facility] Organization [facility] Address [address] [place] [address] Care Team Providers Care Linux Network Administrator Name Role Phone Gauri Cortez MD Primary Care Provider [phone] Source Comments You are receiving this document [...] for each transition of care or referral. [facility] Allergies Active Allergy Reactions Criticality [...] admin time/site:1424 LW mfg:FRANK PHARMACEUT LW lot number:[id number] 2 06/26/2009 Active RABEprazole (AKA ACIPHEX) 20 [...] KIDNEY(aka KIDNEY STONE) Varicella 10/04/1996 Overview (12/11/2014): [facility] Immunizations Name Administration Dates Next Due Flu [...] T Respiratory Rate 20 04/25/2012 6:02 PM PARAMEDIC INSTRUCTOR Oxygen Saturation - - Inhaled Oxygen Concentration [...] Additional history exists COVID-19 Vaccine (3 - season) 2023 05/02/2020, 04/11/2020 Influenza (#1) 2023 12/23/2019, 01/11, 12/15/2015, Additional history exists Pneumococcal 65+ Yrs (3 - PPSV23 or PCV20) 04/17/2024 04/17/2019, 01/20/1994 RSV (1 - 1-dose 75+ series) 2029 HepA Aged Out 05/14/1999, 08/19/1998 No lo [...] 7:59 AM CDT) Cholesterol 160 <200 mg/dl [facility] Triglyceride 95 <200 mg/dl [facility] HDL 48 >35 mg/dl [facility] LDL, Calc. 93 mg/dl [facility] Hours Fasting 12 hours [facility] 06/26/2003 7:59 AM CDT 06/26/2003 8:00 AM CDT Gauri Cortez MD LAB_1 Performing Organization Address City/State/[facility] Co de Phone Number [facility] [address] [address] from Last 3 Months or Most Recently Relevant to Health Maintenance Care Teams Linux Network Administrator Relationship Specialty Start Date End Date Gauri Cortez MD [address] [facility] [address] [place], [place] [address] PCP - General Internal Medicine 04/29/13
--- OUTSIDE RECORDS SUMMARY | 2023-11-30 14:56 | XMS_ITS | Clinical Summary ---
Author Organization [facility] Address [place], [place] [address] Care Team Providers Care Community Product Specialist Name Role Phone Sharron Mckeon MD Primary Care Provider +1 [phone] Allergies Active Allergy Reactions Criticality Noted Date [...] face Oxycodone Nausea And Vomiting 07/06/2021 Tolerated Oliver in past Infliximab Tachycardia 10/19/2007 Red face, [...] by mouth once daily. 0 12/13/2022 Active abaloparatide (Tymlos) 80 mcg (3,120 mcg/1.56 mL) pnijIndications:post menopausal osteoporosis and high fracture risk Inject subcutaneous. Active atorvastatin (Lipitor) 40 mg tabletIndications:Hy perlipidemia, unspecified hyperlipidemia type Take 1 Tablet (40 mg) by mouth once daily. 90 Tablet 3 09/29/2023 Active atorvastatin (LIPITOR) 10 mg tablet Take by mouth once daily. Active metoprolol tartrate (LOPRESSOR) 25 mg tablet TAKE 0.5 TAB BY MOUTH 2X DAILY 11/10/2023 Active telmisartan (MICARDIS) 40 mg tabletIndications:Ch est pain, unspecified type Take 1 Tablet (40 mg) by mouth once daily. 11/21/2023 Active telmisartan (MICARDIS) 40 mg tablet Take 2 Tablets (80 mg) by mouth once daily. 09/28/2023 4 Discontinue d(*Medicati on adjustment) carvediloL (Coreg) 3.125 mg tabletIndications:HT N (hypertension) [...] 11/06/2023 4 Discontinue d(Reorder (E-cancel not sent)) metoprolol succinate (TOPROL XL) 25 mg Sustained-Release tabletIndications:HT N (hypertension) Take 0.5 Tablets (12.5 mg) by mouth once daily. 11/09/2023 4 Discontinue d(*Patient states no longer taking) Active Problems Problem Noted Date Diagnosed Date Spinal stenosis, lumbar region with neurogenic c laudication Encounters Date Type Department Care Team Description 11/21/2023 1:30 PM CDT Office Visit [facility] [address] [place] [address] Chel Carbajal MD light headedness (Pt. Complains of new on set headaches with some nausea.) 11/02/2023 Telephone [facility] [address] [facility] [address] [place], [place] [id number] Maia Cabrera MD Medication Management 10/26/2023 6:55 PM CDT - 10/26/2023 8:45 PM CDT Emergency [facility] Emergency Department [address] [place] [address] Ken De Leon MD Elevated blood pressure reading (Primary Dx) Discharge Disposition: Home Self Care 10/26/2023 Travel 10/26/2023 Telephone [facility] [address] [place] [address] Maia Cabrera MD Blood Pressure 10/11/2023 Telephone [facility] [address] [place] [address] Maia Cabrera MD Blood Pressure 09/29/2023 Refill [facility] [address] [place] [address] Maia Cabrera MD Refill Request 09/28/2023 10:30 AM CDT Office Visit [facility] at [address] [place] [address] Maia Cabrera MD Follow Up from Last 3 Months Family History Medical History Relation Name Comments Osteoarthritis Mother Relation Name Status Comments Father Mother Social History Tobacco Use Types Packs/Day Years Used Date Smoking Tobacco: Never Smokeless Tobacco: Never Alcohol Use Standard Drinks/Week Comments Not Currently 0 (1 standard drink = 0.6 oz pur e alcohol) because of [facility] Social Connections Answer Date Recorded Frequency of Communication with Friends and Fami ly Not on file 10/06/2022 Sex and Gender Information Value Date Recorded Sex Assigned at Not on file Gender Identity Not on file Sexual Orientation Not on file Obstetrics History Last Filed Vital Signs Vital Sign Reading Time Taken Comments Blood Pressure 118/77 11/21/2023 1:29 PM CDT Pulse 71 11/21/2023 1:29 PM CDT Temperature 36.9 ??C (98.5 ??F) 10/26/2023 5:53 PM CD T Respiratory Rate 16 10/26/2023 8:20 PM CDT Oxygen Saturation 97% 11/21/2023 1:29 PM CDT Inhaled Oxygen Concentration - - Weight 77.6 kg (171 lb) 11/21/2023 1:29 PM CDT Height 167.6 cm (5' 6) 10/26/2023 5:53 PM CDT Body Mass Index 27.6 10/26/2023 5:53 PM CDT Plan of Treatment Upcoming Encounters Date Type Department Care Team (Late st Contact Info) Description 12/11/2023 8:30 AM CDT [facility]ointment [facility] [address] [facility] [place] [address] 12/11/2023 9:30 AM CDT Appointment [address] [address] 12/11/2023 10:00 AM CDT Appointment [place] [address] [place] [address] Health Maintenance Due Date Last Done Comments [...] age 18+ 11/12/2023 11/11/2022 COVID-19 vaccine series ( season) 2023 12/20/2021, 07/16/2021, 11/30/2020, Additional history [...] For Patients: As a result of the 21st Century Cures Act, medical imagingexams and procedure reports [...] 11.0 thou/cu mm 10/26/2023 7:33 PM CDT [facility] RED BLOOD COUNT 4.17 4.00 - 5.20 mil/cu mm 10/26/2023 7:33 PM CDT [facility] HEMOGLOBIN 12.3 12.0 - 16.0 g/dL 10/26/2023 7:33 PM CDT [facility] HEMATOCRIT 37.5 33.0 - 51.0 % 10/26/2023 7:33 PM CDT [facility] MCV 90 80 - 100 fL 10/26/2023 7:33 PM CDT [facility] MCH 29.5 26.0 - 34.0 pg 10/26/2023 7:33 PM CDT [facility] MCHC 32.8 32.0 - 36.0 g/dL 10/26/2023 7:33 PM CDT [facility] RDW 12.8 11.5 - 15.5 % 10/26/2023 7:33 PM CDT [facility] PLATELET COUNT 207 140 - 440 thou/cu mm 10/26/2023 7:33 PM CDT [facility] MPV 9.9 6.5 - 11.0 fL 10/26/2023 7:33 PM CDT [facility] NRBC 0.0 % 10/26/2023 7:33 PM CDT [facility] ABS NRBC 0.0 thou /cu mm 10/26/2023 7:33 PM CDT [facility] Blood BLOOD SPECIMEN / Unknown Venipuncture / Unknown 10/26/2023 7:20 PM CDT 10/26/2023 7:26 PM CDT Kne De Leon MD HEMATOL OGY [facility] [address] [place] [id number], * (ABNORMAL) PRO-BNP (10/26/2023 7:20 PM CDT) PRO-BNP 297(H) <125 pg/mL 10/26/2023 8:11 PM CDT [facility] Blood BLOOD SPECIMEN / Unknown Venipuncture / Unknown 10/26/2023 7:20 PM CDT 10/26/2023 7:[address] [facility] - 10/26/2023 8:11 PM CDT The [...] Ken De Leon MD SEND OU [facility] [address] [place] [address], * (ABNORMAL) BASIC METABOLIC PANEL (10/26/2023 7:20 PM CDT) [facility] SODIUM 138 136 - 145 mmol/L 10/26/2023 8:08 PM CDT [facility] POTASSIUM 4.2 3.5 - 5.1 mmol/L 10/26/2023 8:08 PM CDT [facility] CHLORIDE 104 98 - 107 mmol/L 10/26/2023 8:08 PM T [facility] CO2,TOTAL 25 22 - 29 mmol/L 10/26/2023 8:08 PM T [facility] ANION GAP 9 5 - 18 10/26/2023 8:08 PM CDT [facility] GLUCOSE 103(H) 70 - 99 mg/dL 10/26/2023 8:08 PM CDT [facility] CALCIUM 10.2 8.8 - 10.2 mg/dL 10/26/2023 8:08 PM CDT [facility] BUN 18 8 - 23 mg/dL 10/26/2023 8:08 PM T [facility] CREATININE 1.04(H) 0.50 - 0.90 mg/dL 10/26/2023 8:08 PM CDT [facility] BUN/CREAT RATIO 17 10 - 20 8:08 PM CDT [facility] eGFR 58(L) >90 mL/min/1.7 3m2 10/26/2023 8:08 PM CDT [facility] Comment:As of 2021, eG FR [...] 7:26 PM CDT Ken De Leon MD FRIT BURNER [facility] [address] [place] [address], * EKG 12 LEAD (10/26/2023 5:52 PM CDT) Interpretation Normal sinus rhythm Biatrial enlargement Abnormal ECG T wave inversion in V2 BEYOND NOW Ventricular Rate 74 BPM BEYOND NOW Atrial Rate 74 BPM BEYOND NOW P-R Interval 184 ms BEYOND NOW QRS Duration 84 ms BEYOND NOW QT 402 ms BEYOND NOW QTc 446 ms BEYOND NOW P [place] 82 degrees BEYOND NOW R [place] 54 degrees BEYOND NOW T [place] 65 degrees BEYOND NOW 10/26/2023 5:52 PM CDT 10/27/2023 9:21 AM CDT Ken De Leon MD EKG ORD BEYOND NOW [place], [place] * XR DXA BONE DENSITY PERIPHERAL (07/18/2023) Anatomical Region Laterality Modality ARMS Other Zeeshan Pierre MD DEXA * LIPID PANEL (11/28/2022 8:37 AM CDT) CHOLESTEROL,TOTAL 145 100 - 199 mg/dL 11/28/2022 5:20 PM CDT [facility] Comment: Cholesterol, Total Reference Ranges Desirable <200 mg/dL Borderline 200-239 mg/dL High >=240 mg/dL TRIGLYCERIDES 120 <150 mg/dL 11/28/2022 5:20 PM CDT [facility] HDL CHOLESTEROL 57 >40 mg/dL 5:20 PM CDT [facility] NON-HDL CHOLESTEROL 88 <145 mg/dl 11/28/2022 5:20 PM CDT [facility] CHOL/HDL RATIO 2.54 <4.50 11/28/2022 5:20 PM CDT [facility] LDL CHOLESTEROL 64 <=130 mg/dL 11/28/2022 5:20 PM CDT [facility] VLDL CHOLESTEROL 24 <=30 mg/dL 11/28/2022 5:20 PM CDT [facility] PROVIDER ORDERED STATUS RANDOM 11/28/2022 5:20 PM CDT [facility] Blood BLOOD SPECIMEN / Unknown Venipuncture / Unknown 11/28/2022 8:37 AM CDT 11/28/2022 8:37 AM CDT Carlos Faria MD CHEMISTRY [facility] 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
--- OUTSIDE RECORDS SUMMARY | 2023-11-30 14:56 | XMS_ITS | Encounter Summary ---
Author Organization [facility] Address [address] [place] [address] Care Team Providers Care Licensed Weigher Name Role Phone Gauri Cortez MD Primary Care Provider +1 [phone] Encounter Details Date Type Department Care Team [...] on filedocumented in this encounter Care Teams Licensed Weigher Relationship Specialty Start Date End Date Gauri Cortez MD [address] [facility] [address] [place] [address] PCP - General Internal Medicine 04/29/13 documented as of this encounter
--- OUTSIDE RECORDS SUMMARY | 2023-11-30 14:56 | XMS_ITS | Encounter Summary ---
Author Organization [facility] Address [address] [place] [address] Care Team Providers Care Steam Engineer Name Role Phone Gauri Cortez MD Primary Care Provider [phone] [phone] Encounter Details Date Type Department Care Team (Latest Contact Info) Description 05/21/1999 Orders Only Gauri Cortez MD [address] [facility] [address] [place], [place] [address] Social History Tobacco Use Types Packs/Day Years Used Date Smoking Tobacco: Never Assessed Sex and Gender Information Value Date Recorded Sex Assigned at Not on file Gender Identity Not on file Sexual Orientation Not on file documented as of this encounter Plan of Treatment Not on file documented as of this encounter Visit Diagnoses Not on filedocumented in this encounter Care Teams Steam Engineer Relationship Specialty Start Date End Date Gauri Cortez MD [address] [facility] [address] [place], [place] [address] PCP - General Internal Medicine 04/29/13 documented as of this encounter
--- OUTSIDE RECORDS SUMMARY | 2023-11-30 14:56 | XMS_ITS | Encounter Summary ---
Author Organization [facility] Address [address] [place] [address] Care Team Providers Care Shearing Machine Tender Name Role Phone Gauri Cortez MD Primary Care Provider [phone] Encounter Details Date Type Department Care Team (Latest Contact Info) Description 12/31/1998 Orders Only Miranda Marinelli, DO [address] [place], [place] [phone] Social History Tobacco Use Types Packs/Day Years Used Date Smoking Tobacco: Never Assessed Sex and Gender Information Value Date Recorded Sex Assigned at Not on file Gender Identity Not on file Sexual Orientation Not on file documented as of this encounter Plan of Treatment Not on file documented as of this encounter Visit Diagnoses Not on filedocumented in this encounter Care Teams Shearing Machine Tender Relationship Specialty Start Date End Date Gauri Cortez MD [address] [facility] [address] [place] [address] PCP - General Internal Medicine 04/29/13 documented as of this encounter
--- OUTSIDE RECORDS SUMMARY | 2023-11-30 14:56 | XMS_ITS | Encounter Summary ---
Author Organization [facility] Address [address] [place] [address] Care Team Providers Care Felt Hat Mellowing Machine Operator Name Role Phone Gauri Cortez MD Primary Care Provider [phone] [phone] Encounter Details Date Type Department Care Team [...] on filedocumented in this encounter Care Teams Felt Hat Mellowing Machine Operator Relationship Specialty Start Date End Date Gauri Cortez MD [address] [facility] [address] [place] [address] PCP - General Internal Medicine 04/29/13 documented as of this encounter
--- OUTSIDE RECORDS SUMMARY | 2023-11-30 14:56 | XMS_ITS | Encounter Summary ---
Author Organization [facility] Address [address] [place] [address] Care Team Providers Care Online Marketing Analyst Name Role Phone Gauri Cortez MD Primary Care Provider +1 [phone] Encounter Details Date Type Department Care Team (Latest Contact Info) Description 09/28/1999 Orders Only Gauri Cortez MD [address] [facility] [address] [place], [place] [phone] Social History Tobacco Use Types Packs/Day Years Used Date Smoking Tobacco: Never Assessed Sex and Gender Information Value Date Recorded Sex Assigned at Not on file Gender Identity Not on file Sexual Orientation Not on file documented as of this encounter Plan of Treatment Not on file documented as of this encounter Visit Diagnoses Not on filedocumented in this encounter Care Teams Online Marketing Analyst Relationship Specialty Start Date End Date Gauri Cortez MD [address] [facility] [address] [place], [place] [address] PCP - General Internal Medicine 04/29/13 documented as of this encounter
--- OUTSIDE RECORDS SUMMARY | 2023-11-30 14:56 | XMS_ITS | Encounter Summary ---
Author Organization [facility] Address [address] [place] [address] Care Team Providers Care Immigration Investigator Name Role Phone Gauri Cortez MD Primary Care Provider +[phone] Encounter Details Date Type Department Care Team [...] on filedocumented in this encounter Care Teams Immigration Investigator Relationship Specialty Start Date End Date Gauri Cortez MD [address] [facility] [address] [place] [address] PCP - General Internal Medicine 04/29/13 documented as of this encounter
--- OUTSIDE RECORDS SUMMARY | 2023-11-30 14:56 | XMS_ITS | Encounter Summary ---
Author Organization [facility] Address [address] [place] [address] Care Team Providers Care School Leader Name Role Phone Gauri Cortez MD Primary Care Provider [phone] [phone] Encounter Details Date Type Department Care Team (Latest Contact Info) Description 07/16/1999 Orders Only Gauri Cortez MD [address] [facility] [address] [place], [place] [address] Social History Tobacco Use Types Packs/Day Years Used Date Smoking Tobacco: Never Assessed Sex and Gender Information Value Date Recorded Sex Assigned at Not on file Gender Identity Not on file Sexual Orientation Not on file documented as of this encounter Plan of Treatment Not on file documented as of this encounter Visit Diagnoses Not on filedocumented in this encounter Care Teams School Leader Relationship Specialty Start Date End Date Gauri Cortez MD [address] [facility] [address] [place], [place] [address] PCP - General Internal Medicine 04/29/13 documented as of this encounter
--- OUTSIDE RECORDS SUMMARY | 2023-11-30 14:56 | XMS_ITS | Encounter Summary ---
Author Organization [facility] Address [address] [place] [address] Care Team Providers Care Crude Oil Driver Name Role Phone Gauri Cortez MD Primary Care Provider [phone] Encounter Details Date Type Department Care Team (Latest Contact Info) Description 10/29/1999 Orders Only Gauri Cortez MD [address] [facility] [address] [place], [place] [phone] Social History Tobacco Use Types Packs/Day Years Used Date Smoking Tobacco: Never Assessed Sex and Gender Information Value Date Recorded Sex Assigned at Not on file Gender Identity Not on file Sexual Orientation Not on file documented as of this encounter Plan of Treatment Not on file documented as of this encounter Visit Diagnoses Not on filedocumented in this encounter Care Teams Crude Oil Driver Relationship Specialty Start Date End Date Gauri Cortez MD [address] [facility] [address] [place], [place] [address] PCP - General Internal Medicine 04/29/13 documented as of this encounter
--- OUTSIDE RECORDS SUMMARY | 2023-11-30 14:56 | XMS_ITS | Encounter Summary ---
Author Organization [facility] Address [address] [place] [address] Care Team Providers Care Needle Loom Operator Name Role Phone Gauri Cortez MD Primary Care Provider [phone] [phone] Encounter Details Date Type Department Care Team [...] on filedocumented in this encounter Care Teams Needle Loom Operator Relationship Specialty Start Date End Date Gauri Cortez MD [address] [facility] [address] [place] [address] PCP - General Internal Medicine 04/29/13 documented as of this encounter
--- OUTSIDE RECORDS SUMMARY | 2023-11-30 14:56 | XMS_ITS | Encounter Summary ---
Author Organization [facility] Address [address] [place] [address] Care Team Providers Care Nutrition Helper Name Role Phone Gauri Cortez MD Primary Care Provider +1 [phone] Encounter Details Date Type Department Care Team (Latest Contact Info) Description 10/18/1999 Orders Only Sharif Pierre MD [address] [facility] [place], [place] [phone] Social History Tobacco Use Types Packs/Day Years Used Date Smoking Tobacco: Never Assessed Sex and Gender Information Value Date Recorded Sex Assigned at Not on file Gender Identity Not on file Sexual Orientation Not on file documented as of this encounter Plan of Treatment Not on file documented as of this encounter Visit Diagnoses Not on filedocumented in this encounter Care Teams Nutrition Helper Relationship Specialty Start Date End Date Gauri Cortez MD [address] [facility] 200 [place] [address] PCP - General Internal Medicine 04/29/13 documented as of this encounter
--- OUTSIDE RECORDS SUMMARY | 2023-11-30 14:57 | XMS_ITS | Encounter Summary ---
Author Organization [facility] Address [address] [place] [address] Care Team Providers Care Javascript Developer Name Role Phone Gauri Cortez MD Primary Care Provider +[phone] Encounter Details Date Type Department Care Team [...] on filedocumented in this encounter Care Teams Javascript Developer Relationship Specialty Start Date End Date Gauri Cortez MD [address] [facility] 200 [place] [address] PCP - General Internal Medicine 04/29/13 documented as of this encounter
--- OUTSIDE RECORDS SUMMARY | 2023-11-30 14:57 | XMS_ITS | Encounter Summary ---
Author Organization [facility] Address [address] [place] [address] Care Team Providers Care Molder Vacuum Name Role Phone Gauri Cortez MD Primary Care Provider +1 [phone] Encounter Details Date Type Department Care Team (Latest Contact Info) Description 08/20/1996 Orders Only Gauri Cortez MD [address] [facility] [address] [place], [place] [address] Social History Tobacco Use Types Packs/Day Years Used Date Smoking Tobacco: Never Assessed Sex and Gender Information Value Date Recorded Sex Assigned at Not on file Gender Identity Not on file Sexual Orientation Not on file documented as of this encounter Plan of Treatment Not on file documented as of this encounter Visit Diagnoses Not on filedocumented in this encounter Care Teams Molder Vacuum Relationship Specialty Start Date End Date Gauri Cortez MD [address] [facility] [address] [place], [place] [address] PCP - General Internal Medicine 04/29/13 documented as of this encounter
--- OUTSIDE RECORDS SUMMARY | 2023-11-30 14:57 | XMS_ITS | Encounter Summary ---
Author Organization [facility] Address [address] [place] [address] Care Team Providers Care Marketing Operations Manager Name Role Phone Gauri Cortez MD Primary Care Provider +1 [phone] Encounter Details Date Type Department Care Team (Latest Contact Info) Description 01/27/1997 Orders Only Sharif Pierre MD [address] [facility], [place] [phone] Social History Tobacco Use Types Packs/Day Years Used Date Smoking Tobacco: Never Assessed Sex and Gender Information Value Date Recorded Sex Assigned at Not on file Gender Identity Not on file Sexual Orientation Not on file documented as of this encounter Plan of Treatment Not on file documented as of this encounter Visit Diagnoses Not on filedocumented in this encounter Care Teams Marketing Operations Manager Relationship Specialty Start Date End Date Gauri Cortez MD [address] [facility] [address] [place] [address] PCP - General Internal Medicine 04/29/13 documented as of this encounter
--- OUTSIDE RECORDS SUMMARY | 2023-11-30 14:57 | XMS_ITS | Encounter Summary ---
Author Organization [facility] Address [address] [place] [address] Care Team Providers Care Administrative Assistant Coordinator Name Role Phone Gauri Cortez MD Primary Care Provider +1 [phone] Encounter Details Date Type Department Care Team (Latest Contact Info) Description 09/24/1996 Orders Only Gauri Cortez MD [address] [facility] [address] [place], [place] [address] Social History Tobacco Use Types Packs/Day Years Used Date Smoking Tobacco: Never Assessed Sex and Gender Information Value Date Recorded Sex Assigned at Not on file Gender Identity Not on file Sexual Orientation Not on file documented as of this encounter Plan of Treatment Not on file documented as of this encounter Visit Diagnoses Not on filedocumented in this encounter Care Teams Administrative Assistant Coordinator Relationship Specialty Start Date End Date Gauri Cortez MD [address] [facility] [address] [place], [place] [address] PCP - General Internal Medicine 04/29/13 documented as of this encounter
--- OUTSIDE RECORDS SUMMARY | 2023-11-30 14:57 | XMS_ITS | Encounter Summary ---
Author Organization [facility] Address [address] [place] [address] Care Team Providers Care Field Administrative Assistant Name Role Phone Gauri Cortez MD Primary Care Provider +1 [phone] Encounter Details Date Type Department Care Team (Latest Contact Info) Description 12/16/1996 Orders Only Presley Frost MD [address] [place], [place] [address] Social History Tobacco Use Types Packs/Day Years Used Date Smoking Tobacco: Never Assessed Sex and Gender Information Value Date Recorded Sex Assigned at Not on file Gender Identity Not on file Sexual Orientation Not on file documented as of this encounter Plan of Treatment Not on file documented as of this encounter Visit Diagnoses Not on filedocumented in this encounter Care Teams Field Administrative Assistant Relationship Specialty Start Date End Date Gauri Cortez MD [address] [facility] 200 [place] [address] PCP - General Internal Medicine 04/29/13 documented as of this encounter
--- OUTSIDE RECORDS SUMMARY | 2023-11-30 14:57 | XMS_ITS | Encounter Summary ---
Author Organization [facility] Address [address] [place] [address] Care Team Providers Care Brine Tank Separator Operator Name Role Phone Gauri Cortez MD Primary Care Provider +1 [phone] Encounter Details Date Type Department Care Team (Latest Contact Info) Description 04/18/1997 Orders Only Gauri Cortez MD [address] [facility] 200 [place], [place] [address] Social History Tobacco Use Types Packs/Day Years Used Date Smoking Tobacco: Never Assessed Sex and Gender Information Value Date Recorded Sex Assigned at Not on file Gender Identity Not on file Sexual Orientation Not on file documented as of this encounter Plan of Treatment Not on file documented as of this encounter Visit Diagnoses Not on filedocumented in this encounter Care Teams Brine Tank Separator Operator Relationship Specialty Start Date End Date Gauri Cortez MD [address] [facility] [address] [place], [place] [address] PCP - General Internal Medicine 04/29/13 documented as of this encounter
--- OUTSIDE RECORDS SUMMARY | 2023-11-30 14:57 | XMS_ITS | Encounter Summary ---
Author Organization [facility] Address [address] [place] [address] Care Team Providers Care Knowledge Architect Name Role Phone Gauri Cortez MD Primary Care Provider +1 [phone] Encounter Details Date Type Department Care Team (Latest Contact Info) Description 01/17/1996 Orders Only Rob Mccollum MD [address] [place], [place] [id number] Social History Tobacco Use Types Packs/Day Years Used Date Smoking Tobacco: Never Assessed Sex and Gender Information Value Date Recorded Sex Assigned at Not on file Gender Identity Not on file Sexual Orientation Not on file documented as of this encounter Plan of Treatment Not on file documented as of this encounter Visit Diagnoses Not on filedocumented in this encounter Care Teams Knowledge Architect Relationship Specialty Start Date End Date Gauri Cortez MD [address] [facility] 200 [place], [place] [address] PCP - General Internal Medicine 04/29/13 documented as of this encounter
--- OUTSIDE RECORDS SUMMARY | 2023-11-30 14:57 | XMS_ITS | Encounter Summary ---
Author Organization [facility] Address [address] [place] [address] Care Team Providers Care Receiving Weigher Name Role Phone aGuri Cortez MD Primary Care Provider +1 [phone] Encounter Details Date Type Department Care Team (Latest Contact Info) Description 04/10/1996 Orders Only Gauri Cortez MD [address] [facility] 200 [place], [place] [address] Social History Tobacco Use Types Packs/Day Years Used Date Smoking Tobacco: Never Assessed Sex and Gender Information Value Date Recorded Sex Assigned at Not on file Gender Identity Not on file Sexual Orientation Not on file documented as of this encounter Plan of Treatment Not on file documented as of this encounter Visit Diagnoses Not on filedocumented in this encounter Care Teams Receiving Weigher Relationship Specialty Start Date End Date Gauri Cortez MD [address] [facility] 200 [place], [place] [address] PCP - General Internal Medicine 04/29/13 documented as of this encounter
--- OUTSIDE RECORDS SUMMARY | 2023-11-30 14:57 | XMS_ITS | Encounter Summary ---
Author Organization [facility] Address [address] [place] [address] Care Team Providers Care Feather Trimmer Name Role Phone Gauri Cortez MD Primary Care Provider +1 [phone] Encounter Details Date Type Department Care Team [...] on filedocumented in this encounter Care Teams Feather Trimmer Relationship Specialty Start Date End Date Gauri Cortez MD [address] [facility] 200 [place] [address] PCP - General Internal Medicine 04/29/13 documented as of this encounter
--- OUTSIDE RECORDS SUMMARY | 2023-11-30 14:57 | XMS_ITS | Encounter Summary ---
Author Organization [facility] Address [address] [place] [address] Care Team Providers Care On Air Talent Name Role Phone Gauri Cortez MD Primary Care Provider +1 [phone] Encounter Details Date Type Department Care Team [...] on filedocumented in this encounter Care Teams On Air Talent Relationship Specialty Start Date End Date Gauri Cortez MD [address] [facility] [address] [place] [address] PCP - General Internal Medicine 04/29/13 documented as of this encounter
--- OUTSIDE RECORDS SUMMARY | 2023-11-30 14:57 | XMS_ITS | Encounter Summary ---
Author Organization [facility] Address [address] [place] [address] Care Team Providers Care Engraving Plate Maker Name Role Phone Gauri Cortez MD Primary Care Provider +1 [phone] Encounter Details Date Type Department Care Team (Latest Contact Info) Description 06/24/1997 Orders Only Gauri Cortez MD [address] [facility] 200 [place], [place] [address] Social History Tobacco Use Types Packs/Day Years Used Date Smoking Tobacco: Never Assessed Sex and Gender Information Value Date Recorded Sex Assigned at Not on file Gender Identity Not on file Sexual Orientation Not on file documented as of this encounter Plan of Treatment Not on file documented as of this encounter Visit Diagnoses Not on filedocumented in this encounter Care Teams Engraving Plate Maker Relationship Specialty Start Date End Date Gauri Cortez MD [address] [facility] 200 [place], [place] [address] PCP - General Internal Medicine 04/29/13 documented as of this encounter
--- OUTSIDE RECORDS SUMMARY | 2023-11-30 14:57 | XMS_ITS | Encounter Summary ---
Author Organization [facility] Address [address] [place] [address] Care Team Providers Care Drier Tender Naphthalene Name Role Phone Gauri Cortez MD Primary Care Provider +1 [phone] Encounter Details Date Type Department Care Team (Latest Contact Info) Description 01/09/1996 Orders Only Uriel Laboy MD [address] [employer] [facility] [place], [place] [address] Social History Tobacco Use Types Packs/Day Years Used Date Smoking Tobacco: Never Assessed Sex and Gender Information Value Date Recorded Sex Assigned at Not on file Gender Identity Not on file Sexual Orientation Not on file documented as of this encounter Plan of Treatment Not on file documented as of this encounter Visit Diagnoses Not on filedocumented in this encounter Care Teams Drier Tender Naphthalene Relationship Specialty Start Date End Date Gauri Cortez MD [address] [facility] [address] [place] [address] PCP - General Internal Medicine 04/29/13 documented as of this encounter
--- OUTSIDE RECORDS SUMMARY | 2023-11-30 14:57 | XMS_ITS | Encounter Summary ---
Author Organization [facility] Address [address] [place] [address] Care Team Providers Care Rn Ent Name Role Phone Gauri Cortez MD Primary Care Provider +1 [phone] Encounter Details Date Type Department Care Team (Latest Contact Info) Description 04/22/1997 Orders Only Gauri Cortez MD [address] [facility] 200 [place], [place] [address] Social History Tobacco Use Types Packs/Day Years Used Date Smoking Tobacco: Never Assessed Sex and Gender Information Value Date Recorded Sex Assigned at Not on file Gender Identity Not on file Sexual Orientation Not on file documented as of this encounter Plan of Treatment Not on file documented as of this encounter Visit Diagnoses Not on filedocumented in this encounter Care Teams Rn Ent Relationship Specialty Start Date End Date Gauri Cortez MD [address] [facility] 200 [place], [place] [address] PCP - General Internal Medicine 04/29/13 documented as of this encounter
--- OUTSIDE RECORDS SUMMARY | 2023-11-30 14:57 | XMS_ITS | Encounter Summary ---
Author Organization [facility] Address [address] [place] [address] Care Team Providers Care Hospital Fellow Name Role Phone Gauri Cortez MD Primary Care Provider +1 [phone] Encounter Details Date Type Department Care Team [...] on filedocumented in this encounter Care Teams Hospital Fellow Relationship Specialty Start Date End Date Gauri Cortez MD [address] [facility] 200 [place] [address] PCP - General Internal Medicine 04/29/13 documented as of this encounter
--- OUTSIDE RECORDS SUMMARY | 2023-11-30 14:57 | XMS_ITS | Encounter Summary ---
Author Organization [facility] Address [address] [place] [address] Care Team Providers Care Outbound Sales Executive Name Role Phone Gauri Cortez MD Primary Care Provider +1 [phone] Encounter Details Date Type Department Care Team (Latest Contact Info) Description 08/28/1997 Orders Only Gauri Cortez MD [address] [facility] 200 [place], [place] [address] Social History Tobacco Use Types Packs/Day Years Used Date Smoking Tobacco: Never Assessed Sex and Gender Information Value Date Recorded Sex Assigned at Not on file Gender Identity Not on file Sexual Orientation Not on file documented as of this encounter Plan of Treatment Not on file documented as of this encounter Visit Diagnoses Not on filedocumented in this encounter Care Teams Outbound Sales Executive Relationship Specialty Start Date End Date Gauri Cortez MD [address] [facility] 200 [place], [place] [address] PCP - General Internal Medicine 04/29/13 documented as of this encounter
--- OUTSIDE RECORDS SUMMARY | 2023-11-30 14:57 | XMS_ITS | Encounter Summary ---
Author Organization [facility] Address [address] [place] [address] Care Team Providers Care Structural Steel Detailer Name Role Phone Gauri Cortez MD Primary Care Provider +1 [phone] Encounter Details Date Type Department Care Team (Latest Contact Info) Description 11/18/1997 Orders Only Gauri Cortez MD [address] [facility] [address] [place], [place] [address] Social History Tobacco Use Types Packs/Day Years Used Date Smoking Tobacco: Never Assessed Sex and Gender Information Value Date Recorded Sex Assigned at Not on file Gender Identity Not on file Sexual Orientation Not on file documented as of this encounter Plan of Treatment Not on file documented as of this encounter Visit Diagnoses Not on filedocumented in this encounter Care Teams Structural Steel Detailer Relationship Specialty Start Date End Date Gauri Cortez MD [address] [facility] [address] [place], [place] [address] PCP - General Internal Medicine 04/29/13 documented as of this encounter
--- OUTSIDE RECORDS SUMMARY | 2023-11-30 14:57 | XMS_ITS | Encounter Summary ---
Author Organization [facility] Address [address] [place] [address] Care Team Providers Care Head Wrestling Coach Name Role Phone Gauri Cortez MD Primary Care Provider +1 [phone] Encounter Details Date Type Department Care Team [...] on filedocumented in this encounter Care Teams Head Wrestling Coach Relationship Specialty Start Date End Date Gauri Cortez MD [address] [facility] 200 [place] [address] PCP - General Internal Medicine 04/29/13 documented as of this encounter
--- OUTSIDE RECORDS SUMMARY | 2023-11-30 14:57 | XMS_ITS | Encounter Summary ---
Author Organization [facility] Address [address] [place] [address] Care Team Providers Care Financial Institution Manager Name Role Phone Gauri Cortez MD Primary Care Provider +1 [phone] Encounter Details Date Type Department Care Team (Latest Contact Info) Description 06/12/1997 Orders Only Frank Scanlon [facility] [address] [facility], [address] Social History Tobacco Use Types [...] filedocumented in this encounter Care Teams Financial Institution Manager Relationship Specialty Start Date End Date Gauri Cortez MD [address] [facility] [address] [place] [address] PCP - General Internal Medicine 04/29/13 documented as of this encounter
--- OUTSIDE RECORDS SUMMARY | 2023-11-30 14:57 | XMS_ITS | Encounter Summary ---
Author Organization [facility] Address [address] [place] [address] Care Team Providers Care Clock Mechanic Name Role Phone Gauri Cortez MD Primary Care Provider +1 [phone] Encounter Details Date Type Department Care Team (Latest Contact Info) Description 10/04/1996 Orders Only Gauri Cortez MD [address] [facility] 200 [place], [place] [address] Social History Tobacco Use Types Packs/Day Years Used Date Smoking Tobacco: Never Assessed Sex and Gender Information Value Date Recorded Sex Assigned at Not on file Gender Identity Not on file Sexual Orientation Not on file documented as of this encounter Plan of Treatment Not on file documented as of this encounter Visit Diagnoses Not on filedocumented in this encounter Care Teams Clock Mechanic Relationship Specialty Start Date End Date Gauri Cortez MD [address] [facility] [address] [place], [place] [address] PCP - General Internal Medicine 04/29/13 documented as of this encounter
--- OUTSIDE RECORDS SUMMARY | 2023-11-30 14:57 | XMS_ITS | Encounter Summary ---
Author Organization [facility] Address [address] [place] [address] Care Team Providers Care Senior Project Engineer Name Role Phone Gauri Cortez MD Primary Care Provider +1 [phone] Encounter Details Date Type Department Care Team [...] filedocumented in this encounter Care Teams Senior Project Engineer Relationship Specialty Start Date End Date Gauri Cortez MD [address] [facility] 200 [place] [address] PCP - General Internal Medicine 04/29/13 documented as of this encounter
--- OUTSIDE RECORDS SUMMARY | 2023-11-30 14:57 | XMS_ITS | Encounter Summary ---
Author Organization [facility] Address [address] [place] [address] Care Team Providers Care Automotive Electrical Helper Name Role Phone Gauri Cortez MD Primary Care Provider +1 [phone] Encounter Details Date Type Department Care Team (Latest Contact Info) Description 11/01/1995 Orders Only Geraldine De Los Santos MD [address] [place] [id number] Social History Tobacco Use Types Packs/Day Years Used Date Smoking Tobacco: Never Assessed Sex and Gender Information Value Date Recorded Sex Assigned at Not on file Gender Identity Not on file Sexual Orientation Not on file documented as of this encounter Plan of Treatment Not on file documented as of this encounter Visit Diagnoses Not on filedocumented in this encounter Care Teams Automotive Electrical Helper Relationship Specialty Start Date End Date Gauri Cortez MD [address] [facility] [address] [place], [place] [address] PCP - General Internal Medicine 04/29/13 documented as of this encounter
--- OUTSIDE RECORDS SUMMARY | 2023-11-30 14:57 | XMS_ITS | Encounter Summary ---
Author Organization [facility] Address [address] [place] [address] Care Team Providers Care Sales Lead Generator Name Role Phone Gauri Cortez MD Primary Care Provider +1 [phone] Encounter Details Date Type Department Care Team (Latest Contact Info) Description 11/14/1996 Orders Only Gauri Cortez MD [address] [facility] [address] [place], [place] [address] Social History Tobacco Use Types Packs/Day Years Used Date Smoking Tobacco: Never Assessed Sex and Gender Information Value Date Recorded Sex Assigned at Not on file Gender Identity Not on file Sexual Orientation Not on file documented as of this encounter Plan of Treatment Not on file documented as of this encounter Visit Diagnoses Not on filedocumented in this encounter Care Teams Sales Lead Generator Relationship Specialty Start Date End Date Gauri Cortez MD [address] [facility] [address] [place], [place] [address] PCP - General Internal Medicine 04/29/13 documented as of this encounter
--- OUTSIDE RECORDS SUMMARY | 2023-11-30 14:57 | XMS_ITS | Encounter Summary ---
Author Organization [facility] Address [address] [place] [address] Care Team Providers Care Auto Battery Builder Name Role Phone Gauri Cortez MD Primary Care Provider +1 [phone] Encounter Details Date Type Department Care Team (Latest Contact Info) Description 02/23/1998 Orders Only Uriel Laboy MD [address] [facility] [place], [place] [address] Social History Tobacco Use Types Packs/Day Years Used Date Smoking Tobacco: Never Assessed Sex and Gender Information Value Date Recorded Sex Assigned at Not on file Gender Identity Not on file Sexual Orientation Not on file documented as of this encounter Plan of Treatment Not on file documented as of this encounter Visit Diagnoses Not on filedocumented in this encounter Care Teams Auto Battery Builder Relationship Specialty Start Date End Date Gauri Cortez MD [address] [facility] [address] [place] [address] PCP - General Internal Medicine 04/29/13 documented as of this encounter
--- OUTSIDE RECORDS SUMMARY | 2023-11-30 14:57 | XMS_ITS | Encounter Summary ---
Author Organization [facility] Address [address] [place] [address] Care Team Providers Care Hydraulic Technician Name Role Phone Gauri Cortez MD Primary Care Provider +1 [phone] Encounter Details Date Type Department Care Team (Latest Contact Info) Description 06/24/1996 Orders Only Sharif Pierre MD [address] [facility] [address] [place], [place] [id number] Social History Tobacco Use Types Packs/Day Years Used Date Smoking Tobacco: Never Assessed Sex and Gender Information Value Date Recorded Sex Assigned at Not on file Gender Identity Not on file Sexual Orientation Not on file documented as of this encounter Plan of Treatment Not on file documented as of this encounter Visit Diagnoses Not on filedocumented in this encounter Care Teams Hydraulic Technician Relationship Specialty Start Date End Date Gauri Cortez MD [address] [facility] 200 [place] [address] PCP - General Internal Medicine 04/29/13 documented as of this encounter
--- OUTSIDE RECORDS SUMMARY | 2023-11-30 14:57 | XMS_ITS | Encounter Summary ---
Author Organization [facility] Address [address] [place] [address] Care Team Providers Care Machining Associate Name Role Phone Gauri Cortez MD Primary Care Provider +1 [phone] Encounter Details Date Type Department Care Team (Latest Contact Info) Description 06/14/1996 Orders Only Gauri Cortez MD [address] [facility] [address] [place], [place] [address] Social History Tobacco Use Types Packs/Day Years Used Date Smoking Tobacco: Never Assessed Sex and Gender Information Value Date Recorded Sex Assigned at Not on file Gender Identity Not on file Sexual Orientation Not on file documented as of this encounter Plan of Treatment Not on file documented as of this encounter Visit Diagnoses Not on filedocumented in this encounter Care Teams Machining Associate Relationship Specialty Start Date End Date Gauri Cortez MD [address] [facility] [address] [place], [place] [address] PCP - General Internal Medicine 04/29/13 documented as of this encounter
--- OUTSIDE RECORDS SUMMARY | 2023-11-30 14:57 | XMS_ITS | Encounter Summary ---
Author Organization [facility] Address [address] [place] [address] Care Team Providers Care Inspector Machine Parts Name Role Phone Gauri Cortez MD Primary Care Provider +1 [phone] Encounter Details Date Type Department Care Team [...] on filedocumented in this encounter Care Teams Inspector Machine Parts Relationship Specialty Start Date End Date Gauri Cortez MD [address] [facility] 200 [place] [address] PCP - General Internal Medicine 04/29/13 documented as of this encounter
--- OUTSIDE RECORDS SUMMARY | 2023-11-30 14:57 | XMS_ITS | Encounter Summary ---
Author Organization [facility] Address [address] [place] [address] Care Team Providers Care Welding Process Specialist Name Role Phone Gauri Cortez MD Primary Care Provider +1 [phone] Encounter Details Date Type Department Care Team (Latest Contact Info) Description 06/05/1996 Orders Only Gauri Cortez MD [address] [facility] [address] [place], [place] [address] Social History Tobacco Use Types Packs/Day Years Used Date Smoking Tobacco: Never Assessed Sex and Gender Information Value Date Recorded Sex Assigned at Not on file Gender Identity Not on file Sexual Orientation Not on file documented as of this encounter Plan of Treatment Not on file documented as of this encounter Visit Diagnoses Not on filedocumented in this encounter Care Teams Welding Process Specialist Relationship Specialty Start Date End Date Gauri Cortez MD [address] [facility] [address] [place], [place] [address] PCP - General Internal Medicine 04/29/13 documented as of this encounter
--- OUTSIDE RECORDS SUMMARY | 2023-11-30 14:57 | XMS_ITS | Encounter Summary ---
Author Organization [facility] Address [address] [place] [address] Care Team Providers Care Graduate Assistant Name Role Phone Gauri Cortez MD Primary Care Provider +1 [phone] Encounter Details Date Type Department Care Team (Latest Contact Info) Description 12/13/1995 Orders Only Presley Frost MD [address] [place], [place] [address] Social History Tobacco Use Types Packs/Day Years Used Date Smoking Tobacco: Never Assessed Sex and Gender Information Value Date Recorded Sex Assigned at Not on file Gender Identity Not on file Sexual Orientation Not on file documented as of this encounter Plan of Treatment Not on file documented as of this encounter Visit Diagnoses Not on filedocumented in this encounter Care Teams Graduate Assistant Relationship Specialty Start Date End Date Gauri Cortez MD [address] [facility] 200 [place] [address] PCP - General Internal Medicine 04/29/13 documented as of this encounter
--- OUTSIDE RECORDS SUMMARY | 2023-11-30 14:57 | XMS_ITS | Encounter Summary ---
Author Organization [facility] Address [address] [place] [address] Care Team Providers Care Beer Still Runner Compounder Name Role Phone Gauri Cortez MD Primary Care Provider +1 [phone] Encounter Details Date Type Department Care Team (Latest Contact Info) Description 08/20/1997 Orders Only Presley Frost MD [address] [place], [place] [address] Social History Tobacco Use Types Packs/Day Years Used Date Smoking Tobacco: Never Assessed Sex and Gender Information Value Date Recorded Sex Assigned at Not on file Gender Identity Not on file Sexual Orientation Not on file documented as of this encounter Plan of Treatment Not on file documented as of this encounter Visit Diagnoses Not on filedocumented in this encounter Care Teams Beer Still Runner Compounder Relationship Specialty Start Date End Date Gauri Cortez MD [address] [facility] [address] [place] [address] PCP - General Internal Medicine 04/29/13 documented as of this encounter
--- OUTSIDE RECORDS SUMMARY | 2023-11-30 14:57 | XMS_ITS | Encounter Summary ---
Author Organization [facility] Address [address] [place] [address] Care Team Providers Care Oxygen Equipment Aide Name Role Phone Gauri Cortez MD Primary Care Provider +1 [phone] Encounter Details Date Type Department Care Team (Latest Contact Info) Description 07/09/1996 Orders Only Gauri Cortez MD [address] [facility] [address] [place], [place] [address] Social History Tobacco Use Types Packs/Day Years Used Date Smoking Tobacco: Never Assessed Sex and Gender Information Value Date Recorded Sex Assigned at Not on file Gender Identity Not on file Sexual Orientation Not on file documented as of this encounter Plan of Treatment Not on file documented as of this encounter Visit Diagnoses Not on filedocumented in this encounter Care Teams Oxygen Equipment Aide Relationship Specialty Start Date End Date Gauri Cortez MD [address] [facility] [address] [place], [place] [address] PCP - General Internal Medicine 04/29/13 documented as of this encounter
--- OUTSIDE RECORDS SUMMARY | 2023-11-30 14:57 | XMS_ITS | Encounter Summary ---
Author Organization [facility] Address [address] [place] [address] Care Team Providers Care Low Raw Sugar Cutter Name Role Phone Gauri Cortez MD Primary Care Provider +1 [phone] Encounter Details Date Type Department Care Team (Latest Contact Info) Description 01/01/1996 Orders Only Geraldine De Los Santos MD [address] [place] [id number] Social History Tobacco Use Types Packs/Day Years Used Date Smoking Tobacco: Never Assessed Sex and Gender Information Value Date Recorded Sex Assigned at Not on file Gender Identity Not on file Sexual Orientation Not on file documented as of this encounter Plan of Treatment Not on file documented as of this encounter Visit Diagnoses Not on filedocumented in this encounter Care Teams Low Raw Sugar Cutter Relationship Specialty Start Date End Date Gauri Cortez MD [address] [facility] [address] [place], [place] [address] PCP - General Internal Medicine 04/29/13 documented as of this encounter
--- OUTSIDE RECORDS SUMMARY | 2023-11-30 14:58 | XMS_ITS | Encounter Summary ---
Author Organization [facility] Address [address] [place] [address] Care Team Providers Care World Renowned Chef And Restaurant Owner Name Role Phone Gauri Cortez MD Primary Care Provider +1 [phone] Encounter Details Date Type Department Care Team (Latest Contact Info) Description 05/23/1994 Orders Only Loco Chavez MD [address] [place], [place] [id number] Social History Tobacco Use Types Packs/Day Years Used Date Smoking Tobacco: Never Assessed Sex and Gender Information Value Date Recorded Sex Assigned at Not on file Gender Identity Not on file Sexual Orientation Not on file documented as of this encounter Plan of Treatment Not on file documented as of this encounter Visit Diagnoses Not on filedocumented in this encounter Care Teams World Renowned Chef And Restaurant Owner Relationship Specialty Start Date End Date Gauri Cortez MD [address] [facility] [address] [place] [address] PCP - General Internal Medicine 04/29/13 documented as of this encounter
--- OUTSIDE RECORDS SUMMARY | 2023-11-30 14:58 | XMS_ITS | Encounter Summary ---
Author Organization [facility] Address [address] [place] [address] Care Team Providers Care Unhairer Name Role Phone Gauri Cortez MD Primary Care Provider +1 [phone] Encounter Details Date Type Department Care Team [...] on filedocumented in this encounter Care Teams Unhairer Relationship Specialty Start Date End Date Gauri Cortez MD [address] [facility] [address] [place] [address] PCP - General Internal Medicine 04/29/13 documented as of this encounter
--- OUTSIDE RECORDS SUMMARY | 2023-11-30 14:58 | XMS_ITS | Encounter Summary ---
Author Organization [facility] Address [address] [place] [address] Care Team Providers Care Sex Crimes Detective Name Role Phone Gauri Cortez MD Primary Care Provider +1 [phone] Encounter Details Date Type Department Care Team (Latest Contact Info) Description 07/26/1994 Orders Only Gauri Cortez MD [address] [facility] [address] [place], [place] [address] Social History Tobacco Use Types Packs/Day Years Used Date Smoking Tobacco: Never Assessed Sex and Gender Information Value Date Recorded Sex Assigned at Not on file Gender Identity Not on file Sexual Orientation Not on file documented as of this encounter Plan of Treatment Not on file documented as of this encounter Visit Diagnoses Not on filedocumented in this encounter Care Teams Sex Crimes Detective Relationship Specialty Start Date End Date Gauri Cortez MD [address] [facility] [address] [place], [place] [address] PCP - General Internal Medicine 04/29/13 documented as of this encounter
--- OUTSIDE RECORDS SUMMARY | 2023-11-30 14:58 | XMS_ITS | Encounter Summary ---
Author Organization [facility] Address [address] [place] [address] Care Team Providers Care Spent Grain Dryer Name Role Phone Gauri Cortez MD Primary Care Provider [phone] Encounter Details Date Type Department Care Team (Latest Contact Info) Description 09/20/1993 Office Visit Ovidio Mitchell [address] [facility] [address] [place], [address] Social History Tobacco Use Types Packs/Day Years [...] on filedocumented in this encounter Care Teams Spent Grain Dryer Relationship Specialty Start Date End Date Gauri Cortez MD [address] [facility] [address] [place], [place] [address] PCP - General Internal Medicine 04/29/13 documented as of this encounter
--- OUTSIDE RECORDS SUMMARY | 2023-11-30 14:58 | XMS_ITS | Encounter Summary ---
Author Organization [facility] Address [address] [place] [address] Care Team Providers Care Counterintelligence Specialist Name Role Phone Gauri Cortez MD Primary Care Provider [phone] Encounter Details Date Type Department Care Team (Latest Contact Info) Description 02/08/1995 Orders Only Gauri Cortez MD [address] [facility] [address] [place], [place] [address] Social History Tobacco Use Types Packs/Day Years Used Date Smoking Tobacco: Never Assessed Sex and Gender Information Value Date Recorded Sex Assigned at Not on file Gender Identity Not on file Sexual Orientation Not on file documented as of this encounter Plan of Treatment Not on file documented as of this encounter Visit Diagnoses Not on filedocumented in this encounter Care Teams Counterintelligence Specialist Relationship Specialty Start Date End Date Gauri Cortez MD [address] [facility] [address] [place], [place] [address] PCP - General Internal Medicine 04/29/13 documented as of this encounter
--- OUTSIDE RECORDS SUMMARY | 2023-11-30 14:58 | XMS_ITS | Encounter Summary ---
Author Organization [facility] Address [address] [place] [address] Care Team Providers Care Gas Meter Prover Name Role Phone Gauri Cortez MD Primary Care Provider +1 [phone] Encounter Details Date Type Department Care Team (Latest Contact Info) Description 03/30/1994 Orders Only Gauri Cortez MD [address] [facility] [address] [place], [place] [address] Social History Tobacco Use Types Packs/Day Years Used Date Smoking Tobacco: Never Assessed Sex and Gender Information Value Date Recorded Sex Assigned at Not on file Gender Identity Not on file Sexual Orientation Not on file documented as of this encounter Plan of Treatment Not on file documented as of this encounter Visit Diagnoses Not on filedocumented in this encounter Care Teams Gas Meter Prover Relationship Specialty Start Date End Date Gauri Cortez MD [address] [facility] [address] [place], [place] [address] PCP - General Internal Medicine 04/29/13 documented as of this encounter
--- OUTSIDE RECORDS SUMMARY | 2023-11-30 14:58 | XMS_ITS | Encounter Summary ---
Author Organization [facility] Address [address] [place] [address] Care Team Providers Care Woodworker Helper Name Role Phone Gauri Cortez MD Primary Care Provider +1 [phone] Encounter Details Date Type Department Care Team (Latest Contact Info) Description 11/08/1994 Orders Only Gauri Cortez MD [address] [facility] 200 [place], [place] [address] Social History Tobacco Use Types Packs/Day Years Used Date Smoking Tobacco: Never Assessed Sex and Gender Information Value Date Recorded Sex Assigned at Not on file Gender Identity Not on file Sexual Orientation Not on file documented as of this encounter Plan of Treatment Not on file documented as of this encounter Visit Diagnoses Not on filedocumented in this encounter Care Teams Woodworker Helper Relationship Specialty Start Date End Date Gauri Cortez MD [address] [facility] [address] [place], [place] [address] PCP - General Internal Medicine 04/29/13 documented as of this encounter
--- OUTSIDE RECORDS SUMMARY | 2023-11-30 14:58 | XMS_ITS | Encounter Summary ---
Author Organization [facility] Address [address] [place] [address] Care Team Providers Care Physician Gynecologist Name Role Phone Gauri Cortez MD Primary Care Provider [phone] Encounter Details Date Type Department Care Team [...] on filedocumented in this encounter Care Teams Physician Gynecologist Relationship Specialty Start Date End Date Gauri Cortez MD [address] [facility] 200 [place] [address] PCP - General Internal Medicine 04/29/13 documented as of this encounter
--- OUTSIDE RECORDS SUMMARY | 2023-11-30 14:58 | XMS_ITS | Encounter Summary ---
Author Organization [facility] Address [address] [place] [address] Care Team Providers Care Supervisor Kosher Dietary Service Name Role Phone Gauri Cortez MD Primary Care Provider [phone] [phone] Encounter Details Date Type Department Care Team [...] filedocumented in this encounter Care Teams Supervisor Kosher Dietary Service Relationship Specialty Start Date End Date Gauri Cortez MD [address] [facility] [address] [place] [address] PCP - General Internal Medicine 04/29/13 documented as of this encounter
--- OUTSIDE RECORDS SUMMARY | 2023-11-30 14:58 | XMS_ITS | Encounter Summary ---
Author Organization [facility] Address [address] [place] [address] Care Team Providers Care Obgyn Nurse Name Role Phone Gauri Cortez MD Primary Care Provider [phone] Encounter Details Date Type Department Care Team (Latest Contact Info) Description 04/24/1995 Orders Only Presley Frost MD [address] [place], [place] [address] Social History Tobacco Use Types Packs/Day Years Used Date Smoking Tobacco: Never Assessed Sex and Gender Information Value Date Recorded Sex Assigned at Not on file Gender Identity Not on file Sexual Orientation Not on file documented as of this encounter Plan of Treatment Not on file documented as of this encounter Visit Diagnoses Not on filedocumented in this encounter Care Teams Obgyn Nurse Relationship Specialty Start Date End Date Gauri Cortez MD [address] [facility] [address] [place] [address] PCP - General Internal Medicine 04/29/13 documented as of this encounter
--- OUTSIDE RECORDS SUMMARY | 2023-11-30 14:58 | XMS_ITS | Encounter Summary ---
Author Organization [facility] Address [address] [place] [address] Care Team Providers Care Road Engineer Name Role Phone Gauri Cortez MD Primary Care Provider [phone] Encounter Details Date Type Department Care Team (Latest Contact Info) Description 06/09/1994 Orders Only Gauri Cortez MD [address] [facility] [address] [place], [place] [address] Social History Tobacco Use Types Packs/Day Years Used Date Smoking Tobacco: Never Assessed Sex and Gender Information Value Date Recorded Sex Assigned at Not on file Gender Identity Not on file Sexual Orientation Not on file documented as of this encounter Plan of Treatment Not on file documented as of this encounter Visit Diagnoses Not on filedocumented in this encounter Care Teams Road Engineer Relationship Specialty Start Date End Date Gauri Cortez MD [address] [facility] [address] [place], [place] [address] PCP - General Internal Medicine 04/29/13 documented as of this encounter
--- OUTSIDE RECORDS SUMMARY | 2023-11-30 14:58 | XMS_ITS | Encounter Summary ---
Author Organization [facility] Address [address] [place] [address] Care Team Providers Care Graffiti Cleaner Name Role Phone Gauri Cortez MD Primary Care Provider [phone] Encounter Details Date Type Department Care Team (Latest Contact Info) Description 01/19/1995 Orders Only Gauri Cortez MD [address] [facility] [address] [place], [place] [address] Social History Tobacco Use Types Packs/Day Years Used Date Smoking Tobacco: Never Assessed Sex and Gender Information Value Date Recorded Sex Assigned at Not on file Gender Identity Not on file Sexual Orientation Not on file documented as of this encounter Plan of Treatment Not on file documented as of this encounter Visit Diagnoses Not on filedocumented in this encounter Care Teams Graffiti Cleaner Relationship Specialty Start Date End Date Gauri Cortez MD [address] [facility] 200 [place], [place] [address] PCP - General Internal Medicine 04/29/13 documented as of this encounter
--- OUTSIDE RECORDS SUMMARY | 2023-11-30 14:58 | XMS_ITS | Encounter Summary ---
Author Organization [facility] Address [address] [place] [address] Care Team Providers Care Lightout Examiner Name Role Phone Gauri Cortez MD Primary Care Provider +[phone] Encounter Details Date Type Department Care Team (Latest Contact Info) Description 03/31/1994 Orders Only Gauri Cortez MD [address] [facility] 200 [place], [place] [address] Social History Tobacco Use Types Packs/Day Years Used Date Smoking Tobacco: Never Assessed Sex and Gender Information Value Date Recorded Sex Assigned at Not on file Gender Identity Not on file Sexual Orientation Not on file documented as of this encounter Plan of Treatment Not on file documented as of this encounter Visit Diagnoses Not on filedocumented in this encounter Care Teams Lightout Examiner Relationship Specialty Start Date End Date Gauri Cortez MD [address] [facility] [address] [place], [place] [address] PCP - General Internal Medicine 04/29/13 documented as of this encounter
--- OUTSIDE RECORDS SUMMARY | 2023-11-30 14:58 | XMS_ITS | Encounter Summary ---
Author Organization [facility] Address [address] [place] [address] Care Team Providers Care Psych Tech Name Role Phone Gauri Cortez MD Primary Care Provider [phone] Encounter Details Date Type Department Care Team (Latest Contact Info) Description 09/06/1995 Orders Only Rob Mccollum MD [address] [place] [address] Social History Tobacco Use Types Packs/Day Years Used Date Smoking Tobacco: Never Assessed Sex and Gender Information Value Date Recorded Sex Assigned at Not on file Gender Identity Not on file Sexual Orientation Not on file documented as of this encounter Plan of Treatment Not on file documented as of this encounter Visit Diagnoses Not on filedocumented in this encounter Care Teams Psych Tech Relationship Specialty Start Date End Date Gauri Cortez MD [address] [facility] 200 [place], [place] [address] PCP - General Internal Medicine 04/29/13 documented as of this encounter
--- OUTSIDE RECORDS SUMMARY | 2023-11-30 14:58 | XMS_ITS | Encounter Summary ---
Author Organization [facility] Address [address] [place] [address] Care Team Providers Care Production Trainer Name Role Phone Gauri Cortez MD Primary Care Provider +[phone] Encounter Details Date Type Department Care Team (Latest Contact Info) Description 04/22/1994 Orders Only Gauri Cortez MD [address] [facility] 200 [place], [place] [address] Social History Tobacco Use Types Packs/Day Years Used Date Smoking Tobacco: Never Assessed Sex and Gender Information Value Date Recorded Sex Assigned at Not on file Gender Identity Not on file Sexual Orientation Not on file documented as of this encounter Plan of Treatment Not on file documented as of this encounter Visit Diagnoses Not on filedocumented in this encounter Care Teams Production Trainer Relationship Specialty Start Date End Date Gauri Cortez MD [address] [facility] [address] [place], [place] [address] PCP - General Internal Medicine 04/29/13 documented as of this encounter
--- OUTSIDE RECORDS SUMMARY | 2023-11-30 14:58 | XMS_ITS | Encounter Summary ---
Author Organization [facility] Address [address] [place] [address] Care Team Providers Care Production Designer Name Role Phone Gauri Cortez MD Primary Care Provider +1 [phone] Encounter Details Date Type Department Care Team (Latest Contact Info) Description 09/29/1995 Orders Only Gauri Cortez MD [address] [facility] 200 [place], [place] [address] Social History Tobacco Use Types Packs/Day Years Used Date Smoking Tobacco: Never Assessed Sex and Gender Information Value Date Recorded Sex Assigned at Not on file Gender Identity Not on file Sexual Orientation Not on file documented as of this encounter Plan of Treatment Not on file documented as of this encounter Visit Diagnoses Not on filedocumented in this encounter Care Teams Production Designer Relationship Specialty Start Date End Date Gauri Cortez MD [address] [facility] [address] [place], [place] [address] PCP - General Internal Medicine 04/29/13 documented as of this encounter
--- OUTSIDE RECORDS SUMMARY | 2023-11-30 14:58 | XMS_ITS | Encounter Summary ---
Author Organization [facility] Address [address] [place] [address] Care Team Providers Care Hot Air Furnace Installer Repairer Name Role Phone Gauri Cortez MD Primary Care Provider +1 [phone] Encounter Details Date Type Department Care Team (Latest Contact Info) Description 04/02/1995 Orders Only Uriel Laboy MD [address] [facility] [address] [place], [place] [address] Social History Tobacco Use Types Packs/Day Years Used Date Smoking Tobacco: Never Assessed Sex and Gender Information Value Date Recorded Sex Assigned at Not on file Gender Identity Not on file Sexual Orientation Not on file documented as of this encounter Plan of Treatment Not on file documented as of this encounter Visit Diagnoses Not on filedocumented in this encounter Care Teams Hot Air Furnace Installer Repairer Relationship Specialty Start Date End Date Gauri Cortez MD [address] [facility] [address] [place] [address] PCP - General Internal Medicine 04/29/13 documented as of this encounter
--- OUTSIDE RECORDS SUMMARY | 2023-11-30 14:58 | XMS_ITS | Encounter Summary ---
Author Organization [facility] Address [address] [place] [address] Care Team Providers Care Oil Pump Station Operator Chief Name Role Phone Gauri Cortez MD Primary Care Provider +1 [phone] Encounter Details Date Type Department Care Team (Latest Contact Info) Description 06/29/1994 Orders Only Bret Hollis MD [address] [facility] [address] [place], [place] [address] Social History Tobacco Use Types Packs/Day Years Used Date Smoking Tobacco: Never Assessed Sex and Gender Information Value Date Recorded Sex Assigned at Not on file Gender Identity Not on file Sexual Orientation Not on file documented as of this encounter Plan of Treatment Not on file documented as of this encounter Visit Diagnoses Not on filedocumented in this encounter Care Teams Oil Pump Station Operator Chief Relationship Specialty Start Date End Date Gauri Cortez MD [address] [facility] [address] [place] [address] PCP - General Internal Medicine 04/29/13 documented as of this encounter
--- OUTSIDE RECORDS SUMMARY | 2023-11-30 14:58 | XMS_ITS | Encounter Summary ---
Author Organization [facility] Address [address] [place] [address] Care Team Providers Care Infantry Senior Sergeant Name Role Phone Gauri Cortez MD Primary Care Provider +1 [phone] Encounter Details Date Type Department Care Team (Latest Contact Info) Description 11/10/1994 Orders Only Gauri Cortez MD [address] [facility] 200 [place], [place] [address] Social History Tobacco Use Types Packs/Day Years Used Date Smoking Tobacco: Never Assessed Sex and Gender Information Value Date Recorded Sex Assigned at Not on file Gender Identity Not on file Sexual Orientation Not on file documented as of this encounter Plan of Treatment Not on file documented as of this encounter Visit Diagnoses Not on filedocumented in this encounter Care Teams Infantry Senior Sergeant Relationship Specialty Start Date End Date Gauri Cortez MD [address] [facility] [address] [place], [place] [address] PCP - General Internal Medicine 04/29/13 documented as of this encounter
--- OUTSIDE RECORDS SUMMARY | 2023-11-30 14:58 | XMS_ITS | Encounter Summary ---
Author [facility] Address [address] [place] [address] Care Team Providers Care Dip Unit Operator Name Role Phone Gauri Cortez MD Primary Care Provider +1 [phone] Encounter Details Date Type Department Care Team (Latest Contact Info) Description 06/15/1994 Orders Only Loco Chavez MD [address] [place], [place] [id number] Social History Tobacco Use Types Packs/Day Years Used Date Smoking Tobacco: Never Assessed Sex and Gender Information Value Date Recorded Sex Assigned at Not on file Gender Identity Not on file Sexual Orientation Not on file documented as of this encounter Plan of Treatment Not on file documented as of this encounter Visit Diagnoses Not on filedocumented in this encounter Care Teams Dip Unit Operator Relationship Specialty Start Date End Date Gauri Cortez MD [address] [facility] [address] [place] [address] PCP - General Internal Medicine 04/29/13 documented as of this encounter
--- OUTSIDE RECORDS SUMMARY | 2023-11-30 14:58 | XMS_ITS | Encounter Summary ---
Author Organization [facility] Address [address] [place] [address] Care Team Providers Care Cone Sewer Name Role Phone Gauri Cortez MD Primary Care Provider [phone] Encounter Details Date Type Department Care Team [...] on filedocumented in this encounter Care Teams Cone Sewer Relationship Specialty Start Date End Date Gauri Cortez MD [address] [facility] [address] [place] [address] PCP - General Internal Medicine 04/29/13 documented as of this encounter
--- OUTSIDE RECORDS SUMMARY | 2023-11-30 14:58 | XMS_ITS | Encounter Summary ---
Author Organization [facility] Address [address] [place] [address] Care Team Providers Care Hospice Social Worker Name Role Phone Gauri Cortez MD Primary Care Provider [phone] Encounter Details Date Type Department Care Team (Latest Contact Info) Description 09/03/1994 Orders Only Frank Scanlon [facility] [address] [facility], [address] Social History Tobacco Use [...] on filedocumented in this encounter Care Teams Hospice Social Worker Relationship Specialty Start Date End Date Gauri Cortez MD [address] [facility] [address] [place] [address] PCP - General Internal Medicine 04/29/13 documented as of this encounter
--- OUTSIDE RECORDS SUMMARY | 2023-11-30 14:58 | XMS_ITS | Encounter Summary ---
Author Organization [facility] Address [address] [place] [address] Care Team Providers Care Post Doc Fellowship Name Role Phone Gauri Cortez MD Primary Care Provider [phone] Encounter Details Date Type Department Care Team (Latest Contact Info) Description 06/10/1994 Orders Only Loco Chavez MD [address] [place], [place] [id number] Social History Tobacco Use Types Packs/Day Years Used Date Smoking Tobacco: Never Assessed Sex and Gender Information Value Date Recorded Sex Assigned at Not on file Gender Identity Not on file Sexual Orientation Not on file documented as of this encounter Plan of Treatment Not on file documented as of this encounter Visit Diagnoses Not on filedocumented in this encounter Care Teams Post Doc Fellowship Relationship Specialty Start Date End Date Gauri Cortez MD [address] [facility] [address] [place] [address] PCP - General Internal Medicine 04/29/13 documented as of this encounter
--- OUTSIDE RECORDS SUMMARY | 2023-11-30 14:59 | XMS_ITS | Encounter Summary ---
Author Organization [place] Address [address] [facility] [place] [address] Care Team Providers Care Legal Process Specialist Name Role Phone Gauri Cortez MD Primary Care Provider [phone] Filippo Vazquez PA-C Primary Care Provider Gauri Cortez MD Primary Care Provider [phone] Ines Aguilar APRN VEGETABLE INSPECTOR Unavailable Un available Lucero Perze APRN VEGETABLE INSPECTOR Unavailable + Gauri Cortez MD Unavailable [phone] Gauri Cortez MD Unavailable [phone] Lucero Perez APRN VEGETABLE INSPECTOR Unavailable + Gauri Cortez MD Unavailable [phone] Sharif Mayer MD Unavailable [phone] Encounter Details Date Type Department Care Team (Late st Contact Info) Description 07/17/2012 External Order Results [facility] [id number] [place] [address] [place] [address] [place] [address] Social History Tobacco Use Types [...] Out COVID-19 02/10/2020 02/10/2020 02/11/2020 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 documented as of this encounter Care Teams Legal Process Specialist Relationship Specialty Start Date End Date Gauri Cortez MD [address] [place] [address] PCP - General Internal Medicine 07/28/10 07/14/13 Filippo Vazquez PA-C [address] [place] [address] PCP - General Physician Telecommunications Network Engineer - Medical 07/15/13 08/06/13 Gauri Cortez MD [address] [place] [address] PCP - General Internal Medicine 08/07/13 Ines Aguilar, BRANCH SPECIALIST VEGETABLE INSPECTOR PCP - Assigned PCP 02/11/18 04/07/18 Lucero Perez, BRANCH SPECIALIST VEGETABLE INSPECTOR [address] [address] PCP - Assigned PCP 12/31/17 02/10/18 Gauri Cortez MD [address] [place] [address] PCP - Assigned PCP 04/08/18 05/15/18 Gauri Cortez MD [address] [facility] 200 [place] [address] Assigned PCP 04/08/18 08/11/18 Lucero Perez APRN [facility] [address] [place] [address] Assigned PCP 08/12/18 09/29/18 Gauri Cortez MD [address] [facility] 200 [place] [address] Assigned PCP 09/30/18 Sharif Mayer MD [id number] [place] [address] Assigned Surgical Provider 04/30/22 11/02/23 documented as of this encounter
--- OUTSIDE RECORDS SUMMARY | 2023-11-30 14:59 | XMS_ITS | Encounter Summary ---
Author Organization [place] Address [address] 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
--- OUTSIDE RECORDS SUMMARY | 2023-11-30 14:59 | XMS_ITS | Encounter Summary ---
Author Organization [place] Address [address] [place] [address] Care Team Providers Care Child Care Development Specialist Name Role Phone Gauri Cortez MD Primary Care Provider [phone] Gauri Cortez MD Unavailable [phone] Sharif Mayer MD Unavailable [phone] Reason for Visit * Reason Onset Date Comments Results 12/13/2018 dexa scan and re port mailed to Dr. Annie murcia #[id number] [place] [address] pn Encounter Details Date Type Department Care Team (Late st Contact Info) Description 12/13/2018 Telephone [facility] [address] [facility] [address] [place] [address] Gauri Cortez MD [address] [place] [address] Results (dexa scan and report mailed to Dr. Annie murcia #[id number] [place] [address] pn) Social History Tobacco Use Types Packs/Day [...] scan and report mailed to Dr. 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
--- OUTSIDE RECORDS SUMMARY | 2023-11-30 14:59 | XMS_ITS | Encounter Summary ---
Author Organization [place] Address [address] [facility] [place] [address] Care Team Providers Care Bingo Cashier Name Role Phone Gauri Cortez MD Primary Care Provider Gauri Cortez MD Unavailable Sharif Mayer MD Unavailable Reason for Visit * Reason Comments Medication Refill Encounter Details Date Type Department Care Team (Late st Contact Info) Description 02/27/2022 [facility] [address] [place] [address] Gauri Cortez MD [address] [facility] [address] [place] [address] Medication Refill Social History Tobacco [...] for review/approval because: Labs out of range: SSMENT COUNSELOR documented in this encounter Plan of Treatment Not on file documented as of this encounter Visit Diagnoses Diagnosis Essential hypertension, benign documented in this encounter Additional Health Concerns Assessment Noted Time PHQ-9 Depression Total Score: 2 07/13/19 11:30 AM CDT documented as of this encounter Care Teams Bingo Cashier Relationship Specialty Start Date End Date Gauri Cortez MD [address] [place] [address] PCP - General Internal Medicine 08/07/13 Gauri Cortez MD [address] [place] [address] Assigned PCP 09/30/18 Sharif Mayer MD [address] [place] [address] [place] [address] Assigned Surgical Provider 04/30/22 11/02/23 documented as of this encounter
--- OUTSIDE RECORDS SUMMARY | 2023-11-30 14:59 | XMS_ITS | Encounter Summary ---
Author Organization [place] Address [address] [facility] [place] [address] Care Team Providers Care Lodge Officer Name Role Phone Gauri Cortez MD Primary Care Provider Gauri Cortez MD Unavailable Sharif Mayer MD Unavailable [phone] Reason for Visit * Reason Comments Medication Refill Encounter Details Date Type Department Care Team (Late st Contact Info) Description 06/09/2022 [facility] [address] [place] [address] Gauri Cortez MD [address] [facility] [address] [place] [address] Medication Refill Social History Tobacco [...] 06/10/2022 2:57 PM CDT Prescription approved per [facility] Refill Protocol. documented in this encounter Plan of Treatment Not on file documented as of this encounter Visit Diagnoses Diagnosis Acquired hypothyroidism Unspecified hypothyroidism documented in this encounter Additional Health Concerns Assessment Noted Time PHQ-9 Depression Total Score: 2 07/13/19 22 11:30 AM CDT documented as of this encounter Care Teams Lodge Officer Relationship Specialty Start Date End Date Gauri Cortez MD [address] [place] [address] PCP - General Internal Medicine 08/07/13 Garui Cortez MD [address] [place], [place] [address] Assigned PCP 09/30/18 Sharif Mayer MD [id number] [place] [address] Assigned Surgical Provider 04/30/22 11/02/23 documented as of this encounter
--- OUTSIDE RECORDS SUMMARY | 2023-11-30 14:59 | XMS_ITS | Encounter Summary ---
Author Organization [place] Address [address] [facility] [place] [place] [address] Care Team Providers Care Nurse'S Aides Teacher Name Role Phone Gauri Cortez MD Primary Care Provider Gauri Cortez MD Unavailable [phone] Sharif Mayer MD Unavailable [phone] Encounter Details Date Type Department Care Team (Late st Contact Info) Description 04/12/2022 MyC Medical Advice [facility] [place] [address] [place] [address] Rox Simons Social History Tobacco [...] Coronavirus/COVID-19? 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 documented as of this encounter Plan of Treatment Not on file documented as of this encounter Visit Diagnoses Not on filedocumented in this encounter Additional Health Concerns Assessment Noted Time PHQ-9 Depression Total Score: 2 07/13/19 22 11:30 AM CDT documented as of this encounter Care Teams Nurse'S Aides Teacher Relationship Specialty Start Date End Date Gauri Cortez MD [address] [place] [address] PCP - General Internal Medicine 08/07/13 Gauri Cortez MD [address] [place], [place] [address] Assigned PCP 09/30/18 Sharif Mayer MD [id number] [place] [address] Assigned Surgical Provider 04/30/22 11/02/23 documented as of this encounter
--- OUTSIDE RECORDS SUMMARY | 2023-11-30 14:59 | XMS_ITS | Clinical Summary ---
Author Organization [place] Address [facility] [place] [address] Care Team Providers Care Service Advocate Contact Name Role Phone Gauri Cortez MD Primary Care Provider Gauri Cortez MD Unavailable [phone] Allergies Active Allergy Reactions Criticality Noted Date [...] (ASTELIN) 0.1 % nasal sprayIndications:Chron ic rhinitis [place] 1-2 sprays into both nostrils 2 times [...] 08/04/2010 08/28/2023 Overview: DX V65.8 REPLACED WITH [id number] HEALTH LONG-TERM (06/18/2012) Advanced directives, counseling/discussion 06/01/2010 08/28/2023 Overview: [...] Type Department Care Team Description 10/10/2023 Telephone [facility] [place] [address] [place] [address] [...] Comments Blood Pressure 112/70 04/18/2022 12:57 PM YARD INSPECTOR Pulse 78 04/18/2022 12:57 PM YARD INSPECTOR Temperature 36.1 ??C (96.9 ??F) 11/29/2021 8:03 AM CD T Respiratory Rate 16 04/18/2022 12:57 PM YARD INSPECTOR Oxygen Saturation 96% 04/18/2022 12:57 PM YARD INSPECTOR Inhaled Oxygen Concentration - - Weight 77.1 kg (170 lb) 04/18/2022 12:57 PM YARD INSPECTOR Pt reported Height 170.2 cm (5' 7) 04/18/2022 12:57 PM YARD INSPECTOR Pt reported Body Mass Index 26.63 04/18/2022 12:57 PM YARD INSPECTOR Plan of Treatment Health Maintenance Due Date Last Done Comments CT COLONOGRAPHY 1955 FIT 1955 sDNA (Cologuard) 1954 FLEX SIG 10/08/2017 10/08/2012, 12/13, 09/12/2006, Additional [...] 07/30/2021, 07/12/2021, Additional history exists COVID-19 Vaccine ( season) 2023 12/20/2021, 07/16/2021, 11/30/2020, Additional [...] 11/29/2021 , 07/01/2021, 11/24/2020, Additional history exists RSV VACCINE (1 - 1-dose 75+ series) 2029 DTAP/TDAP/TD IMMUNIZATION (3 - Td or Tdap) [...] PM CDT EXAM: DX AXIAL HIPS/SPINE LOCATION: [facility] DATE: 08/09/2023 INDICATION: BMD screening, follow-up. [...] - 08/09/2023 EXAM: DX AXIAL HIPS/SPINE LOCATION: [facility] DATE: 08/09/2023 INDICATION: BMD screening, follow-up. [...] LAB - URINE ORDERAB LES OX LABORATORY [facility] [address] Lab (no room number, 1st floor of clinic) [place] [address], [facility] [phone] * CBC with platelets and differential (11/29/2021 [...] LAB - BLOOD ORDERAB LES RI LABORATORY [facility] [address] [place] [address], [place] [phone] * TSH with free T4 reflex (11/29/2021 9:09 AM CDT) TSH 1.13 0.40 - 4.00 mU/L 11/30/2021 10:53 AM CDT OX LABORATORY Blood VENOUS BLOOD / Unknown Venipuncture / Unknown 11/29/2021 9:09 AM CDT 11/29/2021 9:09 AM CDT Gauri Cortez MD LAB - BLOOD ORDERAB LES OX LABORATORY [facility] [address] Lab (no room number, 1st floor of clinic) [place] [address], [place] [phone] * (ABNORMAL) Lipid Profile (Chol, Trig, HDL, [...] LAB - BLOOD ORDERAB LES OX LABORATORY [facility] [address] Lab (no room number, 1st floor of clinic) [place] [address], [facility] [phone] * (ABNORMAL) Comprehensive metabolic panel (BMP + [...] and gender (Becca et al., NEJM, DOI: 10.1056/[id number]) Blood VENOUS BLOOD / Unknown Venipuncture / Unknown 11/29/2021 9:09 AM CDT 11/29/2021 9:09 AM CDT Gauri Cortez MD LAB - BLOOD ORDERAB LES OX LABORATORY [facility] [address] Lab (no room number, 1st floor of clinic) [place] [address], [facility] [phone] * (ABNORMAL) UA macro with reflex to [...] 11/19/2021 4:47 PM CDT LV LABORATORY Specific [place] Urine 1.010 1.003 - 1.035 11/19/2021 4:47 [...] MD LAB - URINE ORDERABL ES LABORATORY [facility] [address] [facility] Lab (no room number, 1st floor of clinic) [place] [address], [facility] [phone] * Hepatitis C antibody (09/22/2015 8:10 AM CDT) Pathologist [facility] Hepatitis C Antibody Nonreactive Assay performance characteristics have not been established for newborns, infants, and children [facility] Blood specimen (specimen) 09/22/2015 8:10 AM CDT 09/22/2015 8:15 AM CDT Gauri Cortez MD LAB - BLOOD ORDERAB LES [facility] [address] [place] [address] * Sigmoidoscopy flexible (10/08/2012) Patient Reported ANESTHESIA ORDERABLE S * COLONOSCOPY (06/16/2008) 06/16/2008 Tyra Cardona MD PROCEDURES from Last 3 Months or Most Recently Relevant to Health Maintenance Care Teams Service Advocate Contact Relationship Specialty Start Date End Date Gauri Cortez MD [address] [facility] [address] [place], [place] [address] PCP - General Internal Medicine 08/07/13 Gauri Cortez MD [address] [facility] [address] [place] [address] Assigned PCP 09/30/18
--- OUTSIDE RECORDS SUMMARY | 2023-11-30 14:59 | XMS_ITS | Encounter Summary ---
Author Organization [place] Address [address] [facility] [place] [address] Care Team Providers Care Firmware Architect Name Role Phone Gauri Cortez MD Primary Care Provider Gauri Cortez MD Unavailable [phone] Sharif Mayer MD Unavailable Reason for Visit * Reason Comments Medication Refill Encounter Details Date Type Department Care Team (Late st Contact Info) Description 12/14/2021 [facility] [address] [place] [address] Gauri Cortez MD [address] [facility] [address] [place] [address] Medication Refill Social History Tobacco [...] 12/15/2021 11:12 AM CDT Prescription approved per [facility] Refill Protocol. documented in this encounter Plan of Treatment Not on file documented as of this encounter Visit Diagnoses Diagnosis Acquired hypothyroidism Unspecified hypothyroidism documented in this encounter Additional Health Concerns Assessment Noted Time PHQ-9 Depression Total Score: 2 07/13/19 11:30 AM CDT documented as of this encounter Care Teams Firmware Architect Relationship Specialty Start Date End Date Gauri Cortez MD [address] [place] [address] PCP - General Internal Medicine 08/07/13 Gauri Cortez MD [address] [place], [place] [address] Assigned PCP 09/30/18 Sharif Mayer MD [id number] [place] [address] Assigned Surgical Provider 04/30/22 11/02/23 documented as of this encounter
--- OUTSIDE RECORDS SUMMARY | 2023-11-30 14:59 | XMS_ITS | Encounter Summary ---
Author Organization [place] Address [address] [facility] [place] [address] Care Team Providers Care Ham Clerk Name Role Phone Gauri Cortez MD Primary Care Provider [phone] Filippo Vazquez PA-C Primary Care Provider Gauri Cortez MD Primary Care Provider [phone] Ines Aguilar APRN ADMINISTRATION MANAGER Unavailable Un available Lucero Perez APRN ADMINISTRATION MANAGER Unavailable + Gauri Cortez MD Unavailable [phone] Gauri Cortez MD Unavailable [phone] Lucero Perez APRN ADMINISTRATION MANAGER Unavailable + Gauri Cortez MD Unavailable [phone] Sharif Mayer MD Unavailable [phone] Encounter Details Date Type Department Care Team (Late st Contact Info) Description 08/25/2012 MyC Medical Advice [facility] [address] [place] [address] Michael Hawthorne Social History Tobacco [...] Out COVID-19 02/10/2020 02/10/2020 02/11/2020 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 documented as of this encounter Care Teams Ham Clerk Relationship Specialty Start Date End Date Gauri Cortez MD [address] [place] [address] PCP - General Internal Medicine 07/28/10 07/14/13 Filippo Vazquez PA-C [address] [place] [address] PCP - General Physician Structural Welder - Medical 07/15/13 08/06/13 Gauri Cortez MD [address] [place] [address] PCP - General Internal Medicine 08/07/13 Ines Aguilar APRN ADMINISTRATION MANAGER PCP - Assigned PCP 02/11/18 04/07/18 Lucero Perez, FRUIT PRESERVER ADMINISTRATION MANAGER [address] [place] [address] PCP - Assigned PCP 12/31/17 02/10/18 Gauri Cortez MD [address] [place] [address] PCP - Assigned PCP 04/08/18 05/15/18 Gauri Cortez MD [address] [place] [address] Assigned PCP 04/08/18 08/11/18 Lucero Perez APRN ADMINISTRATION MANAGER [address] [place] [address] Assigned PCP 08/12/18 09/29/18 Gauri Cortez MD [address] [facility] [address] [place] [address] Assigned PCP 09/30/18 Sharif Mayer MD [id number] [place] [address] Assigned Surgical Provider 04/30/22 11/02/23 documented as of this encounter
--- OUTSIDE RECORDS SUMMARY | 2023-11-30 14:59 | XMS_ITS | Encounter Summary ---
Author Organization [place] Address [address] [facility] [place] [address] Care Team Providers Care Certified Flex Endoscope Reprocessor Name Role Phone Gauri Cortez MD Primary Care Provider Gauri Cortez MD Unavailable [phone] Sharif Mayer MD Unavailable Reason for Visit * Reason Comments Medication Refill Encounter Details Date Type Department Care Team (Late st Contact Info) Description 09/03/[address] [place] [address] Sandra Coates APRN [facility] [address] [place] [address] Medication Refill Social History Tobacco [...] documented as of this encounter Care Teams Certified Flex Endoscope Reprocessor Relationship Specialty Start Date End Date Gauri Cortez MD [address] [place] [address] PCP - General Internal Medicine 08/07/13 Gauri Cortez MD [address] [place] [address] Assigned PCP 09/30/18 Sharif Mayer MD [id number] [place] [id number] Assigned Surgical Provider 04/30/22 11/02/23 documented as of this encounter
--- OUTSIDE RECORDS SUMMARY | 2023-11-30 14:59 | XMS_ITS | Encounter Summary ---
Author Organization [place] Address [address] [facility] [place] [address] Care Team Providers Care Sports Psychologist Name Role Phone Gauri Cortez MD Primary Care Provider [phone] Ines Aguilar FREIGHT CAR INSPECTOR PIE MAKER MACHINE Unavailable Un available Lucero Perez APRN PIE MAKER MACHINE Unavailable + Gauri Cortez MD Unavailable [phone] Gauri Cortez MD Unavailable Lucero Perez APRN PIE MAKER MACHINE Unavailable + Gauri Cortez MD Unavailable Sharif Mayer MD Unavailable [phone] Encounter Details Date Type Department Care Team (Late st Contact Info) Description 06/14/2017 [facility] [address] [place] [address] Nathalie Mtz RN Social History [...] Out COVID-19 02/10/2020 02/10/2020 02/11/2020 5:33 PM CARDIOLOGY FELLOW documented as of this encounter Care Teams Sports Psychologist Relationship Specialty Start Date End Date Gauri Cortez MD [address] [place] [address] PCP - General Internal Medicine 08/07/13 Ines Aguilar APRN PIE MAKER MACHINE PCP - Assigned PCP 02/11/18 04/07/18 Lucero Perez APRN PIE MAKER MACHINE [address] [place] [address] PCP - Assigned PCP 12/31/17 02/10/18 Gauri Cortez MD [address] [place] [address] PCP - Assigned PCP 04/08/18 05/15/18 Gauri Cortez MD [address] [place] [address] Assigned PCP 04/08/18 08/11/18 Lucero Perez APRN PIE MAKER MACHINE [address] [place] [address] Assigned PCP 08/12/18 09/29/18 Gauri Cortez MD [address] [place] [address] Assigned PCP 09/30/18 Sharif Mayer MD [id number] [place] [address] Assigned Surgical Provider 04/30/22 11/02/23 documented as of this encounter
--- OUTSIDE RECORDS SUMMARY | 2023-11-30 14:59 | XMS_ITS | Encounter Summary ---
Author Organization [place] Address [address] [facility] [place] [address] Care Team Providers Care Inventory Associate And Driver Name Role Phone Gauri Cortez MD Primary Care Provider Gauri Cortez MD Unavailable [phone] Sharif Mayer MD Unavailable [phone] Encounter Details Date Type Department Care Team (Late st Contact Info) Description 03/05/2019 [facility] [place] [address] [place] [address] Nathalie Mtz, REBA Social History [...] Out COVID-19 02/10/2020 02/10/2020 02/11/2020 5:33 PM LOFT WORKER Assessment Noted Time PHQ-9 Depression Total Score: 2 09/28/19 19 8:54 AM CDT documented as of this encounter Care Teams Inventory Associate And Driver Relationship Specialty Start Date End Date Gauri Cortez MD [address] [place] [address] PCP - General Internal Medicine 08/07/13 Gauri Cortez MD [address] [place] [address] Assigned PCP 09/30/18 Sharif Mayre MD [address] [place] [address] [place] [address] Assigned Surgical Provider 04/30/22 11/02/23 documented as of this encounter
--- OUTSIDE RECORDS SUMMARY | 2023-11-30 14:59 | XMS_ITS | Referral Summary ---
Author Organization [place] Address [address] [place] [address] Care Team Providers Care Emergency Vehicle Technician Name Role Phone Gauri Cortez MD Primary Care Provider Gauri Cortez MD Unavailable Encounters Date Type Department Care Team Description 10/10/2023 Telephone [facility] [address] [place] [address] 3, Ostomy Wound Room, RN [...] (ASTELIN) 0.1 % nasal sprayIndications:Chron ic rhinitis [place] 1-2 sprays into both nostrils 2 times [...] Nausea and vomiting 2012 09/06/19 13 Health Usp 08/04/2010 08/28/2023 Overview: DX V65.8 REPLACED WITH 47580 HEALTH CORRECTION (06/18/2012) Advanced directives, counseling/discussion 06/01/2010 08/28/2023 Overview: [...] Comments Blood Pressure 112/70 04/18/2022 12:57 PM SENIOR C DEVELOPER Pulse 78 04/18/2022 12:57 PM SENIOR C DEVELOPER Temperature 36.1 ??C (96.9 ??F) 11/29/2021 8:03 AM CD T Respiratory Rate 16 04/18/2022 12:57 PM SENIOR C DEVELOPER Oxygen Saturation 96% 04/18/2022 12:57 PM SENIOR C DEVELOPER Inhaled Oxygen Concentration - - Weight 77.1 kg (170 lb) 04/18/2022 12:57 PM SENIOR C DEVELOPER Pt reported Height 170.2 cm (5' 7) 04/18/2022 12:57 PM SENIOR C DEVELOPER Pt reported Body Mass Index 26.63 04/18/2022 12:57 PM SENIOR C DEVELOPER Plan of Treatment Not on file Procedures [...] PM CDT EXAM: DX AXIAL HIPS/SPINE LOCATION: [facility] DATE: 08/09/2023 INDICATION: BMD screening, [...] - 08/09/2023 EXAM: DX AXIAL HIPS/SPINE LOCATION: [facility] DATE: 08/09/2023 INDICATION: BMD screening, [...] LAB - URINE ORDERAB LES OX LABORATORY [facility] [address] Lab (no room number, 1st floor of clinic) [place] [address], [facility] [phone] * CBC with platelets and differential (11/29/2021 [...] LAB - BLOOD ORDERAB LES RI LABORATORY [facility] [address], [address] [place] [address], [facility] [phone] * TSH with free T4 reflex (11/29/2021 9:09 AM CDT) TSH 1.13 0.40 - 4.00 mU/L 11/30/2021 10:53 AM CDT OX LABORATORY Blood VENOUS BLOOD / Unknown Venipuncture / Unknown 11/29/2021 9:09 AM CDT 11/29/2021 9:09 AM CDT Gauri Cortez MD LAB - BLOOD ORDERAB LES OX LABORAT[facility] [address] Lab (no room number, 1st floor of clinic) [place] [address], [facility] [phone] * (ABNORMAL) Lipid Profile (Chol, Trig, HDL, [...] LAB - BLOOD ORDERAB LES OX LABORATORY [facility] [address] Lab (no room number, 1st floor of clinic) [place] [address], [facility] [phone] * (ABNORMAL) Comprehensive metabolic panel (BMP + [...] and gender (Becca et al., NEJM, DOI: 10.1056/[id number]) Blood VENOUS BLOOD / Unknown Venipuncture / Unknown 11/29/2021 9:09 AM CDT 11/29/2021 9:09 AM CDT Gauri Cortez MD LAB - BLOOD ORDERAB LES OX LABORATORY [facility] [address] Lab (no room number, 1st floor of clinic) [place] [address], [facility] [phone] * (ABNORMAL) UA macro with reflex to [...] 11/19/2021 4:47 PM CDT LV LABORATORY Specific [place] Urine 1.010 1.003 - 1.035 11/19/2021 4:47 [...] MD LAB - URINE ORDERABL ES LABORATORY [facility] [address] [facility] (no room number, 1st floor of clinic) [place] [address], [facility] [phone] * Hepatitis C antibody (09/22/2015 8:10 AM CDT) Hepatitis C Antibody Nonreactive Assay performance characteristics have not been established for newborns, infants, and children [facility] Blood specimen (specimen) 09/22/2015 8:10 AM CDT 09/22/2015 8:15 AM CDT Gauri Cortez MD LAB - BLOOD ORDERAB LES [facility] [address] [place] [address] * Sigmoidoscopy flexible (10/08/2012) Patient Reported ANESTHESIA ORDERABLE S * COLONOSCOPY (06/16/2008) 06/16/2008 Tyra Cardona MD PROCEDURES from Last 3 Months or Most Recently Relevant to Health Maintenance Care Teams Emergency Vehicle Technician Relationship Specialty Start Date End Date Gauri Cortez MD [address] [facility] [address] [place] [address] PCP - General Internal Medicine 08/07/13 Gauri Cortez MD [address] [facility] [address] [place] [address] Assigned PCP 09/30/18
--- OUTSIDE RECORDS SUMMARY | 2023-11-30 14:59 | XMS_ITS | Encounter Summary ---
Author Organization [place] Address [address] [place] [address] Care Team Providers Care Electronic Calibration Technician Name Role Phone Gauri Cortez MD Primary Care Provider Gauri Cortez MD Unavailable [phone] Sharif Mayer MD Unavailable Encounter Details Date Type Department Care Team (Late st Contact Info) Description 03/19/2022 MyC Medical Advice [facility] [address] [place] [address] Gauri Cortez MD [address] [place] [address] Social History Tobacco Use Types [...] documented as of this encounter Care Teams Electronic Calibration Technician Relationship Specialty Start Date End Date Gauri Cortez MD [address] [facility] [address] [place] [address] PCP - General Internal Medicine 08/07/13 Gauri Cortez MD [address] [facility] [address] [place] [address] Assigned PCP 09/30/18 Sharif Mayer MD [address] [place] [address] [place] [address] Assigned Surgical Provider 04/30/22 11/02/23 documented as of this encounter
--- OUTSIDE RECORDS SUMMARY | 2023-11-30 14:59 | XMS_ITS | Encounter Summary ---
Author Organization [place] Address [address] [facility] [place] [address] Care Team Providers Care Tuyere Fitter Name Role Phone Gauri Cortez MD Primary Care Provider Gauri Cortez MD Unavailable [phone] Sharif Mayer MD Unavailable [phone] Encounter Details Date Type Department Care Team (Late st Contact Info) Description 10/10/2023 Telephone [facility] [place] [address] [place] [address] 743, Ostomy Wound Room, RN [...] were answered. Diana LEONG Dept. Vocera- Contact [facility] Nurse (Molly) via Phormera Dept. Office Number: [phone] documented in this encounter Plan of Treatment Not on file documented as of this encounter Visit Diagnoses Not on filedocumented in this encounter Additional Health Concerns Assessment Noted Time PHQ-9 Depression Total Score: 2 07/13/19 22 11:30 AM CDT documented as of this encounter Care Teams Tuyere Fitter Relationship Specialty Start Date End Date Gauri Cortez MD [address] [address] PCP - General Internal Medicine 08/07/13 Gauri Cortez MD [address] [address] Assigned PCP 09/30/18 Sharif Mayer MD [address] [address] Assigned Surgical Provider 04/30/22 11/02/23 documented as of this encounter
--- OUTSIDE RECORDS SUMMARY | 2023-11-30 14:59 | XMS_ITS | Encounter Summary ---
Author Organization [place] Address [address] [place], [place] [address] [address] Care Team Providers Care Client Experience Manager Name Role Phone Gauri Cortez MD Primary Care Provider [phone] Gauri Cortez MD Unavailable [phone] Sharif Mayer MD Unavailable [phone] Encounter Details Date Type Department Care Team (Late st Contact Info) Description 07/22/2021 MyC Medical Advice [address] [phone] Dale Mcguire Social History Tobacco Use Types [...] documented as of this encounter Care Teams Client Experience Manager Relationship Specialty Start Date End Date Gauri Cortez MD [address] [place] [address] PCP - General Internal Medicine 08/07/13 Gauri Cortez MD [address] [place] [address] Assigned PCP 09/30/18 Sharif Mayer MD [id number] [place] [address] Assigned Surgical Provider 04/30/22 11/02/23 documented as of this encounter
--- NOTE | 2023-11-30 15:00 | CRLHL7_ITS ---
For Patients: As a result of the Century Cures Act, medical imaging exams and procedure reports are released immediately into your electronic medical record. You may view this report before your referring provider. If you have questions, please contact your health care provider. Indication: EMPHYSEMA Technique: Noncontrast CT chest Please note that all CT scans at this facility use dose modulation, iterative reconstruction, and/or weight-based dosing when appropriate to reduce radiation dose to as low as reasonably achievable. Comparison: CT abdomen 11/16/2023 Findings: 8.1 millimeter nodule left upper lobe, 06/10. Scarring at the left lung base and right anterior lung. No pleural effusion. No infiltrate. No pulmonary edema. Postop changes lower cervical spine. No adenopathy. Impression: 8.1 millimeter left upper lobe nodule. Follow-up chest CT in 3 months recommended. Please note that all CT scans at this facility use dose modulation, iterative reconstruction, and/or weight-based dosing when appropriate to reduce radiation dose to as low as reasonably achievable. Dictated by Nikhil Stapleton MD @ 12/01/2023 11:45:40 AM (Electronically Signed)
--- OUTSIDE RECORDS SUMMARY | 2023-11-30 15:00 | XMS_ITS | Encounter Summary ---
Author Organization [place] Address [address] [facility] [place] [address] Care Team Providers Care Reducing System Operator Name Role Phone Tyra Jorge MD Primary Care Provider [phone] Gauri Cortez MD Primary Care Provider [phone] Filippo Vazquez PA-C Primary Care Provider Gauri Cortez MD Primary Care Provider [phone] Ines Aguilar BRAKER PASSENGER TRAIN BARREL INSPECTOR Unavailable Un available Lucero Perez BRAKER PASSENGER TRAIN BARREL INSPECTOR Unavailable + Gauri Cortez MD Unavailable [phone] Gauri Cortez MD Unavailable [phone] Lucero Perez BRAKER PASSENGER TRAIN BARREL INSPECTOR Unavailable + Gauri Cortez MD Unavailable Sharif Mayer MD Unavailable [phone] Encounter Details Date Type Department Care Team (Late st Contact Info) Description 02/27/2006 Office Visit-[facility] [place] [facility] [place] [address] [facility] [address] [place] [address] Ip, Carl Ulloa MD [address] [facility] [address] [place] [address] Social History Tobacco Use Types Packs/Day Years [...] - lives with ; Place of - [place]; Hours Worked - 40 hours per week; [...] Out COVID-19 02/10/2020 02/10/2020 02/11/2020 5:33 PM DISPOSITION CLERK documented as of this encounter Care Teams Reducing System Operator Relationship Specialty Start Date End Date Tyra Jorge MD PCP - General 10/27/03 07/27/10 Gauri Cortez MD [address] [place], [place] [address] PCP - General Internal Medicine 07/28/10 07/14/13 Filippo Vazquez PA-C [address] [place], [place] [address] PCP - General Physician Porcelain Buildup Assistant - Medical 07/15/13 08/06/13 Gauri Cortez MD [address] [place], [place] [address] PCP - General Internal Medicine 08/07/13 Ines Aguilar, BRAKER PASSENGER TRAIN BARREL INSPECTOR PCP - Assigned PCP 02/11/18 04/07/18 Lucero Perez, BRAKER PASSENGER TRAIN BARREL INSPECTOR [address] [place] [address] PCP - Assigned PCP 12/31/17 02/10/18 Gauri Cortez MD [address] [place], [place] [address] PCP - Assigned PCP 04/08/18 05/15/18 Gauri Cortez MD [address] [place] [address] Assigned PCP 04/08/18 08/11/18 Lucero Perez APRN BARREL INSPECTOR [address] [place] [address] Assigned PCP 08/12/18 09/29/18 Gauri Cortez MD [address] [place] [address] Assigned PCP 09/30/18 Sharif Mayer MD [id number] [place] [address] Assigned Surgical Provider 04/30/22 11/02/23 documented as of this encounter
--- OUTSIDE RECORDS SUMMARY | 2023-11-30 15:00 | XMS_ITS | Encounter Summary ---
Author Organization [place] Address [address] [facility] [place] [address] Care Team Providers Care Sheet Metal Former Name Role Phone Tyra Cardona MD Primary Care Provider Gauri Cortez MD Primary Care Provider [phone] Filippo Vazquez PA-C Primary Care Provider Gauri Cortez MD Primary Care Provider [phone] Ines Aguilar ACQUISITIONS ANALYST HIDE WASHER Unavailable Un available Lucero Perez ACQUISITIONS ANALYST HIDE WASHER Unavailable + Gauri Cortez MD Unavailable [phone] Gauri Cortez MD Unavailable [phone] Lucero Perez ACQUISITIONS ANALYST HIDE WASHER Unavailable + Gauri Cortez MD Unavailable Sharif Mayer MD Unavailable [phone] Encounter Details Date Type Department Care Team (Late st Contact Info) Description 06/07/2010 [facility] [id number] [place] [address] Tyra Cardona MD [address] [place] [address] Social History Tobacco Use Types Packs/Day [...] Out COVID-19 02/10/2020 02/10/2020 02/11/2020 5:33 PM MEN'S LOCKER ROOM ATTENDANT documented as of this encounter Care Teams Sheet Metal Former Relationship Specialty Start Date End Date Tyra Cardona MD PCP - General 10/27/03 07/27/10 Gauri Cortez MD [address] [place] [address] PCP - General Internal Medicine 07/28/10 07/14/13 Filippo Vazquez PA-C [address] [place] [address] PCP - General Physician Six Pack Loader Operator - Medical 07/15/13 08/06/13 Gauri Cortez MD [address] [place] [address] PCP - General Internal Medicine 08/07/13 Ines Aguilar APRN HIDE WASHER PCP - Assigned PCP 02/11/18 04/07/18 Lucero Perez APRN HIDE WASHER [address] [place] [address] PCP - Assigned PCP 12/31/17 02/10/18 Gauri Cortez MD [address] [facility] 200 [place] [address] PCP - Assigned PCP 04/08/18 05/15/18 Gauri Cortez MD [address] [facility] 200 [place] [address] Assigned PCP 04/08/18 08/11/18 Lucero Perez APRN [facility] [address] [place] [address] Assigned PCP 08/12/18 09/29/18 Gauri Cortez MD [address] [facility] [address] [place] [address] Assigned PCP 09/30/18 Sharif Mayer MD [id number] [place] [address] Assigned Surgical Provider 04/30/22 11/02/23 documented as of this encounter
--- OUTSIDE RECORDS SUMMARY | 2023-11-30 15:00 | XMS_ITS | Encounter Summary ---
Author Organization [place] Address [address] [facility] [place] [address] Care Team Providers Care Drupal Web Developer Name Role Phone Tyra Cardona MD Primary Care Provider [phone] Gauri Cortez MD Primary Care Provider [phone] Filippo Vazquez PA-C Primary Care Provider Gauri Cortez MD Primary Care Provider [phone] Ines Aguilar GEOSCIENCES PROFESSOR NEON MOLDER Unavailable Un available Lucero Perez GEOSCIENCES PROFESSOR NEON MOLDER Unavailable + Gauri Cortez MD Unavailable [phone] Gauri Cortez MD Unavailable [phone] Lucero Perez GEOSCIENCES PROFESSOR NEON MOLDER Unavailable + Gauri Cortez MD Unavailable [phone] Sharif Mayer MD Unavailable [phone] Encounter Details Date Type Department Care Team (Late st Contact Info) Description 05/03/2010 Office Visit-[facility] [place] [address] [facility] [address] [place] [phone] Judith Hua DO [address] [facility] [address] [place] [id number] (work) Social History Tobacco Use Types Packs/Day [...] old Referring Physician: TYRA CARDONA Referring Clinic: [facility] CURRENT DIAGNOSES 1. - Hyperlipidemia, [...] use-rare; Lifestyle - ; Exercise - elyptical weight trainer and 3 x week; Seat Belt [...] the left atrial enlargement. She lives in [place]. She may haveboth of these tests performed at the [facility] and follow up in that facility [...] Holter Monitor Today-palpitations 3. F/U with Any AIR CONDITIONING TECHNICIAN 4-7 days-any [facility] documented in this encounter Plan of Treatment Not on file documented as of this encounter Visit Diagnoses Not on filedocumented in this encounter Additional Health Concerns Infection Onset Date Last Indicated Resolved Time Rule Out COVID-19 02/10/2020 02/10/2020 02/11/2020 5:33 PM TILE LAYER HELPER documented as of this encounter Care Teams Drupal Web Developer Relationship Specialty Start Date End Date Tyra Cardona MD PCP - General 10/27/03 07/27/10 Gauri Cortez MD [address] [address] PCP - General Internal Medicine 07/28/10 07/14/13 Filippo Vazquez PA-C [address] [place] [address] PCP - General Physician Multi Needle Machine Operator - Medical 07/15/13 08/06/13 Gauri Cortez MD [address] [place] [address] PCP - General Internal Medicine 08/07/13 Ines Aguilar, GEOSCIENCES PROFESSOR NEON MOLDER PCP - Assigned PCP 02/11/18 04/07/18 Lucero Perez, GEOSCIENCES PROFESSOR NEON MOLDER [address] [place] [address] PCP - Assigned PCP 12/31/17 02/10/18 Gauri Cortez MD [address] [place] [address] PCP - Assigned PCP 04/08/18 05/15/18 Gauri Cortez MD [address] [place] [address] Assigned PCP 04/08/18 08/11/18 Lucero Perez GEOSCIENCES PROFESSOR NEON MOLDER [address] [place] [address] Assigned PCP 08/12/18 09/29/18 Gauri Cortez MD [address] [place] [address] Assigned PCP 09/30/18 Sharif Mayer MD [id number] [place] [address] Assigned Surgical Provider 04/30/22 11/02/23 documented as of this encounter
--- OUTSIDE RECORDS SUMMARY | 2023-11-30 15:00 | XMS_ITS | Encounter Summary ---
Author Organization [place] Address [address] [place] [address]. [place] [address] Care Team Providers Care Nuclear Technician Name Role Phone Tyra Cardona MD Primary Care Provider [phone] Gauri Cortez MD Primary Care Provider [phone] Filippo Vazquez PA-C Primary Care Provider Gauri Cortez MD Primary Care Provider [phone] Ines Aguilar REVIEW SCHEDULING COORDINATOR HOGSHEAD DUMPER Unavailable Un available Lucero Perez REVIEW SCHEDULING COORDINATOR HOGSHEAD DUMPER Unavailable + Gauri Cortez MD Unavailable [phone] Gauri Cortez MD Unavailable [phone] Lucero Perez REVIEW SCHEDULING COORDINATOR HOGSHEAD DUMPER Unavailable + Gauri Cortez MD Unavailable [phone] Sharif Mayer MD Unavailable [phone] Encounter Details Date Type Department Care Team (Late st Contact Info) Description 05/26/2010 [facility] [address] [place] [address] [place] [address] [facility] [place] [address] Social History Tobacco Use Types [...] COVID-19 02/10/2020 02/10/2020 02/11/2020 5:33 PM SOFTWARE QUALITY MANAGER documented as of this encounter Care Teams Nuclear Technician Relationship Specialty Start Date End Date Tyra Cardona MD PCP - General 10/27/03 07/27/10 Gauri Cortez MD [address] [place] [address] PCP - General Internal Medicine 07/28/10 07/14/13 Filippo Vazquez PA-C [address] [place] [address] PCP - General Physician Skate Boarder - Medical 07/15/13 08/06/13 Gauri Cortez MD [address] [place] [address] PCP - General Internal Medicine 08/07/13 Ines Aguilar APRN HOGSHEAD DUMPER PCP - Assigned PCP 02/11/18 04/07/18 Lucero Perez APRN HOGSHEAD DUMPER [address] [place] [address] PCP - Assigned PCP 12/31/17 02/10/18 Gauri Cortez MD [address] [place] [address] PCP - Assigned PCP 04/08/18 05/15/18 Gauri Cortez MD [address] [place], [place] [address] Assigned PCP 04/08/18 08/11/18 Lucero Perez APRN [facility] [address] [place] [address] Assigned PCP 08/12/18 09/29/18 Gauri Cortez MD [address] [facility] 200 [place] [address] Assigned PCP 09/30/18 Sharif Mayer MD [address] [place] [address] Assigned Surgical Provider 04/30/22 11/02/23 documented as of this encounter
--- OUTSIDE RECORDS SUMMARY | 2023-11-30 15:00 | XMS_ITS | Encounter Summary ---
Author Organization [place] Address [address] [facility] [place] [address] Care Team Providers Care Tooth Cutter Clutch Name Role Phone Tyra Cardona MD Primary Care Provider Gauri Cortez MD Primary Care Provider [phone] Filippo Vazquez PA-C Primary Care Provider Gauri Cortez MD Primary Care Provider [phone] Ines Aguilar SUPERVISOR TYPESETTING COREMAKER BENCH Unavailable Un available Lucero Perez SUPERVISOR TYPESETTING COREMAKER BENCH Unavailable + Gauri Cortez MD Unavailable [phone] Gauri Cortez MD Unavailable [phone] Lucero Perez SUPERVISOR TYPESETTING COREMAKER BENCH Unavailable + Gauri Cortez MD Unavailable [phone] Sharif Mayer MD Unavailable [phone] Encounter Details Date Type Department Care Team (Late st Contact Info) Description 04/03/2010 [facility] [id number] [place] [phone] Tyra Cardona MD [address] [place] [address] Social History Tobacco Use Types Packs/Day [...] Out COVID-19 02/10/2020 02/10/2020 02/11/2020 5:33 PM SPECIALIZED DEVELOPER documented as of this encounter Care Teams Tooth Cutter Clutch Relationship Specialty Start Date End Date Tyra Cardona MD PCP - General 10/27/03 07/27/10 Gauri Cortez MD [address] [place] [address] PCP - General Internal Medicine 07/28/10 07/14/13 Filippo Vazquez PA-C [address] [place] [address] PCP - General Physician Clinical Program Consultant - Medical 07/15/13 08/06/13 Gauri Cortez MD [address] [place] [address] PCP - General Internal Medicine 08/07/13 Ines Aguilar APRN COREMAKER BENCH PCP - Assigned PCP 02/11/18 04/07/18 Lucero Perez APRN COREMAKER BENCH [address] [place] [address] PCP - Assigned PCP 12/31/17 02/10/18 Gauri Cortez MD [address] [facility] 200 [place] [address] PCP - Assigned PCP 04/08/18 05/15/18 Gauri Cortez MD [address] [facility] 200 [place] [address] Assigned PCP 04/08/18 08/11/18 Lucero Perez APRN [facility] [address] [place] [address] [address] Assigned PCP 08/12/18 09/29/18 Gauri Cortez MD [address] [facility] 200 [place] [address] Assigned PCP 09/30/18 Sharif Mayer MD [address] [id number] [place] [address] Assigned Surgical Provider 04/30/22 11/02/23 documented as of this encounter
--- OUTSIDE RECORDS SUMMARY | 2023-11-30 15:00 | XMS_ITS | Encounter Summary ---
Author Organization [place] Address [address] [facility] [place] [address] Care Team Providers Care Signal Mechanic Name Role Phone Gauri Cortez MD Primary Care Provider [phone] Filippo Vazquez PA-C Primary Care Provider Gauri Cortez MD Primary Care Provider [phone] Ines Aguilar APRN JOB INTERVIEWER Unavailable Un available Lucero Perez APRN JOB INTERVIEWER Unavailable + Gauri Cortez MD Unavailable [phone] Gauri Cortez MD Unavailable [phone] Lucero Perez APRN JOB INTERVIEWER Unavailable + Gauri Cortez MD Unavailable [phone] Sharif Mayer MD Unavailable [phone] Encounter Details Date Type Department Care Team (Late st Contact Info) Description 04/27/[address] [place] [phone] [facility] Social History Tobacco Use Types Packs/Day [...] Out COVID-19 02/10/2020 02/10/2020 02/11/2020 5:33 PM ADJUNCT PROFESSOR OF [place]. HISTORY documented as of this encounter Care Teams Signal Mechanic Relationship Specialty Start Date End Date Gauri Cortez MD [address] [place], [place] [address] PCP - General Internal Medicine 07/28/10 07/14/13 Filippo Vazquez PA-C [address] [place] [address] PCP - General Physician Retail Assistant Store Manager - Medical 07/15/13 08/06/13 Gauri Cortez MD [address] [place] [address] PCP - General Internal Medicine 08/07/13 Ines Aguilar APRN JOB INTERVIEWER PCP - Assigned PCP 02/11/18 04/07/18 Lucero Perez, CONSULTING UTILITY FORESTER JOB INTERVIEWER [address] [place] [address] PCP - Assigned PCP 12/31/17 02/10/18 Gauri Cortez MD [address] [place] [address] PCP - Assigned PCP 04/08/18 05/15/18 Gauri Cortez MD [address] [place] [address] Assigned PCP 04/08/18 08/11/18 Lucreo Perez APRN JOB INTERVIEWER [address] [place] [address] Assigned PCP 08/12/18 09/29/18 Gauri Cortez MD [address] [place] [address] Assigned PCP 09/30/18 Sharif Mayer MD [id number] [place] [address] Assigned Surgical Provider 04/30/22 11/02/23 documented as of this encounter
--- OUTSIDE RECORDS SUMMARY | 2023-11-30 15:00 | XMS_ITS | Encounter Summary ---
Author Organization [place] Address Replaced by [facility] [place] [address] Care Team Providers Care Monotype Machinist Name Role Phone Tyra Cardona MD Primary Care Provider [phone] Gauri Cortez MD Primary Care Provider [phone] Filippo Vazquez PA-C Primary Care Provider Gauri Cortez MD Primary Care Provider [phone] Ines Aguilar BENDER HELPER CHILD MONITOR Unavailable Un available Lucero Perez BENDER HELPER CHILD MONITOR Unavailable + Gauri Cortez MD Unavailable [phone] Gauri Cortez MD Unavailable [phone] Lucero Perez BENDER HELPER CHILD MONITOR Unavailable + Gauri Cortez MD Unavailable [phone] Sharif Mayer MD Unavailable [phone] Reason for Visit * Reason Onset Date Comments MyChart Communication 10/08/2009 Encounter Details Date Type Department Care Team (Latest Contact Info) Description 10/08/2009 MyC Medical Advice [facility] [id number] [place] [phone] Tyra Cardona MD [address] [place] [address] MyChart Communication Social History Tobacco Use [...] Out COVID-19 02/10/2020 02/10/2020 02/11/2020 5:33 PM SPRINKLER INSPECTOR documented as of this encounter Care Teams Monotype Machinist Relationship Specialty Start Date End Date Tyra Cardona MD PCP - General 10/27/03 07/27/10 Gauri Cortez MD [address] [place], [place] [address] PCP - General Internal Medicine 07/28/10 07/14/13 Filippo Vazquez PA-C [address] [place], [place] [address] PCP - General Physician Virtual Reality Specialist - Medical 07/15/13 08/06/13 Gauri Cortez MD [address] [place], [place] [address] PCP - General Internal Medicine 08/07/13 Ines Aguilar APRN CHILD MONITOR PCP - Assigned PCP 02/11/18 04/07/18 Lucero Perez APRN CHILD MONITOR [address] [place] [address] PCP - Assigned PCP 12/31/17 02/10/18 Gauri Cortez MD [address] [facility] 200 [place] [address] PCP - Assigned PCP 04/08/18 05/15/18 Gauri Cortez MD [address] [facility] 200 [place] [address] Assigned PCP 04/08/18 08/11/18 Lucero Perez APRN [facility] [address] [place] [address] [address] Assigned PCP 08/12/18 09/29/18 Gauri Cortez MD [address] [facility] 200 [place] [address] Assigned PCP 09/30/18 Sharif Mayer MD [address] [id number] [place] [address] Assigned Surgical Provider 04/30/22 11/02/23 documented as of this encounter
--- OUTSIDE RECORDS SUMMARY | 2023-11-30 15:00 | XMS_ITS | Encounter Summary ---
Author Organization [place] Address [address] [facility] [place] [address] Care Team Providers Care Publications Inspector Name Role Phone Tyra Cardona MD Primary Care Provider Gauri Cortez MD Primary Care Provider [phone] Filippo Vazquez PA-C Primary Care Provider Gauri Cortez MD Primary Care Provider [phone] Ines Aguilar CHEMICAL OPERATIONS SPECIALIST ANIMATION CAMERA OPERATOR Unavailable Un available Lucero Perez CHEMICAL OPERATIONS SPECIALIST ANIMATION CAMERA OPERATOR Unavailable + Gauri Cortez MD Unavailable [phone] Gauri Cortez MD Unavailable [phone] Lucero Perez CHEMICAL OPERATIONS SPECIALIST ANIMATION CAMERA OPERATOR Unavailable + Gauri Cortez MD Unavailable [phone] Sharif Mayer MD Unavailable [phone] Encounter Details Date Type Department Care Team (Late st Contact Info) Description 05/25/2010 [facility] [address] [place] [phone] Tyra Cardona MD [address] [place] [address] Social History Tobacco Use Types Packs/Day [...] Out COVID-19 02/10/2020 02/10/2020 02/11/2020 5:33 PM 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 BOAT 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 documented as of this encounter Care Teams Publications Inspector Relationship Specialty Start Date End Date Tyra Cardona MD PCP - General 10/27/03 07/27/10 Gauri Cortez MD [address] [place] [address] PCP - General Internal Medicine 07/28/10 07/14/13 Filippo Vazquez PA-C [address] [place] [address] PCP - General Physician Supervisor Screen Printing - Medical 07/15/13 08/06/13 Gauri Cortez MD [address] [place] [address] PCP - General Internal Medicine 08/07/13 Ines Aguilar APRN ANIMATION CAMERA OPERATOR PCP - Assigned PCP 02/11/18 04/07/18 Lucero Perez APRN ANIMATION CAMERA OPERATOR [address] [place] [address] PCP - Assigned PCP 12/31/17 02/10/18 Gauri Cortez MD [address] [facility] 200 [place] [address] PCP - Assigned PCP 04/08/18 05/15/18 Gauri Cortez MD [address] [facility] 200 [place] [address] Assigned PCP 04/08/18 08/11/18 Lucero Perez APRN [facility] [address] [address] [address] [address] Assigned PCP 08/12/18 09/29/18 Gauri Cortez MD [address] [facility] 200 [place] [address] Assigned PCP 09/30/18 Sharif Mayer MD [address] [id number] [place] [address] Assigned Surgical Provider 04/30/22 11/02/23 documented as of this encounter
--- OUTSIDE RECORDS SUMMARY | 2023-11-30 15:00 | XMS_ITS | Encounter Summary ---
Author Organization [place] Address [address] [facility] [place] [address] Care Team Providers Care Wood Form Builder Name Role Phone Tyra Cardona MD Primary Care Provider [phone] Gauri Cortez MD Primary Care Provider [phone] Filippo Vazquez PA-C Primary Care Provider Gauri Cortez MD Primary Care Provider [phone] Ines Aguilar CUTTER APPRENTICE HAND DESIGNER Unavailable Un available Lucero Perez CUTTER APPRENTICE HAND DESIGNER Unavailable + Gauri Cortez MD Unavailable [phone] Gauri Cortez MD Unavailable [phone] Lucero Perez CUTTER APPRENTICE HAND DESIGNER Unavailable + Gauri Cortez MD Unavailable Sharif Mayer MD Unavailable [phone] Encounter Details Date Type Department Care Team (Late st Contact Info) Description 05/19/2010 [facility] [place] [facility] [id number] [place] [phone] Tyra Cardona MD [address] [place] [address] Social History Tobacco Use Types Packs/Day [...] Out COVID-19 02/10/2020 02/10/2020 02/11/2020 5:33 PM TUGBOAT OPERATOR documented as of this encounter Care Teams Wood Form Builder Relationship Specialty Start Date End Date Tyra Cardona MD PCP - General 10/27/03 07/27/10 Gauri Cortez MD [address] [place] [address] PCP - General Internal Medicine 07/28/10 07/14/13 Filippo Vazquez PA-C [address] [place] [address] PCP - General Physician Clerical Secretary - Medical 07/15/13 08/06/13 Gauri Cortez MD [address] [place] [address] PCP - General Internal Medicine 08/07/13 Ines Aguilar APRN DESIGNER PCP - Assigned PCP 02/11/18 04/07/18 Lucero Perez APRN DESIGNER [address] [place] [address] PCP - Assigned PCP 12/31/17 02/10/18 Gauri Cortez MD [address] [facility] [address] [place] [address] PCP - Assigned PCP 04/08/18 05/15/18 Gauri Cortez MD [address] [facility] [address] [place] [address] Assigned PCP 04/08/18 08/11/18 Lucero Perez APRN [facility] [address] [place] [address] Assigned PCP 08/12/18 09/29/18 Gauri Cortez MD [address] [facility] 200 [place] [address] Assigned PCP 09/30/18 Sharif Mayer MD [address] [id number] [place] [address] Assigned Surgical Provider 04/30/22 11/02/23 documented as of this encounter
--- OUTSIDE RECORDS SUMMARY | 2023-11-30 15:00 | XMS_ITS | Encounter Summary ---
Author Organization [place] Address [address] [facility] [place] [address] Care Team Providers Care Commis Chef Name Role Phone Tyra Cardona MD Primary Care Provider [phone] Gauri Cortez MD Primary Care Provider [phone] Filippo Vazquez PA-C Primary Care Provider Gauri Cortez MD Primary Care Provider [phone] Ines Aguilar ASSEMBLER BILLIARD TABLE CLINICAL ADMISSIONS MANAGER Unavailable Un available Lucero Perez ASSEMBLER BILLIARD TABLE CLINICAL ADMISSIONS MANAGER Unavailable + Gauri Cortez MD Unavailable [phone] Gauri Cortez MD Unavailable [phone] Lucero Perez ASSEMBLER BILLIARD TABLE CLINICAL ADMISSIONS MANAGER Unavailable + Gauri Cortez MD Unavailable [phone] Sharif Mayer MD Unavailable [phone] Encounter Details Date Type Department Care Team (Late st Contact Info) Description 10/24/2008 Office Visit-[facility] [address] [place] [address] Rangel Dumas MD Social History [...] Rangel Dumas M.D. DATE: 10/24/2008 [address] [id number] DATE OF : 1955 AGE: [age] years old Referring Physician: TYRA CARDONA Referring Clinic: [facility] CURRENT DIAGNOSES 1. Palpitations, 785.1 [...] - lives with ; Place of - [place]; HoursWorked - 40 hours per week; REVIEW [...] Out COVID-19 02/10/2020 02/10/2020 02/11/2020 5:33 PM DERMATOLOGIST documented as of this encounter Care Teams Commis Chef Relationship Specialty Start Date End Date Tyra Cardona MD PCP - General 10/27/03 07/27/10 Gauri Cortez MD [address] [address] PCP - General Internal Medicine 07/28/10 07/14/13 Filippo Vazquez PA-C [address] [place] [address] PCP - General Physician Superintendent Generating Plant - Medical 07/15/13 08/06/13 Gauri Cortez MD [address] [place] [address] PCP - General Internal Medicine 08/07/13 Ines Aguilar, ASSEMBLER BILLIARD TABLE CLINICAL ADMISSIONS MANAGER PCP - Assigned PCP 02/11/18 04/07/18 Lucero Perez ASSEMBLER BILLIARD TABLE CLINICAL ADMISSIONS MANAGER [address] [place] [address] PCP - Assigned PCP 12/31/17 02/10/18 Gauri Cortez MD [address] [place] [address] PCP - Assigned PCP 04/08/18 05/15/18 Gauri Cortez MD [address] [place] [address] Assigned PCP 04/08/18 08/11/18 Lucero Perez, ASSEMBLER BILLIARD TABLE CLINICAL ADMISSIONS MANAGER [address] [place] [address] Assigned PCP 08/12/18 09/29/18 Gauri Cortez MD [address] [place] [address] Assigned PCP 09/30/18 Sharif Mayer MD [address] [place] [address] [place] [address] Assigned Surgical Provider 04/30/22 11/02/23 documented as of this encounter
--- OUTSIDE RECORDS SUMMARY | 2023-11-30 15:00 | XMS_ITS | Encounter Summary ---
Author Organization [place] Address [address] [facility] [place] [address] Care Team Providers Care Spare Parts Clerk Name Role Phone Tyra Cardona MD Primary Care Provider [phone] Gauri Cortez MD Primary Care Provider [phone] Filippo Vazquez PA-C Primary Care Provider Gauri Cortez MD Primary Care Provider [phone] Ines Aguilar POWER PLANT SUPERVISOR CARDIOVASCULAR INVASIVE SPECIALIST Unavailable Un available Lucero Perez POWER PLANT SUPERVISOR CARDIOVASCULAR INVASIVE SPECIALIST Unavailable + Gauri Cortez MD Unavailable [phone] Gauri Cortez MD Unavailable [phone] Lucero Perez POWER PLANT SUPERVISOR CARDIOVASCULAR INVASIVE SPECIALIST Unavailable + Gauri Cortez MD Unavailable [phone] Sharif Mayer MD Unavailable [phone] Encounter Details Date Type Department Care Team [...] Out COVID-19 02/10/2020 02/10/2020 02/11/2020 5:33 PM LABORATORY CHEMIST documented as of this encounter Care Teams Spare Parts Clerk Relationship Specialty Start Date End Date Tyra Cardona MD PCP - General 10/27/03 07/27/10 Gauri Cortez MD [address] [place] [address] PCP - General Internal Medicine 07/28/10 07/14/13 Filippo Vazquez PA-C [address] [place] [address] PCP - General Physician Target Setter - Medical 07/15/13 08/06/13 Gauri Cortez MD [address] [place] [address] PCP - General Internal Medicine 08/07/13 Ines Aguilar, POWER PLANT SUPERVISOR CARDIOVASCULAR INVASIVE SPECIALIST PCP - Assigned PCP 02/11/18 04/07/18 Lucero Perez, POWER PLANT SUPERVISOR CARDIOVASCULAR INVASIVE SPECIALIST [address] [address] [address] PCP - Assigned PCP 12/31/17 02/10/18 Gauri Cortez MD [address] [place] [address] PCP - Assigned PCP 04/08/18 05/15/18 Gauri Cortez MD [address] [facility] 200 [place] [address] Assigned PCP 04/08/18 08/11/18 Lucero Perez APRN [facility] [address] [place] [address] Assigned PCP 08/12/18 09/29/18 Gauri Cortez MD [address] [facility] 200 [place] [address] Assigned PCP 09/30/18 Sharif Mayer MD [address] [id number] [place] [address] Assigned Surgical Provider 04/30/22 11/02/23 documented as of this encounter
--- OUTSIDE RECORDS SUMMARY | 2023-11-30 15:00 | XMS_ITS | Encounter Summary ---
Author Organization [place] Address [address] [facility] [place] [address] Care Team Providers Care Wood Stainer Name Role Phone Tyra Cardona MD Primary Care Provider [phone] Gauri Cortez MD Primary Care Provider [phone] Filippo Vazquez PA-C Primary Care Provider Gauri Cortez MD Primary Care Provider [phone] Ines Aguilar QUALITY ASSURANCE SUPERVISOR CROOK OPERATOR Unavailable Un available Lucero Perez QUALITY ASSURANCE SUPERVISOR CROOK OPERATOR Unavailable + Gauri Cortez MD Unavailable [phone] Gauri Cortez MD Unavailable [phone] Lucero Perez QUALITY ASSURANCE SUPERVISOR CROOK OPERATOR Unavailable + Gauri Cortez MD Unavailable Sharif Mayer MD Unavailable [phone] Encounter Details Date Type Department Care Team (Late st Contact Info) Description 05/24/2010 Office Visit-[facility] [place] [address] [facility] [address] [place] [id number] Judith Hua DO [address] [facility] [address] [place] [id number] (work) Social History Tobacco Use Types Packs/Day [...] old Referring Physician: TYRA CARDONA Referring Clinic: [facility] CURRENT DIAGNOSES 1. - Hyperlipidemia, [...] lasttwo days. 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 - [employer] Residence - lives with ; Place of - [place]; Hours Worked - 40 hours per week; [...] Out COVID-19 02/10/2020 02/10/2020 02/11/2020 5:33 PM FILTER CHANGER documented as of this encounter Care Teams Wood Stainer Relationship Specialty Start Date End Date Tyra Cardona MD PCP - General 10/27/03 07/27/10 Gauri Cortez MD [address] [place] [address] PCP - General Internal Medicine 07/28/10 07/14/13 Filippo Vazquez PA-C [address] [place] [address] PCP - General Physician Custodian Athletic Equipment - Medical 07/15/13 08/06/13 Gauri Cortez MD [address] [place] [address] PCP - General Internal Medicine 08/07/13 Ines Aguilar APRN CROOK OPERATOR PCP - Assigned PCP 02/11/18 04/07/18 Lucero Perez QUALITY ASSURANCE SUPERVISOR CROOK OPERATOR [address] [place] [address] PCP - Assigned PCP 12/31/17 02/10/18 Gauri Cortez MD [address] [facility] 200 [place] [address] PCP - Assigned PCP 04/08/18 05/15/18 Gauri Cortez MD [address] [facility] 200 [place] [address] Assigned PCP 04/08/18 08/11/18 Lucero Perez QUALITY ASSURANCE SUPERVISOR CROOK OPERATOR [address] [address] [address] Assigned PCP 08/12/18 09/29/18 Gauri Cortez MD [address] [place] [address] Assigned PCP 09/30/18 Sharif Mayer MD [address] [id number] [place] [address] Assigned Surgical Provider 04/30/22 11/02/23 documented as of this encounter
--- OUTSIDE RECORDS SUMMARY | 2023-11-30 15:00 | XMS_ITS | Encounter Summary ---
Author Organization [place] Address [address] [facility] [place] [address] Care Team Providers Care Parliamentary Counsel Name Role Phone Tyra Jorge MD Primary Care Provider [phone] Gauri Cortez MD Primary Care Provider [phone] Filippo Vazquez PA-C Primary Care Provider Gauri Cortez MD Primary Care Provider [phone] Ines Aguilar BUTTER MELTER GAS MAKER Unavailable Un available Lucero Perez BUTTER MELTER GAS MAKER Unavailable + Gauri Cortez MD Unavailable [phone] Gauri Cortez MD Unavailable [phone] Lucero Perez BUTTER MELTER GAS MAKER Unavailable + Gauri Cortez MD Unavailable [phone] Sharif Mayer MD Unavailable [phone] Encounter Details Date Type Department Care Team (Late st Contact Info) Description 06/06/2008 Office Visit-[facility] [address] [place] [address] Rangel Dumas MD Social History [...] Rangel Dumas M.D. DATE: 06/06/2008 [facility] [facility] [id number] DATE OF : 1955 AGE: [age] years old Referring Physician: TYRA JORGE Referring Clinic: [facility] CURRENT DIAGNOSES 1. Palpitations, 785.1 2. Hypothyroidism, [...] - lives with ; Place of - [place]; Hours Worked - 40 hours per week; [...] Out COVID-19 02/10/2020 02/10/2020 02/11/2020 5:33 PM PARTS COUNTER SALESPERSON documented as of this encounter Care Teams Parliamentary Counsel Relationship Specialty Start Date End Date Tyra Jorge MD PCP - General 10/27/03 07/27/10 Gauri Cortez MD [address] [id number] PCP - General Internal Medicine 07/28/10 07/14/13 Filippo Vazquez PA-C [address] [place] [address] PCP - General Physician Gyroscopic Engineering Technician - Medical 07/15/13 08/06/13 Gauri Cortez MD [address] [facility] 200 [place] [address] PCP - General Internal Medicine 08/07/13 Ines Aguilar APRN GAS MAKER PCP - Assigned PCP 02/11/18 04/07/18 Lucero ePrez APRN GAS MAKER [address] [place] [address] PCP - Assigned PCP 12/31/17 02/10/18 Gauri Cortez MD [address] [address] PCP - Assigned PCP 04/08/18 05/15/18 Gauri Cortez MD [address] [address] Assigned PCP 04/08/18 08/11/18 Lucero Perez APRN GAS MAKER [address] [place] [address] Assigned PCP 08/12/18 09/29/18 Gauri Cortez MD [address] [facility] 200 [place] [address] Assigned PCP 09/30/18 Sharif Mayer MD [address] [id number] [place]AG[place] [address] Assigned Surgical Provider 04/30/22 11/02/23 documented as of this encounter
== END 2023-11-30 14:54 | disposition home or self-care (01) ==
LOC: CT 14:53
PROVIDERS: PCP Family Medicine; Visit Provider Family Medicine
DX: J43.9 Emphysema, unspecified (principal); R91.1 Solitary pulmonary nodule
CPT/HCPCS: 71250

== ENCOUNTER 2023-12-12 07:26 | Outpatient (CLI) | payer MEDICARE, BC, SELFPAY ==
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
--- OUTSIDE RECORDS SUMMARY | 2023-12-12 07:38 | XMS_ITS | Clinical Summary ---
[facility] Address [address] [place] [address] Care Team Providers Care Financial Reporting Analyst Name Role Phone Gauri Cortez MD Primary Care Provider [phone] Source Comments You are receiving this document [...] transition of care or referral. [facility] Allergies Active Allergy Reactions Criticality Noted Date [...] admin time/site:1424 LW mfg:FRANK PHARMACEUT LW lot number:[id number] 2 06/26/2009 Active RABEprazole (AKA ACIPHEX) 20 [...] KIDNEY(aka KIDNEY STONE) Varicella 10/04/1996 Overview (12/11/2014): [facility] Immunizations Name Administration Dates Next Due Flu [...] T Respiratory Rate 20 04/25/2012 6:02 PM HEDGE FUND MANAGER Oxygen Saturation - - Inhaled Oxygen Concentration [...] 7:59 AM CDT) Cholesterol 160 <200 mg/dl [facility] Triglyceride 95 <200 mg/dl [facility] HDL 48 >35 mg/dl [facility] LDL, Calc. 93 mg/dl [facility] Hours Fasting 12 hours [facility] 06/26/2003 7:59 AM CDT 06/26/2003 8:00 AM CDT Gauri Cortez MD LAB_1 Performing Organization Address City/State/[facility] Co de Phone Number [facility] [address] [address] from Last 3 Months or Most Recently Relevant to Health Maintenance Care Teams Financial Reporting Analyst Relationship Specialty Start Date End Date Gauri Cortez MD [address] [facility] [address] [place], [place] [id number] PCP - General Internal Medicine 04/29/13
--- OUTSIDE RECORDS SUMMARY | 2023-12-12 07:38 | XMS_ITS | Encounter Summary ---
Author Organization [facility] Address [address] [place] [address] Care Team Providers Care Buck Swamper Name Role Phone Gauri Cortez MD Primary Care Provider [phone] Encounter Details Date Type Department Care Team (Latest Contact Info) Description 10/29/1999 Orders Only Gauri Cortez MD [address] [facility] [address] [place], [place] [id number] Social History Tobacco Use Types Packs/Day Years Used Date Smoking Tobacco: Never Assessed Sex and Gender Information Value Date Recorded Sex Assigned at Not on file Gender Identity Not on file Sexual Orientation Not on file documented as of this encounter Plan of Treatment Not on file documented as of this encounter Visit Diagnoses Not on filedocumented in this encounter Care Teams Buck Swamper Relationship Specialty Start Date End Date Gauri Cortez MD [address] [facility] [address] [place], [place] [id number] PCP - General Internal Medicine 04/29/13 documented as of this encounter
--- OUTSIDE RECORDS SUMMARY | 2023-12-12 07:38 | XMS_ITS | Continuity of Care Document ---
Author Organization [facility] Address [address] [place] [address] Phone Care Team Providers Care Counseling Director Name Role Phone Ellyn Cardoza DO Unavailable [...] Effective Dates (start - stop) Status Comments CELECOXIB 200 MG CAPSULE TAKE 1 CAPSULE BY MOUTH EVERY DAY - Active amlodipine 2.5 mg tablet take [...] Encounter [facility] , [address], [place], [address], [place] tel:[phone] [facility] , No Information [address] H[address] Ragland. [address], [place], [address], [place]. tel:[phone] [facility] , [address], [place], [address], [place] tel:[phone] [facility] , No Information [address] Hector Ragland. [address], [place], [address], [place]. tel:[phone] Office/Outpa tient Visit, Est [facility] , [address], [place], [address], [place] tel:[phone] [facility] , AnemiaEntero pathic arthropathie s, multiple sitesPrimary osteoarthrit is, unspecified ankle and footOther intervertebr al disc degeneration , lumbosacral regionDisord er of bone, unspecifiedO ther rn long term care (current) drug therapy 4 H[address] Ragland. [address], [place], [address], [place]. tel:[phone] Referring Provider: Ellyn Botello, [address], [place], [address]. tel:[phone] Office/Outpa tient Visit, Est [facility] , [address], [place], [address], [place] tel:[phone] [facility] , AnemiaEntero pathic arthropathie s, multiple sitesPrimary osteoarthrit is, unspecified ankle and footOther intervertebr al disc degeneration , lumbosacral regionDisord er of bone, unspecifiedO ther care home (current) drug therapy 3 Hector Ragland. [address], [place], [address], [place]. tel:[phone] Referring Provider: Ellyn Botello, [address], [place], [address]. tel:[phone] Office/Outpa tient Visit, Est [facility] , [address], [place], [address], [place] tel:[phone] [facility] , Primary osteoarthrit is, unspecified ankle and footOther rn long term care (current) drug therapyAnemi aEnteropathi c arthropathie s, multiple sitesOther intervertebr al disc degeneration , lumbosacral regionDisord er of bone, unspecified Oct- 3 Hector Ragland. [address], [place], [address], [place]. tel:[phone] Referring Provider: Ellyn Botello, [address], [place], [address]. tel:[phone] Office/Outpa tient Visit, Est [facility] , [address], [place], [address], [place] tel:[phone] [facility] , Primary osteoarthrit is, unspecified ankle and footOther care home (current) drug therapyAnemi aEnteropathi c arthropathie s, multiple sitesOther intervertebr al disc degeneration , lumbosacral regionDisord er of bone, unspecified May- 3 Hector Ragland. [address], [place], [address], [place]. tel:[phone] Referring Provider: Ellyn Botello, [address], [place], [address]. tel:[phone] Office/Outpa tient Visit, Est [facility] , [address], [place], [address], [place] tel:[phone] [facility] , Enteropathic arthropathie s, multiple sitesOther intervertebr al disc degeneration , lumbosacral regionDisord er of bone, unspecified 2 Skсергей Xiomaraevangelina Ragland. [address], [place], [address], [place]. tel:[phone] Referring Provider: Ellyn Botello, [address], [place], [address]. tel:[phone] Office/Outpa tient Visit, Est [facility] , [address], [place], [address], [place] tel:[phone] [facility] , Enteropathic arthropathie s, multiple sitesOther intervertebr al disc degeneration , lumbosacral regionEncoun ter for immunity status testing 2 Hector Xiomara Ellyn. [address], [address], [place], [address], [place]. tel:[phone] Referring Provider: Ellyn Botello, [address], [place], [address]. tel:[phone] Office/Outpa tient Visit, Est [facility] , [address], [place], [address], [place] tel:[phone] [facility] , Enteropathic arthropathie s of multiple sitesTherape [facility] drug monitoringTr ochanteric bursitis of right hipSacroilii tis 1 Annie Art. [facility] [address], [place], [address], [place]. tel:[phone] Referring Provider: Rubens Zee, [facility] [address], [place], [address]. tel:[phone] Office/Outpa tient Visit, Est [facility] , [address], [place], [address], [place] tel:[phone] [facility] , Enteropathic arthropathie s of multiple sitesOA of the footTherapeu tic drug monitoring 0 Annie Art. [facility] [address], [place], [address], [place]. tel:[phone] Referring Provider: Rubens Zee, [facility] [address], [place], [address]. tel:[phone] Office/Outpa tient Visit, Est [facility] , [address], [place], [address], [place] tel:[phone] [facility] , Enteropathic arthropathie s of multiple sitesOA of the footTherapeu tic drug monitoring 9 Annie Art. [facility] [address], [place], [address], [place]. tel:[phone] Referring Provider: Rubens Zee, [facility] [address], [place], [address]. tel:[phone] Office/Outpa tient Visit, Est [facility] , [address], [place], [address], [place] tel:[phone] [facility] , Enteropathic arthropathie s of multiple sitesOA Primary osteoarthrit is of knee, bilateralDeg enerative disc disease, lumbosacralT herapeutic drug monitoringOA of the foot 9 Annie Art. [facility] [address], [place], [address], [place]. tel:[phone] Referring Provider: Rubens Zee, [facility] [address], [place], [address]. tel:[phone] Office/Outpa tient Visit, Est [facility] , [address], [place], [address], [place] tel:[phone] [facility] , Enteropathic arthropathie s of multiple sitesDegener ative disc disease, lumbosacralT herapeutic drug monitoringOA Primary osteoarthrit is of knee, bilateral Dec- 8 Annie Art. [facility] [address], [place], [address], [place]. tel:[phone] Referring Provider: Rubens Zee, [facility] [address], [place], [address]. tel:[phone] Office/Outpa tient Visit, Est [facility] , [address], [place], [address], [place] tel:[phone] [facility] , Enteropathic arthropathie s of multiple sitesDegener ative disc disease, lumbosacralT herapeutic drug monitoring Bogdan 8 Annie Art. [facility] [address], [place], [address], [place]. tel:[phone] Referring Provider: Rubens Zee, [facility] [address], [place], [address]. tel:[phone] Office/Outpa tient Visit, Est [facility] , [address], [place], [address], [place] tel:[phone] [facility] , Enteropathic arthropathie s of multiple sitesOA Primary osteoarthrit is of knee, bilateralThe rapeutic drug monitoringDe generative disc disease, lumbosacral Sep-2 7 Annie Art. [facility] [address], [place], [address], [place]. tel:[phone] Referring Provider: Rubens Zee, [facility] [address], [place], [address]. tel:[phone] Office/Outpa tient Visit, Est [facility] , [address], [place], [address], [place] tel:[phone] [facility] , Enteropathic arthropathie s of multiple sitesOA Primary osteoarthrit is of knee, bilateralThe rapeutic drug monitoring 6 Annie Art. [facility] [address], [place], [address], [place]. tel:[phone] Referring Provider: Rubens Zee, [facility] [address], [place], [address]. tel:[phone] Office/Outpa tient Visit, Est [facility] , [address], [place], [address], [place] tel:[phone] [facility] , enteropathic arthritis (chief complaint) Enteropathic arthropathie s of multiple sitesTherape utic drug monitoringOA Primary osteoarthrit is of knee, bilateral 6 Annie Art. [facility] [address], [place], [address], [place]. tel:[phone] Referring Provider: Rubens Zee, [facility] [address], [place], [address]. tel:[phone] Office/Outpa tient Visit, Est [facility] , [address], [place], [address], [place] tel:[phone] [facility] , enteropathic arthritis (chief complaint) Enteropathic arthropathie s of multiple sitesTherape utic drug monitoringOA Primary osteoarthrit is of knee, bilateralVit mir D deficiency 0 9 5 Annie Art. [facility] [address], [place], [address], [place]. tel:[phone] Referring Provider: Rubens Zee, [facility] [address], [place], [address]. tel:[phone] Office/Outpa tient Visit, Est [facility] , [address], [place], [address], [place] tel:[phone] [facility] , Enteropathic arthritis (chief complaint)Os teoarthritis (chief complaint)Cr ohn's disease (chief complaint) Enteropathic ArthritisThe rapeutic Drug MonitoringOs teoarthrosis , generalized, involving unspecified siteCrohn's disease 0 5 Annie Art. [facility] [address], [place], [address], [place]. tel:[phone] Referring Provider: Rubens Zee, [facility] [address], [place], [address]. tel:[phone] Office/Outpa tient Visit, Est [facility] , [address], [place], [address], [place] tel:[phone] [facility] , Enteropathic arthritis (chief complaint)Os teoarthritis (chief complaint)Cr ohn's disease (chief complaint) Arthropathy associated with gastrointest inal conditions other than infectionsTh erapeutic Drug MonitoringOs teoarthrosis , localized, primary, involving ankle and foot 4 Annie Art. [facility] [address], [place], [address], [place]. tel:[phone] Referring Provider: Rubens Zee, [facility] [address], [place], [address]. tel:[phone] Office/Outpa tient Visit, Est [facility] , [address], [place], [address], [place] tel:[phone] [facility] Enteropathic arthritis (chief complaint)Cr ohn's disease (chief complaint)Os teoarthritis (chief complaint)Hy pertension (chief complaint) Arthropathy associated with gastrointest inal conditions other than infectionsTh erapeutic Drug MonitoringRe gional enteritis of unspecified siteOsteoart hrosis, localized, primary, involving ankle and footHyperten carin, Unspecified 4 Annie Art. [facility] [address], [place], [address], [place]. tel:[phone] Referring Provider: Rubens Zee, [facility] [address], [place], [address]. tel:[phone] Office/Outpa tient Visit, Est [facility] , [address], [place], [address], [place] tel:[phone] [facility] , Enteropathic arthritis (chief complaint)Cr ohn's disease (chief complaint)Os teoarthritis (chief complaint) Arthropathy associated with gastrointest inal conditions other than infectionsRe gional enteritis of unspecified siteOsteoart hrosis, localized, primary, involving ankle and foot 3 Annie Art. [facility] [address], [place], [address], [place]. tel:[phone] Referring Provider: Rubens Zee, [facility] [address], [place], [address]. tel:[phone] Office/Outpa tient Visit, Est [facility] , [address], [place], [address], [place] tel:[phone] [facility] , Enteropathic arthritis (chief complaint)Ba ck Pain (chief complaint) Arthropathy associated with gastrointest inal conditions other than infectionsLu mbago 0-201 2 Annie Art. [facility] [address], [place], [address], [place]. tel:[phone] Referring Provider: Zeeshan Bernstein, NULL [address], [place], [address]. tel:[phone] Family History Family Member Type Diagnosis Age At Onset No Information Payers Payer name Insurance type Covered green party ID Authoriza tion(s) Medicare MB [id number] [facility] [id number] Social History Type Description Quantity Date Captured Comments Sex Female Smoking Status No Information Chief Complaint And Reason For Visit No [...]
--- OUTSIDE RECORDS SUMMARY | 2023-12-12 07:38 | XMS_ITS | Clinical Summary ---
Author Organization [facility] Address [place], [place] [address] Care Team Providers Care Rn Gynecology Name Role Phone Sharron Mckeon MD Primary Care Provider [phone] Allergies Active Allergy Reactions Criticality Noted Date [...] face Oxycodone Nausea And Vomiting 07/06/2021 Tolerated Dry Prong in past Infliximab Tachycardia 10/19/2007 Red face, [...] (80 mg) by mouth once daily. 09/28/2023 Discontinue d(*Medicati on adjustment) metoprolol succinate (TOPROL XL) 25 mg Sustained-Release tabletIndications:HT N (hypertension) Take 0.5 Tablets (12.5 mg) by mouth once daily. 11/09/2023 Discontinue d(*Patient states no longer taking) Active Problems Problem Noted Date Diagnosed Date Spinal stenosis, lumbar region with neurogenic c laudication Encounters Date Type Department Care Team Description 12/11/2023 8:24 AM CDT - 12/11/2023 11:59 PM CDT Hospital Encounter [facility] [address] [facility] [place] [address] Chel Carbajal MD Chest pain, unspecified type 12/11/2023 Travel 11/21/2023 1:30 PM CDT Office Visit [facility] [address] [place] [address] Chel Carbajal MD light headedness (Pt. Complains of new on set headaches with some nausea.) 11/02/2023 Telephone [facility] [employer] [place] [address] Maia Cabrera MD Medication Management 10/26/2023 6:55 PM CDT - 10/26/2023 8:[address] [facility] Emergency Department [address] [place] [address] Ken De Leon MD Elevated blood pressure reading (Primary Dx) Discharge Disposition: Home Self Care 10/26/2023 Travel 10/26/2023 Telephone [facility] [place] [address] [place] [address] Maia Cabrera MD Blood Pressure 10/11[facility] [place] [address] [place] [address] Maia Cabrera MD Blood Pressure 09/29/2023 [facility] [place] [address] [place] [address] Maia Cabrera MD Refill Request 09/28/2023 10:30 AM CDT Office Visit [facility] at [address] [place] [address] Maia Cabrera MD Follow Up from Last 3 Months Family History Medical History Relation Name Comments Osteoarthritis Mother Relation Name Status Comments Father Mother Social History Tobacco Use Types Packs/Day Years Used Date Smoking Tobacco: Never Smokeless Tobacco: Never Alcohol Use Standard Drinks/Week Comments Not Currently 0 (1 standard drink = 0.6 oz pur e alcohol) because of [facility] Social Connections Answer Date Recorded Frequency of [...] 10/26/2023 5:53 PM CDT Plan of Treatment Health Maintenance [...] age 18+ 11/12/2023 11/11/2022 COVID-19 vaccine series (2023- season) 2023 12/20/2021, 07/16/2021, 11/30/2020, Additional history exists Influenza for age 65+ 11/12/2023 Lipids for age 45-75 11/29/2027 11/28/2022 DEXA/DXA scan for age 65+ Completed 07/18/2023 Procedures Procedure Name Priority Date/Time Associated Diagnosis Comments NM CARDIAC MPI STRESS TEST Routine 12/11/2023 12:17 PM CDT Chest pain, unspecified type STRESS TEST ONLY PHARMACOLOGICAL W/O IMAGING Routine 12/11/2023 9:45 AM CDT Chest pain, unspecified type XR CHEST 2 VIEWS PA AND LATERAL [...] Recently Relevant to Health Maintenance Results * NM CARDIAC MPI STRESS TEST (12/11/2023 12:17 PM CDT) Anatomical Region Laterality Modality HEART Nuclear Medicine 12/11/2023 9:07 AM CDT Narrative 12/11/2023 4:32 PM CDT ? Toll -free: [phone] ?[facility] ?MYOCARDIAL PERFUSION IMAGING REPORT REST/STRESS SINGLE ISOTOPE GATED SPECT IMAGING USING CT. Patient Name: ?? JOCELYN STAUFFER ? Gender: ? F ?Height: ? 66 in Accession #: ?[id number] ? Weight: ? 171 lb Study Date: ? 12/11/2023 9:07:13 AM ?BSA: ?1.87 m? ? ? : ?1955 68 years ?BMI: ?27.60 kg/m? ? ? Ord. Prov.: ? CHEL DYER ? Monitoring Prov.: Nikhil Hunter ?JN CHRISTIE ? MD Parish Performing Site [facility] ?Medical Center Clinical History: ? Chest pain. No known coronary artery disease. Cardiac Risk Factors: Hypertension, hypercholesterolemia and sleep apnea. Cardiac History: ?None known. Beta andreas/calcium channel andreas/nitrate taken today: Yes. Caffeine/methylxanthine taken within 12 hrs: ?No. Chest pain/discomfort at baseline: ?No. IMPRESSION 1. The pharmacologic stress ECG was negative for ischemia. 2. Overall left ventricular systolic function was normal without wall motion abnormalities. The post stress LVEF was calculated to be 59 %. 3. Compared to prior study of 10/24/22, there is no significant change. 4. Adequate pharmacologic stress test with regadenoson and low level exercise. 5. Myocardial perfusion was normal. 6. Left ventricular cavity size was normal (resting EDV 96 ml). STRESS MPI PROCEDURE The patient was studied utilizing a same day rest/stress protocol. Myocardial perfusion imaging was performed at rest, 34 minutes following the intravenous injection of 8.8 mCi of 99mTc sestamibi. 30 seconds after the 15 second IV regadenoson injection, the patient was injected via IV with 30.5 mCi of 99mTc sestamibi. Gated post-stress tomographic imaging with attenuation correction was performed 91 minutes after stress. After image acquisition was completed, data was reconstructed in short, horizontal long and vertical long axis views and tomographic slices were generated. - Pharmacologic stress testing was performed with an IV regadenoson dose of 0.4 mg. - Low level exercise consisting of walking on treadmill at 1 mph with a 0% grade was performed for 1 minute prior to, during, and 2 minutes after the vasodilator infusion. - Resting heart rate was 65 bpm, peak heart rate was 141 bpm. - Resting blood pressure was 201 mmHg/110 mmHg; peak blood pressure was 211 mmHg/100 mmHg. - The patient developed symptoms which included dizzy. FINDINGS Baseline ECG - The baseline ECG was normal with sinus rhythm and normal conduction. - There were no repolarization abnormalities. - There were frequent PVCs. Stress ECG - The stress ECG was normal. - Stress induced arrhythmia included rare PVCs. - Repolarization was normal. Imaging - Computerized motion correction was not applied. - SPECT perfusion images were normal without evidence of ischemia or infarction. - Computer processed gated imaging revealed normal left ventricular size with a calculated LVEF of 59 %. (Lab normals: LVEF >50%, LV Size <150 ml). - There was normal post-stress myocardial thickening and wall motion. - Risk/extent of ischemia per ACC Noninvasive Risk Stratification Guideline: LOW RISK. This study was interpreted and electronically signed by Frederick Tan MD on 12/11/2023 4:32:53 PM. ??Final ?? Procedure Note Frederick Tan MD - 12/11/2023 Toll -free: [phone] [facility] MYOCARDIAL PERFUSION IMAGING REPORT REST/STRESS SINGLE ISOTOPE GATED SPECT IMAGING USING CT. Patient Name: JOCELYN STAUFFER Gender: [place] Height: 66 in Weight: 171 lb Study Date: 12/11/2023 9:07:13 AM BSA: 1.87 m? ? ? : 1955 68 years BMI: 27.60 kg/m? ? ? Ord. Prov.: CHEL DYER Monitoring Prov.: Nikhil Lugo MD Performing Site [employer] Clinical History: Chest pain. No known coronary artery disease. Cardiac Risk Factors: Hypertension, hypercholesterolemia and sleepapnea. Cardiac History: None known. Beta andreas/calcium channel andreas/nitrate taken today: Yes. Caffeine/methylxanthine taken within 12 hrs: No. Chest pain/discomfort at baseline: No. IMPRESSION 1. The pharmacologic stress ECG was negative for ischemia. 2. Overall left ventricular systolic function was normal without wallmotion abnormalities. The post stress LVEF was calculated to be 59 %. 3. Compared to prior study of 10/24/22, there is no significant change. 4. Adequate pharmacologic stress test with regadenoson and low levelexercise. 5. Myocardial perfusion was normal. 6. Left ventricular cavity size was normal (resting EDV 96 ml). STRESS MPI PROCEDURE The patient was studied utilizing a same day rest/stress protocol.Myocardial perfusion imaging was performed at rest, 34 minutes followingthe intravenous injection of 8.8 mCi of 99mTc sestamibi. 30 seconds afterthe 15 second IV regadenoson injection, the patient was injected via IVwith 30.5 mCi of 99mTc sestamibi. Gated post-stress tomographic imagingwith attenuation correction was performed 91 minutes after stress. Afterimage acquisition was completed, data was reconstructed in short,horizontal long and vertical long axis views and tomographic slices weregenerated. - Pharmacologic stress testing was performed with an IV regadenoson doseof 0.4 mg. - Low level exercise consisting of walking on treadmill at 1 mph with a 0%grade was performed for 1 minute prior to, during, and 2 minutes after thevasodilator infusion. - Resting heart rate was 65 bpm, peak heart rate was 141 bpm. - Resting blood pressure was 201 mmHg/110 mmHg; peak blood pressure ual929 mmHg/100 mmHg. - The patient developed symptoms which included dizzy. FINDINGS Baseline ECG - The baseline ECG was normal with sinus rhythm and normal conduction. - There were no repolarization abnormalities. - There were frequent PVCs. Stress ECG - The stress ECG was normal. - Stress induced arrhythmia included rare PVCs. - Repolarization was normal. Imaging - Computerized motion correction was not applied. - SPECT perfusion images were normal without evidence of ischemia orinfarction. - Computer processed gated imaging revealed normal left ventricular sizewith a calculated LVEF of 59 %. (Lab normals: LVEF >50%, LV Size <150 ml). - There was normal post-stress myocardial thickening and wall motion. - Risk/extent of ischemia per ACC Noninvasive Risk StratificationGuideline: LOW RISK. This study was interpreted and electronically signed by Frederick Tan MD on 12/11/2023 4:32:53 PM. Final Chel Carbajal MD NM * STRESS TEST ONLY PHARMACOLOGICAL W/O IMAGING (12/11/2023 9:45 AM CDT) Andie March Sched - 12/11/2023 9:48 AM CDT The result for this exam is either scanned and attached to this order or are included in the ordering provider's NOTES from the patient's Office Visit or Surgical procedure from this date. Chel Carbajal MD STR ESS * XR CHEST 2 VIEWS PA AND [...] PLT NO DIFF (10/26/2023 7:20 PM CDT) [facility] Signature WHITE BLOOD COUNT 5.3 4.5 - 11.0 thou/cu mm 10/26/2023 7:33 PM CDT [facility] RED BLOOD COUNT 4.17 4.00 - 5.20 mil/cu mm 10/26/2023 7:33 PM CDT [facility] HEMOGLOBIN 12.3 12.0 - 16.0 g/dL 10/26/2023 7:33 PM CDT [facility] HEMATOCRIT 37.5 33.0 - 51.0 % 10/26/2023 7:33 PM CDT [facility] MCV 90 80 - 100 fL 10/26/2023 7:33 PM CDT [facility] MCH 29.5 26.0 - 34.0 pg 10/26/2023 7:33 PM CDT [facility] MCHC 32.8 32.0 - 36.0 g/dL 10/26/2023 7:33 PM CDT [facility] RDW 12.8 11.5 - 15.5 % 10/26/2023 7:33 PM CDT [facility] PLATELET COUNT 207 140 - 440 thou/cu mm 10/26/2023 7:33 PM CDT [facility] MPV 9.9 6.5 - 11.0 fL 10/26/2023 7:33 PM CDT [facility] NRBC 0.0 % 10/26/2023 7:33 PM CDT [facility] ABS NRBC 0.0 thou /cu mm 10/26/2023 7:33 PM CDT [facility] Blood BLOOD SPECIMEN / Unknown Venipuncture / Unknown 10/26/2023 7:20 PM CDT 10/26/2023 7:26 PM CDT Ken De Leon MD HEMATOL OGY [facility] [address] [place] [id number], * (ABNORMAL) PRO-BNP (10/26/2023 7:20 PM CDT) Pathologist [facility] PRO-BNP 297(H) <125 pg/mL 10/26/2023 8:[address] [facility] Blood BLOOD SPECIMEN / Unknown Venipuncture / Unknown 10/26/2023 7:20 PM CDT 10/26/2023 7:26 PM CDT Narrative [facility] - 10/26/2023 8:11 PM CDT The [...] Ken De Leon MD SEND OU TS [facility] [address] [place] [address], * (ABNORMAL) BASIC METABOLIC PANEL (10/26/2023 7:20 PM CDT) Pathologist [facility] SODIUM 138 136 - 145 mmol/L 10/26/2023 8:08 PM T [facility] POTASSIUM 4.2 3.5 - 5.1 mmol/L 10/26/2023 8:08 PM T [facility] CHLORIDE 104 98 - 107 mmol/L 10/26/2023 8:08 PM T [facility] CO2,TOTAL 25 22 - 29 mmol/L 10/26/2023 8:08 PM T [facility] ANION GAP 9 5 - 18 10/26/2023 8:08 PM T [facility] GLUCOSE 103(H) 70 - 99 mg/dL 10/26/2023 8:08 PM T [facility] CALCIUM 10.2 8.8 - 10.2 mg/dL 10/26/2023 8:08 PM [facility] BUN 18 8 - 23 mg/dL 10/26/2023 8:08 PM T [facility] CREATININE 1.04(H) 0.50 - 0.90 mg/dL 10/26/2023 8:08 PM [facility] BUN/CREAT RATIO 17 10 - 20 8:08 PM T [facility] eGFR 58(L) >90 mL/min/1.7 3m2 10/26/2023 8:08 PM [facility] Comment:As of 2021, eG FR [...] 7:26 PM CDT Ken De Leon MD MEDICAL DELIVERY TECHNICIAN [facility] [address] [place] [address], [place] * EKG 12 LEAD (10/26/2023 5:52 PM CDT) Interpretation Normal sinus rhythm Biatrial enlargement Abnormal ECG T wave inversion in V2 BEYOND NOW Ventricular Rate 74 BPM BEYOND NOW Atrial Rate 74 BPM BEYOND NOW P-R Interval 184 ms BEYOND NOW QRS Duration 84 ms BEYOND NOW QT 402 ms BEYOND NOW QTc 446 ms BEYOND NOW P Aurora 82 degrees BEYOND NOW R Aurora 54 degrees BEYOND NOW T Aurora 65 degrees BEYOND NOW 10/26/2023 5:52 PM CDT 10/27/2023 9:21 AM CDT Ken De Leon MD EKG ORD BEYOND NOW [place], [place] * XR DXA BONE DENSITY PERIPHERAL (07/18/2023) Anatomical Region Laterality Modality ARMS Other Zeeshan Pierre MD DEXA * LIPID PANEL (11/28/2022 8:37 AM CDT) CHOLESTEROL,TOTAL 145 100 - 199 mg/dL 11/28/2022 5:20 PM CDT [facility] Comment: Cholesterol, Total Reference Ranges Desirable <200 mg/dL Borderline 200-239 mg/dL High >=240 mg/dL TRIGLYCERIDES 120 <150 mg/dL 11/28/2022 5:20 PM CDT [facility] HDL CHOLESTEROL 57 >40 mg/dL 5:20 PM CDT [facility] NON-HDL CHOLESTEROL 88 <145 mg/dl 11/28/2022 5:20 PM CDT [facility] CHOL/HDL RATIO 2.54 <4.50 11/28/2022 5:20 PM CDT [facility] LDL CHOLESTEROL 64 <=130 mg/dL 11/28/2022 5:20 PM CDT [facility] [place] [facility] VLDL CHOLESTEROL 24 <=30 mg/dL 11/28/2022 5:20 PM CDT [facility] PROVIDER ORDERED STATUS RANDOM 11/28/2022 5:20 PM CDT [facility] Blood BLOOD SPECIMEN / Unknown Venipuncture / Unknown 11/28/2022 8:37 AM CDT 11/28/2022 8:37 AM CDT Carlos Faria MD CHEMISTRY [facility] [address] [address], from Last 3 Months or Most Recently Relevant to Health Maintenance Advance Directives Documents on File Type Date Recorded Patient Scientific Illustrator Expl anation Healthcare Directive 07/07/2021 9:27 AM [...] 10:38 AM 07/12/2008 3:33 PM Care Teams Rn Gynecology Relationship Specialty Start Date End Date Sharron Mckeon MD [address] [place] [address] PCP - General 11/24/23
--- OUTSIDE RECORDS SUMMARY | 2023-12-12 07:39 | XMS_ITS | Encounter Summary ---
Author Organization [facility] Address [address] [place] [address] Care Team Providers Care Cyber Defense Incident Responder Name Role Phone Gauri Cortez MD Primary Care Provider [phone] Encounter Details Date Type Department Care Team (Latest Contact Info) Description 08/20/1997 Orders Only Presley Frost MD [address] [place], [place] [id number] Social History Tobacco Use Types Packs/Day Years Used Date Smoking Tobacco: Never Assessed Sex and Gender Information Value Date Recorded Sex Assigned at Not on file Gender Identity Not on file Sexual Orientation Not on file documented as of this encounter Plan of Treatment Not on file documented as of this encounter Visit Diagnoses Not on filedocumented in this encounter Care Teams Cyber Defense Incident Responder Relationship Specialty Start Date End Date Gauri Cortez MD [address] [facility] [address] [place] [address] PCP - General Internal Medicine 04/29/13 documented as of this encounter
--- OUTSIDE RECORDS SUMMARY | 2023-12-12 07:39 | XMS_ITS | Encounter Summary ---
Author Organization [facility] Address [address] [place] [address] Care Team Providers Care Ribber Name Role Phone Gauri Cortez MD Primary Care Provider [phone] Encounter Details Date Type Department Care Team (Latest Contact Info) Description 11/14/1996 Orders Only Gauri Cortez MD [address] [facility] [address] [place], [place] [id number] Social History Tobacco Use Types Packs/Day Years Used Date Smoking Tobacco: Never Assessed Sex and Gender Information Value Date Recorded Sex Assigned at Not on file Gender Identity Not on file Sexual Orientation Not on file documented as of this encounter Plan of Treatment Not on file documented as of this encounter Visit Diagnoses Not on filedocumented in this encounter Care Teams Ribber Relationship Specialty Start Date End Date Gauri Cortez MD [address] [facility] [address] [place], [place] [address] PCP - General Internal Medicine 04/29/13 documented as of this encounter
--- OUTSIDE RECORDS SUMMARY | 2023-12-12 07:39 | XMS_ITS | Encounter Summary ---
Author Organization [facility] Address [address] [place] [address] Care Team Providers Care Transport Corps Officer Name Role Phone Gauri Cortez MD Primary Care Provider [phone] Encounter Details Date Type Department Care Team (Latest Contact Info) Description 08/06/1999 Orders Only Gauri Cortez MD [address] [facility] [address] [place], [place] [address] Social History Tobacco Use Types Packs/Day Years Used Date Smoking Tobacco: Never Assessed Sex and Gender Information Value Date Recorded Sex Assigned at Not on file Gender Identity Not on file Sexual Orientation Not on file documented as of this encounter Plan of Treatment Not on file documented as of this encounter Visit Diagnoses Not on filedocumented in this encounter Care Teams Transport Corps Officer Relationship Specialty Start Date End Date Gauri Cortez MD [address] [facility] [address] [place], [place] [address] PCP - General Internal Medicine 04/29/13 documented as of this encounter
--- OUTSIDE RECORDS SUMMARY | 2023-12-12 07:39 | XMS_ITS | Encounter Summary ---
Author Organization [facility] Address [address] [place] [address] Care Team Providers Care Plycor Operator Name Role Phone Gauri Cortez MD Primary Care Provider [phone] Encounter Details Date Type Department Care Team (Latest Contact Info) Description 10/04/1996 Orders Only Gauri Cortez MD [address] [facility] [address] [place], [place] [address] Social History Tobacco Use Types Packs/Day Years Used Date Smoking Tobacco: Never Assessed Sex and Gender Information Value Date Recorded Sex Assigned at Not on file Gender Identity Not on file Sexual Orientation Not on file documented as of this encounter Plan of Treatment Not on file documented as of this encounter Visit Diagnoses Not on filedocumented in this encounter Care Teams Plycor Operator Relationship Specialty Start Date End Date Gauri Cortez MD [address] [facility] [address] [place], [place] [address] PCP - General Internal Medicine 04/29/13 documented as of this encounter
--- OUTSIDE RECORDS SUMMARY | 2023-12-12 07:39 | XMS_ITS | Encounter Summary ---
Author Organization [facility] Address [address] [place] [address] Care Team Providers Care Heavy Threader Name Role Phone Gauri Cortez MD Primary Care Provider +1 [phone] Encounter Details Date Type Department Care Team [...] on filedocumented in this encounter Care Teams Heavy Threader Relationship Specialty Start Date End Date Gauri Cortez MD [address] [facility] [address] [place] [address] PCP - General Internal Medicine 04/29/13 documented as of this encounter
--- OUTSIDE RECORDS SUMMARY | 2023-12-12 07:39 | XMS_ITS | Encounter Summary ---
Author Organization [facility] Address [address] [place] [address] Care Team Providers Care Professional Athlete Name Role Phone Gauri Cortez MD Primary Care Provider +1 [phone] Encounter Details Date Type Department Care Team (Latest Contact Info) Description 06/14/1996 Orders Only Gauri Cortez MD [address] [facility] [address] [place], [place] [address] Social History Tobacco Use Types Packs/Day Years Used Date Smoking Tobacco: Never Assessed Sex and Gender Information Value Date Recorded Sex Assigned at Not on file Gender Identity Not on file Sexual Orientation Not on file documented as of this encounter Plan of Treatment Not on file documented as of this encounter Visit Diagnoses Not on filedocumented in this encounter Care Teams Professional Athlete Relationship Specialty Start Date End Date Gauri Cortez MD [address] [facility] [address] [place], [place] [address] PCP - General Internal Medicine 04/29/13 documented as of this encounter
--- OUTSIDE RECORDS SUMMARY | 2023-12-12 07:39 | XMS_ITS | Encounter Summary ---
Author Organization [facility] Address [address] [place] [address] Care Team Providers Care Patient Service Rep Name Role Phone Gauri Cortez MD Primary Care Provider [phone] Encounter Details Date Type Department Care Team (Latest Contact Info) Description 06/22/1998 Orders Only Gauri Cortez MD [address] [facility] [address] [place], [place] [address] Social History Tobacco Use Types Packs/Day Years Used Date Smoking Tobacco: Never Assessed Sex and Gender Information Value Date Recorded Sex Assigned at Not on file Gender Identity Not on file Sexual Orientation Not on file documented as of this encounter Plan of Treatment Not on file documented as of this encounter Visit Diagnoses Not on filedocumented in this encounter Care Teams Patient Service Rep Relationship Specialty Start Date End Date Gauri Cortez MD [address] [facility] [address] [place], [place] [address] PCP - General Internal Medicine 04/29/13 documented as of this encounter
--- OUTSIDE RECORDS SUMMARY | 2023-12-12 07:39 | XMS_ITS | Encounter Summary ---
Author Organization Formerly [facility] Address [address] [place] [address] Care Team Providers Care Side Guider Name Role Phone Gauri Cortez MD Primary Care Provider +1 [phone] Encounter Details Date Type Department Care Team (Latest Contact Info) Description 06/05/1996 Orders Only Gauri Cortez MD [address] [facility] [address] [place], [place] [address] Social History Tobacco Use Types Packs/Day Years Used Date Smoking Tobacco: Never Assessed Sex and Gender Information Value Date Recorded Sex Assigned at Not on file Gender Identity Not on file Sexual Orientation Not on file documented as of this encounter Plan of Treatment Not on file documented as of this encounter Visit Diagnoses Not on filedocumented in this encounter Care Teams Side Guider Relationship Specialty Start Date End Date Gauri Cotrez MD [address] [facility] [address] [place], [place] [address] PCP - General Internal Medicine 04/29/13 documented as of this encounter
--- OUTSIDE RECORDS SUMMARY | 2023-12-12 07:39 | XMS_ITS | Encounter Summary ---
Author Organization [facility] Address [address] [place] [address] Care Team Providers Care Brine Well Operator Name Role Phone Gauri Cortez MD Primary Care Provider +1 [phone] Encounter Details Date Type Department Care Team (Latest Contact Info) Description 12/31/1998 Orders Only Miranda Marinelli, DO [address] [place], [place] [address] Social History Tobacco Use Types Packs/Day Years Used Date Smoking Tobacco: Never Assessed Sex and Gender Information Value Date Recorded Sex Assigned at Not on file Gender Identity Not on file Sexual Orientation Not on file documented as of this encounter Plan of Treatment Not on file documented as of this encounter Visit Diagnoses Not on filedocumented in this encounter Care Teams Brine Well Operator Relationship Specialty Start Date End Date Gauri Cortez MD [address] [facility] [address] [place] [address] PCP - General Internal Medicine 04/29/13 documented as of this encounter
--- OUTSIDE RECORDS SUMMARY | 2023-12-12 07:39 | XMS_ITS | Encounter Summary ---
Author Organization [facility] Address [address] [place] [address] Care Team Providers Care Manager Market Research Name Role Phone Gauri Cortez MD Primary Care Provider +1 [phone] Encounter Details Date Type Department Care Team (Latest Contact Info) Description 07/09/1996 Orders Only Gauri Cortez MD [address] [facility] [address] [place], [place] [address] Social History Tobacco Use Types Packs/Day Years Used Date Smoking Tobacco: Never Assessed Sex and Gender Information Value Date Recorded Sex Assigned at Not on file Gender Identity Not on file Sexual Orientation Not on file documented as of this encounter Plan of Treatment Not on file documented as of this encounter Visit Diagnoses Not on filedocumented in this encounter Care Teams Manager Market Research Relationship Specialty Start Date End Date Gauri Cortez MD [address] [facility] [address] [place], [place] [address] PCP - General Internal Medicine 04/29/13 documented as of this encounter
--- OUTSIDE RECORDS SUMMARY | 2023-12-12 07:39 | XMS_ITS | Encounter Summary ---
Author Organization [facility] Address [address] [place] [address] Care Team Providers Care Document Preparation Specialist Name Role Phone Gauri Cortez MD Primary Care Provider +1 [phone] Encounter Details Date Type Department Care Team (Latest Contact Info) Description 11/18/1997 Orders Only Gauri Cortez MD [address] [facility] 200 [place], [place] [address] Social History Tobacco Use Types Packs/Day Years Used Date Smoking Tobacco: Never Assessed Sex and Gender Information Value Date Recorded Sex Assigned at Not on file Gender Identity Not on file Sexual Orientation Not on file documented as of this encounter Plan of Treatment Not on file documented as of this encounter Visit Diagnoses Not on filedocumented in this encounter Care Teams Document Preparation Specialist Relationship Specialty Start Date End Date Gauri Cortez MD [address] [facility] [address] [place], [place] [address] PCP - General Internal Medicine 04/29/13 documented as of this encounter
--- OUTSIDE RECORDS SUMMARY | 2023-12-12 07:39 | XMS_ITS | Encounter Summary ---
Author Organization [facility] Address [address] [place] [address] Care Team Providers Care Produce Team Member Name Role Phone Gauir Cortez MD Primary Care Provider +1 [phone] Encounter Details Date Type Department Care Team (Latest Contact Info) Description 01/17/1996 Orders Only Rob Mccollum MD [address] [place], [place] [id number] Social History Tobacco Use Types Packs/Day Years Used Date Smoking Tobacco: Never Assessed Sex and Gender Information Value Date Recorded Sex Assigned at Not on file Gender Identity Not on file Sexual Orientation Not on file documented as of this encounter Plan of Treatment Not on file documented as of this encounter Visit Diagnoses Not on filedocumented in this encounter Care Teams Produce Team Member Relationship Specialty Start Date End Date Gauri Cortez MD [address] [facility] 200 [place], [place] [address] PCP - General Internal Medicine 04/29/13 documented as of this encounter
--- OUTSIDE RECORDS SUMMARY | 2023-12-12 07:39 | XMS_ITS | Encounter Summary ---
Author Organization [facility] Address [address] [place] [address] Care Team Providers Care Battery Starter Name Role Phone Gauri Crotez MD Primary Care Provider +1 [phone] Encounter Details Date Type Department Care Team [...] on filedocumented in this encounter Care Teams Battery Starter Relationship Specialty Start Date End Date Gauri Cortez MD [address] [facility] 200 [place] [address] PCP - General Internal Medicine 04/29/13 documented as of this encounter
--- OUTSIDE RECORDS SUMMARY | 2023-12-12 07:39 | XMS_ITS | Encounter Summary ---
Author Organization [facility] Address [address] [place] [address] Care Team Providers Care Gifts Officer Name Role Phone Gauri Cortez MD Primary Care Provider +1 [phone] Encounter Details Date Type Department Care Team [...] on filedocumented in this encounter Care Teams Gifts Officer Relationship Specialty Start Date End Date Gauri Cortez MD [address] [facility] 200 [place] [address] PCP - General Internal Medicine 04/29/13 documented as of this encounter
--- OUTSIDE RECORDS SUMMARY | 2023-12-12 07:39 | XMS_ITS | Encounter Summary ---
Author Organization [facility] Address [address] [place] [address] Care Team Providers Care Sanitation Worker Hosing Machinery Name Role Phone Gauri Cortez MD Primary Care Provider +1 [phone] Encounter Details Date Type Department Care Team (Latest Contact Info) Description 04/22/1997 Orders Only Gauri Cortez MD [address] [place] [address] [place], [place] [address] Social History Tobacco Use Types Packs/Day Years Used Date Smoking Tobacco: Never Assessed Sex and Gender Information Value Date Recorded Sex Assigned at Not on file Gender Identity Not on file Sexual Orientation Not on file documented as of this encounter Plan of Treatment Not on file documented as of this encounter Visit Diagnoses Not on filedocumented in this encounter Care Teams Sanitation Worker Hosing Machinery Relationship Specialty Start Date End Date Gauri Cortez MD [address] [facility] [address] [place], [place] [address] PCP - General Internal Medicine 04/29/13 documented as of this encounter
--- OUTSIDE RECORDS SUMMARY | 2023-12-12 07:39 | XMS_ITS | Encounter Summary ---
Author Organization [facility] Address [address] [place] [address] Care Team Providers Care Fiscal Services Manager Name Role Phone Gauri Cortez MD Primary Care Provider +1 [phone] Encounter Details Date Type Department Care Team (Latest Contact Info) Description 08/28/1997 Orders Only Gauri Cortez MD [address] [facility] [address] [place], [place] [address] Social History Tobacco Use Types Packs/Day Years Used Date Smoking Tobacco: Never Assessed Sex and Gender Information Value Date Recorded Sex Assigned at Not on file Gender Identity Not on file Sexual Orientation Not on file documented as of this encounter Plan of Treatment Not on file documented as of this encounter Visit Diagnoses Not on filedocumented in this encounter Care Teams Fiscal Services Manager Relationship Specialty Start Date End Date Gauri Cortez MD [address] [facility] [address] [place], [place] [address] PCP - General Internal Medicine 04/29/13 documented as of this encounter
--- OUTSIDE RECORDS SUMMARY | 2023-12-12 07:39 | XMS_ITS | Encounter Summary ---
Author Organization [facility] Address [address] [place] [address] Care Team Providers Care Smudger Name Role Phone Gauri Cortez MD Primary Care Provider +1 [phone] Encounter Details Date Type Department Care Team (Latest Contact Info) Description 08/20/1996 Orders Only Gauri Cortez MD [address] [facility] [address] [place], [place] [address] Social History Tobacco Use Types Packs/Day Years Used Date Smoking Tobacco: Never Assessed Sex and Gender Information Value Date Recorded Sex Assigned at Not on file Gender Identity Not on file Sexual Orientation Not on file documented as of this encounter Plan of Treatment Not on file documented as of this encounter Visit Diagnoses Not on filedocumented in this encounter Care Teams Smudger Relationship Specialty Start Date End Date Gauri Cortez MD [address] [facility] [address] [place], [place] [address] PCP - General Internal Medicine 04/29/13 documented as of this encounter
--- OUTSIDE RECORDS SUMMARY | 2023-12-12 07:39 | XMS_ITS | Encounter Summary ---
Author Organization [facility] Address [address] [place] [address] Care Team Providers Care Cell Tender Name Role Phone Gauri Cortez MD Primary Care Provider +1 [phone] Encounter Details Date Type Department Care Team (Latest Contact Info) Description 12/13/1995 Orders Only Presley Frost MD [address] [place], [place] [address] Social History Tobacco Use Types Packs/Day Years Used Date Smoking Tobacco: Never Assessed Sex and Gender Information Value Date Recorded Sex Assigned at Not on file Gender Identity Not on file Sexual Orientation Not on file documented as of this encounter Plan of Treatment Not on file documented as of this encounter Visit Diagnoses Not on filedocumented in this encounter Care Teams Cell Tender Relationship Specialty Start Date End Date Gauri Cortez MD [address] [facility] 200 [place] [address] PCP - General Internal Medicine 04/29/13 documented as of this encounter
--- OUTSIDE RECORDS SUMMARY | 2023-12-12 07:39 | XMS_ITS | Encounter Summary ---
Author Organization [facility] Address [address] [place] [address] Care Team Providers Care Sausage Grinder Name Role Phone Gauri Cortez MD Primary Care Provider +1 [phone] Encounter Details Date Type Department Care Team (Latest Contact Info) Description 09/07/1998 Orders Only Presley Frost MD [address] [place], [place] [address] Social History Tobacco Use Types Packs/Day Years Used Date Smoking Tobacco: Never Assessed Sex and Gender Information Value Date Recorded Sex Assigned at Not on file Gender Identity Not on file Sexual Orientation Not on file documented as of this encounter Plan of Treatment Not on file documented as of this encounter Visit Diagnoses Not on filedocumented in this encounter Care Teams Sausage Grinder Relationship Specialty Start Date End Date Gauri Cortez MD [address] [facility] 200 [place] [address] PCP - General Internal Medicine 04/29/13 documented as of this encounter
--- OUTSIDE RECORDS SUMMARY | 2023-12-12 07:39 | XMS_ITS | Encounter Summary ---
Author Organization [facility] Address [address] [place] [address] Care Team Providers Care Midwife Name Role Phone Gauri Cortez MD Primary Care Provider +1 [phone] Encounter Details Date Type Department Care Team (Latest Contact Info) Description 09/28/1999 Orders Only Gauri Cortez MD [address] [facility] [address] [place], [place] [address] Social History Tobacco Use Types Packs/Day Years Used Date Smoking Tobacco: Never Assessed Sex and Gender Information Value Date Recorded Sex Assigned at Not on file Gender Identity Not on file Sexual Orientation Not on file documented as of this encounter Plan of Treatment Not on file documented as of this encounter Visit Diagnoses Not on filedocumented in this encounter Care Teams Midwife Relationship Specialty Start Date End Date Gauri Cortez MD [address] [facility] [address] [place], [place] [address] PCP - General Internal Medicine 04/29/13 documented as of this encounter
--- OUTSIDE RECORDS SUMMARY | 2023-12-12 07:39 | XMS_ITS | Encounter Summary ---
Author Organization [facility] Address [address] [place] [address] Care Team Providers Care Fabric Worker Name Role Phone Gauri Cortze MD Primary Care Provider +1 [phone] Encounter Details Date Type Department Care Team (Latest Contact Info) Description 01/01/1996 Orders Only Geraldine De Los Santos MD [address] [place] [id number] Social History Tobacco Use Types Packs/Day Years Used Date Smoking Tobacco: Never Assessed Sex and Gender Information Value Date Recorded Sex Assigned at Not on file Gender Identity Not on file Sexual Orientation Not on file documented as of this encounter Plan of Treatment Not on file documented as of this encounter Visit Diagnoses Not on filedocumented in this encounter Care Teams Fabric Worker Relationship Specialty Start Date End Date Gauri Cortez MD [address] [facility] [address] [address] [place], [place] [address] PCP - General Internal Medicine 04/29/13 documented as of this encounter
--- OUTSIDE RECORDS SUMMARY | 2023-12-12 07:39 | XMS_ITS | Encounter Summary ---
Author Organization [facility] Address [address] [place] [address] Care Team Providers Care Television Presenter Name Role Phone Gauri Cortez MD Primary Care Provider +1 [phone] Encounter Details Date Type Department Care Team (Latest Contact Info) Description 01/09/1996 Orders Only Uriel Laboy MD [address] [facility] [address] [place], [place] [address] Social History Tobacco Use Types Packs/Day Years Used Date Smoking Tobacco: Never Assessed Sex and Gender Information Value Date Recorded Sex Assigned at Not on file Gender Identity Not on file Sexual Orientation Not on file documented as of this encounter Plan of Treatment Not on file documented as of this encounter Visit Diagnoses Not on filedocumented in this encounter Care Teams Television Presenter Relationship Specialty Start Date End Date Gauri Cortez MD [address] [facility] 200 [place] [address] PCP - General Internal Medicine 04/29/13 documented as of this encounter
--- OUTSIDE RECORDS SUMMARY | 2023-12-12 07:39 | XMS_ITS | Encounter Summary ---
Author Organization [facility] Address [address] [place] [address] Care Team Providers Care Mds Rn Name Role Phone Gauri Cortez MD Primary Care Provider +1 [phone] Encounter Details Date Type Department Care Team (Latest Contact Info) Description 09/24/1996 Orders Only Gauri Cortez MD [address] [facility] [address] [place], [place] [address] Social History Tobacco Use Types Packs/Day Years Used Date Smoking Tobacco: Never Assessed Sex and Gender Information Value Date Recorded Sex Assigned at Not on file Gender Identity Not on file Sexual Orientation Not on file documented as of this encounter Plan of Treatment Not on file documented as of this encounter Visit Diagnoses Not on filedocumented in this encounter Care Teams Mds Rn Relationship Specialty Start Date End Date Gauri Cortez MD [address] [facility] [address] [place], [place] [address] PCP - General Internal Medicine 04/29/13 documented as of this encounter
--- OUTSIDE RECORDS SUMMARY | 2023-12-12 07:39 | XMS_ITS | Encounter Summary ---
Author Organization [facility] Address [address] [place] [address] Care Team Providers Care Professor Of Biblical Studies Name Role Phone Gauri Cortez MD Primary Care Provider +1 [phone] Encounter Details Date Type Department Care Team (Latest Contact Info) Description 09/10/1999 [place] [address] [place] [address] Social History Tobacco Use Types [...] on filedocumented in this encounter Care Teams Professor Of Biblical Studies Relationship Specialty Start Date End Date Gauri Cortez MD [address] [facility] [address] [place], [place] [address] PCP - General Internal Medicine 04/29/13 documented as of this encounter
--- OUTSIDE RECORDS SUMMARY | 2023-12-12 07:39 | XMS_ITS | Encounter Summary ---
Author Organization [facility] Address [address] [place] [address] Care Team Providers Care All Around Presser Name Role Phone Gauri Cortez MD Primary Care Provider +1 [phone] Encounter Details Date Type Department Care Team (Latest Contact Info) Description 04/18/1997 Orders Only Gauri Cortez MD [address] [facility] [address] [place], [place] [address] Social History Tobacco Use Types Packs/Day Years Used Date Smoking Tobacco: Never Assessed Sex and Gender Information Value Date Recorded Sex Assigned at Not on file Gender Identity Not on file Sexual Orientation Not on file documented as of this encounter Plan of Treatment Not on file documented as of this encounter Visit Diagnoses Not on filedocumented in this encounter Care Teams All Around Presser Relationship Specialty Start Date End Date Gauri Cortez MD [address] [facility] [address] [place], [place] [address] PCP - General Internal Medicine 04/29/13 documented as of this encounter
--- OUTSIDE RECORDS SUMMARY | 2023-12-12 07:39 | XMS_ITS | Encounter Summary ---
Author Organization [facility] Address [address] [place] [address] Care Team Providers Care Lathe Spotter Name Role Phone Gauri Cortez MD Primary Care Provider +1 [phone] Encounter Details Date Type Department Care Team (Latest Contact Info) Description 06/12/1997 Orders Only Frank Scanlon [facility] [address] [facility] [address] Social History Tobacco Use Types Packs/Day Years Used Date Smoking Tobacco: Never Assessed Sex and Gender Information Value Date Recorded Sex Assigned at Not on file Gender Identity Not on file Sexual Orientation Not on file documented as of this encounter Plan of Treatment Not on file documented as of this encounter Visit Diagnoses Not on filedocumented in this encounter Care Teams Lathe Spotter Relationship Specialty Start Date End Date Gauri Cortez MD [address] [facility] [address] [place] [address] PCP - General Internal Medicine 04/29/13 documented as of this encounter
--- OUTSIDE RECORDS SUMMARY | 2023-12-12 07:39 | XMS_ITS | Encounter Summary ---
Author [facility] Address [address] [place] [address] Care Team Providers Care Contract Negotiation Specialist Name Role Phone Gauri Cortez MD Primary Care Provider +1 [phone] Encounter Details Date Type Department Care Team [...] on filedocumented in this encounter Care Teams Contract Negotiation Specialist Relationship Specialty Start Date End Date Gauri Cortez MD [address] [facility] 200 [place] [address] PCP - General Internal Medicine 04/29/13 documented as of this encounter
--- OUTSIDE RECORDS SUMMARY | 2023-12-12 07:39 | XMS_ITS | Encounter Summary ---
Author Organization [facility] Address [address] [place] [address] Care Team Providers Care Supervisor Residential Name Role Phone Gauri Cortez MD Primary Care Provider +1 [phone] Encounter Details Date Type Department Care Team (Latest Contact Info) Description 06/24/1996 Orders Only Sharif Pierre MD [address] [facility] [place], [place] [id number] Social History Tobacco Use Types Packs/Day Years Used Date Smoking Tobacco: Never Assessed Sex and Gender Information Value Date Recorded Sex Assigned at Not on file Gender Identity Not on file Sexual Orientation Not on file documented as of this encounter Plan of Treatment Not on file documented as of this encounter Visit Diagnoses Not on filedocumented in this encounter Care Teams Supervisor Residential Relationship Specialty Start Date End Date Gauri Cortez MD [address] [facility] [address] [place] [address] PCP - General Internal Medicine 04/29/13 documented as of this encounter
--- OUTSIDE RECORDS SUMMARY | 2023-12-12 07:39 | XMS_ITS | Encounter Summary ---
Author Organization [facility] Address [address] [place] [address] Care Team Providers Care Graduate Research Assistant Name Role Phone Gauri Cortez MD Primary Care Provider +1 [phone] Encounter Details Date Type Department Care Team [...] filedocumented in this encounter Care Teams Graduate Research Assistant Relationship Specialty Start Date End Date Gauri Cortez MD [address] [facility] [address] [place] [address] PCP - General Internal Medicine 04/29/13 documented as of this encounter
--- OUTSIDE RECORDS SUMMARY | 2023-12-12 07:39 | XMS_ITS | Encounter Summary ---
Author Organization [facility] Address [address] [place] [address] Care Team Providers Care Door Hanger Name Role Phone Gauri Cortez MD Primary Care Provider +1 [phone] Encounter Details Date Type Department Care Team (Latest Contact Info) Description 07/16/1999 Orders Only Gauri Cortez MD [address] [facility] [address] [place], [place] [address] Social History Tobacco Use Types Packs/Day Years Used Date Smoking Tobacco: Never Assessed Sex and Gender Information Value Date Recorded Sex Assigned at Not on file Gender Identity Not on file Sexual Orientation Not on file documented as of this encounter Plan of Treatment Not on file documented as of this encounter Visit Diagnoses Not on filedocumented in this encounter Care Teams Door Hanger Relationship Specialty Start Date End Date Gauri Cortez MD [address] [facility] [address] [place], [place] [address] PCP - General Internal Medicine 04/29/13 documented as of this encounter
--- OUTSIDE RECORDS SUMMARY | 2023-12-12 07:39 | XMS_ITS | Encounter Summary ---
Author Organization [facility] Address [address] [place] [address] Care Team Providers Care Ct Technologist Name Role Phone Gauri Cortez MD Primary Care Provider +1 [phone] Encounter Details Date Type Department Care Team (Latest Contact Info) Description 05/12/1999 Orders Only Gauri Cortez MD [address] [facility] [address] [place], [place] [address] Social History Tobacco Use Types Packs/Day Years Used Date Smoking Tobacco: Never Assessed Sex and Gender Information Value Date Recorded Sex Assigned at Not on file Gender Identity Not on file Sexual Orientation Not on file documented as of this encounter Plan of Treatment Not on file documented as of this encounter Visit Diagnoses Not on filedocumented in this encounter Care Teams Ct Technologist Relationship Specialty Start Date End Date Gauri Cortez MD [address] [facility] [address] [place], [place] [address] PCP - General Internal Medicine 04/29/13 documented as of this encounter
--- OUTSIDE RECORDS SUMMARY | 2023-12-12 07:39 | XMS_ITS | Encounter Summary ---
Author Organization [facility] Address [address] [place] [address] Care Team Providers Care Automation And Controls Instructor Name Role Phone Gauri Cortez MD Primary Care Provider +1 [phone] Encounter Details Date Type Department Care Team [...] on filedocumented in this encounter Care Teams Automation And Controls Instructor Relationship Specialty Start Date End Date Gauri Cortez MD [address] [facility] 200 [place] [address] PCP - General Internal Medicine 04/29/13 documented as of this encounter
--- OUTSIDE RECORDS SUMMARY | 2023-12-12 07:39 | XMS_ITS | Encounter Summary ---
Author Organization [facility] Address [address] [place] [address] Care Team Providers Care Chart Changer Name Role Phone Gauri Cortez MD Primary Care Provider +1 [phone] Encounter Details Date Type Department Care Team [...] on filedocumented in this encounter Care Teams Chart Changer Relationship Specialty Start Date End Date Gauri Cortez MD [address] [facility] 200 [place] [address] PCP - General Internal Medicine 04/29/13 documented as of this encounter
--- OUTSIDE RECORDS SUMMARY | 2023-12-12 07:39 | XMS_ITS | Encounter Summary ---
Author Organization [facility] Address [address] [place] [address] Care Team Providers Care Slitter Creaser Slotter Operator Name Role Phone Gauri Cortez MD Primary Care Provider +1 [phone] Encounter Details Date Type Department Care Team (Latest Contact Info) Description 12/16/1996 Orders Only Presley Frost MD [address] [place], [place] [address] Social History Tobacco Use Types Packs/Day Years Used Date Smoking Tobacco: Never Assessed Sex and Gender Information Value Date Recorded Sex Assigned at Not on file Gender Identity Not on file Sexual Orientation Not on file documented as of this encounter Plan of Treatment Not on file documented as of this encounter Visit Diagnoses Not on filedocumented in this encounter Care Teams Slitter Creaser Slotter Operator Relationship Specialty Start Date End Date Gauri Cortez MD [address] [email or web address] 200 [place] [address] PCP - General Internal Medicine 04/29/13 documented as of this encounter
--- OUTSIDE RECORDS SUMMARY | 2023-12-12 07:39 | XMS_ITS | Encounter Summary ---
Author Organization [facility] Address [address] [place] [address] Care Team Providers Care Office Aide Name Role Phone Gauri Cortez MD Primary Care Provider +1 [phone] Encounter Details Date Type Department Care Team (Latest Contact Info) Description 01/27/1997 Orders Only Sharif Pierre MD [address] [facility] [place], [place] [id number] Social History Tobacco Use Types Packs/Day Years Used Date Smoking Tobacco: Never Assessed Sex and Gender Information Value Date Recorded Sex Assigned at Not on file Gender Identity Not on file Sexual Orientation Not on file documented as of this encounter Plan of Treatment Not on file documented as of this encounter Visit Diagnoses Not on filedocumented in this encounter Care Teams Office Aide Relationship Specialty Start Date End Date Gauri Cortez MD [address] [facility] 200 [place] [address] PCP - General Internal Medicine 04/29/13 documented as of this encounter
--- OUTSIDE RECORDS SUMMARY | 2023-12-12 07:39 | XMS_ITS | Encounter Summary ---
Author Organization [facility] Address [address] [place] [address] Care Team Providers Care Gang Mower Operator Name Role Phone Gauri Cortez MD Primary Care Provider +1 [phone] Encounter Details Date Type Department Care Team [...] on filedocumented in this encounter Care Teams Gang Mower Operator Relationship Specialty Start Date End Date Gauri Cortez MD [address] [facility] 200 [place] [address] PCP - General Internal Medicine 04/29/13 documented as of this encounter
--- OUTSIDE RECORDS SUMMARY | 2023-12-12 07:39 | XMS_ITS | Encounter Summary ---
Author Organization [facility] Address [address] [place] [address] Care Team Providers Care Internal Revenue Agent Name Role Phone Gauri Cortez MD Primary Care Provider +1 [phone] Encounter Details Date Type Department Care Team (Latest Contact Info) Description 04/10/1996 Orders Only Gauri Cortez MD [address] [facility] 200 [place], [place] [address] Social History Tobacco Use Types Packs/Day Years Used Date Smoking Tobacco: Never Assessed Sex and Gender Information Value Date Recorded Sex Assigned at Not on file Gender Identity Not on file Sexual Orientation Not on file documented as of this encounter Plan of Treatment Not on file documented as of this encounter Visit Diagnoses Not on filedocumented in this encounter Care Teams Internal Revenue Agent Relationship Specialty Start Date End Date Gauri Cortez MD [address] [facility] [address] [place], [place] [address] PCP - General Internal Medicine 04/29/13 documented as of this encounter
--- OUTSIDE RECORDS SUMMARY | 2023-12-12 07:39 | XMS_ITS | Encounter Summary ---
Author Organization [facility] Address [address] [place] [address] Care Team Providers Care Academic Hospitalist Name Role Phone Gauri Cortez MD Primary Care Provider +1 [phone] Encounter Details Date Type Department Care Team (Latest Contact Info) Description 10/18/1999 Orders Only Sharif Pierre MD [address] [facility] [place], [place] [id number] Social History Tobacco Use Types Packs/Day Years Used Date Smoking Tobacco: Never Assessed Sex and Gender Information Value Date Recorded Sex Assigned at Not on file Gender Identity Not on file Sexual Orientation Not on file documented as of this encounter Plan of Treatment Not on file documented as of this encounter Visit Diagnoses Not on filedocumented in this encounter Care Teams Academic Hospitalist Relationship Specialty Start Date End Date Gauri Cortez MD [address] [facility] 200 [place] [address] PCP - General Internal Medicine 04/29/13 documented as of this encounter
--- OUTSIDE RECORDS SUMMARY | 2023-12-12 07:39 | XMS_ITS | Encounter Summary ---
Author Organization [facility] Address [address] [place] [address] Care Team Providers Care Back Office Medical Assistant Name Role Phone Gauri Cortez MD Primary Care Provider +1 [phone] Encounter Details Date Type Department Care Team (Latest Contact Info) Description 05/21/1999 Orders Only Gauri Cortez MD [address] [facility] 200 [place], [place] [address] Social History Tobacco Use Types Packs/Day Years Used Date Smoking Tobacco: Never Assessed Sex and Gender Information Value Date Recorded Sex Assigned at Not on file Gender Identity Not on file Sexual Orientation Not on file documented as of this encounter Plan of Treatment Not on file documented as of this encounter Visit Diagnoses Not on filedocumented in this encounter Care Teams Back Office Medical Assistant Relationship Specialty Start Date End Date Gauri Cortez MD [address] [facility] 200 [place], [place] [address] PCP - General Internal Medicine 04/29/13 documented as of this encounter
--- OUTSIDE RECORDS SUMMARY | 2023-12-12 07:39 | XMS_ITS | Encounter Summary ---
Author Organization [facility] Address [address] [place] [address] Care Team Providers Care Weigh Box Tender Name Role Phone Gauri Cortez MD Primary Care Provider +1 [phone] Encounter Details Date Type Department Care Team [...] on filedocumented in this encounter Care Teams Weigh Box Tender Relationship Specialty Start Date End Date Gauri Cortez MD [address] [facility] 200 [place] [address] PCP - General Internal Medicine 04/29/13 documented as of this encounter
--- OUTSIDE RECORDS SUMMARY | 2023-12-12 07:39 | XMS_ITS | Encounter Summary ---
Author Organization [facility] Address [address] [place] [address] Care Team Providers Care Banking Teacher Name Role Phone Gauri Cortez MD Primary Care Provider +1 [phone] Encounter Details Date Type Department Care Team [...] on filedocumented in this encounter Care Teams Banking Teacher Relationship Specialty Start Date End Date Gauri Cortez MD [address] [facility] 200 [place] [address] PCP - General Internal Medicine 04/29/13 documented as of this encounter
--- OUTSIDE RECORDS SUMMARY | 2023-12-12 07:39 | XMS_ITS | Encounter Summary ---
Author Organization [facility] Address [address] [place] [address] Care Team Providers Care Biomedical Instrument Technician Name Role Phone Gauri Cortez MD Primary Care Provider +1 [phone] Encounter Details Date Type Department Care Team (Latest Contact Info) Description 06/24/1997 Orders Only Gauri Cortez MD [address] [facility] 200 [place], [place] [address] Social History Tobacco Use Types Packs/Day Years Used Date Smoking Tobacco: Never Assessed Sex and Gender Information Value Date Recorded Sex Assigned at Not on file Gender Identity Not on file Sexual Orientation Not on file documented as of this encounter Plan of Treatment Not on file documented as of this encounter Visit Diagnoses Not on filedocumented in this encounter Care Teams Biomedical Instrument Technician Relationship Specialty Start Date End Date Gauri Cortez MD [address] [facility] 200 [place], [place] [address] PCP - General Internal Medicine 04/29/13 documented as of this encounter
--- OUTSIDE RECORDS SUMMARY | 2023-12-12 07:39 | XMS_ITS | Encounter Summary ---
Author Organization [facility] Address [address] [place] [address] Care Team Providers Care Electroplater Helper Name Role Phone Gauri Cortez MD Primary Care Provider +1 [phone] Encounter Details Date Type Department Care Team (Latest Contact Info) Description 02/23/1998 Orders Only Uriel Laboy MD [address] [facility] [place], [place] [address] Social History Tobacco Use Types Packs/Day Years Used Date Smoking Tobacco: Never Assessed Sex and Gender Information Value Date Recorded Sex Assigned at Not on file Gender Identity Not on file Sexual Orientation Not on file documented as of this encounter Plan of Treatment Not on file documented as of this encounter Visit Diagnoses Not on filedocumented in this encounter Care Teams Electroplater Helper Relationship Specialty Start Date End Date Gauri Cortez MD [address] [facility] [address] [place] [address] PCP - General Internal Medicine 04/29/13 documented as of this encounter
--- OUTSIDE RECORDS SUMMARY | 2023-12-12 07:40 | XMS_ITS | Encounter Summary ---
Author Organization [facility] Address [address] [place] [address] Care Team Providers Care Comic Writer Name Role Phone Gauri Cortez MD Primary Care Provider +1 [phone] Encounter Details Date Type Department Care Team [...] on filedocumented in this encounter Care Teams Comic Writer Relationship Specialty Start Date End Date Gauri Cortez MD [address] [facility] [address] [place] [address] PCP - General Internal Medicine 04/29/13 documented as of this encounter
--- OUTSIDE RECORDS SUMMARY | 2023-12-12 07:40 | XMS_ITS | Encounter Summary ---
Author Organization [facility] Address [address] [place] [address] Care Team Providers Care Investment Analyst Name Role Phone Gauri Cortez MD Primary Care Provider +1 [phone] Encounter Details Date Type Department Care Team (Latest Contact Info) Description 01/19/1995 Orders Only Gauri Cortez MD [address] [facility] [address] [place], [place] [address] Social History Tobacco Use Types Packs/Day Years Used Date Smoking Tobacco: Never Assessed Sex and Gender Information Value Date Recorded Sex Assigned at Not on file Gender Identity Not on file Sexual Orientation Not on file documented as of this encounter Plan of Treatment Not on file documented as of this encounter Visit Diagnoses Not on filedocumented in this encounter Care Teams Investment Analyst Relationship Specialty Start Date End Date Gauri Cortez MD [address] [facility] [address] [place], [place] [address] PCP - General Internal Medicine 04/29/13 documented as of this encounter
--- OUTSIDE RECORDS SUMMARY | 2023-12-12 07:40 | XMS_ITS | Encounter Summary ---
Author Organization [facility] Address [address] [place] [address] Care Team Providers Care Live Source Operator Name Role Phone Gauri Cortez MD Primary Care Provider +1 [phone] Encounter Details Date Type Department Care Team (Latest Contact Info) Description 06/29/1994 Orders Only Bret Hollis MD [address] [facility] [address] [place], [place] [address] Social History Tobacco Use Types Packs/Day Years Used Date Smoking Tobacco: Never Assessed Sex and Gender Information Value Date Recorded Sex Assigned at Not on file Gender Identity Not on file Sexual Orientation Not on file documented as of this encounter Plan of Treatment Not on file documented as of this encounter Visit Diagnoses Not on filedocumented in this encounter Care Teams Live Source Operator Relationship Specialty Start Date End Date Gauri Cortez MD [address] [facility] [address] [place] [address] PCP - General Internal Medicine 04/29/13 documented as of this encounter
--- OUTSIDE RECORDS SUMMARY | 2023-12-12 07:40 | XMS_ITS | Encounter Summary ---
Author Organization [facility] Address [address] [place] [address] Care Team Providers Care Top Lifter Name Role Phone Gauri Cortez MD Primary Care Provider +1 [phone] Encounter Details Date Type Department Care Team (Latest Contact Info) Description 02/08/1995 Orders Only Gauri Cortez MD [address] [facility] 200 [place], [place] [address] Social History Tobacco Use Types Packs/Day Years Used Date Smoking Tobacco: Never Assessed Sex and Gender Information Value Date Recorded Sex Assigned at Not on file Gender Identity Not on file Sexual Orientation Not on file documented as of this encounter Plan of Treatment Not on file documented as of this encounter Visit Diagnoses Not on filedocumented in this encounter Care Teams Top Lifter Relationship Specialty Start Date End Date Gauri Cortez MD [address] [facility] 200 [place], [place] [address] PCP - General Internal Medicine 04/29/13 documented as of this encounter
--- OUTSIDE RECORDS SUMMARY | 2023-12-12 07:40 | XMS_ITS | Encounter Summary ---
Author Organization [facility] Address [address] [place] [address] Care Team Providers Care Legal Nurse Consultant Name Role Phone Gauri Cortez MD Primary Care Provider +1 [phone] Encounter Details Date Type Department Care Team (Latest Contact Info) Description 04/24/1995 Orders Only Presley Frost MD [address] [place], [place] [address] Social History Tobacco Use Types Packs/Day Years Used Date Smoking Tobacco: Never Assessed Sex and Gender Information Value Date Recorded Sex Assigned at Not on file Gender Identity Not on file Sexual Orientation Not on file documented as of this encounter Plan of Treatment Not on file documented as of this encounter Visit Diagnoses Not on filedocumented in this encounter Care Teams Legal Nurse Consultant Relationship Specialty Start Date End Date Gauri Cortez MD [address] [facility] 200 [place] [address] PCP - General Internal Medicine 04/29/13 documented as of this encounter
--- OUTSIDE RECORDS SUMMARY | 2023-12-12 07:40 | XMS_ITS | Encounter Summary ---
Author Organization [facility] Address [address] [place] [address] Care Team Providers Care Trailer Assembler Name Role Phone Gauri Cortez MD Primary Care Provider +1 [phone] Encounter Details Date Type Department Care Team (Latest Contact Info) Description 11/01/1995 Orders Only Geraldine De Los Santos MD [address] [place] [id number] Social History Tobacco Use Types Packs/Day Years Used Date Smoking Tobacco: Never Assessed Sex and Gender Information Value Date Recorded Sex Assigned at Not on file Gender Identity Not on file Sexual Orientation Not on file documented as of this encounter Plan of Treatment Not on file documented as of this encounter Visit Diagnoses Not on filedocumented in this encounter Care Teams Trailer Assembler Relationship Specialty Start Date End Date Gauri Cortez MD [address] [facility] [address] [address] [place], [place] [address] PCP - General Internal Medicine 04/29/13 documented as of this encounter
--- OUTSIDE RECORDS SUMMARY | 2023-12-12 07:40 | XMS_ITS | Encounter Summary ---
Author Organization [facility] Address [address] [place] [address] Care Team Providers Care Vacuum Extractor Operator Name Role Phone Gauri Cortez MD Primary Care Provider +1 [phone] Encounter Details Date Type Department Care Team (Latest Contact Info) Description 09/06/1995 Orders Only Rob Mccollum MD [address] [place] [address] Social History Tobacco Use Types Packs/Day Years Used Date Smoking Tobacco: Never Assessed Sex and Gender Information Value Date Recorded Sex Assigned at Not on file Gender Identity Not on file Sexual Orientation Not on file documented as of this encounter Plan of Treatment Not on file documented as of this encounter Visit Diagnoses Not on filedocumented in this encounter Care Teams Vacuum Extractor Operator Relationship Specialty Start Date End Date Gauri Cortez MD [address] [facility] 200 [place], [place] [address] PCP - General Internal Medicine 04/29/13 documented as of this encounter
--- OUTSIDE RECORDS SUMMARY | 2023-12-12 07:40 | XMS_ITS | Encounter Summary ---
Author Organization [facility] Address [address] [place] [address] Care Team Providers Care Striper Spray Gun Name Role Phone Gauri Cortez MD Primary Care Provider +1 [phone] Encounter Details Date Type Department Care Team (Latest Contact Info) Description 07/26/1994 Orders Only Gauri Cortez MD [address] [facility] [address] [place], [place] [address] Social History Tobacco Use Types Packs/Day Years Used Date Smoking Tobacco: Never Assessed Sex and Gender Information Value Date Recorded Sex Assigned at Not on file Gender Identity Not on file Sexual Orientation Not on file documented as of this encounter Plan of Treatment Not on file documented as of this encounter Visit Diagnoses Not on filedocumented in this encounter Care Teams Striper Spray Gun Relationship Specialty Start Date End Date Gauri Cortez MD [address] [facility] 200 [place], [place] [address] PCP - General Internal Medicine 04/29/13 documented as of this encounter
--- OUTSIDE RECORDS SUMMARY | 2023-12-12 07:40 | XMS_ITS | Encounter Summary ---
Author Organization [facility] Address [address] [place] [address] Care Team Providers Care Store Merchandiser Name Role Phone Gauri Cortez MD Primary Care Provider +1 [phone] Encounter Details Date Type Department Care Team (Latest Contact Info) Description 11/08/1994 Orders Only Gauri Cortez MD [address] [facility] [address] [place], [place] [address] Social History Tobacco Use Types Packs/Day Years Used Date Smoking Tobacco: Never Assessed Sex and Gender Information Value Date Recorded Sex Assigned at Not on file Gender Identity Not on file Sexual Orientation Not on file documented as of this encounter Plan of Treatment Not on file documented as of this encounter Visit Diagnoses Not on filedocumented in this encounter Care Teams Store Merchandiser Relationship Specialty Start Date End Date Gauri Cortez MD [address] [facility] [address] [place], [place] [address] PCP - General Internal Medicine 04/29/13 documented as of this encounter
--- OUTSIDE RECORDS SUMMARY | 2023-12-12 07:40 | XMS_ITS | Encounter Summary ---
Author Organization [facility] Address [address] [place] [address] Care Team Providers Care Water Project Engineer Name Role Phone Gauri Cortez MD Primary Care Provider +1 [phone] Encounter Details Date Type Department Care Team [...] on filedocumented in this encounter Care Teams Water Project Engineer Relationship Specialty Start Date End Date Gauri Cortez MD [address] [facility] [address] [place] [address] PCP - General Internal Medicine 04/29/13 documented as of this encounter
--- OUTSIDE RECORDS SUMMARY | 2023-12-12 07:40 | XMS_ITS | Encounter Summary ---
Author Organization [facility] Address [address] [place] [address] Care Team Providers Care Management Architect Name Role Phone Gauri Cortez MD Primary Care Provider +1 [phone] Encounter Details Date Type Department Care Team (Latest Contact Info) Description 11/10/1994 Orders Only Gauri Cortez MD [address] [facility] [address] [place], [place] [address] Social History Tobacco Use Types Packs/Day Years Used Date Smoking Tobacco: Never Assessed Sex and Gender Information Value Date Recorded Sex Assigned at Not on file Gender Identity Not on file Sexual Orientation Not on file documented as of this encounter Plan of Treatment Not on file documented as of this encounter Visit Diagnoses Not on filedocumented in this encounter Care Teams Management Architect Relationship Specialty Start Date End Date Gauri Cortez MD [address] [facility] [address] [place], [place] [address] PCP - General Internal Medicine 04/29/13 documented as of this encounter
--- OUTSIDE RECORDS SUMMARY | 2023-12-12 07:40 | XMS_ITS | Encounter Summary ---
Author Organization [facility] Address [address] [place] [address] Care Team Providers Care Client Services Manager Name Role Phone Gauri Cortez MD Primary Care Provider +1 [phone] Encounter Details Date Type Department Care Team (Latest Contact Info) Description 09/03/1994 Orders Only Frank Scanlon [facility] [address] [facility], [address] Social History Tobacco Use [...] on filedocumented in this encounter Care Teams Client Services Manager Relationship Specialty Start Date End Date Gauri Cortez MD [address] [facility] [address] [place] [address] PCP - General Internal Medicine 04/29/13 documented as of this encounter
--- OUTSIDE RECORDS SUMMARY | 2023-12-12 07:40 | XMS_ITS | Encounter Summary ---
Author Organization [facility] Address [address] [place] [address] Care Team Providers Care Developer Analyst Name Role Phone Gauri Cortez MD Primary Care Provider +1 [phone] Encounter Details Date Type Department Care Team [...] on filedocumented in this encounter Care Teams Developer Analyst Relationship Specialty Start Date End Date Gauri Cortez MD [address] [facility] [address] [place] [address] PCP - General Internal Medicine 04/29/13 documented as of this encounter
--- OUTSIDE RECORDS SUMMARY | 2023-12-12 07:40 | XMS_ITS | Encounter Summary ---
Author Organization [facility] Address [address] [place] [address] Care Team Providers Care Hot Mill Observer Name Role Phone Gauri Cortez MD Primary Care Provider [phone] Encounter Details Date Type Department Care Team (Latest Contact Info) Description 06/15/1994 Orders Only Loco Chavez MD [address] [place], [place] [id number] Social History Tobacco Use Types Packs/Day Years Used Date Smoking Tobacco: Never Assessed Sex and Gender Information Value Date Recorded Sex Assigned at Not on file Gender Identity Not on file Sexual Orientation Not on file documented as of this encounter Plan of Treatment Not on file documented as of this encounter Visit Diagnoses Not on filedocumented in this encounter Care Teams Hot Mill Observer Relationship Specialty Start Date End Date Gauri oCrtez MD [address] [facility] [address] [place] [address] PCP - General Internal Medicine 04/29/13 documented as of this encounter
--- OUTSIDE RECORDS SUMMARY | 2023-12-12 07:40 | XMS_ITS | Encounter Summary ---
Author Organization [facility] Address [address] [place] [address] Care Team Providers Care Heel Pricker Name Role Phone Gauri Cortez MD Primary Care Provider [phone] Encounter Details Date Type Department Care Team [...] on filedocumented in this encounter Care Teams Heel Pricker Relationship Specialty Start Date End Date Gauri Cortez MD [address] [facility] [address] [place] [address] PCP - General Internal Medicine 04/29/13 documented as of this encounter
--- OUTSIDE RECORDS SUMMARY | 2023-12-12 07:40 | XMS_ITS | Encounter Summary ---
Author Organization [facility] Address [address] [place] [address] Care Team Providers Care [facility] Name Role Phone Gauri Cortez MD Primary Care Provider [phone] Encounter Details Date Type Department Care Team (Latest Contact Info) Description 09/29/1995 Orders Only Gauri Cortez MD [address] [facility] [address] [place], [place] [address] Social History Tobacco Use Types Packs/Day Years Used Date Smoking Tobacco: Never Assessed Sex and Gender Information Value Date Recorded Sex Assigned at Not on file Gender Identity Not on file Sexual Orientation Not on file documented as of this encounter Plan of Treatment Not on file documented as of this encounter Visit Diagnoses Not on filedocumented in this encounter Care Teams [facility]isted Living Relationship Specialty Start Date End Date Gauri Cortez MD [address] [facility] [address] [place], [place] [address] PCP - General Internal Medicine 04/29/13 documented as of this encounter
--- OUTSIDE RECORDS SUMMARY | 2023-12-12 07:40 | XMS_ITS | Encounter Summary ---
Author Organization [facility] Address [address] [place] [address] Care Team Providers Care Electrical Instrument Maker Name Role Phone Gauri Cortez MD Primary Care Provider [phone] Encounter Details Date Type Department Care Team [...] on filedocumented in this encounter Care Teams Electrical Instrument Maker Relationship Specialty Start Date End Date Gauri Cortez MD [address] [facility] [address] [place] [address] PCP - General Internal Medicine 04/29/13 documented as of this encounter
--- OUTSIDE RECORDS SUMMARY | 2023-12-12 07:41 | XMS_ITS | Encounter Summary ---
Author Organization [facility] Address [address] [place] [address] Care Team Providers Care Audiometric Technician Name Role Phone Gauri Cortez MD Primary Care Provider [phone] Encounter Details Date Type Department Care Team (Latest Contact Info) Description 04/22/1994 Orders Only Gauri Cortez MD [address] [facility] 200 [place], [place] [address] Social History Tobacco Use Types Packs/Day Years Used Date Smoking Tobacco: Never Assessed Sex and Gender Information Value Date Recorded Sex Assigned at Not on file Gender Identity Not on file Sexual Orientation Not on file documented as of this encounter Plan of Treatment Not on file documented as of this encounter Visit Diagnoses Not on filedocumented in this encounter Care Teams Audiometric Technician Relationship Specialty Start Date End Date Gauri Cortez MD [address] [facility] [address] [place], [place] [address] PCP - General Internal Medicine 04/29/13 documented as of this encounter
--- OUTSIDE RECORDS SUMMARY | 2023-12-12 07:41 | XMS_ITS | Encounter Summary ---
Author Organization [place] Address [address] [place] [address]. [place] [address] Care Team Providers Care Group Rooms Coordinator Name Role Phone Gauri Cortez MD Primary Care Provider [phone] Gauri Cortez MD Unavailable [phone] Sharif Mayer MD Unavailable [phone] Encounter Details Date Type Department Care Team (Late st Contact Info) Description 07/22/2021 MyC Medical Advice [address] [phone] [place] Mcguire Social History Tobacco Use Types [...] documented as of this encounter Care Teams Group Rooms Coordinator Relationship Specialty Start Date End Date Gauri Cortez MD [address] [place] [address] PCP - General Internal Medicine 08/07/13 Gauri Cortez MD [address] [place] [address] Assigned PCP 09/30/18 Sharif Mayer MD [address] [place] [id number] [place] [address] Assigned Surgical Provider 04/30/22 11/02/23 documented as of this encounter
--- OUTSIDE RECORDS SUMMARY | 2023-12-12 07:41 | XMS_ITS | Encounter Summary ---
Author Organization [place] Address [address] [address] Care Team Providers Care Night Worker Name Role Phone Gauri Cortez MD Primary Care Provider Gauri Cortez MD Unavailable Sharif Mayer MD Unavailable Reason for Visit * Reason Comments Medication Refill Encounter Details Date Type Department Care Team (Late st Contact Info) Description 06/09/2022 [facility] [address] [place] [address] Gauri Cortez MD [address] [facility] [address] [place] [address] Medication Refill Social History Tobacco [...] 06/10/2022 2:57 PM CDT Prescription approved per [facility] Refill Protocol. documented in this encounter Plan of Treatment Not on file documented as of this encounter Visit Diagnoses Diagnosis Acquired hypothyroidism Unspecified hypothyroidism documented in this encounter Additional Health Concerns Assessment Noted Time PHQ-9 Depression Total Score: 2 07/13/19 22 11:30 AM CDT documented as of this encounter Care Teams Night Worker Relationship Specialty Start Date End Date Gauri Cortez MD [address] [place] [address] PCP - General Internal Medicine 08/07/13 Gauri Cortez MD [address] [place], [place] [address] Assigned PCP 09/30/18 Sharif Mayer MD [id number] [place] [address] Assigned Surgical Provider 04/30/22 11/02/23 documented as of this encounter
--- OUTSIDE RECORDS SUMMARY | 2023-12-12 07:41 | XMS_ITS | Encounter Summary ---
Author Organization [facility] Address [address] [place] [address] Care Team Providers Care Devops Solutions Architect Name Role Phone Gauri Cortez MD Primary Care Provider [phone] Encounter Details Date Type Department Care Team (Latest Contact Info) Description 09/20/1993 Office Visit Ovidio Mitchell [address] [facility] [address] [place], [address] Social History Tobacco Use Types Packs/Day Years [...] on filedocumented in this encounter Care Teams Devops Solutions Architect Relationship Specialty Start Date End Date Gauri Cortez MD [address] [facility] [address] [place], [place] [address] PCP - General Internal Medicine 04/29/13 documented as of this encounter
--- OUTSIDE RECORDS SUMMARY | 2023-12-12 07:41 | XMS_ITS | Clinical Summary ---
Author Organization [place] Address [facility] [place] [address] Care Team Providers Care Carpet Jack Name Role Phone Gauri Cortez MD Primary Care Provider Gauri Cortez MD Unavailable [phone] Allergies Active Allergy Reactions Criticality Noted Date [...] (ASTELIN) 0.1 % nasal sprayIndications:Chron ic rhinitis [place] 1-2 sprays into both nostrils 2 times [...] wi th single episode, in partial remission 09/22/2015 11/24/2020 Knee pain 09/26/2013 11/27/2013 Hypertension goal BP (blood pressure) < 140/90 04/14/2012 09/22/2015 Dehydration 2012 09/05/2012 Nausea and vomiting 2012 09/06/19 13 [facility] 08/04/2010 08/28/2023 Overview: DX V65.8 REPLACED WITH 27899 HEALTH LONG-TERM (06/18/2012) Advanced directives, counseling/discussion 06/01/2010 [...] Type Department Care Team Description 10/10/2023 Telephone [facility] W[facility] Ostomy [facility] [place] [address] [place] [address] 743, Ostomy Wound Room, RN from [...] Comments Blood Pressure 112/70 04/18/2022 12:57 PM INSPECTOR PENETRANT Pulse 78 04/18/2022 12:57 PM INSPECTOR PENETRANT Temperature 36.1 ??C (96.9 ??F) 11/29/2021 8:03 AM CD T Respiratory Rate 16 04/18/2022 12:57 PM INSPECTOR PENETRANT Oxygen Saturation 96% 04/18/2022 12:57 PM INSPECTOR PENETRANT Inhaled Oxygen Concentration - - Weight 77.1 kg (170 lb) 04/18/2022 12:57 PM INSPECTOR PENETRANT Pt reported Height 170.2 cm (5' 7) 04/18/2022 12:57 PM INSPECTOR PENETRANT Pt reported Body Mass Index 26.63 04/18/2022 12:57 PM INSPECTOR PENETRANT Plan of Treatment Health Maintenance Due Date [...] PM CDT EXAM: DX AXIAL HIPS/SPINE LOCATION: [facility] DATE: 08/09/2023 INDICATION: BMD screening, follow-up. [...] - 08/09/2023 EXAM: DX AXIAL HIPS/SPINE LOCATION: [facility] DATE: 08/09/2023 INDICATION: BMD screening, follow-up. [...] LAB - URINE ORDERAB LES OX LABORATORY [facility] [address] Lab (no room number, 1st floor of clinic) [place] [address], [facility] [phone] * CBC with platelets and differential (11/29/2021 [...] LAB - BLOOD ORDERAB LES RI LABORATORY [facility] [address], [address] [place] [address], [place] [phone] * TSH with free T4 reflex (11/29/2021 9:09 AM CDT) TSH 1.13 0.40 - 4.00 mU/L 11/30/2021 10:53 AM CDT OX LABORATORY Blood VENOUS BLOOD / Unknown Venipuncture / Unknown 11/29/2021 9:09 AM CDT 11/29/2021 9:09 AM CDT Gauri Cortez MD LAB - BLOOD ORDERAB LES OX LABORATORY [facility] [address] Lab (no room number, 1st floor of clinic) [place] [address], [place] [phone] * (ABNORMAL) Lipid Profile (Chol, Trig, HDL, [...] LAB - BLOOD ORDERAB LES OX LABORATORY [facility] [address] Lab (no room number, 1st floor of clinic) [place] [address], [facility] [phone] * (ABNORMAL) Comprehensive metabolic panel (BMP + [...] and gender (Becca et al., NEJ, DOI: 10.1056/[id number]) Blood VENOUS BLOOD / Unknown Venipuncture / Unknown 11/29/2021 9:09 AM CDT 11/29/2021 9:09 AM CDT Gauri Cortez MD LAB - BLOOD ORDERAB LES OX LABORATORY [facility] [address] Lab (no room number, 1st floor of clinic) [place] [address], [place] [phone] * (ABNORMAL) UA macro with reflex to [...] 11/19/2021 4:47 PM CDT LV LAB[facility]AT[facility] Specific [place] Urine 1.010 1.003 - 1.035 11/19/2021 4:47 [...] LAB - URINE ORDERABL ES LABORATORY [facility] [address] [facility] Lab (no room number, 1st floor of clinic) [place] [address], [facility] [phone] * Hepatitis C antibody (09/22/2015 8:10 AM CDT) Pathologist [facility] Hepatitis C Antibody Nonreactive Assay performance characteristics have not been established for newborns, infants, and children NR [facility] Blood specimen (specimen) 09/22/2015 8:10 AM CDT 09/22/2015 8:15 AM CDT Gauri Cortez MD LAB - BLOOD ORDERAB LES [facility] [address] [place] [address] * Sigmoidoscopy flexible (10/08/2012) Patient Reported ANESTHESIA ORDERABLE S * COLONOSCOPY (06/16/2008) 06/16/2008 Tyra Cardona MD PROCEDURES from Last 3 Months or Most Recently Relevant to Health Maintenance Care Teams Carpet Jack Relationship Specialty Start Date End Date Gauri Cortez MD [address] [facility] 200 [place] [address] PCP - General Internal Medicine 08/07/13 Gauri Cortez MD [address] [facility] 200 [place] [address] Assigned PCP 09/30/18
--- OUTSIDE RECORDS SUMMARY | 2023-12-12 07:41 | XMS_ITS | Encounter Summary ---
Author Organization [place] Address [address] [facility] [place] [address] Care Team Providers Care Gambling Cashier Name Role Phone Gauri Cortez MD Primary Care Provider Gauri Cortez MD Unavailable Sharif Mayer MD Unavailable Reason for Visit * Reason Comments Medication Refill Encounter Details Date Type Department Care Team (Late st Contact Info) Description 09/03/[address] [place] [address] Sandra Coates APRN [facility] [address] [place] [address] Medication Refill Social History Tobacco [...] documented as of this encounter Care Teams Gambling Cashier Relationship Specialty Start Date End Date Gauri Cortez MD [address] [place] [address] PCP - General Internal Medicine 08/07/13 Gauri Cortez MD [address] [place] [address] Assigned PCP 09/30/18 Sharif Mayer MD [id number] [place] [address] Assigned Surgical Provider 04/30/22 11/02/23 documented as of this encounter
--- OUTSIDE RECORDS SUMMARY | 2023-12-12 07:41 | XMS_ITS | Encounter Summary ---
Author Organization [facility] Address [address] [place] [address] Care Team Providers Care Director Independent Name Role Phone Gauri Cortez MD Primary Care Provider [phone] Encounter Details Date Type Department Care Team (Latest Contact Info) Description 03/30/1994 Orders Only Gauri Cortez MD [address] [facility] [address] [place], [place] [address] Social History Tobacco Use Types Packs/Day Years Used Date Smoking Tobacco: Never Assessed Sex and Gender Information Value Date Recorded Sex Assigned at Not on file Gender Identity Not on file Sexual Orientation Not on file documented as of this encounter Plan of Treatment Not on file documented as of this encounter Visit Diagnoses Not on filedocumented in this encounter Care Teams Director Independent Relationship Specialty Start Date End Date Gauri Cortez MD [address] [facility] [address] [place], [place] [address] PCP - General Internal Medicine 04/29/13 documented as of this encounter
--- OUTSIDE RECORDS SUMMARY | 2023-12-12 07:41 | XMS_ITS | Encounter Summary ---
Author Organization [place] Address [address] [facility] [place] [address] Care Team Providers Care Safety Specialist Name Role Phone Gauri Cortez MD Primary Care Provider Gauri Cortez MD Unavailable Sharif Myaer MD Unavailable Encounter Details Date Type Department Care Team (Late st Contact Info) Description 06/26/2019 MyC Medical Advice [facility] [address] [place] [address] Gauri Cortez MD [address] [place] [address] Social History Tobacco Use Types [...] Out COVID-19 02/10/2020 02/10/2020 02/11/2020 5:33 PM DUMPER OPERATOR Assessment Noted Time PHQ-9 Depression Total Score: 2 09/28/19 19 8:54 AM CDT documented as of this encounter Care Teams Safety Specialist Relationship Specialty Start Date End Date Gauri Cortez MD [address] [place], [place] [address] PCP - General Internal Medicine 08/07/13 Gauri Cortez MD [address] [place] [address] Assigned PCP 09/30/18 Sharif Mayre MD [id number] [place] [address] Assigned Surgical Provider 04/30/22 11/02/23 documented as of this encounter
--- OUTSIDE RECORDS SUMMARY | 2023-12-12 07:41 | XMS_ITS | Encounter Summary ---
Author Organization [place] Address [address] [facility] [place] [address] Care Team Providers Care Identification Printing Machine Setter Name Role Phone Gauri Cortez MD Primary Care Provider Gauri Cortez MD Unavailable [phone] Sharif Mayer MD Unavailable [phone] Reason for Visit * Reason Comments Medication Refill Encounter Details Date Type Department Care Team (Late st Contact Info) Description 02/27/2022 [facility] [address] [place] [address] Gauri Cortez MD [address] [facility] [address] [place] [address] Medication Refill Social History Tobacco [...] for review/approval because: Labs out of range: ME TAX ADMINISTRATOR documented in this encounter Plan of Treatment Not on file documented as of this encounter Visit Diagnoses Diagnosis Essential hypertension, benign documented in this encounter Additional Health Concerns Assessment Noted Time PHQ-9 Depression Total Score: 2 07/13/19 11:30 AM CDT documented as of this encounter Care Teams Identification Printing Machine Setter Relationship Specialty Start Date End Date Gauri Cortez MD [address] [place] [address] PCP - General Internal Medicine 08/07/13 Gauri Cortez MD [address] [place] [address] Assigned PCP 09/30/18 Sharif [place] MD [address] [place] [address] [place] [address] Assigned Surgical Provider 04/30/22 11/02/23 documented as of this encounter
--- OUTSIDE RECORDS SUMMARY | 2023-12-12 07:41 | XMS_ITS | Encounter Summary ---
Author Organization [place] Address [address] [facility] [place] [address] Care Team Providers Care Video Manager Name Role Phone Gauri Cortez MD Primary Care Provider Gauri Cortez MD Unavailable [phone] Sharif Mayer MD Unavailable [phone] Encounter Details Date Type Department Care Team (Late st Contact Info) Description 10/10/2023 Telephone [facility] W[facility] Ostomy [facility] [place] [address] [place] [address] 743, Ostomy Wound Room, RN [...] were answered. Diana LEONG Dept. Vocera- Contact [facility] Nurse (Molly) via Cob[employer]orpera Dept. Office Number: [phone] documented in this encounter Plan of Treatment Not on file documented as of this encounter Visit Diagnoses Not on filedocumented in this encounter Additional Health Concerns Assessment Noted Time PHQ-9 Depression Total Score: 2 07/13/19 22 11:30 AM CDT documented as of this encounter Care Teams Video Manager Relationship Specialty Start Date End Date Gauri Cortez MD [address] [address] PCP - General Internal Medicine 08/07/13 Gauri Cortez MD [address] [address] Assigned PCP 09/30/18 Sharif Mayer MD [address] [address] Assigned Surgical Provider 04/30/22 11/02/23 documented as of this encounter
--- OUTSIDE RECORDS SUMMARY | 2023-12-12 07:41 | XMS_ITS | Encounter Summary ---
Author Organization [place] Address [address] [facility] [place] [address] Care Team Providers Care Gasateria Attendant Name Role Phone Gauri Cortez MD Primary Care Provider Gauri Cortez MD Unavailable [phone] Sharif Mayer MD Unavailable [phone] Encounter Details Date Type Department Care Team (Late st Contact Info) Description 04/12/2022 MyC Medical Advice [facility] [place] [address] [place] [address] Rox Simons Social History Tobacco [...] Coronavirus/COVID-19? No / Unsure 04/12/2022 12:53 PM AUDIT DIRECTOR documented as of this encounter Plan of Treatment Not on file documented as of this encounter Visit Diagnoses Not on filedocumented in this encounter Additional Health Concerns Assessment Noted Time PHQ-9 Depression Total Score: 2 07/13/19 22 11:30 AM CDT documented as of this encounter Care Teams Gasateria Attendant Relationship Specialty Start Date End Date Gauri Cortez MD [address] [place] [address] PCP - General Internal Medicine 08/07/13 Gauri Cortez MD [address] [place], [place] [address] Assigned PCP 09/30/18 Sharif Mayer MD [id number] [place] [address] Assigned Surgical Provider 04/30/22 11/02/23 documented as of this encounter
--- OUTSIDE RECORDS SUMMARY | 2023-12-12 07:41 | XMS_ITS | Referral Summary ---
Author Organization [place] Address [address] [facility] [place] [address] Care Team Providers Care Passenger Coach Driver Name Role Phone Gauri Cortez MD Primary Care Provider Gauri Cortez MD Unavailable Encounters Date Type Department Care Team Description 10/10/[address] [facility] W[facility] Ostomy Clinic [address] [place] [address] 3, Ostomy Wound Room, RN [...] (ASTELIN) 0.1 % nasal sprayIndications:Chron ic rhinitis [place] 1-2 sprays into both nostrils 2 times [...] Nausea and vomiting 2012 09/06/19 13 Health Retirement 08/04/2010 08/28/2023 Overview: DX V65.8 REPLACED WITH [id number] [facility] (06/18/2012) Advanced directives, counseling/discussion 06/01/2010 [...] Comments Blood Pressure 112/70 04/18/2022 12:57 PM VAMP MAKER Pulse 78 04/18/2022 12:57 PM VAMP MAKER Temperature 36.1 ??C (96.9 ??F) 11/29/2021 8:03 AM CD T Respiratory Rate 16 04/18/2022 12:57 PM VAMP MAKER Oxygen Saturation 96% 04/18/2022 12:57 PM VAMP MAKER Inhaled Oxygen Concentration - - Weight 77.1 kg (170 lb) 04/18/2022 12:57 PM VAMP MAKER Pt reported Height 170.2 cm (5' 7) 04/18/2022 12:57 PM VAMP MAKER Pt reported Body Mass Index 26.63 04/18/2022 12:57 PM VAMP MAKER Plan of Treatment Not on file Procedures [...] PM CDT EXAM: DX AXIAL HIPS/SPINE LOCATION: [facility] DATE: 08/09/2023 INDICATION: BMD screening, [...] [facility]. Procedure Note Agne Villasenor PA-C - 08/09/2023 EXAM: DX AXIAL HIPS/SPINE LOCATION: [facility] DATE: 08/09/2023 INDICATION: BMD screening, [...] of malignancy. Mirza George MD IMG MAMMOGRAPHY ORDAyan HICKMAN * Albumin Random Urine Quantitative with [...] LAB - URINE ORDERAB LES OX LABORATORY [facility] [address] Lab (no room number, 1st floor of clinic) [place] [address], [facility] [phone] * CBC with platelets and differential (11/29/2021 [...] LAB - BLOOD ORDERAB LES RI LABORATORY [facility] [address], [address] [place] [address], [facility] [phone] * TSH with free T4 reflex (11/29/2021 9:09 AM CDT) TSH 1.13 0.40 - 4.00 mU/L 11/30/2021 10:53 AM CDT OX LABORATORY Blood VENOUS BLOOD / Unknown Venipuncture / Unknown 11/29/2021 9:09 AM CDT 11/29/2021 9:09 AM CDT Gauri Cortez MD LAB - BLOOD ORDERAB LES OX LABORATORY [facility] [address] Lab (no room number, 1st floor of clinic) [place] [address], [place] [phone] * (ABNORMAL) Lipid Profile (Chol, Trig, HDL, [...] LAB - BLOOD ORDERAB LES OX LABORATORY [facility] [address] Lab (no room number, 1st floor of clinic) [place] [address], [facility] [phone] * (ABNORMAL) Comprehensive metabolic panel (BMP + [...] and gender (Becca et al., NEJM, DOI: [id number]/[id number]) Blood VENOUS BLOOD / Unknown Venipuncture / Unknown 11/29/2021 9:09 AM CDT 11/29/2021 9:09 AM CDT Gauri Cortez MD LAB - BLOOD ORDERAB LES OX LABORATORY [facility] [address] Lab (no room number, 1st floor of clinic) [place] [address], [facility] [phone] * (ABNORMAL) UA macro with reflex to [...] 11/19/2021 4:47 PM CDT LV LABORATORY Specific [place] Urine 1.010 1.003 - 1.035 11/19/2021 4:47 [...] MD LAB - URINE ORDERABL ES LABORATORY [facility] Lab [address] [facility] (no room number, 1st floor of clinic) [place] [address], [facility] [phone] * Hepatitis C antibody (09/22/2015 8:10 AM CDT) Hepatitis C Antibody Nonreactive Assay performance characteristics have not been established for newborns, infants, and children [facility] Blood specimen (specimen) 09/22/2015 8:10 AM CDT 09/22/2015 8:15 AM CDT Gauri Cortez MD LAB - BLOOD ORDERAB LES [facility] [address] [place] [address] * Sigmoidoscopy flexible (10/08/2012) Patient Reported ANESTHESIA ORDERABLE S * COLONOSCOPY (06/16/2008) 06/16/2008 Tyra Cardona MD PROCEDURES from Last 3 Months or Most Recently Relevant to Health Maintenance Care Teams Passenger Coach Driver Relationship Specialty Start Date End Date Gauri Cortez MD [address] [facility] [address] [place], [place] [address] PCP - General Internal Medicine 08/07/13 Gauri Cortez MD [address] [facility] [address] [place], [place] [address] Assigned PCP 09/30/18
--- OUTSIDE RECORDS SUMMARY | 2023-12-12 07:41 | XMS_ITS | Encounter Summary ---
Author Organization [facility] Address [address] [place] [address] Care Team Providers Care Recessing Machine Operator Name Role Phone Gauri Cortez MD Primary Care Provider [phone] Encounter Details Date Type Department Care Team (Latest Contact Info) Description 03/31/1994 Orders Only Gauri Cortez MD [address] [place], [place] [phone] Social History Tobacco Use Types Packs/Day Years Used Date Smoking Tobacco: Never Assessed Sex and Gender Information Value Date Recorded Sex Assigned at Not on file Gender Identity Not on file Sexual Orientation Not on file documented as of this encounter Plan of Treatment Not on file documented as of this encounter Visit Diagnoses Not on filedocumented in this encounter Care Teams Recessing Machine Operator Relationship Specialty Start Date End Date Gauri Cortez MD [address] [place], [place] [address] PCP - General Internal Medicine 04/29/13 documented as of this encounter
--- OUTSIDE RECORDS SUMMARY | 2023-12-12 07:41 | XMS_ITS | Encounter Summary ---
Author Organization [facility] Address [address] [place] [address] Care Team Providers Care Supervisor Spinning Name Role Phone Gauri Cortez MD Primary Care Provider [phone] Encounter Details Date Type Department Care Team (Latest Contact Info) Description 06/10/1994 Orders Only Loco Chavez MD [address] [place], [place] [id number] Social History Tobacco Use Types Packs/Day Years Used Date Smoking Tobacco: Never Assessed Sex and Gender Information Value Date Recorded Sex Assigned at Not on file Gender Identity Not on file Sexual Orientation Not on file documented as of this encounter Plan of Treatment Not on file documented as of this encounter Visit Diagnoses Not on filedocumented in this encounter Care Teams Supervisor Spinning Relationship Specialty Start Date End Date Gauri Cortez MD [address] [facility] [address] [place] [address] PCP - General Internal Medicine 04/29/13 documented as of this encounter
--- OUTSIDE RECORDS SUMMARY | 2023-12-12 07:41 | XMS_ITS | Encounter Summary ---
Author Organization [place] Address [address] [place] [address] Care Team Providers Care Message Clerk Name Role Phone Gauri Cortez MD Primary Care Provider Gauri Cortez MD Unavailable Sharif Mayer MD Unavailable Reason for Visit * Reason Comments Medication Refill Encounter Details Date Type Department Care Team (Late st Contact Info) Description 12/14/2021 [facility] [address] [place] [address] Gauri Cortez MD [address] [facility] [address] [place] [address] Medication Refill Social History Tobacco [...] 12/15/2021 11:12 AM CDT Prescription approved per [facility] Refill Protocol. documented in this encounter Plan of Treatment Not on file documented as of this encounter Visit Diagnoses Diagnosis Acquired hypothyroidism Unspecified hypothyroidism documented in this encounter Additional Health Concerns Assessment Noted Time PHQ-9 Depression Total Score: 2 07/13/19 11:30 AM CDT documented as of this encounter Care Teams Message Clerk Relationship Specialty Start Date End Date Gauri Cortez MD [address] [place] [address] PCP - General Internal Medicine 08/07/13 Gauri Cortez MD [address] [place], [place] [address] Assigned PCP 09/30/18 Sharif Mayer MD [id number] [place] [address] Assigned Surgical Provider 04/30/22 11/02/23 documented as of this encounter
--- OUTSIDE RECORDS SUMMARY | 2023-12-12 07:41 | XMS_ITS | Encounter Summary ---
Author Organization [facility] Address [address] [place] [address] Care Team Providers Care Materials Supervisor Name Role Phone Gauri Cortez MD Primary Care Provider [phone] Encounter Details Date Type Department Care Team (Latest Contact Info) Description 05/23/1994 Orders Only Loco Chavez MD [address] [place], [place] [id number] Social History Tobacco Use Types Packs/Day Years [...] End Date Gauri Cortez MD [address] [facility] [address] [place] [address] PCP - General Internal Medicine 04/29/13 documented as of this encounter
--- OUTSIDE RECORDS SUMMARY | 2023-12-12 07:41 | XMS_ITS | Encounter Summary ---
Author Organization [place] Address [address] [facility] [place] [address] Care Team Providers Care Auger Machine Offbearer Name Role Phone Gauri Cortez MD Primary Care Provider Gauri Cortez MD Unavailable [phone] Sharif Mayer MD Unavailable [phone] Encounter Details Date Type Department Care Team (Late st Contact Info) Description 03/05/2019 [facility] Medical Advice [address] [place] [address] Nathalie Mzt, REBA Social History Tobacco Use Types Packs/Day [...] Out COVID-19 02/10/2020 02/10/2020 02/11/2020 5:33 PM COAL PIPELINE OPERATOR Assessment Noted Time PHQ-9 Depression Total Score: 2 09/28/19 19 8:54 AM CDT documented as of this encounter Care Teams Auger Machine Offbearer Relationship Specialty Start Date End Date Gauri Cortez MD [address] [place] [address] PCP - General Internal Medicine 08/07/13 Gauri Cortez MD [address] [place] [address] Assigned PCP 09/30/18 Sharif Mayer MD [address] [place] [address] [place] [address] Assigned Surgical Provider 04/30/22 11/02/23 documented as of this encounter
--- OUTSIDE RECORDS SUMMARY | 2023-12-12 07:41 | XMS_ITS | Encounter Summary ---
Author Organization [facility] Address [address] [place] [address] Care Team Providers Care Ortho Assistant Name Role Phone Gauri Cortez MD Primary Care Provider [phone] Encounter Details Date Type Department Care Team (Latest Contact Info) Description 06/09/1994 Orders Only Gauri Cortez MD [address] [facility] [address] [place], [place] [address] Social History Tobacco Use Types Packs/Day Years Used Date Smoking Tobacco: Never Assessed Sex and Gender Information Value Date Recorded Sex Assigned at Not on file Gender Identity Not on file Sexual Orientation Not on file documented as of this encounter Plan of Treatment Not on file documented as of this encounter Visit Diagnoses Not on filedocumented in this encounter Care Teams Ortho Assistant Relationship Specialty Start Date End Date Gauri Cortez MD [address] [facility] [address] [place], [place] [address] PCP - General Internal Medicine 04/29/13 documented as of this encounter
--- OUTSIDE RECORDS SUMMARY | 2023-12-12 07:41 | XMS_ITS | Encounter Summary ---
Author Organization [place] Address [address] [facility] [place] [address] Care Team Providers Care Drop Wire Aliner Name Role Phone Gauri Cortez MD Primary Care Provider Gauri Cortez MD Unavailable [phone] Sharif Mayer MD Unavailable Encounter Details Date Type Department Care Team (Late st Contact Info) Description 03/19/2022 MyC Medical Advice [facility] [address] [place] [address] Gauri Cortez MD [address] [place] [address] Social History Tobacco Use Types [...] documented as of this encounter Care Teams Drop Wire Aliner Relationship Specialty Start Date End Date Gauri Cortez MD [address] [email or web address] [address] [place] [address] PCP - General Internal Medicine 08/07/13 Gauri Cortez MD [address] [email or web address] [address] [place] [address] Assigned PCP 09/30/18 Sharif Mayer MD [address] [place] [address] [place] [address] Assigned Surgical Provider 04/30/22 11/02/23 documented as of this encounter
--- OUTSIDE RECORDS SUMMARY | 2023-12-12 07:42 | XMS_ITS | Encounter Summary ---
Author Organization [place] Address [address] [facility] [place] [address] Care Team Providers Care Clinical Haematologist Name Role Phone Gauri Cortez MD Primary Care Provider [phone] Filippo Vazquez PA-C Primary Care Provider Gauri Cortez MD Primary Care Provider [phone] Ines Aguilar APRN DIAMOND BLENDER Unavailable Un available Lucero Perez APRN DIAMOND BLENDER Unavailable + Gauri Cortez MD Unavailable [phone] Gauri Cortez MD Unavailable [phone] Lucero Perez APRN DIAMOND BLENDER Unavailable + Gauri Cortez MD Unavailable [phone] Sharif Mayer MD Unavailable [phone] Encounter Details Date Type Department Care Team (Late st Contact Info) Description 08/25/2012 MyC Medical Advice [facility] [address] [place] [address] Michael Hawthorne Social History Tobacco [...] Out COVID-19 02/10/2020 02/10/2020 02/11/2020 5:33 PM MAINTENANCE AND ENGINEERING MANAGER documented as of this encounter Care Teams Clinical Haematologist Relationship Specialty Start Date End Date Gauri Cortez MD [address] [place] [address] PCP - General Internal Medicine 07/28/10 07/14/13 Filippo Vazquez PA-C [address] [place] [address] PCP - General Physician Cheerleading Coach - Medical 07/15/13 08/06/13 Gauri Cortez MD [address] [place] [address] PCP - General Internal Medicine 08/07/13 Ines Aguilar APRN DIAMOND BLENDER PCP - Assigned PCP 02/11/18 04/07/18 Lucero Perez, PIPE CREW FOREMAN DIAMOND BLENDER [address] [place] [id number] PCP - Assigned PCP 12/31/17 02/10/18 Gauri Cortez MD [address] [place] [address] PCP - Assigned PCP 04/08/18 05/15/18 Gauri Cortez MD [address] [place] [address] Assigned PCP 04/08/18 08/11/18 Lucero Perez APRN DIAMOND BLENDER [address] [place] [address] Assigned PCP 08/12/18 09/29/18 Gauri Cortez MD [address] [facility] [address] [place] [address] Assigned PCP 09/30/18 Sharif Mayer MD [id number] [place] [address] Assigned Surgical Provider 04/30/22 11/02/23 documented as of this encounter
--- OUTSIDE RECORDS SUMMARY | 2023-12-12 07:42 | XMS_ITS | Encounter Summary ---
Author Organization [place] Address [address] [facility] [place] [address] Care Team Providers Care Blower Mechanic Name Role Phone Tyra Cardona MD Primary Care Provider [phone] Gauri Cortez MD Primary Care Provider [phone] Filippo Vazquez PA-C Primary Care Provider Gauri Cortez MD Primary Care Provider [phone] Ines Aguilar DIRECT CUSTOMER SERVICE REPRESENTATIVE LICENSED CHEMICAL SPRAY TECHNICIAN Unavailable Un available Lucero Perez DIRECT CUSTOMER SERVICE REPRESENTATIVE LICENSED CHEMICAL SPRAY TECHNICIAN Unavailable + Gauri Cortez MD Unavailable [phone] Gauri Cortez MD Unavailable [phone] Lucero Perez DIRECT CUSTOMER SERVICE REPRESENTATIVE LICENSED CHEMICAL SPRAY TECHNICIAN Unavailable + Gauri Cortez MD Unavailable Sharif Mayer MD Unavailable [phone] Encounter Details Date Type Department Care Team (Late st Contact Info) Description 04/03/2010 [facility] [address] [place] [address] Tyra Cardona MD [address] [place] [address] Social History Tobacco Use Types Packs/Day [...] Out COVID-19 02/10/2020 02/10/2020 02/11/2020 5:33 PM PLASTIC BOAT BUFFER documented as of this encounter Care Teams Blower Mechanic Relationship Specialty Start Date End Date Tyra Cardona MD PCP - General 10/27/03 07/27/10 Gauri Cortez MD [address] [place] [address] PCP - General Internal Medicine 07/28/10 07/14/13 Filippo Vazquez PA-C [address] [place] [address] PCP - General Physician Cellophane Casting Machine Repairer - Medical 07/15/13 08/06/13 Gauri Cortez MD [address] [place] [address] PCP - General Internal Medicine 08/07/13 Ines Aguilar APRN LICENSED CHEMICAL SPRAY TECHNICIAN PCP - Assigned PCP 02/11/18 04/07/18 Lucero Perez APRN LICENSED CHEMICAL SPRAY TECHNICIAN [address] [place] [address] PCP - Assigned PCP 12/31/17 02/10/18 Gauri Cortez MD [address] [facility] [address] [place] [address] PCP - Assigned PCP 04/08/18 05/15/18 Gauri Cortez MD [address] [facility] [address] [place] [address] Assigned PCP 04/08/18 08/11/18 Lucero Perez APRN [facility] [address] [place] [place] [address] Assigned PCP 08/12/18 09/29/18 Gauri Cortez MD [address] [facility] [address] [place] [address] Assigned PCP 09/30/18 Sharif Mayer MD [id number] [place] [address] Assigned Surgical Provider 04/30/22 11/02/23 documented as of this encounter
--- OUTSIDE RECORDS SUMMARY | 2023-12-12 07:42 | XMS_ITS | Encounter Summary ---
Author Organization [place] Address [address] [facility] [place] [address] Care Team Providers Care Senior Financial Analyst Name Role Phone Tyra Cardona MD Primary Care Provider [phone] Gauri Cortez MD Primary Care Provider [phone] Filippo Vazquez PA-C Primary Care Provider Gauri Cortez MD Primary Care Provider [phone] Ines Aguilar DESIGN DRAFTER MACHINIST OUTSIDE Unavailable Un available Lucero Perez DESIGN DRAFTER MACHINIST OUTSIDE Unavailable + Gauri Cortez MD Unavailable [phone] Gauri Cortez MD Unavailable [phone] Lucero Perez DESIGN DRAFTER MACHINIST OUTSIDE Unavailable + Gauri Cortez MD Unavailable Sharif Mayer MD Unavailable [phone] Encounter Details Date Type Department Care Team (Late st Contact Info) Description 05/25/2010 [facility] [address] [place] [address] Tyra Cardona MD [address] [place] [address] Social History Tobacco Use Types Packs/Day [...] Out COVID-19 02/10/2020 02/10/2020 02/11/2020 5:33 PM TRANSIT DEPARTMENT CLERK documented as of this encounter Care Teams Senior Financial Analyst Relationship Specialty Start Date End Date Tyra Cardona MD PCP - General 10/27/03 07/27/10 Gauri Cortez MD [address] [place] [address] PCP - General Internal Medicine 07/28/10 07/14/13 Filippo Vazquez PA-C [address] [place] [address] PCP - General Physician Wild Animal Caretaker - Medical 07/15/13 08/06/13 Gauri Cortez MD [address] [place] [address] PCP - General Internal Medicine 08/07/13 Ines Aguilar APRN MACHINIST OUTSIDE PCP - Assigned PCP 02/11/18 04/07/18 Lucero Perez APRN MACHINIST OUTSIDE [address] [place] [id number] PCP - Assigned PCP 12/31/17 02/10/18 Gauri Cortez MD [address] [facility] 200 [place] [address] PCP - Assigned PCP 04/08/18 05/15/18 Gauri Cortez MD [address] [facility] [address] [place] [address] Assigned PCP 04/08/18 08/11/18 Lucero Perez APRN [facility] [address] [place] [place] [address] Assigned PCP 08/12/18 09/29/18 Gauri Cortez MD [address] [facility] [address] [place] [address] Assigned PCP 09/30/18 Sharif Mayer MD [id number] [place] [address] Assigned Surgical Provider 04/30/22 11/02/23 documented as of this encounter
--- OUTSIDE RECORDS SUMMARY | 2023-12-12 07:42 | XMS_ITS | Encounter Summary ---
Author Organization [place] Address [address] [facility] [address] Care Team Providers Care Soda Dry House Operator Name Role Phone Gauri Cortez MD Primary Care Provider [phone] Filippo Vazquez PA-C Primary Care Provider Gauri Cortez MD Primary Care Provider [phone] Ines Aguilar APRN SPLICER MACHINE OPERATOR Unavailable Un available Lucero Perez APRN SPLICER MACHINE OPERATOR Unavailable + Gauri Cortez MD Unavailable [phone] Gauri Cortez MD Unavailable [phone] Lucero Perez APRN SPLICER MACHINE OPERATOR Unavailable + Gauri Cortez MD Unavailable [phone] Sharif Mayer MD Unavailable [phone] Encounter Details Date Type Department Care Team (Late st Contact Info) Description 04/27/[address] [place] [address] [facility] Social History Tobacco Use Types Packs/Day Years [...] Out COVID-19 02/10/2020 02/10/2020 02/11/2020 5:33 PM MOTTLER OPERATOR documented as of this encounter Care Teams Soda Dry House Operator Relationship Specialty Start Date End Date Gauri Cortez MD [address] [place], [place] [address] PCP - General Internal Medicine 07/28/10 07/14/13 Filippo Vazquez PA-C [address] [place] [address] PCP - General Physician Principal Quality Engineer - Medical 07/15/13 08/06/13 Gauri Cortez MD [address] [place] [address] PCP - General Internal Medicine 08/07/13 Ines Aguilar APRN SPLICER MACHINE OPERATOR PCP - Assigned PCP 02/11/18 04/07/18 Lucero Perez, SMOOTH PLATER SPLICER MACHINE OPERATOR [address] [place] [address] PCP - Assigned PCP 12/31/17 02/10/18 Gauri Cortez MD [address] [place] [address] PCP - Assigned PCP 04/08/18 05/15/18 Gauri Cortez MD [address] [place] [address] Assigned PCP 04/08/18 08/11/18 Lucero Perez APRN SPLICER MACHINE OPERATOR [address] [place] [address] Assigned PCP 08/12/18 09/29/18 Gauri Cortez MD [address] [place] [address] Assigned PCP 09/30/18 Sharif Mayer MD [id number] [place] [address] Assigned Surgical Provider 04/30/22 11/02/23 documented as of this encounter
--- OUTSIDE RECORDS SUMMARY | 2023-12-12 07:42 | XMS_ITS | Encounter Summary ---
Author Organization [place] Address [address] [facility] [place] [address] Care Team Providers Care Manager Work Name Role Phone Tyra Cardona MD Primary Care Provider Gauri Cortez MD Primary Care Provider [phone] Filippo Vazquez PA-C Primary Care Provider Gauri Cortez MD Primary Care Provider [phone] Ines Aguilar ZOOGLER PRECAST CONCRETE PRODUCTS INSTALLER Unavailable Un available Lucero Perez ZOOGLER PRECAST CONCRETE PRODUCTS INSTALLER Unavailable + Gauri Cortez MD Unavailable [phone] Gauri Cortez MD Unavailable [phone] Lucero Perez ZOOGLER PRECAST CONCRETE PRODUCTS INSTALLER Unavailable + Gauri Cortez MD Unavailable Sharif Mayer MD Unavailable [phone] Encounter Details Date Type Department Care Team (Late st Contact Info) Description 05/19/2010 [facility] Medical [facility] [id number] [place] [phone] Tyra Cardona MD [address] [place] [address] Social History Tobacco Use Types Packs/Day [...] Out COVID-19 02/10/2020 02/10/2020 02/11/2020 5:33 PM ENTRY LEVEL ACCOUNT EXECUTIVE documented as of this encounter Care Teams Manager Work Relationship Specialty Start Date End Date Tyra Cardona MD PCP - General 10/27/03 07/27/10 Gauri Cortez MD [address] [place] [address] PCP - General Internal Medicine 07/28/10 07/14/13 Filippo Vazquez PA-C [address] [place] [address] PCP - General Physician Volunteer Patient Representative - Medical 07/15/13 08/06/13 Gauri Cortez MD [address] [place] [address] PCP - General Internal Medicine 08/07/13 Ines Aguilar APRN PRECAST CONCRETE PRODUCTS INSTALLER PCP - Assigned PCP 02/11/18 04/07/18 Lucero Perez APRN PRECAST CONCRETE PRODUCTS INSTALLER [address] [place] [address] PCP - Assigned PCP 12/31/17 02/10/18 Gauri Cortez MD [address] [facility] 200 [place] [address] PCP - Assigned PCP 04/08/18 05/15/18 Gauri Cortez MD [address] [facility] 200 [place] [address] Assigned PCP 04/08/18 08/11/18 Lucero Perez APRN [facility] [address] [place] [address] Assigned PCP 08/12/18 09/29/18 Gauri Cortez MD [address] [facility] [address] [place] [address] Assigned PCP 09/30/18 Sharif Mayer MD [address] [id number] [place] [address] Assigned Surgical Provider 04/30/22 11/02/23 documented as of this encounter
--- OUTSIDE RECORDS SUMMARY | 2023-12-12 07:42 | XMS_ITS | Encounter Summary ---
Author Organization [place] Address [address] [facility] [place] [address] Care Team Providers Care Pouring Crane Operator Name Role Phone Gauri Cortez MD Primary Care Provider Ines Aguilar GUNITE MIXER CEMENTER Unavailable Un available Lucero Perez APRN CEMENTER Unavailable + Gauri Cortez MD Unavailable Gauri Cortez MD Unavailable [phone] Lucero Perez APRN CEMENTER Unavailable + Gauri Cortez MD Unavailable Sharif Mayer MD Unavailable [phone] Encounter Details Date Type Department Care Team (Late st Contact Info) Description 06/14/2017 [facility] Medical Advice [address] [place] [address] Nathalie Mtz RN Social History [...] Out COVID-19 02/10/2020 02/10/2020 02/11/2020 5:33 PM NOTE SPECIALIST documented as of this encounter Care Teams Pouring Crane Operator Relationship Specialty Start Date End Date Gauri Cortez MD [address] [place] [address] PCP - General Internal Medicine 08/07/13 Ines Aguilar APRN CEMENTER PCP - Assigned PCP 02/11/18 04/07/18 Lucero Perez APRN CEMENTER [address] [place] [address] PCP - Assigned PCP 12/31/17 02/10/18 Gauri Cortez MD [address] [place] [address] PCP - Assigned PCP 04/08/18 05/15/18 Gauri Cortez MD [address] [place] [address] Assigned PCP 04/08/18 08/11/18 Lucero Perez APRN CEMENTER [address] [place] [address] Assigned PCP 08/12/18 09/29/18 Gauri Cortez MD [address] [place] [address] Assigned PCP 09/30/18 Sharif Mayer MD [address] [id number] [place] [address] Assigned Surgical Provider 04/30/22 11/02/23 documented as of this encounter
--- OUTSIDE RECORDS SUMMARY | 2023-12-12 07:42 | XMS_ITS | Encounter Summary ---
Author Organization [place] Address [address] [facility] [place] [address] Care Team Providers Care Plant Guide Name Role Phone Tyra Cardona MD Primary Care Provider [phone] Gauri Cortez MD Primary Care Provider [phone] Filippo Vazquez PA-C Primary Care Provider Gauri Cortez MD Primary Care Provider [phone] Ines Aguilar TRUSS DESIGNER FRAME CATCHER Unavailable Un available Lucero Perez TRUSS DESIGNER FRAME CATCHER Unavailable + Gauri Cortez MD Unavailable [phone] Gauri Cortez MD Unavailable [phone] Lucero Perez TRUSS DESIGNER FRAME CATCHER Unavailable + Gauri Cortez MD Unavailable [phone] Sharif Mayer MD Unavailable [phone] Encounter Details Date Type Department Care Team (Late st Contact Info) Description 05/03/2010 Office Visit-[facility] [place] [address] [facility] [address] [place] [phone] Judith Hua DO [address] [facility] [address] [place] [id number] (work) Social History Tobacco Use Types Packs/Day [...] old Referring Physician: TYRA CARDONA Referring Clinic: [facility] CURRENT DIAGNOSES 1. 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 She lives in [place]. She may haveboth of these tests performed at the [facility] and follow up in that facility [...] Holter Monitor Today-palpitations 3. F/U with Any COOKIE PADDER 4-7 days-[facility] documented in this encounter Plan of Treatment Not on file documented as of this encounter Visit Diagnoses Not on filedocumented in this encounter Additional Health Concerns Infection Onset Date Last Indicated Resolved Time Rule Out COVID-19 02/10/2020 02/10/2020 02/11/2020 5:33 PM CHARGING OPERATOR documented as of this encounter Care Teams Plant Guide Relationship Specialty Start Date End Date Tyra Cardona MD PCP - General 10/27/03 07/27/10 Gauri Cortez MD [address] [address] PCP - General Internal Medicine 07/28/10 07/14/13 Filippo Vazquez PA-C [address] [place] [address] PCP - General Physician Retail Sales Advisor - Medical 07/15/13 08/06/13 Gauri Cortez MD [address] [place] [address] PCP - General Internal Medicine 08/07/13 Ines Aguilar, TRUSS DESIGNER FRAME CATCHER PCP - Assigned PCP 02/11/18 04/07/18 Lucero Perez, TRUSS DESIGNER FRAME CATCHER [address] [place] [address] PCP - Assigned PCP 12/31/17 02/10/18 Gauri Cortez MD [address] [place] [address] PCP - Assigned PCP 04/08/18 05/15/18 Gauri Cortez MD [address] [place] [address] Assigned PCP 04/08/18 08/11/18 Lucero Perez TRUSS DESIGNER FRAME CATCHER [address] [place] [address] Assigned PCP 08/12/18 09/29/18 Gauri Cortez MD [address] [place] [address] Assigned PCP 09/30/18 Sharif Mayer MD [address] [id number] [place] [address] Assigned Surgical Provider 04/30/22 11/02/23 documented as of this encounter
--- OUTSIDE RECORDS SUMMARY | 2023-12-12 07:42 | XMS_ITS | Encounter Summary ---
Author Organization [place] Address [address] [facility] [place] [place] [address] Care Team Providers Care Oral And Maxillofacial Surgeon Name Role Phone Tyra Cardona MD Primary Care Provider [phone] Gauri Cortez MD Primary Care Provider [phone] Filippo Vazquez PA-C Primary Care Provider Gauri Cortez MD Primary Care Provider [phone] Ines Aguilar INSTRUCTOR OF NURSING CHRISTIAN SCIENCE HEALER Unavailable Un available Lucero Perez INSTRUCTOR OF NURSING CHRISTIAN SCIENCE HEALER Unavailable + Gauri Cortez MD Unavailable [phone] Gauri Cortez MD Unavailable [phone] Lucero Perez INSTRUCTOR OF NURSING CHRISTIAN SCIENCE HEALER Unavailable + Guari Cortez MD Unavailable [phone] Sharif Mayer MD Unavailable [phone] Encounter Details Date Type Department Care Team (Late st Contact Info) Description 10/24/2008 Office Visit-[facility] [address] [place] [address] Rangel Dumas MD Social History [...] Rangel Dumas M.D. DATE: 10/24/2008 [address] [id number] DATE OF : 1955 AGE: [age] years old Referring Physician: TYRA CARDONA Referring Clinic: [facility] CURRENT DIAGNOSES 1. Palpitations, 785.1 2. Hypothyroidism, [...] lives with ; Place of - [place]; HoursWorked - 40 hours per week; REVIEW [...] Out COVID-19 02/10/2020 02/10/2020 02/11/2020 5:33 PM YARN DYER documented as of this encounter Care Teams Oral And Maxillofacial Surgeon Relationship Specialty Start Date End Date Tyra Cardona MD PCP - General 10/27/03 07/27/10 Gauri Cortez MD [address] [address] PCP - General Internal Medicine 07/28/10 07/14/13 Filippo Vazquez PA-C [address] [place] [address] PCP - General Physician Security Control Room Officer - Medical 07/15/13 08/06/13 Gauri Cortez MD [address] [place] [address] PCP - General Internal Medicine 08/07/13 Ines Aguilar, INSTRUCTOR OF NURSING CHRISTIAN SCIENCE HEALER PCP - Assigned PCP 02/11/18 04/07/18 Lucero Perez INSTRUCTOR OF NURSING CHRISTIAN SCIENCE HEALER [address] [place] [address] PCP - Assigned PCP 12/31/17 02/10/18 Gauri Cortez MD [address] [place] [address] PCP - Assigned PCP 04/08/18 05/15/18 Gauri Cortez MD [address] [place] [address] Assigned PCP 04/08/18 08/11/18 Lucero Perez, INSTRUCTOR OF NURSING CHRISTIAN SCIENCE HEALER [address] [place] [address] Assigned PCP 08/12/18 09/29/18 Gauri Cortez MD [address] [place] [address] Assigned PCP 09/30/18 Sharif [place] MD [address] [place] [address] [place] [address] Assigned Surgical Provider 04/30/22 11/02/23 documented as of this encounter
--- OUTSIDE RECORDS SUMMARY | 2023-12-12 07:42 | XMS_ITS | Encounter Summary ---
Author Organization [place] Address Count includes the [facility] [place] [address] Care Team Providers Care Filters Assembler Name Role Phone Tyra Cardona MD Primary Care Provider [phone] Gauri Cortez MD Primary Care Provider [phone] Filippo Vazquez PA-C Primary Care Provider Gauri Cortez MD Primary Care Provider [phone] Ines Aguilar CLIENT SERVICE MANAGER DINKEY ENGINEER Unavailable Un available Lucero Perez CLIENT SERVICE MANAGER DINKEY ENGINEER Unavailable + Gauri Cortez MD Unavailable [phone] Gauri Cortez MD Unavailable [phone] Lucero Perez CLIENT SERVICE MANAGER DINKEY ENGINEER Unavailable + Gauri Cortez MD Unavailable [phone] Sharif Mayer MD Unavailable [phone] Reason for Visit * Reason Onset Date Comments MyChart Communication 10/08/2009 Encounter Details Date Type Department Care Team (Latest Contact Info) Description 10/08/[address] [facility] [id number] [place] [phone] Tyra Cardona MD [address] [place] [address] MyChart Communication Social History Tobacco Use [...] Out COVID-19 02/10/2020 02/10/2020 02/11/2020 5:33 PM EVENT ORGANIZER documented as of this encounter Care Teams Filters Assembler Relationship Specialty Start Date End Date Tyra Cardona MD PCP - General 10/27/03 07/27/10 Gauri Cortez MD [address] [place], [place] [address] PCP - General Internal Medicine 07/28/10 07/14/13 Filipop Vazquez PA-C [address] [place], [place] [address] PCP - General Physician Transit Coach Operator - Medical 07/15/13 08/06/13 Gauri Cortez MD [address] [place], [place] [address] PCP - General Internal Medicine 08/07/13 Ines Aguilar APRN DINKEY ENGINEER PCP - Assigned PCP 02/11/18 04/07/18 Lucero Perez APRN DINKEY ENGINEER [address] [place] [address] PCP - Assigned PCP 12/31/17 02/10/18 Gauri Cortez MD [address] [facility] [address] [place] [address] PCP - Assigned PCP 04/08/18 05/15/18 Gauri Cortez MD [address] [facility] [address] [place] [address] Assigned PCP 04/08/18 08/11/18 Lucero Perez APRN [facility] [address] [place] [address] [address] Assigned PCP 08/12/18 09/29/18 Gauri Cortez MD [address] [facility] [address] [place] [address] Assigned PCP 09/30/18 Sharif Mayer MD [address] [id number] [place] [address] Assigned Surgical Provider 04/30/22 11/02/23 documented as of this encounter
--- OUTSIDE RECORDS SUMMARY | 2023-12-12 07:42 | XMS_ITS | Encounter Summary ---
Author Organization [place] Address [address] [facility] [place] [address] Care Team Providers Care Controls Designer Name Role Phone Tyra Cardona MD Primary Care Provider [phone] Gauri Cortez MD Primary Care Provider [phone] Filippo Vazquez PA-C Primary Care Provider Gauri Cortez MD Primary Care Provider [phone] Ines Aguilar SUPERVISOR CAR AND YARD SALT GRINDER Unavailable Un available Lucero Perez SUPERVISOR CAR AND YARD SALT GRINDER Unavailable + Gauri Cortez MD Unavailable [phone] Gauri Cortez MD Unavailable [phone] Lucero Perez SUPERVISOR CAR AND YARD SALT GRINDER Unavailable + Gauri Cortez MD Unavailable [phone] Sharif Mayer MD Unavailable [phone] Encounter Details Date Type Department Care Team [...] Out COVID-19 02/10/2020 02/10/2020 02/11/2020 5:33 PM FROZEN YOGURT MAKER documented as of this encounter Care Teams Controls Designer Relationship Specialty Start Date End Date Tyra Cardona MD PCP - General 10/27/03 07/27/10 Gauri Cortez MD [address] [place] [address] PCP - General Internal Medicine 07/28/10 07/14/13 Filippo Vazquez PA-C [address] [place] [address] PCP - General Physician Senior Product Consultant - Medical 07/15/13 08/06/13 Gauri Cortez MD [address] [place] [address] PCP - General Internal Medicine 08/07/13 Ines Aguilar, SUPERVISOR CAR AND YARD SALT GRINDER PCP - Assigned PCP 02/11/18 04/07/18 Lucero Perez, SUPERVISOR CAR AND YARD SALT GRINDER [address] [address] [address] [address] PCP - Assigned PCP 12/31/17 02/10/18 Gauri Cortez MD [address] [place] [address] PCP - Assigned PCP 04/08/18 05/15/18 Gauri Cortez MD [address] [facility] [address] [place] [address] Assigned PCP 04/08/18 08/11/18 Lucero Perez APRN [facility] [address] [place] [address] Assigned PCP 08/12/18 09/29/18 Gauri Cortez MD [address] [facility] [address] [place] [address] Assigned PCP 09/30/18 Sharif [place] MD [address] [id number] [place] [address] Assigned Surgical Provider 04/30/22 11/02/23 documented as of this encounter
--- OUTSIDE RECORDS SUMMARY | 2023-12-12 07:42 | XMS_ITS | Encounter Summary ---
Author Organization [place] Address [address] [facility] [place] [address] Care Team Providers Care Associate Professor Of Criminal Justice Name Role Phone Tyra Cardona MD Primary Care Provider [phone] Gauri Cortez MD Primary Care Provider [phone] Filippo Vazquez PA-C Primary Care Provider Gauri Cortez MD Primary Care Provider [phone] Ines Aguilar CONCRETE CRUSHER LOADER OPERATOR NORMALIZER Unavailable Un available Lucero Perez CONCRETE CRUSHER LOADER OPERATOR NORMALIZER Unavailable + Gauri Cortez MD Unavailable [phone] Gauri Cortez MD Unavailable [phone] Lucero Perez CONCRETE CRUSHER LOADER OPERATOR NORMALIZER Unavailable + Gauri Cortez MD Unavailable Sharif Mayer MD Unavailable [phone] Encounter Details Date Type Department Care Team (Late st Contact Info) Description 05/24/2010 Office Visit-[facility] [place] [address] [facility] [address] [place] [phone] Judith Hua DO [address] [facility] [address] [place] [id number] (work) Social History Tobacco Use Types Packs/Day [...] old Referring Physician: TYRA CARDONA Referring Clinic: [facility] CURRENT DIAGNOSES 1. - Hyperlipidemia, [...] lasttwo days. 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[employer].; Residence - lives with ; Place of - [place]; Hours Worked - 40 hours per week; [...] Out COVID-19 02/10/2020 02/10/2020 02/11/2020 5:33 PM FIXED INCOME MANAGER documented as of this encounter Care Teams Associate Professor Of Criminal Justice Relationship Specialty Start Date End Date Tyra Cardona MD PCP - General 10/27/03 07/27/10 Gauri Cortez MD [address] [place] [address] PCP - General Internal Medicine 07/28/10 07/14/13 Filippo Vazquez PA-C [address] [place] [address] PCP - General Physician Continuous Improvement Facilitator - Medical 07/15/13 08/06/13 Gauri Cortez MD [address] [place] [address] PCP - General Internal Medicine 08/07/13 Ines Aguilar APRN NORMALIZER PCP - Assigned PCP 02/11/18 04/07/18 Lucero Perez CONCRETE CRUSHER LOADER OPERATOR NORMALIZER [address] [place] [address] PCP - Assigned PCP 12/31/17 02/10/18 Gauri Cortez MD [address] [facility] 200 [place] [address] PCP - Assigned PCP 04/08/18 05/15/18 Gauri Cortez MD [address] [facility] 200 [place] [address] Assigned PCP 04/08/18 08/11/18 Lucero Perez CONCRETE CRUSHER LOADER OPERATOR NORMALIZER [address] [place] [address] Assigned PCP 08/12/18 09/29/18 Gauri Cortez MD [address] [place] [address] Assigned PCP 09/30/18 Sharif [place] MD [address] [id number] [place] [address] Assigned Surgical Provider 04/30/22 11/02/23 documented as of this encounter
--- OUTSIDE RECORDS SUMMARY | 2023-12-12 07:42 | XMS_ITS | Encounter Summary ---
Author Organization [place] Address [address] [facility] [place] [address] Care Team Providers Care Curriculum Development Specialist Name Role Phone Tyra Cardona MD Primary Care Provider [phone] Gauri Cortez MD Primary Care Provider [phone] Filippo Vazquez PA-C Primary Care Provider Gauri Cortez MD Primary Care Provider [phone] Ines Aguilar TENTER FRAME BACK TENDER MANAGER TRANSFUSION Unavailable Un available Lucero Perez TENTER FRAME BACK TENDER MANAGER TRANSFUSION Unavailable + Gauri Cortez MD Unavailable [phone] Gauri Cortez MD Unavailable [phone] Lucero Perez TENTER FRAME BACK TENDER MANAGER TRANSFUSION Unavailable + Gauri Cortez MD Unavailable Sharif Mayer MD Unavailable [phone] Encounter Details Date Type Department Care Team (Late st Contact Info) Description 06/07/2010 [facility] [id number] [place] [phone] Tyra Cardona MD [address] [place] [address] Social History Tobacco Use Types Packs/Day [...] Out COVID-19 02/10/2020 02/10/2020 02/11/2020 5:33 PM NANOTECHNOLOGY ENGINEERING TECHNOLOGIST documented as of this encounter Care Teams Curriculum Development Specialist Relationship Specialty Start Date End Date Tyra Cardona MD PCP - General 10/27/03 07/27/10 Gauri Cortez MD [address] [place] [address] PCP - General Internal Medicine 07/28/10 07/14/13 Filippo Vazquez PA-C [address] [place] [address] PCP - General Physician Roll Tester - Medical 07/15/13 08/06/13 Gauri Cortez MD [address] [place] [address] PCP - General Internal Medicine 08/07/13 Ines Aguilar APRN MANAGER TRANSFUSION PCP - Assigned PCP 02/11/18 04/07/18 Lucero Perez APRN MANAGER TRANSFUSION [address] [place] [address] PCP - Assigned PCP 12/31/17 02/10/18 Gauri Cortez MD [address] [facility] 200 [place] [address] PCP - Assigned PCP 04/08/18 05/15/18 Gauri Cortez MD [address] [facility] 200 [place] [address] Assigned PCP 04/08/18 08/11/18 Lucero Perez APRN [facility] [address] [place] [address] Assigned PCP 08/12/18 09/29/18 Gauri Cortez MD [address] [facility] [address] [place] [address] Assigned PCP 09/30/18 Sharif [place] MD [address] [id number] [place] [address] Assigned Surgical Provider 04/30/22 11/02/23 documented as of this encounter
--- OUTSIDE RECORDS SUMMARY | 2023-12-12 07:42 | XMS_ITS | Encounter Summary ---
Author Organization [place] Address [address] [facility] [place] [address] Care Team Providers Care Music Artist Name Role Phone Tyra Jorge MD Primary Care Provider [phone] Gauri Cortez MD Primary Care Provider [phone] Filippo Vazquez PA-C Primary Care Provider Gauri Cortez MD Primary Care Provider [phone] Ines Aguilar GREEN HOUSE MANAGER FOOD SANITARIAN Unavailable Un available Lucero Perez GREEN HOUSE MANAGER FOOD SANITARIAN Unavailable + Gauri Cortez MD Unavailable [phone] Gauri Cortez MD Unavailable [phone] Lucero Perez GREEN HOUSE MANAGER FOOD SANITARIAN Unavailable + Gauri Cortez MD Unavailable [phone] Sharif [place] MD Unavailable [phone] Encounter Details Date Type Department Care Team (Late st Contact Info) Description 06/06/2008 Office Visit-[facility] [address] [place] [address] Rangel Dumas MD Social History [...] Rangel Dumas M.D. DATE: 06/06/2008 [address] [id number] DATE OF : 1955 AGE: [age] years old Referring Physician: TYRA JORGE Referring Clinic: [facility] CURRENT DIAGNOSES 1. Palpitations, 785.1 2. [...] Out COVID-19 02/10/2020 02/10/2020 02/11/2020 5:33 PM PERSONNEL ASSISTANT documented as of this encounter Care Teams Music Artist Relationship Specialty Start Date End Date Tyra Jorge MD PCP - General 10/27/03 07/27/10 Gauri Cortez MD [address] [address] PCP - General Internal Medicine 07/28/10 07/14/13 Filippo Vazquez PA-C [address] [place] [address] PCP - General Physician Fur Farmer - Medical 07/15/13 08/06/13 Gauri Cortez MD [address] [email or web address] [address] [place] [address] PCP - General Internal Medicine 08/07/13 Ines Aguilar APRN FOOD SANITARIAN PCP - Assigned PCP 02/11/18 04/07/18 Lucero Perez APRN FOOD SANITARIAN [address] [place] [address] PCP - Assigned PCP 12/31/17 02/10/18 Gauri Cortez MD [address] [address] PCP - Assigned PCP 04/08/18 05/15/18 Gauri Cortez MD [address] [address] Assigned PCP 04/08/18 08/11/18 Lucero Perez APRN FOOD SANITARIAN [address] [place] [address] Assigned PCP 08/12/18 09/29/18 Gauri Cortez MD [address] [email or web address] 200 [place] [address] Assigned PCP 09/30/18 Sharif [place] MD [address] [id number] [place] [address] Assigned Surgical Provider 04/30/22 11/02/23 documented as of this encounter
--- OUTSIDE RECORDS SUMMARY | 2023-12-12 07:42 | XMS_ITS | Encounter Summary ---
Author Organization [place] Address [address] [facility] [place] [address] Care Team Providers Care Systems Technologist Name Role Phone Gauri Cortez MD Primary Care Provider [phone] Filippo Vazquez PA-C Primary Care Provider Gauri Cortez MD Primary Care Provider [phone] Ines Aguilar APRN WOOD MACHINIST Unavailable Un available Lucero Perez APRN WOOD MACHINIST Unavailable + Gauri Cortez MD Unavailable [phone] Gauri Cortez MD Unavailable [phone] Lucero Perez APRN WOOD MACHINIST Unavailable + Gauri Cortez MD Unavailable [phone] Sharif Mayer MD Unavailable [phone] Encounter Details Date Type Department Care Team (Late st Contact Info) Description 07/17/2012 External Order Results [facility] [id number] [place] [address] [place] [address] [place] [address] Social History Tobacco Use Types [...] Out COVID-19 02/10/2020 02/10/2020 02/11/2020 5:33 PM CUT OFF MACHINE HELPER documented as of this encounter Care Teams Systems Technologist Relationship Specialty Start Date End Date Gauri Cortez MD [address] [place] [address] PCP - General Internal Medicine 07/28/10 07/14/13 Filippo Vazquez PA-C [address] [place] [address] PCP - General Physician Optical Lab Technician - Medical 07/15/13 08/06/13 Gauri Cortez MD [address] [place] [address] PCP - General Internal Medicine 08/07/13 Ines Aguilar, MEDIA PRODUCTION MANAGER WOOD MACHINIST PCP - Assigned PCP 02/11/18 04/07/18 Lucero Perez, MEDIA PRODUCTION MANAGER WOOD MACHINIST [address] [address] PCP - Assigned PCP 12/31/17 02/10/18 Gauri Cortez MD [address] [place] [address] PCP - Assigned PCP 04/08/18 05/15/18 Gauri Cortez MD [address] [facility] [address] [place] [address] Assigned PCP 04/08/18 08/11/18 Lucero Perez APRN [facility] [address] [place] [address] Assigned PCP 08/12/18 09/29/18 Gauri Cortez MD [address] [facility] [address] [place] [address] Assigned PCP 09/30/18 Sharif Mayer MD [address] [place] [address] Assigned Surgical Provider 04/30/22 11/02/23 documented as of this encounter
--- OUTSIDE RECORDS SUMMARY | 2023-12-12 07:42 | XMS_ITS | Encounter Summary ---
Author Organization [place] Address [address] [place]. [address] Care Team Providers Care Ship Runner Name Role Phone Gauri Cortez MD Primary Care Provider Gauri Cortez MD Unavailable Sharif Mayer MD Unavailable [phone] Reason for Visit * Reason Onset Date Comments Results 12/13/2018 dexa scan and re port mailed to Dr. Annie murcia #5100 [place] [address] pn Encounter Details Date Type Department Care Team (Late st Contact Info) Description 12/13/2018 Telephone [employer] [address] [facility] [address] [place] [address] Gauri Cortez MD [address] [place] [address] Results (dexa scan and report mailed to Dr. Annie murcia #[address] [place] [address] pn) Social History Tobacco Use Types Packs/Day [...] scan and report mailed to Dr. Valencia [address] [place] [address] pn documented in this encounter Plan of Treatment Not on file documented as of this encounter Visit Diagnoses Not on filedocumented in this encounter Additional Health Concerns Infection Onset Date Last Indicated Resolved Time Rule Out COVID-19 02/10/2020 02/10/2020 02/11/2020 5:33 PM COMMUNITY HEALTH SPECIALIST Assessment Noted Time PHQ-9 Depression Total Score: 2 09/28/19 19 8:54 AM CDT documented as of this encounter Care Teams Ship Runner Relationship Specialty Start Date End Date Gauri Cortez MD [address] [facility] [address] [place] [address] PCP - General Internal Medicine 08/07/13 Gauri Cortez MD [address] [facility] 200 [place] [address] Assigned PCP 09/30/18 Sharif Mayer MD [address] [place] [address] Assigned Surgical Provider 04/30/22 11/02/23 documented as of this encounter
--- OUTSIDE RECORDS SUMMARY | 2023-12-12 07:42 | XMS_ITS | Encounter Summary ---
Author Organization [place] Address [address] [facility] [place] [address] Care Team Providers Care Movie Theater Usher Name Role Phone Tyra Jorge MD Primary Care Provider [phone] Gauri Cortez MD Primary Care Provider [phone] Filippo Vazquez PA-C Primary Care Provider Gauri Cortez MD Primary Care Provider [phone] Ines Aguilar INSOLVENCY CONSULTANT MIDDLE SCHOOL TEACHER Unavailable Un available Lucero Perez INSOLVENCY CONSULTANT MIDDLE SCHOOL TEACHER Unavailable + Gauri Cortez MD Unavailable [phone] Gauri Cortez MD Unavailable [phone] Lucero Perez INSOLVENCY CONSULTANT MIDDLE SCHOOL TEACHER Unavailable + Gauri Cortez MD Unavailable Sharif Mayer MD Unavailable [phone] Encounter Details Date Type Department Care Team (Late st Contact Info) Description 02/27/2006 Office Visit-[facility] [place] [address] [facility] [address] [place] [address] Ip, Carl Ulloa MD [address] [facility] [address] [place] [id number] Social History Tobacco Use Types Packs/Day Years [...] - lives with ; Place of - [place]; Hours Worked - 40 hours per week; [...] Out COVID-19 02/10/2020 02/10/2020 02/11/2020 5:33 PM PRODUCE PRODUCTION TEAM MEMBER documented as of this encounter Care Teams Movie Theater Usher Relationship Specialty Start Date End Date Tyra Jorge MD PCP - General 10/27/03 07/27/10 Gauri Cortez MD [address] [place], [place] [address] PCP - General Internal Medicine 07/28/10 07/14/13 Filippo Vazquez PA-C [address] [place], [place] [address] PCP - General Physician Irrigation District Manager - Medical 07/15/13 08/06/13 Gauri Cortez MD [address] [place], [place] [address] PCP - General Internal Medicine 08/07/13 Ines Aguilar, INSOLVENCY CONSULTANT MIDDLE SCHOOL TEACHER PCP - Assigned PCP 02/11/18 04/07/18 Lucero Perez, INSOLVENCY CONSULTANT MIDDLE SCHOOL TEACHER [address] [place] [address] PCP - Assigned PCP 12/31/17 02/10/18 Gauri Cortez MD [address] [place], [place] [address] PCP - Assigned PCP 04/08/18 05/15/18 Gauri Cortez MD [address] [place] [address] Assigned PCP 04/08/18 08/11/18 Lucero Perez APRN MIDDLE SCHOOL TEACHER [address] [place] [address] Assigned PCP 08/12/18 09/29/18 Gauri Cortez MD [address] [place] [address] Assigned PCP 09/30/18 Sharif Mayer MD [id number] [place] [address] Assigned Surgical Provider 04/30/22 11/02/23 documented as of this encounter
--- OUTSIDE RECORDS SUMMARY | 2023-12-12 07:42 | XMS_ITS | Encounter Summary ---
Author Organization [place] Address [address] [place] [address]. [place] [address] Care Team Providers Care Veterinary Surgeon Name Role Phone Tyra Cardona MD Primary Care Provider [phone] Gauri Cortez MD Primary Care Provider [phone] Filippo Vazquez PA-C Primary Care Provider Gauri Cortez MD Primary Care Provider [phone] Ines Aguilar TOP CUTTER UTILIZATION REVIEW COORDINATOR Unavailable Un available Lucero Perez TOP CUTTER UTILIZATION REVIEW COORDINATOR Unavailable + Gauri Cortez MD Unavailable [phone] Gauri Cortez MD Unavailable [phone] Lucero Perez TOP CUTTER UTILIZATION REVIEW COORDINATOR Unavailable + Gauri Cortez MD Unavailable Sharif Mayer MD Unavailable [phone] Encounter Details Date Type Department Care Team (Late st Contact Info) Description 05/26/2010 [facility] [address] [place] [address] [place] [address] [address] [place] [address] Social History Tobacco Use Types [...] Out COVID-19 02/10/2020 02/10/2020 02/11/2020 5:33 PM CARPENTER/LABOR documented as of this encounter Care Teams Veterinary Surgeon Relationship Specialty Start Date End Date Tyra Cardona MD PCP - General 10/27/03 07/27/10 Gauri Cortez MD [address] [place] [address] PCP - General Internal Medicine 07/28/10 07/14/13 Filippo Vazquez PA-C [address] [place] [address] PCP - General Physician Conflicts Analyst - Medical 07/15/13 08/06/13 Gauri Cortez MD [address] [place] [address] PCP - General Internal Medicine 08/07/13 Ines Aguilar APRN UTILIZATION REVIEW COORDINATOR PCP - Assigned PCP 02/11/18 04/07/18 Lucero Perez APRN UTILIZATION REVIEW COORDINATOR [address] [place] [address] PCP - Assigned PCP 12/31/17 02/10/18 Gauri Cortez MD [address] [place] [address] PCP - Assigned PCP 04/08/18 05/15/18 Gauri Cortez MD [address] [facility] [address] [place], [place] [address] Assigned PCP 04/08/18 08/11/18 Lucero Perez APRN [facility] [address] [place] [address] Assigned PCP 08/12/18 09/29/18 Gauri Cortez MD [address] [facility] [address] [place] [address] Assigned PCP 09/30/18 Sharif Mayer MD [address] [place] [address] Assigned Surgical Provider 04/30/22 11/02/23 documented as of this encounter
== END 2023-12-12 07:27 | disposition home or self-care (01) ==
PROVIDERS: PCP Family Medicine; Visit Provider Family Medicine
DX: Z00.00 Encounter for general adult medical examination without abnormal findings (principal); E03.9 Hypothyroidism, unspecified; N18.31 Chronic kidney disease, stage 3a; I10 Essential (primary) hypertension; Z13.1 Encounter for screening for diabetes mellitus; Z13.6 Encounter for screening for cardiovascular disorders; Z11.59 Encounter for screening for other viral diseases
CPT/HCPCS: 80053; 80061; 82043; 82570; 84443; 86803

== ENCOUNTER 2024-03-01 09:39 | Outpatient (CLI) | payer MEDICARE, BC, SELFPAY ==
--- OUTSIDE RECORDS SUMMARY | 2024-02-29 10:38 | XMS_ITS | Data Portability ---
Author Organization [facility] Patient Home Address [place], [place] [address] Assessment No assessment recorded. Plan of Treatment Reminders Order Date Submit Date Provider Last Modified By Organization Details Last Modified Time Details Appointments None recorded. Lab None recorded. Referral None recorded. Procedures None recorded. Surgeries None recorded. Imaging None recorded. Medication Orders diclofenac 1 % topical gel 2018 019 INTERFACE [id number], [address], [place], [address], 9 15:10:35 Patient TargetsNo targets recorded. Patient Instructions Encounter Date Encounter Id Patient Instructions Last Modified By Organization Details Last Modified Time 06/20/2018 [id number] foot arthritis: exercises Not available 06/21/2018 14:25:19 I would agree th at the final course of action would be surgical Fusion of both the MTPJs and the TMT (2-4) would be indicated. She understandably does not want to go that route and is concerned about fixation with her osteopenia. In lieu of surgery, custom inserts would be advised. SHe has had some in the past which she could not get used to I am going to take that in to consideration and have rather flexible functional inserts made. I also ordered topical diclofenac for her OA and Achilles tendonitis. We also discussed cortisone injections prior to her trip to [place] This could also be diagnositic to determine if fusing just one area (TMT vers MTJ) would be possible (if injections are done separately) rescott2 Not available 06/21/2018 14:25:15 02/26/2019 [id number] I explained the etiology of calluses / corns. The skin is thicknening due to excess pressure or friction We can reduce the build up of skin with the use of keratolytics (lotions which include acids) to help soften the callused skin and make it easier to remove with callus files. Basin removers can be used, but should be used with caution- I advise using it for a shorter time period than advised on the packaging on the first use-until one knows how the skin responds to the strong acid. These are good starting points for over the counter products which may help. I also trimmed a bit of the cork on the left inserts in case it was rubbing on the area. Not available 02/26/2019 19:24:23 Reason for Referral None Reported. Problems Name Problem SNOMED Code Status Onset Date Resolution Date Notes Provider Name and Address Organization Details Recorded Time Achilles tendinitis 00190254 Active 019 Lakeshia Tavarez, TAIM [address], [place], [address], [facility]heed [facility]ang.P[facility] P[facility] 9 14:17:57 Acquired hallux limitus Active 019 Lakeshia Tavarez, DPM [address], [place], [address], Shaheed Liang.P.MFracisco, P.A. 9 14:18:27 Problem Notes None recorded. Procedures Surgical History Date Name Laterality Status Provider Name and Address Organization Details Recorded Time 9 orthotic casting completed Lakeshia Tavarez DPM [address], [place], [address], Shaheed Liang.P.M[facility] P.A[facility] 06/21/2018 14:24:18 Imaging Results None recorded. Procedure Notes None recorded. Medical Equipment None Reported. Allergies Allergen ID Allergen Name Allergen Category Reaction Reaction Severity Criticality Documentation Date Start Date Code Code System Note Provider Name and Address Organization Details Recorded Time 19333 adhesive tape environme nt,medica tion Not available Not available Not available 06/20/2018 Melinda menezes, Shaheed Liang.P.M[facility] P.A. 9 14:38:13 62261 Substance with sulfonami de structure and antibacte rial mechanism of action (substanc e) medicatio n Not available Not available Not available 06/20/2018 68023 8003 SNOMED Melinda IversonWILLIE childs D.P.M., P.A. 9 14:38:22 14605 procaine hydrochlo ride medicatio n Not available Not available Not available 06/20/2018 61711 8 RxNorm Melinda Pro WILLIE menezes D.P.M[facility] P.A. 9 14:38:43 71901 epinephri ne medicatio n Not available Not available Not available 06/20/2018 3992 RxNorm Melinda IversonWILLIE childs D.P.M., P.A. 9 14:38:53 20183 Remicade medicatio n Not available Not available Not available 06/20/2018 42134 0 RxNorm Melinda IversonWILLIE childs D.P.M., P.A. 9 14:39:03 19697 prednison e medicatio n Not available Not available Not available 06/20/2018 8640 RxNorm Melinda Pro WILLIE menezes D.P.M[facility] P.A. 9 14:39:14 55336 acetamino phen / oxycodone medicatio n Not available Not available Not available 06/20/2018 29528 3 RxNorm Melinda Pro WILLIE menezes D.P.M[facility] P.A. 9 14:39:26 30638 cortisone medicatio n Not available Not available Not available 06/20/2018 2878 RxNorm Melinda IversonWILLIE childs D.P.M., P.A. 9 14:39:42 29083 gold sodium thiomalat e medicatio n Not available Not available Not available 06/20/2018 4981 RxNorm Melinda HartWILLIE lama D.P.M., P.A. 9 14:56:45 38677 bacitraci n / neomycin / polymyxin B medicatio n Not available Not available Not available 06/20/2018 53871 9 RxNorm Melindajeanne TelloWILLIE lama D.P.M., P.A. 9 14:56:56 35319 alpha tocophero l medicatio n Not available Not available Not available 06/20/2018 75340 9 RxNorm Melindajeanne TelloWILLIE lama D.P.M., P.A. 9 14:57:16 Medications Name Sig Start Date Stop Date Status Note LastModified by Organization Details LastModified Time valsartan active Not Available Not Macarena ilable Not Available Synthroid active Not Available Not Macarena ilable Not Available Xanax active Not Available Not Availa ble Not Available Celebrex active Not Available Not Avai lable Not Available Vagifem active Not Available Not Avail able Not Available diclofenac 1 % topical gel APPLY 2 GRAM TO THE AFFECTED AREA(S) BY TOPICAL ROUTE 2 TIMES PER DAY 019 active Not Available Not Available Not Avai lable Vitals Date Recorded Body height Body mass index (BMI) Body weight Provider Name and Address Organization Details Last Updated DateTime 06/20/2018 170.18 cm 25.8 kg/m2 63664.74 g Melinda Cuddywatson [facility]arez [facility] 06/20/2018 14:38:01 Date Recorded Body height Body mass index (BMI) Body weight Provider Name and Address Organization Details Last Updated DateTime 02/26/2019 170.18 cm 25.8 kg/m2 47328.74 tez Melinda [facility]arez [facility] 02/26/2019 14:43:29 Social History Question Answer Notes LastModified by Organizat ion Details LastModified Time Tobacco Smoking Status Never Smoker [facility] Bernal [facility] 06/20/2018 14:51:15 What Was The Date Of Your Most Recent Tobacco Screening? 06/20/2018 Information n ot available 10/04/2018 Sex: Unknown Functional Status None recorded. Mental Status None recorded. Family History Nothing Reported. Medical History Condition Response Cancer Y Arthritis Y Hypertension Y Gynecological HistoryNo gynecological history recorded. Obstetrics History GPAL:G 0 P 0 0 0 0 Past Encounters Encounter ID Performer Location Encounter Start Date Encounter Closed Date Diagnosis/Indication Diagnosis SNOMED-CT Code Diagnosis ICD10 Code [id number] Lakeshia Tavarez DPM OFFICE [address] [place] [address] 06/20/2018 14:35:07 06/20/2018 16:02:38 Achilles tendinitis 77165140 M76.62 Acquired h allux limitus 106034329 M20.5X1 M20.5X2 Localized, primary osteoarthritis of the ankle and/or foot 920120258 M19.079 [id number] Lakeshia Tavarez DPM OFFICE [address] [place] [address] 02/26/2019 14:37:52 02/26/2019 15:28:53 Porokeratosis 605516805 Q82.8 Health Concerns Section Related Observation LastModified by Organization Detai ls LastModified Time None Recorded Concern Status LastModified by Organization Details LastModified Time None Recorded Advance Directives Directive None Recorded Payers Encounter Date Sequence Insurance Name Policy Number Policy Coker Covered Member ID Coker Member ID Guarantor Name 06/20/2018 1 PREFERREDONE [id number] Jocelyn Stauffer [id number] Jocelyn Stauffer 02/26/2019 1 PREFERREDONE [id number] Jocelyn Rosaak [id number] Jocelyn Stauffer 02/26/2019 2 *SELF PAY* Hailey Stauffer Notes Date Note Type Note Provider Name and Address Organization Details Recorded Time 06/20/2018 text/html Foot- PodiatryRe ported bypatient.Location:[facility] ateral; Great toe joint is her main problem. Pain starting on top of foot/medical arch/lateral ankle/achillies. Aggravating Factors:Walking a lot or on her feet for long periods of time, weather. Associated Symptoms:aching; sharp pain Previous Surgery:none Prior Imaging:x ray; About 2 months ago, which you reviewed. Previous Treatments:[facility]. Lakeshia Tavarez DPM [address] [facility],[address], [place], [address], [facility] 06/21/2018 14:25:22 02/26/2019 text/html Foot- PodiatryRe ported bypatient.Location:lef t; Small hard lesion on ball of foot. 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 02/26/2019 19:24:26 OBGyn Episode No OBEpisode recorded.
--- OUTSIDE RECORDS SUMMARY | 2024-02-29 10:38 | XMS_ITS ---
Author Organization [facility] Address [address] [place] [address] Care Team Providers Care Finished Yarn Examiner Name Role Phone Gauri Cortez MD Primary Care Provider KASHIF Baig Unavailable [phone] Chago Hart Unavailable [phone] REASON FOR VISIT Ear exam/HT Encounters Encounter Location Date Provider Diagnosis [facility] [address] [place] [address] 01/18/2024 Chago Hart Bilateral sensorineu ral hearing loss H90.3 Assessments Encounter Date Diagnosis (ICD Code) Assessment Notes Treatment Notes Treatment Clinical Notes Section Notes 01/18/2024 Bilateral sensorineural hearing loss (ICD-10 - H90.3) Plan Of Treatment Next Appt Details Follow Up: per ENT, Reason: Progress Notes * Jocelyn STAUFFER LDOB:[birth year] (68 yo F)Acc No.[id number]:01/18/2024 ENT Referred Audio Patient: Yayo PERESLORENZO Jocelyn Joel Provider: Jacobo Bolaños Ma, CCC-A :1955 A ge:68 Y S ex:Female Date:01/18/2024 Address:[address] [place], [place] Pcp:Gauri Cortez MD Subjective: * Chief Complaints: * E ar exam/HT * HPI: A udiology: o P brittany is seen through clinic for a hearing evaluation per Dr.Brian Feldman. See physician's HPI below. Nel Panda Au.D., am documenting and personally performing services for Jacobo Anders Ma, Danyi Ma, Au.D., attest that Jacobo Flaherty, has documented and personally performed the following services on my behalf. - -Narrative--: Jocelyn is feeling like she is having some hearing loss and she is worried she might have some wax in ears. She like to have ears checked and potentially cleaned and also would like a hearing test today. Her symptoms have been gradually progressive. * Medical History: * Surgical History: * Hospitalization/Major Diagno stic Procedure: * Medications: Objective: * Vitals: * Examination: A udiology: Tympanometry i s within normal limits, bilaterally. Audiogram R esults suggest normal hearing 250-3 kHz, sloping to moderate sensorineural hearing loss 6-8 kHz bilaterally. Hearing has decreased at 6 kHz bilaterally, compared to previous evaluation on 08/22/22, otherwise is stable. Word Recognition Score 9 0% in the right ear, and 100% in the left ear at 60 dB masked. Assessment: * Assessment: 1. B ilateral sensorineural hearing loss - H90.3 (Primary) Plan: * Treatment: * Procedure Codes: 9 2557 Comp audio without SRT, Modifiers: 59 15193 Tympanometry jyoti * Follow Up: p er ENT * * NIUM HYDROXIDE OPERATOR Sign off status: Completed true * Provider: Jacobo Bolaños Ma, [facility] Date: 03/19/2023 Generated for Hans adhikari/Cole/Karolina on: 05/01/2023 10:37 AM AMMONIUM HYDROXIDE OPERATOR History and Physical Notes * HPI (History of Present Illness) Category Sub-Category Detail Notes Category Not es Audiology o Patient is seen through clinic for a hearing evaluation per Dr.Brian Feldman. See physician's HPI below Nel Panda Au.D., am documenting and personally performing services for Jacobo Anders Ma, Danyi Ma Au.D., attest that Jacobo Flaherty, has documented and personally performed the following services on my behalf. Examination Category Sub-Category Detail Notes Category Not es Audiology Tympanometry is within normal limits, jyoti aterally Audiogram Results suggest norm al hearing 250-3 kHz, sloping to moderate sensorineural hearing loss 6-8 kHz bilaterally. Hearing has decreased at 6 kHz bilaterally, compared to previous evaluation on 08/22/22, otherwise is stable Word Recognition Score 90% in the right ear, and 100% in the left ear at 60 dB masked
--- OUTSIDE RECORDS SUMMARY | 2024-02-29 10:38 | XMS_ITS ---
Author Organization [facility] Address [address] [place] [address] Care Team Providers Care Inclined Railway Operator Name Role Phone Gauri Cortez MD Primary Care Provider KASHIF Baig Unavailable [phone] YVETTE CARY Unavailable [phone] REASON FOR VISIT sleep study Encounters Encounter Location Date Provider Diagnosis [facility] [address] [place] [address] 12/28/2022 YVETTE CARY Plan Of Treatment No Information Progress Notes * Jocelyn STAUFFER LDOB:[birth year] (67 yo F)Acc No.[id number]:12/28/2022 Patient: Yayo Jocelyn lawrence :1955 A ge:67 Y S ex:Female Address:[address] [facility] [place], [address] * true * Date: Generated for Printi ng/Faxing/eTransmitting on: 05/01/2023 10:37 AM FIREWORKS MAKER
--- OUTSIDE RECORDS SUMMARY | 2024-02-29 10:38 | XMS_ITS | Patient Health Record ---
Author Organization [facility] Address [address] [place] [address] Care Team Providers Care Fur Feeder Name Role Phone Gauri Cortez MD Primary Care Provider KASHIF Baig Unavailable [phone] Chago Hart Unavailable [phone] Allergies Allergen (clinical drug ingredient) Drug/Non Drug Allergy documented on EMR Reaction Allergy Type Onset Date Status Novacaine (uncoded) Unknown Allergy Active amoxicillin amoxicillin Unknown; Drug Allergy Act ebenezer ciprofloxacin Cipro Unknown Drug Allergy Act ebenezer codeine codeine sulfate reaction: other reaction rapid heart beat spacey; Drug Allergy Active erythromycin erythromycin ethylsuccinate reaction: other reaction stomach pain; Drug Allergy Active acetaminophen / oxycodone Percocet Unknown Drug Allergy Active infliximab Remicade Unknown Drug Allergy Active Substance with sulfonamide structure and antibacterial mechanism of action (substance) Sulfa Antibiotics Unknown Drug Allergy Active Reason For Referral No Information Medications Medication SIG (Take, Route, Frequency, Duration) Notes Start Date End Date Status ALPRAZolam 0.25 MG (Schedule IV Drug) T RENETTA 1 2 TABLETS BY MOUTH NIGHTLY NEEDED FOR ANXIETY Oral for 20 Active prednisoLONE Acetate 1 % INSTILL 1 DROP INTO RIGHT EYE THREE TIMES A DAY Ophthalmic for 7 Active Garlic 02/11/2015 Active coQ10 (ubiquinol) 02/11/2015 A ctive Triamcinolone Acetonide 0.1 % APPLY TWICE A DAY NEEDED TOPICALLY TO TRUNK External for 14 Active Metoprolol Tartrate 25 MG Oral for 90 Days Active Valsartan 320 MG TAKE 1/2 TABLET BY M OUTH EVERY DAY Oral for 90 Active Telmisartan 40 MG TAKE 1 TABLET BY MARIO TH DAILY Oral for 90 Days Active Vagifem 10 MCG USE ONE TABLET THREE TIMES PER WEEK. MILAN BRAND NAME ONLY. Vaginal for 90 Active Tymlos 3120 MCG/1.56ML Subcutaneous for 30 Days Active Cyclobenzaprine HCl 5 MG TAKE 1 TABLET ( 5 MG) BY MOUTH 2 TIMES DAILY NEEDED FOR MUSCLE SPASMS Oral for 15 Active Atorvastatin Calcium 40 MG TAKE 1 TABLET BY MOUTH EVERY DAY Oral for 90 Days Active Mupirocin 2 % 1 APPLICATION DAILY TOPICALLY APPLY TOPICALLY EVERY DAY NEEDED External for 7 Active Green Tea 02/11/2015 Active Lotemax 0.5 % APPLY A SMALL AMOUNT TO LEFT UPPER LID 2X A DAY FOR 4 DAYS Ophthalmic for 7 Active Centrum 02/11/2015 Active Celecoxib 200 MG take 1 capsule by or al route 2 times every day Oral for 30 Active Calcium Citrate 02/11/2015 Act ebenezer Synthroid 75 MCG TAKE 1 TABLET BY MARIO TH EVERY OTHER DAY Oral for 90 Active TheraCran 02/11/2015 Active Valsartan 02/11/2015 Active Social History Tobacco Use: Social History Observation Description Date Details (start date - stop date) Never Smoker NA - NA Tobacco use/smoking Question Answer Notes Are you a nonsmoker Alcohol Screen Question Answer Notes Did you have a drink containing alcohol in the p ast year? No Points 0 Interpretation Negative Problems Problem Type SNOMED Code ICD Code Onset Dates Problem Status W/U Status Risk Notes Problem [id number] Bilateral impac isatu cerumen (H61.23) Active confirmed Problem 025192117 Bilateral sensorineural hearing loss (H90.3) Active confirmed Problem 893906883 Gastroesophageal reflux disease, unspecified whether esophagitis present (K21.9) Active confirmed Problem Snoring (45619979) Snoring (R06.83) 02/11 015 0 confirmed [id number] Problem Localized swelling, mass and lump, neck (R22.1) 017 0 confirmed [id number] Problem Headache (24097685) Headache (R51) 015 0 confirmed [id number] Problem Chronic rhinitis (92571360) Purulent rhinitis (chronic) (J31.0) 017 0 confirmed [id number] Problem Encounter for examination of ears and hearing without abnorm (Z01.10) 015 0 confirmed [id number] Vital Signs Weight-kg 77.11 kg 01/18/2024 Height 67.0 in 01/18/2024 Weight 170 lbs 01/18/2024 BMI 26.62 kg/m2 01/18/2024 Encounters Encounter Location Date Provider Diagnosis [facility] [address] [place] [id number] 01/18/2024 KASHIF IRAHETA Bilateral sensorineu ral hearing loss H90.3 [facility] [address] [place] [address] 01/18/2024 Chago Hailey Bilateral sensorineu ral hearing loss H90.3 Assessments Encounter Date Diagnosis (ICD Code) Assessment Notes Treatment Notes Treatment Clinical Notes Section Notes 01/18/2024 Bilateral sensorineural hearing loss (ICD-10 - H90.3) Hearing is essentially stable with no major changes. Her hearing is normal in the speech frequencies. She is not a candidate for hearing aids. She is reassured. Suggest hearing test every 1 to 2 years. 01/18/2024 Bilateral sensorineural hearing loss (ICD-10 - H90.3) 01/18/2024 Other Body mass index material was printed Plan Of Treatment No Information Insurance Providers Payer Name Payer Address Payer Phone Subscriber Number Group Number Insured Name Patient Relationship to Insured Coverage Start Date Coverage End Date MEDICARE [address] [place] [address] [id number] Jocelyn Stauffer Self - patient is the insured 9 [facility] SECOND TO MEDICARE [address] [place], [place] [id number] Jocelyn Stauffer Self - patient is the insured 9 Medical (General) History Medical History History ICD Code Covid 19 vaccine 05/02/20 Conditions/Illness:: Hyperte nsion,Thyroid disease,Autoimmune disorders,Sleep apnea,Cancer Cancer: Skin Other Medical problems:: Crohns, Anklyos ing spondylitis, prediabetic Surgical History Surgery Date(Month/Year) Tonsillectomy/ Septoplasty 1986 c4-c6 neck Fusion 01/2010 laminotomy 2021
--- OUTSIDE RECORDS SUMMARY | 2024-02-29 10:38 | XMS_ITS ---
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 MILAN BRAND NAME ONLY. Vaginal for 90 Active Cyclobenzaprine HCl 5 MG TAKE 1 TABLET ( 5 MG) BY MOUTH 2 TIMES DAILY NEEDED FOR MUSCLE SPASMS Oral for 15 Active Mupirocin 2 % 1 APPLICATION DAILY TOPICALLY APPLY TOPICALLY EVERY DAY NEEDED External for 7 Active Lotemax 0.5 % APPLY A SMALL AMOUNT TO LEFT UPPER LID 2X A DAY FOR 4 DAYS Ophthalmic for 7 Active Celecoxib 200 MG take 1 capsule by or al route 2 times every day Oral for 30 Active Metoprolol Tartrate 25 MG Oral for 90 Days Active Telmisartan 40 MG TAKE 1 TABLET BY MARIO TH DAILY Oral for 90 Days Active Synthroid 75 MCG TAKE 1 TABLET BY MAROI TH EVERY OTHER DAY Oral for 90 Active ALPRAZolam 0.25 MG (Schedule IV Drug) T RENETTA 1 2 TABLETS BY MOUTH NIGHTLY NEEDED FOR ANXIETY Oral for 20 Active prednisoLONE Acetate 1 % INSTILL 1 DROP INTO RIGHT EYE THREE TIMES A DAY Ophthalmic for 7 Active Tymlos 3120 MCG/1.56ML Subcutaneous for 30 Days Active Atorvastatin Calcium 40 MG TAKE 1 TABLET BY MOUTH EVERY DAY Oral for 90 Days Active Green Tea 02/11/2015 Active Centrum 02/11/2015 Active Calcium Citrate 02/11/2015 Act ebenezer coQ10 (ubiquinol) 02/11/2015 A ctive Triamcinolone Acetonide 0.1 % APPLY TWICE A DAY NEEDED TOPICALLY TO TRUNK External for 14 Active TheraCran 02/11/2015 Active Valsartan 02/11/2015 Active Garlic 02/11/2015 Active Valsartan 320 MG TAKE 1/2 TABLET BY M OUT EVERY DAY Oral for 90 Active Social History Tobacco Use: Social History Observation Description Date Details (start date - stop date) Never Smoker NA - NA Tobacco use/smoking Question Answer Notes Are you a nonsmoker Alcohol Screen Question Answer Notes Did you have a drink containing alcohol in the p ast year? No Points 0 Interpretation Negative Vital Signs Height 67.0 in 01/18/2024 BMI 26.62 kg/m2 01/18/2024 Weight-kg 77.11 kg 01/18/2024 Weight 170 lbs 01/18/2024 Encounters Encounter Location Date Provider Diagnosis [facility] [address] [place] [address] 01/18/2024 KASHIF IRAHETA Bilateral sensorineu ral hearing loss H90.3 Assessments [...] test every 1 to 2 years. 01/18/2024 Other Body mass index material was printed Plan Of Treatment Treatment Notes Assessment Notes Bilateral sensorineural hearing loss Maria Guadalupe robbins is essentially stable with no major changes. Her hearing is normal in the speech frequencies. She is not a candidate for hearing aids. She is reassured. Suggest hearing test every 1 to 2 years. Other Body mass index mate marce was printed Next Appt Details Follow Up: 1 Year, Reason: Progress Notes * Jocelyn STAUFFER LDOB:[birth year] (68 yo F)Acc No.[id number]:01/18/2024 Patient: Jocelyn CASE Provider: Emily IRAHETA MD :1955 A ge:68 Y S ex:Female Date:01/18/2024 Address:[address] [place] [address] [facility] Pcp:Gauri Cortez MD Subjective: * Chief Complaints: * E ar exam/HT * HPI: - -Narrative--: Jocelyn is feeling like she is having some hearing loss and she is worried she might have some wax in ears. She like to have ears checked and potentially cleaned and also would like a hearing test today. Her symptoms have been gradually progressive. * Medical History: * Surgical History: T onsillectomy/ Septoplasty [id number] neck Fusion 01/2010laminotomy 2021 * Hospitalization/Major Diagno stic Procedure: N o Hospitalization History. * Family History: M other: None. F ather: Family history unknown. S iblings: Hearing Loss. P aternal Grand Father: Family history unknown. P aternal Grand Mother: Hearing Loss. M aternal Grand Father: Family history unknown. M aternal Grand Mother: None. S on(s): diagnosed with Environmental allergies. * Social History: T obacco Use: T obacco use/smoking A re you a n onsmoker A lcohol Use: A lcohol Screen D id you have a drink containing alcohol in the past year? 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 * Medications: T akingprednisoLONE Acetate 1 % Suspension INSTILL 1 DROP INTO RIGHT EYE THREE TIMES A DAY Ophthalmic ALPRAZolam 0.25 MG Tablet (Schedule IV Drug) TAKE 1 2 TABLETS BY MOUTH NIGHTLY NEEDED FOR ANXIETY Oral Synthroid 75 MCG Tablet TAKE 1 TABLET BY MOUTH EVERY OTHER DAY Oral Celecoxib 200 MG Capsule take 1 capsule by oral route 2 times every day Oral Lotemax 0.5 % Ointment APPLY A SMALL AMOUNT TO LEFT UPPER LID 2X A DAY FOR 4 DAYS Ophthalmic Mupirocin 2 % Ointment 1 APPLICATION DAILY TOPICALLY APPLY TOPICALLY EVERY DAY NEEDED External Cyclobenzaprine HCl 5 MG Tablet TAKE 1 TABLET (5 MG) BY MOUTH 2 TIMES DAILY NEEDED FOR MUSCLE SPASMS Oral Vagifem 10 MCG Tablet USE ONE TABLET THREE TIMES PER WEEK. MILAN BRAND NAME ONLY. Vaginal Valsartan 320 MG Tablet TAKE 1/2 TABLET BY MOUTH EVERY DAY Oral Triamcinolone Acetonide 0.1 % Cream APPLY TWICE A DAY NEEDED TOPICALLY TO TRUNK External coQ10 (ubiquinol) Garlic Valsartan TheraCran Calcium Citrate Centrum Green Tea Atorvastatin Calcium 40 MG Tablet TAKE 1 TABLET BY MOUTH EVERY DAY Oral Tymlos 3120 MCG/1.56ML Solution Pen-injector Subcutaneous Telmisartan 40 MG Tablet TAKE 1 TABLET BY MOUTH DAILY Oral Metoprolol Tartrate 25 MG Tablet Oral Medication List reviewed and reconciled with the patientTaking prednisoLONE Acetate 1 % Suspension INSTILL 1 DROP INTO RIGHT EYE THREE TIMES A DAY Ophthalmic Taking ALPRAZolam 0.25 MG Tablet (Schedule IV Drug) TAKE 1 2 TABLETS BY MOUTH NIGHTLY NEEDED FOR ANXIETY Oral Taking Synthroid 75 MCG Tablet TAKE 1 TABLET BY MOUTH EVERY OTHER DAY Oral Taking Celecoxib 200 MG Capsule take 1 capsule by oral route 2 times every day Oral Taking Lotemax 0.5 % Ointment APPLY A SMALL AMOUNT TO LEFT UPPER LID 2X A DAY FOR 4 DAYS Ophthalmic Taking Mupirocin 2 % Ointment 1 APPLICATION DAILY TOPICALLY APPLY TOPICALLY EVERY DAY NEEDED External Taking Cyclobenzaprine HCl 5 MG Tablet TAKE 1 TABLET (5 MG) BY MOUTH 2 TIMES DAILY NEEDED FOR MUSCLE SPASMS Oral Taking Vagifem 10 MCG Tablet USE ONE TABLET THREE TIMES PER WEEK. MILAN BRAND NAME ONLY. Vaginal Taking Valsartan 320 MG Tablet TAKE 1/2 TABLET BY MOUTH EVERY DAY Oral Taking Triamcinolone Acetonide 0.1 % Cream APPLY TWICE A DAY NEEDED TOPICALLY TO TRUNK External Taking coQ10 (ubiquinol) Taking Garlic Taking Valsartan Taking TheraCran Taking Calcium Citrate Taking Centrum Taking Green Tea Taking Atorvastatin Calcium 40 MG Tablet TAKE 1 TABLET BY MOUTH EVERY DAY Oral Taking Tymlos 3120 MCG/1.56ML Solution Pen- injector Subcutaneous Taking Telmisartan 40 MG Tablet TAKE 1 TABLET BY MOUTH DAILY Oral Taking Metoprolol Tartrate 25 MG Tablet Oral Medication List reviewed and reconciled with the patient * Allergies: a moxicillin: Unknown; - Allergycodeine sulfate: reaction: other reaction rapid heart beat spacey; - Allergyerythromycin ethylsuccinate: reaction: other reaction stomach pain; - AllergyNovacaineCiproRemicadePercocetSulfa Antibioticsno[Allergies Verified] Objective: * Vitals: W t-lbs: 170 lbs, Ht: 67.0 in, BMI:26.62Index, Wt-k.11 kg. * Examination: C onstitutional: General Appearance: N ormal, Well developed, Well nourished, No obvious distress. Ability to Communicate: N ormal, Communicates appropriately. H ead and Face: Appearance and Symmetry: N ormal, Facial strength symmetric, No scalp or facial scarring or suspicious lesions. E yes: Appearance N ormal extraocular movements, No nystagmus, Conjunctiva normal. 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 Auricle: N ormal, Auricles without scars, lesions, or masses. External auditory canal: E xternal auditory canal normal.? Tympanic membrane: T ympanic membranes normal without swelling or erythema. N ose: Architecture: N ormal, Grossly normal external nasal architecture with no masses or lesions. O ral Cavity and Oropharynx: Lips: N ormal, No lip deformities. Dental and gingiva: N ormal, No obvious dental or gingival disease. Mucosa: N ormal, Moist mucous membranes. ? N kartik: Masses/lymph nodes: N ormal, No visible neck masses or swelling. N eurological: Alertness and orientation: N ormal, Responsive, oriented x 3. Cranial Nerves II-XII N ormal. Speech pattern: N ormal, Prosaic, Direct with normal inflection and intonation. C ardiovascular: Peripheral vascular system: N ormal, including normal palpable exam of the head and neck, including no abnormal pulsations or thrills. Pulse N ormal. R espiratory: Symmetry and Respiratory effort: N ormal, Symmetric chest movement and expansion with no increased intercostal retractions or use of accessory muscles. Breath sounds: N ormal. L arynx and Hypopharynx, mirror or scope: Voice Quality: N ormal voice quality. ? A udiology: Tympanometry i s within normal [...] loss - H90.3 (Primary) Plan: * Treatment: 2. O thers Notes: Body mass index material was printed * Procedure Codes: * Preventive Medicine: MIPS: B WA Above Normal BMI Follow-up D ietary management education, guidance, and counseling * Follow Up: 1 Year * * NG PIT BOSS Sign off status: Completed true * Provider: Emily IRAHETA MD Date: 03/19/2023 Generated for Hans adhikari/Cole/Alexaitting on: 05/01/2023 10:37 AM GAMING PIT BOSS History and Physical Notes * Examination Category Sub-Category Detail Notes Category Not es Constitutional General Appearance: Normal, Well developed, Well nourished, No obvious distress Ability to Communicate: Normal, Communic ates appropriately Head and Face Appearance and Symmetry: Normal, Facial strength symmetric, No scalp or facial scarring or suspicious lesions Ears Clinical speech rece ption threshold: Normal, Able to hear normal speech Auricle: Normal, Auricles wit hout scars, lesions, or masses External auditory canal: External audito ry canal normal Tympanic membrane: Tympanic membranes n ormal without swelling or erythema Nose Architecture: Normal, Grossly normal external nasal architecture with no masses or lesions Oral Cavity and Oropharynx Lips: Normal, No lip deformities Dental and gingiva: Normal, No obvious d ental or gingival disease Mucosa: Normal, Moist mucous membranes Larynx and Hypopharynx, mirr or or scope Voice Quality: Normal voice quality Neck Masses/lymph nodes: Normal, No v isible neck masses or swelling Neurological Alertness and orientation: Maia l, Responsive, oriented x 3 Cranial Nerves II-XII Normal Speech pattern: Normal, Prosaic, Dir ect with normal inflection and intonation Respiratory Symmetry and Respiratory effort: Normal, Symmetric chest movement and expansion with no increased intercostal retractions or use of accessory muscles Breath sounds: Normal Cardiovascular Peripheral vascular system: Norm al, including normal palpable exam of the head and neck, including no abnormal pulsations or thrills Pulse Normal Audiology Tympanometry is within normal limits, jyoti aterally Audiogram Results suggest norm al hearing 250-3 kHz, sloping to moderate sensorineural hearing loss 6-8 kHz bilaterally. Hearing has decreased at 6 kHz bilaterally, compared to previous evaluation on 08/22/22, otherwise is stable Word Recognition Score 90% in the right ear, and 100% in the left ear at 60 dB masked Eyes Appearance Normal extraocular movements , No nystagmus, Conjunctiva normal
--- NOTE | 2024-03-01 10:00 | CRLHL7_ITS ---
For Patients: As a result of the Century Cures Act, medical imaging exams and procedure reports are released immediately into your electronic medical record. You may view this report before your referring provider. If you have questions, please contact your health care provider. Indication: Nodule follow-up Technique: Noncontrast CT chest Please note that all CT scans at this facility use dose modulation, iterative reconstruction, and/or weight-based dosing when appropriate to reduce radiation dose to as low as reasonably achievable. Comparison: 11/30/2023 Findings: Similar 8 millimeter noncalcified nodule posterior segment left upper lobe. Smaller adjacent nodules are similar. Subpleural densities both lower lobes are also present, likely related to atelectasis. Scarring within the right anterior lung. Additional nodule may be present within the right upper lobe measuring 4 millimeters, 3/41. Atherosclerotic changes. No adenopathy. Incidental intrahepatic cyst. No fracture. Impression: Stable left upper lobe nodules measuring up to 8 millimeters. Additional 4 millimeter right upper lobe nodule. Follow-up noncontrast chest CT 6 months recommended. Please note that all CT scans at this facility use dose modulation, iterative reconstruction, and/or weight-based dosing when appropriate to reduce radiation dose to as low as reasonably achievable. Dictated by Nikhil Stapleton MD @ 03/01/2024 10:54:15 AM (Electronically Signed)
== END 2024-03-01 09:40 | disposition home or self-care (01) ==
LOC: CT 09:39
PROVIDERS: PCP Family Medicine; Visit Provider Family Medicine
DX: R91.1 Solitary pulmonary nodule (principal)
CPT/HCPCS: 71250

== ENCOUNTER 2024-04-08 14:26 | Outpatient (CLI) | payer MEDICARE, BC, SELFPAY | END 2024-04-08 14:27 | disposition home or self-care (01) | LOC: FRMREF 14:28 | PROVIDERS: PCP Family Medicine; Visit Provider Family Medicine | DX: R73.03 Prediabetes (principal); I10 Essential (primary) hypertension; N18.31 Chronic kidney disease, stage 3a; Z01.818 Encounter for other preprocedural examination | CPT/HCPCS: 80048; 87086 ==

== ENCOUNTER 2024-08-20 12:48 | Outpatient (CLI) | payer MEDICARE, BC, SELFPAY ==
--- NOTE | 2024-08-20 13:00 | CRLHL7_ITS ---
For Patients: As a result of the Century Cures Act, medical imaging exams and procedure reports are released immediately into your electronic medical record. You may view this report before your referring provider. If you have questions, please contact your health care provider. INDICATION : Lung nodules TECHNIQUE : Noncontrast chest CT scan with sagittal and coronal reconstruction COMPARISON: 03/01/[address] scan FINDINGS : Lung nodules: Stable 8 millimeter nodule near the left major fissure. No new nodules. Previous described 4 millimeter right lung nodule not identified on this exam. Lungs and pleura: No change. No effusion or consolidation. Scarring left lower lobe. Mediastinum: No change. No adenopathy. Coronary calcification LAD and circumflex. Abdomen/skeletal: Nonobstructing calcifications in the left kidney including the renal pelvis are new since previous. Stable small left lobe hepatic cyst. No suspicious skeletal abnormality. Scoliosis and disc degeneration. IMPRESSION : 1. Stable 8 millimeter left-sided lung nodule. 2. New nonobstructing calcifications in the left kidney and the left renal pelvis. [employer] SOC[employer] GUIDELINES - SOLID NODULES: SINGLE LOW RISK - nodule less than 6 mm: No routine follow-up. - nodule 6-8 mm: CT at 6-12 months, then consider CT at 18-24 months. - nodule greater than 8 mm: Consider CT at 3 months, PET/CT or tissue sampling. SINGLE HIGH RISK - nodule less than 6 mm: Optional CT at 12 months. - nodule 6-8 mm: CT at 6-12 months, then CT at 18-24 months. - nodule greater than 8 mm: Consider CT at 3 months, PET/CT or tissue sampling. LOW RISK = minimal or absent history of smoking or other known risk factors. HIGH RISK = history of smoking or other known risk factors. KNOWN RISK FACTORS: history of lung cancer in first-degree relative; exposure to asbestos, radon, or uranium. Please note that all CT scans at this facility use dose modulation, iterative reconstruction, and/or weight-based dosing when appropriate to reduce radiation dose to as low as reasonably achievable. Dictated by James Ma MD @ 08/22/2024 12:10:15 PM (Electronically Signed)
== END 2024-08-20 12:49 | disposition home or self-care (01) ==
LOC: CT 12:50
PROVIDERS: PCP Family Medicine; Visit Provider Family Medicine
DX: R91.1 Solitary pulmonary nodule (principal)
CPT/HCPCS: 71250

== ENCOUNTER 2024-12-17 09:35 | Outpatient (CLI) | payer MEDICARE, BC, SELFPAY | END 2024-12-17 09:36 | disposition home or self-care (01) | PROVIDERS: PCP Family Medicine; Visit Provider Family Medicine | DX: E03.9 Hypothyroidism, unspecified (principal); E78.5 Hyperlipidemia, unspecified; I25.10 Atherosclerotic heart disease of native coronary artery without angina pectoris; N18.31 Chronic kidney disease, stage 3a; K50.90 Crohn's disease, unspecified, without complications; R73.03 Prediabetes | CPT/HCPCS: 80053; 80061; 82043; 82570; 84443 ==